=== PATIENT | male | born 1950 | race Caucasian/White ===

== ENCOUNTER 2020-10-14 21:00 | Inpatient (IN) | payer MEDICARE, OTHER, SELFPAY ==
--- NOTE | ~2020-10-14 | XR_ITS ---
EXAMINATION: XR chest 2V EXAM DATE: 10/14/2020 21:52 INDICATION: Left anterior chest pain. History of myocardial infarction and stent placements. TECHNIQUE: Frontal and lateral projections of the chest obtained and reviewed. Comparison is made to prior examination from 07/16/2013. FINDINGS: The lungs are clear. There are no pleural effusions. The cardiomediastinal silhouette is within normal limits. There is no pneumothorax suspected. The bones and soft tissues are unremarkab le. IMPRESSION: No acute cardiopulmonary findings. Reviewed, dictated and finalized at location A.
[2020-10-14 20:58] VITALS: BP 135/75; PULSE 80; RESP 17; TEMP 37.6; O2SAT 97
--- NOTE | 2020-10-14 21:02 | ECG_ITS ---
Measurements Intervals [place] Rate: 74 P: 12 MD: 175 QRS: 56 QRSD: 113 T: -1 QT: 391 QTc: 434 Interpretive Statements SINUS RHYTHM INCOMPLETE RIGHT BUNDLE BRANCH BLOCK INFERIOR INFARCT, AGE INDETERMINATE BASELINE ARTIFACT- I, AVL ABNORMAL ECG Electronically Signed On 10-15-2020 6:17:16 CDT by Kuldip Odom D.O.
--- NOTE | 2020-10-14 21:15 | PC.NURSE ---
pt was given 2 nitro,s sl and nitro paste with 324 mg aspirin. pt arrived pain free.
[2020-10-14 21:25] LABS: Basophils Percent Auto 0.7 % (0.2-1.2); Eosinophils Absolute Auto 0.3 K/mm3 (0-0.3); Eosinophils Percent Auto 5.5 % (0-4.4); Hematocrit 40.4 % (42.0-52.0); Hemoglobin 13.7 g/dL (14.0-18.0); Lymphocytes Absolute Auto 1.33 K/mm3 (0.9-3.2); Lymphocytes Percent Auto 29.4 % (18.3-44.2); Mean Corpuscular HGB Conc 33.9 g/dl (32-36); Mean Corpuscular Hemoglobin 29.1 pg (26-34); Mean Corpuscular Volume 85.8 fl (80-100); Mean Platelet Volume 8.7 fl (7.4-10.4); Monocytes Absolute Auto 0.4 K/mm3 (0.1-0.6); Monocytes Percent Auto 9.3 % (2.6-8.5); Neutrophils Absolute Auto 2.5 K/mm3 (1.3-6.7); Neutrophils Percent Auto 55.1 % (45.5-73.1); Platelet Count Result 235 k/mm3 (150-375); Red Blood Count 4.71 M/mm3 (4.6-6.20); Red Cell Distribution Width 12.5 % (11.5-14.5); White Blood Count 4.5 K/mm3 (4.5-10.0)
[2020-10-14 21:34] LABS: Prothrombin Time 13.3 Seconds (11.1-14.7)
[2020-10-14 21:35] LABS: Partial Thromboplastin Time 27.2 SECONDS (22.3-36.8)
[2020-10-14 21:41] LABS: Anion Gap 11 mmol/L (8-16); Blood Urea Nitrogen 20 mg/dL (9-20); Calcium 9.1 mg/dL (8.4-10.2); Carbon Dioxide 27 mmol/L (22-30); Chloride 101 mmol/L (98-107); Estimated CRCL calculation 76 ml/min; Estimated Glomerular Filt Rate > 60; Glucose 135 mg/dL (75-110); Potassium 2.8 mmol/L (3.4-5.0); Sodium 139 mmol/L (137-145)
[2020-10-14 21:48] LABS: Troponin I < 0.012 ng/mL (0.000-0.034)
[2020-10-14] MEDS: KCL 20 MEQ/SW 100 ML 100 ML 50 MEQ IVPB (22:40)
[2020-10-14] MEDS: SODIUM CHLORIDE 0.9% IV 500 ML 250 ML (22:40)
[2020-10-14 22:46] VITALS: BP 115/63; PULSE 79; RESP 22; O2SAT 95
[2020-10-14] MEDS: POTASSIUM CHLORIDE 20 MEQ PACKET (FOR LIQUID) 40 MEQ PO (22:46)
--- NOTE | 2020-10-14 23:02 | ED.GENADULT ---
HPI - General Adult General Chief complaint: Chest Pain Stated complaint: CP Time Seen by Provider: 10/14/20 21:08 History of Present Illness HPI narrative: Patient is a 70-year-old gentleman who presents the emergency department chief complaint of chest pain. Patient reports that he has history of cardiac disease had stents placed in 2004 at [place] and also had recent stents placed when he was in [place]. Patient states that he has had to use nitroglycerin sublingually several times recently and tonight started having discomfort in his mid chest radiating to his arm the patient took sublingual nitroglycerin x2 doses the patient had nitro paste placed by EMS prior to arrival and received aspirin prior to arrival. The patient reports he is also been having some episodes of palpitations Related Data Home Medications Medication Instructions Recorded Confirmed Aspir-Low 81 mg PO DAILY 09/19/20 09/19/20 atorvastatin 80 mg PO HS 09/19/20 09/19/20 clonazepam 0.5 mg PO HS 09/19/20 09/19/20 epinephrine [Epi E-Z Pen] 09/19/20 febuxostat 40 mg PO DAILY 09/19/20 09/19/20 hydrochlorothiazide 50 mg PO DAILY 09/19/20 09/19/20 losartan 100 mg PO DAILY 09/19/20 09/19/20 omeprazole 40 mg PO DAILY 09/19/20 09/19/20 trazodone 50 mg PO HS PRN 09/19/20 09/19/20 Allergies Allergy/AdvReac Type Severity Reaction Status Date / Time bee venom protein (honey bee) Allergy Swelling Verified 09/19/20 09:09 Review of Systems Review of Systems: Narrative: A 10 system review of systems was completed on the patient and is negative except for what is stated in the HPI. Nursing and ancillary documentation was reviewed. [facility] Family History Family History Father Cerebrovascular accident Sibling Hypertension Acute myocardial infarction Mother Aplastic anemia Exam Narrative: Exam Narrative: GENERAL: Well-appearing, well-nourished, and in no acute distress. HEAD: Normocephalic, atraumatic. EYES: PERRLA and EOMI. ENT: Nares clear, no rhinorrhea or epistaxis. Mucous membranes moist. NECK: Supple. CHEST: Clear to auscultation. No respiratory distress. HEART: Regular rate and rhythm. No murmur heard. Normal peripheral pulses. ABDOMEN: Soft, nontender, nondistended, normal active bowel sounds. EXTREMITIES: Normal range of motion. No edema. SKIN: Warm, dry, no rash. NEURO: No focal deficits. Alert and oriented x3. PSYCH: Normal mood and affect. Course Vital Signs Vital signs: Vital Signs Temperature 37.6 C H 10/14/20 20:58 Pulse Rate 80 10/14/20 20:58 Respiratory Rate 17 10/14/20 20:58 Blood Pressure 135/75 10/14/20 20:58 Pulse Oximetry 97 10/14/20 20:58 Temperature 37.6 C H 10/14/20 20:58 Pulse Rate 79 10/14/20 22:46 Respiratory Rate 22 H 10/14/20 22:46 Blood Pressure 115/63 10/14/20 22:46 Pulse Oximetry 95 10/14/20 22:46 Medical Decision Making Vital Signs Vital Signs: Vital Signs Temperature 37.6 C H 10/14/20 20:58 Pulse Rate 80 10/14/20 20:58 Respiratory Rate 17 10/14/20 20:58 Blood Pressure 135/75 10/14/20 20:58 Pulse Oximetry 97 10/14/20 20:58 Temperature 37.6 C H 10/14/20 20:58 Pulse Rate 79 10/14/20 22:46 Respiratory Rate 22 H 10/14/20 22:46 Blood Pressure 115/63 10/14/20 22:46 Pulse Oximetry 95 10/14/20 22:46 Lab Data Result diagrams: 10/14/20 21:18 10/14/20 21:18 Labs: Lab Results 10/14/20 10/14/20 10/14/20 Range/Units 21:18 21:18 21:18 WBC 4.5 (4.5-10.0) K/mm3 RBC 4.71 (4.6-6.20) M/mm3 Hgb 13.7 L (14.0-18.0) g/dL Hct 40.4 L (42.0-52.0) % MCV 85.8 (80-100) fl MCH 29.1 (26-34) pg MCHC 33.9 (32-36) g/dl RDW 12.5 (11.5-14.5) % Plt Count 235 (150-375) k/mm3 MPV 8.7 (7.4-10.4) fl Immature Gran % (Auto) 0.0 (0-0.5) % Neut % (Auto) 55.1 (45.5-73.1) % Lymph % (Auto) 29.4 (18.3-44.2)
[2020-10-15] VITALS (19 sets, daily range): BP systolic 105–153; BP diastolic 36–77; PULSE 61–98; RESP 12–26; TEMP 36.1–36.9; O2SAT 94–99
--- NOTE | 2020-10-15 01:14 | ADMGEN ---
This patient, Francisco Javier Burrows, was admitted to IMU Room 201-01. Patient/family oriented to hospital policies and general routines including ID bracelet, bed and alarms, visiting hours, pain management, procedures, bathroom and other care routines, personal items, smoking policy, room service/diet, and visiting hours. Information on how to activate the Rapid Response Team has been discussed. Patient/Family are encouraged to report perceived risks to care and to ask questions if they do not understand what they are told or what they should do.
[2020-10-15 01:32] LABS: Troponin I < 0.012 ng/mL (0.000-0.034)
[2020-10-15 03:16] LABS: Basophils Percent Auto 0.7 % (0.2-1.2); Eosinophils Absolute Auto 0.2 K/mm3 (0-0.3); Eosinophils Percent Auto 5.1 % (0-4.4); Hematocrit 37.4 % (42.0-52.0); Hemoglobin 12.6 g/dL (14.0-18.0); Immature Granulocyte Absolute 0.01 K/mm3 (0.00-0.031); Immature Granulocyte Percent A 0.2 % (0-0.5); Lymphocytes Absolute Auto 1.48 K/mm3 (0.9-3.2); Lymphocytes Percent Auto 32.7 % (18.3-44.2); Mean Corpuscular HGB Conc 33.7 g/dl (32-36); Mean Corpuscular Hemoglobin 29.2 pg (26-34); Mean Corpuscular Volume 86.8 fl (80-100); Mean Platelet Volume 8.9 fl (7.4-10.4); Monocytes Absolute Auto 0.5 K/mm3 (0.1-0.6); Monocytes Percent Auto 10.6 % (2.6-8.5); Neutrophils Absolute Auto 2.3 K/mm3 (1.3-6.7); Neutrophils Percent Auto 50.7 % (45.5-73.1); Platelet Count Result 235 k/mm3 (150-375); Red Blood Count 4.31 M/mm3 (4.6-6.20); Red Cell Distribution Width 12.6 % (11.5-14.5); White Blood Count 4.5 K/mm3 (4.5-10.0)
[2020-10-15 03:20] LABS: Anion Gap 6 mmol/L (8-16); Blood Urea Nitrogen 20 mg/dL (9-20); Calcium 8.8 mg/dL (8.4-10.2); Carbon Dioxide 32 mmol/L (22-30); Chloride 102 mmol/L (98-107); Estimated CRCL calculation 64 ml/min; Estimated Glomerular Filt Rate 60; Glucose 116 mg/dL (75-110); Potassium 3.3 mmol/L (3.4-5.0); Sodium 140 mmol/L (137-145)
[2020-10-15 03:37] LABS: Troponin I < 0.012 ng/mL (0.000-0.034)
--- NOTE | 2020-10-15 03:47 | PM.IMHP ---
H&P: HPI History of Present Illness Date/Time: 10/15/20 03:47 Chief Complaint: Chest pain Narrative: This is a 70-year-old male with past medical history significant for coronary artery disease status post stent placement roughly a month ago, hypertension, dyslipidemia, gout. Patient presented to the emergency room after he had precordial chest pain with known in sensation of his left arm known radiating to jaw or shoulder it was oppressive in quality patient took nitroglycerin but did not go away and took a 2nd nitroglycerin and decided to come to the emergency room. Upon arrival to the emergency room patient's pain was rated at 4/10. Preliminary workup was unremarkable ECG was without acute changes as well as initial troponin. Patient has been in his usual state of health he denies any syncope near syncope dizziness lightheadedness had had some palpitations, no PND no orthopnea no shortness of breath no cough no sputum production no fevers no rigors no chills. Chest x-ray was unremarkable. BMP was significant for potassium was 2.8. Review of Systems Review of Systems: Narrative: Chest pain Constitutional: Constitutional: Denies chills, Denies fatigue, Denies fever(s) and Denies weakness Eyes: Eyes: Denies change in vision ENT: Denies nasal congestion, Denies nasal discharge and Denies nasal obstruction Cardiovascular: Cardiovascular: Reports chest pain, Reports chest pain at rest, Denies radiating jaw, neck or arm pain, Reports palpitations, Denies dyspnea on exertion and Denies paroxysmal nocturnal dyspnea Respiratory: Respiratory: Denies cough Gastrointestinal: Gastrointestinal: Denies nausea and Denies vomiting Genitourinary: Genitourinary: Reports no additional male genitourinary complaints Musculoskeletal: Musculoskeletal: Denies arthralgias, Denies joint swelling, Denies muscle cramps and Denies muscle weakness Integumentary/Breasts: Skin/Breast: Reports system reviewed and no additional complaints, except as docu Neurologic: Reports system reviewed and no additional complaints, except as documented Psychiatric: Psychiatric: Reports no additional psychiatric complaints Endocrine: Endocrine: Reports no additional endocrine complaints Hematologic/Lymphatic: Hematologic/Lymphatic: Reports no additional hematologic/lymphatic complaints Allergic/Immunologic: Allergic/Immunologic: Reports no additional allergic/immunologic complaints [facility] Family History Family History (Updated 10/15/20 @ 00:55 by Dia Perez RN) Father Cerebrovascular accident Sibling Acute myocardial infarction Hypertension Prostate carcinoma Mother Aplastic anemia Social History Social History Smoking status: Never smoker Alcohol intake: current Drinks per week: 2 Substance use: never Spiritual care concerns: Yes (Samantha) Meds Home Medications and Allergies Home Medications Medication Instructions Recorded Confirmed Type Aspir-Low 81 mg PO DAILY 09/19/20 10/15/20 History atorvastatin 80 mg PO HS 09/19/20 10/15/20 History clonazepam 0.5 mg PO HS 09/19/20 10/15/20 History epinephrine [Epi E-Z Pen] 0.3 mg IM PRN PRN 09/19/20 10/15/20 History febuxostat 40 mg PO DAILY 09/19/20 10/15/20 History hydrochlorothiazide 50 mg PO DAILY 09/19/20 10/15/20 History losartan 100 mg PO DAILY 09/19/20 10/15/20 History omeprazole 40 mg PO DAILY PRN 09/19/20 10/15/20 History trazodone 50 mg PO HS PRN 09/19/20 10/15/20 History clopidogrel 75 mg PO DAILY 10/15/20 10/15/20 History Allergies Allergy/AdvReac Type Severity Reaction Status Date / Time bee venom protein (honey bee) Allergy Swelling Verified 09/19/20 09:09 Vital Signs Vital Signs - 24 hr 10/14/20 20:58 10/14/20 22:46 10/15/20 00:26 Temperature 99.7 F H Pulse Rate 80 79 75 Respiratory Rate 17 22 H 20 Blood Pressure 135/75 115/63 105/54 L Pulse Oximetry 97 95 99 10/15/20 01:03 10/15/20 0
[2020-10-15] MEDS: CLOPIDOGREL BISULFATE 75 MG TABLET PO (11:56)
[2020-10-15] MEDS: FEBUXOSTAT 40 MG TABLET PO (11:56)
[2020-10-15] MEDS: hydroCHLOROthiazide 25 MG TABLET 50 MG PO (11:56)
[2020-10-15] MEDS: LOSARTAN POTASSIUM 100 MG TABLET PO (11:56)
[2020-10-15] MEDS: POTASSIUM CHLORIDE 20 MEQ TABLET 40 MEQ PO ×2 (11:57→13:37)
[2020-10-15] MEDS: ENOXAPARIN 40 MG/0.4 ML SYRINGE SUB-Q (12:01)
--- NOTE | 2020-10-15 12:24 | PM.CNCAR ---
Assessment and Plan Assessment and plan (1) Hypertension: Code(s): I10 - Essential (primary) hypertension Status: Acute Assessment and Plan: At goal (2) Coronary artery disease: Code(s): I25.10 - Atherosclerotic heart disease of [place] coronary artery without angina pectoris Status: Acute Assessment and Plan: Multiple stents to the LAD. It sounds as if he has had 7 LAD stents. Check a 2D echocardiogram Doppler (3) Unstable angina: Code(s): I20.0 - Unstable angina Status: Acute Assessment and Plan: Patient states that this is very reminiscent of what he had at the time of his myocardial infarction in 2013. Will treat with Enoxaparin 1 milligram/kilogram subcu x1. Resume low-dose metoprolol 6.25 mg p.o. b.i.d.. Continue aspirin, statin, clopidogrel, p.r.n. nitroglycerin. Will keep NPO after midnight and proceed with coronary angiogram to define his coronary anatomy to ensure there is no issues with his multiple stents that were placed. He may need long-term antianginal medication or possibly a simple resumption of low-dose beta-gadiel that had been recently stopped. Will keep NPO after midnight. DC Lexiscan which is ordered (4) Chest pain: Qualifiers: Chest pain type: unspecified Qualified Code(s): R07.9 - Chest pain, unspecified Code(s): R07.9 - Chest pain, unspecified Status: Acute Assessment and Plan: Anginal (5) Hypokalemia: Code(s): E87.6 - Hypokalemia Status: Acute Assessment and Plan: Will provide an additional 40 mEq of potassium chloride x1 orally (6) Tachycardia: Code(s): R00.0 - Tachycardia, unspecified Status: Acute Assessment and Plan: His recent episodes of tachycardia likely related to beta-gadiel withdrawal. History of Present Illness History of Present Illness Consult date/time: 10/15/20 12:24 Requesting physician: Kinga Velazquez MD Consult reason: chest pain Reason For Visit: Chest Pain, Hypokalemia Narrative: 10/15/2020 date of service: History patient is a 70-year-old male has history of coronary disease. He has had multiple stents to the LAD. In 2013 he had a myocardial infarction and was transferred to [facility] where Dr. Zhu put in 4 stents in his LAD he states. I do not have the exact details of this catheterization at this time. He has been following with him for the past several years. While visiting his daughter back in August in [place] he had chest pain again. He went into hospital and 3 more stents were placed to his LAD. He then came back home and had been feeling relatively well. Because of some bradycardia with heart rate around 50, his metoprolol was stopped. He was on low-dose metoprolol 12.5 mg p.o. b.i.d.. Since then though he has noticed his heart rate has been a bit more elevated. He has had 3 episodes usually of an evening which shows heart rate will be in the 120s. He has split his 12.5 mg metoprolol tartrate dose in half and he took 6.25 mg on 3 separate occasions which did improve his heart rate significantly and back down to in the 70s. Two days ago he had an episode of what he considers to be angina. His anginal pain was located in his anterior chest and he took 1 nitroglycerin which did relieve his symptoms. He was not as concerned about that episode but yesterday while driving his car he had a much more severe chest pain which reminded him very much of his myocardial infarction pain. His arm started become heavy and numb. He described the pain is sharp and constant but would wax and wane. He took a nitroglycerin which did not help. The 2nd nitroglycerin though did help. EMS was called and they proceeded to put nitroglycerin paste on him and his residual chest pain went away. He has had not had any chest pain since. He denies any recent syncope, paroxysmal nocturnal dyspnea, orthopnea, edema, palpitations. He has ruled out for myocardia
[2020-10-15] MEDS: ASPIRIN 81 MG CHEWABLE TABLET PO (13:37)
[2020-10-15] MEDS: METOPROLOL TARTRATE 6.25 MG TABLET PO ×2 (13:37→20:39)
--- NOTE | 2020-10-15 14:10 | PM.IMPN ---
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 [facility] 10/15/20 14:10 Patient is 70-year-old male with significant history coronary artery disease he had initial IA in 2013 and had 4 stents in his LAD he was doing reasonably well this August 03, 2020 patient was in [place] visiting [facility] and developed chest was taken to the [facility] and had a catheterization and had four more stents placed, patient presented to emergency depart with chest pain radiating to left arm and his left side of the neck described similar to his initial IA in 2013, currently 3 sets of cardiac enzymes are negative and there is no significant changes on EKG, patient is seen by Cardiology because of patient significant coronary artery disease and recent IA in August of 2020 hadoop architect recommending cardiac catheterization further evaluation will follow-up and further recommendation to follow. (2) Hypokalemia: Code(s): E87.6 - Hypokalemia Status: Acute Assessment and Plan: Replace as needed Repeated within normal limits (3) Coronary artery disease: Code(s): I25.10 - Atherosclerotic heart disease of [place] coronary artery without angina pectoris Status: Acute Assessment and Plan: Restart home meds Supportive care (4) Hypertension: Code(s): I10 - Essential (primary) hypertension Status: Acute Assessment and Plan: Stable Restart home med Continue to monitor Subjective Date/time seen: 10/15/20 14:10 Patient is 70-year-old male with significant history coronary artery disease he had initial IA in 2013 and had 4 stents in his LAD he was doing reasonably well this August 03, 2020 patient was in [place] visiting grandchildren and developed chest was taken to the [facility] and had a catheterization and had four more stents placed, patient presented to emergency depart with chest pain radiating to left arm and his left side of the neck described similar to his initial IA in 2013, currently 3 sets of cardiac enzymes are negative and there is no significant changes on EKG, patient is seen by Cardiology because of patient significant coronary artery disease and recent IA in August of 2020 hadoop architect recommending cardiac catheterization further evaluation will follow-up and further recommendation to follow. Review of Systems Review of Systems: All systems reviewed & are unremarkable except as noted in HPI and below Exam Narrative: Exam Narrative: Patient is comfortable, NAD HEENT: eyes are clear and none icteric LUNGS:CTA HEART: RR S1S2 ABD: BS+, Soft and nontender Lower extremities: no edema SKIN: nonjaundiced Neuro: grossly intact. Objective Data Vital Signs Vital Signs: Vital Signs - 24 hr 10/14/20 20:58 10/14/20 22:46 10/15/20 00:26 Temperature 99.7 F H Pulse Rate 80 79 75 Respiratory Rate 17 22 H 20 Blood Pressure 135/75 115/63 105/54 L Pulse Oximetry 97 95 99 10/15/20 01:03 10/15/20 01:11 10/15/20 04:00 Temperature 96.9 F L 96.9 F L 97.4 F L Pulse Rate 77 77 61 Respiratory Rate 16 16 16 Blood Pressure 122/70 122/70 107/36 L Pulse Oximetry 97 97 99 10/15/20 06:00 10/15/20 08:00 10/15/20 12:00 Temperature 98.3 F 97.7 F Pulse Rate 70 74 76 Respiratory Rate 12 16 Blood Pressure 127/77 153/64 H Pulse Oximetry 96 97 10/15/20 13:37 Temperature Pulse Rate 70 Respiratory Rate Blood Pressure Pulse Oximetry Intake/Output Intake/Output: Intake & Output 10/12/20 10/13/20 10/14/20 10/15/20 23:59 23:59 23:59 23:59 Intake Total 1120 Output Total 900 Balance 220 Meds/Results Medicat
[2020-10-15] MEDS: ENOXAPARIN 120 MG/0.8 ML SYRINGE SUB-Q (18:06)
[2020-10-15] MEDS: ATORVASTATIN 40 MG TABLET 80 MG PO (20:36)
[2020-10-15] MEDS: clonazePAM (*CRX) 0.5 MG TABLET PO (20:36)
[2020-10-15] MEDS: traZODone HCL 50 MG TABLET PO (22:31)
[2020-10-16] VITALS (20 sets, daily range): BP systolic 120–145; BP diastolic 51–83; PULSE 56–91; RESP 15–23; TEMP 36.3–36.8; O2SAT 95–99
[2020-10-16 05:33] LABS: Hematocrit 37.1 % (42.0-52.0); Hemoglobin 12.3 g/dL (14.0-18.0); Mean Corpuscular HGB Conc 33.2 g/dl (32-36); Mean Corpuscular Hemoglobin 28.6 pg (26-34); Mean Corpuscular Volume 86.3 fl (80-100); Mean Platelet Volume 9.2 fl (7.4-10.4); Platelet Count Result 212 k/mm3 (150-375); Red Cell Distribution Width 12.5 % (11.5-14.5); White Blood Count 4.6 K/mm3 (4.5-10.0)
[2020-10-16 05:47] LABS: Anion Gap 8 mmol/L (8-16); Blood Urea Nitrogen 20 mg/dL (9-20); Calcium 9.2 mg/dL (8.4-10.2); Carbon Dioxide 31 mmol/L (22-30); Chloride 102 mmol/L (98-107); Estimated CRCL calculation 69 ml/min; Estimated Glomerular Filt Rate 60; Glucose 104 mg/dL (75-110); Magnesium 1.9 mg/dL (1.6-2.3); Potassium 3.5 mmol/L (3.4-5.0); Sodium 141 mmol/L (137-145)
[2020-10-16] MEDS: FEBUXOSTAT 40 MG TABLET PO (09:02)
[2020-10-16] MEDS: CLOPIDOGREL BISULFATE 75 MG TABLET PO (09:02)
[2020-10-16] MEDS: LOSARTAN POTASSIUM 100 MG TABLET PO (09:02)
[2020-10-16] MEDS: METOPROLOL TARTRATE 6.25 MG TABLET PO (09:02)
[2020-10-16] MEDS: ASPIRIN 81 MG CHEWABLE TABLET PO (09:02)
--- NOTE | 2020-10-16 10:21 | PM.IMPN ---
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 [facility] 10/16/20 10:10/15Patient is 70-year-old male with significant history coronary artery disease he had initial ND in 2013 and had 4 stents in his LAD he was doing reasonably well this August 03, 2020 patient was in [place] visiting grandchildren and developed chest was taken to the [facility] and had a catheterization and had four more stents placed, patient presented to emergency depart with chest pain radiating to left arm and his left side of the neck described similar to his initial ND in 2013, currently 3 sets of cardiac enzymes are negative and there is no significant changes on EKG, patient is seen by Cardiology because of patient significant coronary artery disease and recent ND in August of 2020 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 10/16 today patient sitting in the chair, denies any chest pain or shortness of breath palpitation, he is scheduled for cardiac catheterization later today will follow-up further recommendation to follow. (2) Hypokalemia: Code(s): E87.6 - Hypokalemia Status: Acute Assessment and Plan: Replace as needed Repeated within normal limits (3) Coronary artery disease: Code(s): I25.10 - Atherosclerotic heart disease of [place] coronary artery without angina pectoris Status: Acute Assessment and Plan: Restart home meds Supportive care (4) Hypertension: Code(s): I10 - Essential (primary) hypertension Status: Acute Assessment and Plan: Stable Restart home med Continue to monitor Subjective Date/time seen: 10/16/20 10:10/15Patient is 70-year-old male with significant history coronary artery disease he had initial ND in 2013 and had 4 stents in his LAD he was doing reasonably well this August 03, 2020 patient was in [place] visiting grandchildren and developed chest was taken to the [facility] and had a catheterization and had four more stents placed, patient presented to emergency depart with chest pain radiating to left arm and his left side of the neck described similar to his initial ND in 2013, currently 3 sets of cardiac enzymes are negative and there is no significant changes on EKG, patient is seen by Cardiology because of patient significant coronary artery disease and recent ND in August of 2020 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 10/16 today patient sitting in the chair, denies any chest pain or shortness of breath palpitation, he is scheduled for cardiac catheterization later today will follow-up further recommendation to follow. Review of Systems Review of Systems: All systems reviewed & are unremarkable except as noted in HPI and below Exam Narrative: Exam Narrative: Patient is comfortable, NAD HEENT: eyes are clear and none icteric LUNGS:CTA HEART: RR S1S2 ABD: BS+, Soft and nontender Lower extremities: no edema SKIN: nonjaundiced Neuro: grossly intact. Objective Data Vital Signs Vital Signs: Vital Signs - 24 hr 10/15/20 12:00 10/15/20 13:37 10/15/20 14:00 Temperature 97.7 F Pulse Rate 70 70 89 Respiratory Rate 16 Blood Pressure 153/64 H Pulse Oximetry 97 10/15/20 16:00 10/15/20 17:21 10/15/20 18:00 Temperature 97.9 F Pulse Rate 69 66 Respiratory Rate 16 Blood Pressure 145/77 H Pulse Oximetry 97 97 10/15/20 19:59 10/15/20 20:00 10/15/20 20:39 Temperature 98.2 F Pulse Rate 63 68 Respiratory Rate 20
--- NOTE | 2020-10-16 10:39 | WPDMODSED ---
Moderate Sedation Note-Pt Data Patient Data Diagnosis: Coronary artery disease with previous PCI to the LAD. Records of these procedures are not available to me, remote stenting of the LAD and recent stenting of the LAD elsewhere Present Complaint: Chest pain Procedure to be performed/Plan: Follow-up coronary angiogram Allergies Allergy/AdvReac Type Severity Reaction Status Date / Time bee venom protein (honey bee) Allergy Swelling Verified 09/19/20 09:09 Home Medications Medication Instructions Recorded Confirmed Type Aspir-Low 81 mg PO DAILY 09/19/20 10/15/20 History atorvastatin 80 mg PO HS 09/19/20 10/15/20 History clonazepam 0.5 mg PO HS 09/19/20 10/15/20 History epinephrine [Epi E-Z Pen] 0.3 mg IM PRN PRN 09/19/20 10/15/20 History febuxostat 40 mg PO DAILY 09/19/20 10/15/20 History hydrochlorothiazide 50 mg PO DAILY 09/19/20 10/15/20 History losartan 100 mg PO DAILY 09/19/20 10/15/20 History omeprazole 40 mg PO DAILY PRN 09/19/20 10/15/20 History trazodone 50 mg PO HS PRN 09/19/20 10/15/20 History clopidogrel 75 mg PO DAILY 10/15/20 10/15/20 History Current Medications: Active Medications Aspirin (Aspirin 81 Mg Chewable Tablet) 81 mg PO DAILY@0800 ON LICENSE OF [facility] Last Admin: 10/16/20 09:02 Dose: 81 mg Documented by: Atorvastatin Calcium (Atorvastatin 40 Mg Tablet) 80 mg PO [facility] Last Admin: 10/15/20 20:36 Dose: 80 mg Documented by: Clonazepam (Clonazepam (*Crx) 0.5 Mg Tablet) 0.5 mg PO [facility] Last Admin: 10/15/20 20:36 Dose: 0.5 mg Documented by: Clopidogrel Bisulfate (Clopidogrel Bisulfate 75 Mg Tablet) 75 mg PO DAILY ON LICENSE OF [facility] Last Admin: 10/16/20 09:02 Dose: 75 mg Documented by: Febuxostat (Febuxostat 40 Mg Tablet) 40 mg PO DAILY ON LICENSE OF [facility] Stop: 11/14/20 09:01 Last Admin: 10/16/20 09:02 Dose: 40 mg Documented by: Hydrochlorothiazide (Hydrochlorothiazide 25 Mg Tablet) 50 mg PO DAILY ON LICENSE OF [facility] Last Admin: 10/15/20 11:56 Dose: 50 mg Documented by: Losartan Potassium (Losartan Potassium 100 Mg Tablet) 100 mg PO DAILY ON LICENSE OF [facility] Last Admin: 10/16/20 09:02 Dose: 100 mg Documented by: Metoprolol Tartrate (Metoprolol Tartrate 6.25 Mg Tablet) 6.25 mg PO Q12HR TAY Last Admin: 10/16/20 09:02 Dose: 6.25 mg Documented by: Pantoprazole Sodium (Pantoprazole 40 Mg Tablet) 40 mg PO DAILY PRN PRN Reason: Heartburn Trazodone HCl (Trazodone Hcl 50 Mg Tablet) 50 mg PO HS PRN PRN Reason: Sleep Last Admin: 10/15/20 22:31 Dose: 50 mg Documented by: Sedation/Anesthesia: No previous sedation/anesthesia problems (including family history). [facility] Past Medical History Medical History (Updated 10/15/20 @ 12:31 by Luca Saldana MD) Coronary artery disease Family History Family History Father Cerebrovascular accident Sibling Acute myocardial infarction Hypertension Prostate carcinoma Mother Aplastic anemia Social History Social History Smoking status: Never smoker Alcohol intake: current Drinks per week: 2 Substance use: never Gender identity (if verbalized by the patient): Male Spiritual care concerns: Yes (Episcopal) Mod Sed Physical Exam Physical Exam Pre Procedural Exam: Normal: Throat, Airway, Lungs, Heart Size, Heart Rate, Heart Rhythm, Neuro Exam, Abdomen and Extremities and Variation: Appearance (Obese white male in no apparent distress) Hours since solid foods: 12 Hours since liquid intake: 12 Internal Medicine - PN: Obj Da Vital Signs Vital Signs: Vital Signs - 24 hr 10/15/20 12:00 10/15/20 13:37 10/15/20 14:00 Temperature 36.5 C Pulse Rate 70 70 89 Respiratory Rate 16 Blood Pressure 153/64 H Pulse Oximetry 97 10/15/20 16:00 10/15/20 17:21 10/15/20 18:00 Temperature 36.6 C Pulse Rate 69 66 Respiratory Rate 16 Blood Pressure 145/77 H Pulse Oximetry 97 97 10/15/20 19:59 10/15/20 20:00 10/15/20 20:39 Temperature 36.8 C Pulse R
--- NOTE | 2020-10-16 11:41 | WPDCARDPROC ---
Cardiac Cath Procedure Note Date of procedure:: 10/16/20 Performing physician:: Mike Peterson MD Indication:: Coronary artery disease with recent and remote history of PCI to the LAD chest pain Brief clinical history:: this is a 70-year-old man who reports a history of coronary disease with interventional revascularization in the remote past to the left anterior descending and then recently in [place] also to the LAD because of recurrent chest pain. None of this care was delivered at this hospital. He entered the hospital over the weekend with some chest pain raising concern and her prompting recommendation for a follow-up angiogram. Biomarkers are negative. Procedure Procedure performed:: Coronary angiography left ventriculography Angio-Seal to right femoral artery Sedation/Medication given:: fentanyl 50 mg Versed 2 mg case start time 11:13 a.m. case end time 11:39 a.m. sedation provided by Philly Cardenas RN, trained observer Access site:: right femoral artery Estimated blood loss:: 15-20 cc Procedure note:: patient was brought to the cardiac catheterization lab in postabsorptive state where the right femoral triangle was prepared and draped in the usual fashion. Anesthesia was provided with 1% lidocaine infiltrated locally. Using the modified Seldinger technique a 5 [place] was placed common femoral artery. After this I used a 5 [place] JR4 catheter to engage and inject the right coronary artery after this I used a 5 [place] FL4 catheter to engage and inject the left coronary artery. after this I used a 5 [place] angled pigtail catheter to document left-sided hemodynamics and to injected left ventriculogram in the are AO projection. Following this the case was terminated angiogram was done of the femoral artery through the sheath and then I deployed a 6 [place] Angio-Seal device at the femoral puncture site with a good hemostatic result. The patient tolerated the procedure well there were no apparent complications. 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 Findings:: Hemodynamics: Central aortic pressure is 142 68 left ventricle 142/5 end-diastolic 18 there is no systolic gradient on pullback across the aortic valve. Left ventricle: The LV is normal in size all segments contract appropriately the global ejection fraction is 60% without regional wall motion abnormality. The left main coronary artery is widely patent the left anterior descending is a large caliber vessel extending down to and around the apex providing a significant amount of flow to the inferior segment as well. The LAD has visible stent. In the proximal 1/3 of the artery and then another stent in the mid to distal segment of the artery. There are no significant stenoses in the LAD the vessel is widely patent with KASEY 3 flow down to and around the apex and to the apical inferior segment. There are minimal luminal irregularities in the LAD but no angiographically significant disease. Circumflex is a moderate caliber artery giving rise to a bifurcating OM branch and then a posterior branch. The inferior most portion of the bifurcating OM has visible stent material in it with no loss of lumen and good KASEY 3 flow in the vessel. There are minimal luminal irregularities in these but marginal branches but no functionally significant disease is seen the right coronary artery is large in caliber and dominant to the posterior circulation the proximal RCA has Prieb modest atherosclerosis with about 30% stenosis. Remainder of the RCA angiographically is normal. Conclusion:: 1. Coronary artery disease with previous PCI to the proximal and mid LAD as well as to the inferior more of the 2 portions of a bifurcating OM branch. All these previously deployed stents are patent as detailed above there are minimal luminal irregularities seen in all the vessels but no flow-limiting disease is identified. 2. Normal left ventricular systolic
[2020-10-16] MEDS: hydroCHLOROthiazide 25 MG TABLET 50 MG PO (13:50)
[2020-10-16] MEDS: POTASSIUM CHLORIDE 20 MEQ TABLET 40 MEQ PO (14:15)
--- NOTE | 2020-10-16 15:26 | PM.DS ---
DS: Admitting Diagnosis Admitting Diagnosis Admitting Diagnosis: chest pain DS: Discharge Diagnosis Discharge Diagnosis (1) Chest pain: Qualifiers: Chest pain type: unspecified Qualified Code(s): R07.9 - Chest pain, unspecified Code(s): R07.9 - Chest pain, unspecified Status: Acute Assessment and Plan: Patient has been placed on observation Nitroglycerin as needed Resume home meds Serial troponins Supportive care Patient's warranty coordinator is at [facility] 10/16/20 10:21 10/15Patient is 70-year-old male with significant history coronary artery disease he had initial [place] in 2013 and had 4 stents in his LAD he was doing reasonably well this August 03, 2020 patient was in [place] visiting grandchildren and developed chest was taken to the [facility] and had a catheterization and had four more stents placed, patient presented to emergency depart with chest pain radiating to left arm and his left side of the neck described similar to his initial [place] in 2013, currently 3 sets of cardiac enzymes are negative and there is no significant changes on EKG, patient is seen by Cardiology because of patient significant coronary artery disease and recent [place] in August of 2020 warranty coordinator recommending cardiac catheterization further evaluation will follow-up and further recommendation to follow. 10/16 today patient sitting in the chair, denies any chest pain or shortness of breath palpitation, he is scheduled for cardiac catheterization later today will follow-up further recommendation to follow. (2) Hypokalemia: Code(s): E87.6 - Hypokalemia Status: Acute Assessment and Plan: Replace as needed Repeated within normal limits (3) Coronary artery disease: Code(s): I25.10 - Atherosclerotic heart disease of [place] coronary artery without angina pectoris Status: Acute Assessment and Plan: Restart home meds Supportive care (4) Hypertension: Code(s): I10 - Essential (primary) hypertension Status: Acute Assessment and Plan: Stable Restart home med Continue to monitor DS: Summary Hospital Course Reason for hospitalization: Chief Complaint: Chest pain Narrative: This is a 70-year-old male with past medical history significant for coronary artery disease status post stent placement roughly a month ago, hypertension, dyslipidemia, gout. Patient presented to the emergency room after he had precordial chest pain with known in sensation of his left arm known radiating to jaw or shoulder it was oppressive in quality patient took nitroglycerin but did not go away and took a 2nd nitroglycerin and decided to come to the emergency room. Upon arrival to the emergency room patient's pain was rated at 4/10. Preliminary workup was unremarkable ECG was without acute changes as well as initial troponin. Patient has been in his usual state of health he denies any syncope near syncope dizziness lightheadedness had had some palpitations, no PND no orthopnea no shortness of breath no cough no sputum production no fevers no rigors no chills. Chest x-ray was unremarkable. BMP was significant for potassium was 2.8. Hospital Course: 10/15Patient is 70-year-old male with significant history coronary artery disease he had initial [place] in 2013 and had 4 stents in his LAD he was doing reasonably well this August 03, 2020 patient was in [place] visiting grandchildren and developed chest was taken to the [facility] and had a catheterization and had four more stents placed, patient presented to emergency depart with chest pain radiating to left arm and his left side of the neck described similar to his initial [place] in 2013, currently 3 sets of cardiac enzymes are negative and there is no significant changes on EKG, patient is seen by Cardiology because of patient significant coronary artery disease and recent [place] in August of 2020 warranty coordinator recommending cardiac catheterization further evaluation will follow-up
== END 2020-10-16 17:05 | disposition home or self-care (01) | DRG 287 ==
LOC: ANHED 23:12 → ANHIMU 23:48
PROVIDERS: Specialist; Admitting Provider Internal Medicine; Emergency Provider Emergency Medicine; Visit Provider Family Medicine
PROC: 4A023N7 Measurement of Cardiac Sampling and Pressure, Left Heart, Percutaneous Approach (ICD-10-PCS; CPT 93452; principal; 2020-10-16 11:00)
PROC: 4A023N7 Measurement of Cardiac Sampling and Pressure, Left Heart, Percutaneous Approach (ICD-10-PCS; 2020-10-16 11:00)
DX: I25.110 Atherosclerotic heart disease of native coronary artery with unstable angina pectoris (principal); E87.6 Hypokalemia; E78.5 Hyperlipidemia, unspecified; M10.9 Gout, unspecified; I10 Essential (primary) hypertension; I25.2 Old myocardial infarction
CPT/HCPCS: 36415; 71046; 80048; 83735; 84484; 85025; 85027; 85610; 85730; 93005; 93458; 93798; 94660; 96365; 96366; 96372; 99285; A9270; C1760; C1887; C1894; G0269; G0378; J1644; J1650; J2250; J3010; J3480; J7040; J7050

== ENCOUNTER 2020-12-04 11:00 | Outpatient (RCR) | payer MEDICARE, OTHER, SELFPAY ==
[2020-09-19 08:48] VITALS: BP 118/52; PULSE 55; RESP 16; TEMP 36.5; O2SAT 98
[2020-09-19 08:52] VITALS: PULSE 55
--- NOTE | 2020-10-16 08:19 | PCCPR ---
Addendum entered by Emi Mena RN 10/25/20 10:45: Davidson returns with a release to resume rehab without restriction. States no problems with his groin and is taking potassium supplement. He feels less fatigue and weak and less leg cramps. Original Note: [facility] called this morning and said that he was admitted to the hospital over the weekend with low potassium and chest pain. he is to have a cardiac cath this morning and was made aware that he will need a release before returning.
== END 2020-12-12 15:14 | disposition home or self-care (01) ==
LOC: ANHCPREHAB 11:00
DX: Z95.5 Presence of coronary angioplasty implant and graft (principal)
CPT/HCPCS: 93798

== ENCOUNTER 2021-12-01 13:15 | Emergency (ER) | payer MEDICARE, OTHER, SELFPAY ==
--- NOTE | ~2021-12-01 | XR_ITS ---
EXAMINATION: XR abdomen/kub 1V DATE: 12/01/2021 14:01 INDICATION: Painful bulge at the right side of the abdomen post fall 3 weeks prior. TECHNIQUE: A supine view of the abdomen on 2 radiographs was obtained. COMPARISON: None. FINDINGS: Moderate amount of stool scattered throughout the colon. No dilated gas-filled loops of bowel to sugg est obstruction. Several small calcified pulmonary nodules at the bilateral lower lung zones consiste nt with old granulomatous disease. Heart size is normal. Mild lumbar dextroscoliosis with severe spon dylosis. There are changes of prior L2-L4 laminectomies. IMPRESSION: 1. Normal bowel gas pattern. Reviewed, dictated and finalized at location A.
--- NOTE | ~2021-12-01 | XR_ITS ---
EXAMINATION: [id number] DATE: 12/01/2021 14:02 INDICATION: Anterior left upper rib pain post fall TECHNIQUE: A frontal inspiratory view of the chest and 3 views of the left ribs were obtained. COMPARISON: Chest radiograph dated 10/14/2020 and left rib radiographs dated FINDINGS: Old healed anterolateral left fifth rib fracture. No other rib fractures identified. No focal airspac e opacities, pulmonary edema, pleural effusion or pneumothorax. . Mediastinal silhouette is normal. M ild lumbar dextrocurvature with severe spondylosis and change of prior L2-L4 laminectomies. IMPRESSION: 1. No acute rib fracture or acute cardiopulmonary disease. Reviewed, dictated and finalized at location A.
--- NOTE | 2021-12-01 13:20 | ED.GENADULT ---
HPI - General Adult General Chief complaint: Back Pain/Injury Stated complaint: CHEST INJURY/BACK PAIN/BULGE IN ABDOMEN Time Seen by Provider: 12/01/21 13:33 Source: patient Mode of arrival: ambulatory Limitations: no limitations History of Present Illness HPI narrative: 71-year-old male presents with concern for pain after being injured while playing pickle ball approximately 2 weeks ago. Reports he was hit in the chest with a racquet and then fell backwards onto his back. Reports since then he has had left anterior chest tenderness, chest wall pain that worsens with deep breathing and coughing, right lateral mid back pain and he notices a nontender abdominal bulge. He reports he has been going to the chiropractor, his has been massaging him with Aspercreme. He reports while being adjusted at the chiropractor he felt worsening pain to his anterior chest and heard a crack. He denies nausea, vomiting, diarrhea, constipation MD complaint: Chest injury, back pain Related Data Home Medications Medication Instructions Recorded Confirmed Aspir-Low 81 mg PO DAILY 09/19/20 12/01/21 atorvastatin 80 mg tablet 80 mg PO HS 09/19/20 12/01/21 clonazepam 0.5 mg tablet 0.5 mg PO HS 09/19/20 12/01/21 epinephrine 0.3 mg/0.3 mL 0.3 mg IM PRN PRN Anaphylaxis 09/19/20 12/01/21 injection, auto-injector febuxostat 40 mg tablet 40 mg PO DAILY 09/19/20 12/01/21 hydrochlorothiazide 50 mg tablet 50 mg PO DAILY 09/19/20 12/01/21 losartan 100 mg tablet 100 mg PO DAILY 09/19/20 12/01/21 omeprazole 40 mg capsule,delayed 40 mg PO DAILY PRN Heartburn 09/19/20 12/01/21 release trazodone 50 mg tablet 50 mg PO HS PRN Sleep 09/19/20 12/01/21 clopidogrel 75 mg tablet 75 mg PO DAILY 10/15/20 12/01/21 Allergies Allergy/AdvReac Type Severity Reaction Status Date / Time bee venom protein (honey bee) Allergy Swelling Verified 09/19/20 09:09 sertraline Allergy Swelling Verified 12/01/21 13:24 Review of Systems Review of Systems: CONSTITUTIONAL: Denies malaise, chills, sweats, or fever. CARDIOVASCULAR: Denies chest pain, palpitations, or edema. Reports anterior left-sided chest wall tenderness RESPIRATORY: Denies cough or dyspnea. GASTROINTESTINAL: Denies abdominal pain, nausea, vomiting, diarrhea, constipation, bloody, or mucous stools, loss of bowel function. Reports right abdominal bulge GENITOURINARY: Denies dysuria or hematuria. Denies loss of bladder function, perianal anesthesia SKIN: Denies rash or itching, bruising, redness, warmth. MUSCULOSKELETAL: Reports right back pain NEUROLOGIC: Denies numbness, weakness, or headache. PSYCHIATRIC: Denies anxiety or depression. All systems reviewed & are unremarkable except as noted in HPI and below PMFSH Past Medical History Medical History (Updated 12/01/21 @ 14:20 by Lisa Perea NP) Coronary artery disease Family History Family History Father Cerebrovascular accident Sibling Acute myocardial infarction Hypertension Prostate carcinoma Mother Aplastic anemia Social History Social History Smoking status: Never smoker Alcohol intake: current Drinks per week: 2 Substance use: never Gender identity (if verbalized by the patient): Male Spiritual care concerns: Yes (Sabianism) Comments At time of signature, agree with nursing past medical, surgical, social and family history. There is no relevant family history pertinent to the presenting complaint Exam Narrative: GENERAL: Well-appearing, well-nourished, and in no acute distress. HEAD: Normocephalic, atraumatic. EYES: PERRLA and EOMI. NECK: Supple. No lymphadenopathy. CHEST: Clear to auscultation. No respiratory distress. HEART: Regular rate and rhythm. Distal pulses palpable and equal, cap refill <3 seconds ABDOMEN: Soft, nontender, normal active bowel sounds, no palpable or pulsatile masses. Abnormal right low
[2021-12-01 13:22] VITALS: BP 137/70; PULSE 64; RESP 24; TEMP 37.4; O2SAT 96
== END 2021-12-01 14:28 | disposition home or self-care (01) ==
PROVIDERS: Emergency Provider Nurse Practitioner
DX: R07.89 Other chest pain (principal); M54.9 Dorsalgia, unspecified; I25.10 Atherosclerotic heart disease of native coronary artery without angina pectoris
CPT/HCPCS: 71101; 74018; 99213; G0463

== ENCOUNTER 2022-01-13 09:24 | Outpatient (CLI) | payer MEDICARE, OTHER, SELFPAY ==
--- NOTE | ~2022-01-13 | XR_ITS ---
XR lumbar spine min 4V DATE: 01/13/2022 09:49 INDICATION: Back pain. Postlaminectomy syndrome. TECHNIQUE: Standing AP and lateral views. Standing flexion and extension lateral views. COMPARISON: None FINDINGS: There is mild dextroscoliosis of the lower thoracic and lumbar spine. Status post laminectomy at L2-L4. There is severe degenerative disc disease at L1-2, L2-3, L3-4 and L4-5. L5-S1 interspace appears well preserved. There is mild cupping of the superior vertebral endplate of L2 which may be due to mild compression f racture, likely chronic. No fracture or bone destruction is evident otherwise. The included lower thoracic and lumbar pedicles are intact. No instability is noted on flexion or extension. The sacroiliac joints appear normal. Abdominal aortic calcification. IMPRESSION: Mild thoracolumbar dextroscoliosis Severe degenerative disc disease at L1-2 through L4-5 Status post laminectomy at L2 -4 No instability on flexion or extension is evident Reviewed, dictated and finalized at location A.
--- NOTE | ~2022-01-13 | MR_ITS ---
EXAMINATION: MR lumbar spine wo/w con DATE: 01/13/2022 10:27 INDICATION: Postlaminectomy syndrome. Low back pain. TECHNIQUE: Magnetic resonance imaging (MRI) of the lumbar spine was performed without and with 19 mL MultiHance intravenous contrast. COMPARISON: Lumbar spine radiographs 01/13/2022 FINDINGS: There is 12 degrees dextroscoliosis of thoracolumbar spine. There is mild chronic anterior wedging of L1 and L2 vertebral bodies. There is 3 mm retrolisthesis of L2 on L3 and L3 on L4. There i s severely decreased disc height from L1-L2 through L4-L5 with endplate remodeling. The distal spinal cord signal intensity is normal. The conus medullaris is at T12-L1. There is a 3.8 cm cyst in left [place]. The following disc levels are specifically discussed: L1-L2: The disc is bulging and has an annular fissure. There is moderate bilateral facet joint osteoa rthritis. There is mild right and moderate left neural foraminal stenosis. There is mild central yluia l stenosis. L2-L3: The disc is bulging and has an annular fissure. There is mild bilateral facet joint osteoarthr itis. There is moderate bilateral neural foraminal stenosis. There is mild central canal stenosis wit h posterior decompression. L3-L4: The disc is bulging and has an annular fissure. There is severe bilateral facet joint osteoart hritis. There is moderate bilateral neural foraminal stenosis. There is mild central canal stenosis p osterior decompression. L4-L5: The disc is bulging and has an annular fissure. There is severe bilateral facet joint osteoart hritis. There is moderate bilateral neural foraminal stenosis. There is mild central canal stenosis w ith posterior decompression. L5-S1: The disc is bulging. There is severe right and moderate left facet joint osteoarthritis. There is mild bilateral neural foraminal stenosis. There is mild central canal stenosis. IMPRESSION: 1. Severe lumbar spondylosis. 2. Thoracolumbar dextroscoliosis. Reviewed, dictated and finalized at location A.
== END 2022-01-13 09:25 | disposition home or self-care (01) ==
DX: M96.1 Postlaminectomy syndrome, not elsewhere classified (principal); M47.896 Other spondylosis, lumbar region; M51.36 Other intervertebral disc degeneration, lumbar region; Z98.1 Arthrodesis status
CPT/HCPCS: 72110; 72158; A9577

== ENCOUNTER 2023-02-04 13:33 | Emergency (ER) | payer MEDICARE, OTHER, SELFPAY ==
[2023-02-04 13:41] VITALS: BP 151/85; PULSE 61; RESP 16; TEMP 36.8; O2SAT 98
--- NOTE | 2023-02-04 13:41 | ED.EXTPRO ---
HPI - Extremity Problem General Chief complaint: Extremity Injury, Lower Stated complaint: R KNEE PAIN Time Seen by Provider: 02/04/23 13:41 Source: patient, RN notes reviewed and old records reviewed Mode of arrival: ambulatory Limitations: no limitations History of Present Illness HPI Narrative: 72-year-old male presents to the [facility] with complaints of right knee pain, patient states the knee pain got worse yesterday after doing a whole lot a walking when he was in [place] up and down stairs as well as up and down hills. No ecchymosis, swelling noted. Patient states that he had arthritis cleaned out and a repair on his meniscus to the right knee 2 and half months ago Patient wrist requesting a cortisone shot in his knee. Discussed with patient that we do not do that and that he needs to follow up with primary care provider. Related Data Home Medications Medication Instructions Recorded Confirmed Aspir-Low 81 mg PO DAILY 09/19/20 12/01/21 atorvastatin 80 mg tablet 80 mg PO HS 09/19/20 12/01/21 clonazepam 0.5 mg tablet 0.5 mg PO HS 09/19/20 12/01/21 epinephrine 0.3 mg/0.3 mL 0.3 mg IM PRN PRN Anaphylaxis 09/19/20 12/01/21 injection, auto-injector febuxostat 40 mg tablet 40 mg PO DAILY 09/19/20 12/01/21 hydrochlorothiazide 50 mg tablet 50 mg PO DAILY 09/19/20 12/01/21 losartan 100 mg tablet 100 mg PO DAILY 09/19/20 12/01/21 omeprazole 40 mg capsule,delayed 40 mg PO DAILY PRN Heartburn 09/19/20 12/01/21 release trazodone 50 mg tablet 50 mg PO HS PRN Sleep 09/19/20 12/01/21 clopidogrel 75 mg tablet 75 mg PO DAILY 10/15/20 12/01/21 Allergies Allergy/AdvReac Type Severity Reaction Status Date / Time bee venom protein (honey bee) Allergy Swelling Verified 02/04/23 13:42 sertraline Allergy Swelling Verified 02/04/23 13:42 Review of Systems Review of Systems: All systems reviewed & are unremarkable except as noted in HPI and below Constitutional: Constitutional: Reports no additional constitutional complaints Eyes: Eyes: Reports no additional eye complaints ENT: Reports system reviewed and no additional complaints, except as documented Cardiovascular: Cardiovascular: Reports no additional cardiovascular complaints, Denies chest pain and Denies dyspnea Respiratory: Respiratory: Reports no additional respiratory complaints, Denies chest congestion, Denies cough and Denies dyspnea Gastrointestinal: Gastrointestinal: Reports no additional gastrointestinal complaints, Denies abdominal pain, Denies nausea and Denies vomiting Musculoskeletal: Musculoskeletal: Reports as per HPI and Reports arthralgias (Right knee) Integumentary/Breasts: Skin/Breast: Reports system reviewed and no additional complaints, except as docu Neurologic: Reports system reviewed and no additional complaints, except as documented Psychiatric: Psychiatric: Reports no additional psychiatric complaints Allergic/Immunologic: Allergic/Immunologic: Reports no additional allergic/immunologic complaints PMFSH Past Medical History Medical History Coronary artery disease Family History Family History Father Cerebrovascular accident Sibling Acute myocardial infarction Hypertension Prostate carcinoma Mother Aplastic anemia Social History Social History Smoking status: Never smoker Alcohol intake: current Drinks per week: 2 Substance use: never Gender identity (if verbalized by the patient): Male Spiritual care concerns: Yes (Worship) Comments At the time of my signature, I reviewed and agree with the nursing past medical, surgical, social, and family history. There is no relevant family history pertinent to the patient complaint. Exam Const: General: cooperative, healthy appearing, comfortable, no acute distress, well developed, alert and well nourished N
== END 2023-02-04 13:52 | disposition home or self-care (01) ==
PROVIDERS: Emergency Provider Nurse Practitioner
DX: M25.561 Pain in right knee (principal); I25.10 Atherosclerotic heart disease of native coronary artery without angina pectoris
CPT/HCPCS: 99213; G0463

== ENCOUNTER 2024-06-29 09:06 | Emergency (ER) | payer MEDICARE, OTHER, SELFPAY ==
[2024-06-29] VITALS (9 sets, daily range): BP systolic 146–158; BP diastolic 73–79; PULSE 55–64; RESP 13–21; TEMP 36.5; O2SAT 98–100
--- NOTE | ~2024-06-29 | XR_ITS ---
EXAMINATION: XR chest 2V DATE: 06/29/2024 11:01 INDICATION: Dizziness. Weakness. TECHNIQUE: Frontal and lateral views of the chest were obtained. COMPARISON: Chest 2 views 10/14/2020 FINDINGS: Calcified right lung nodules and calcified right hilar lymph nodes are consistent with old granulomatous disease. No pleural effusion or pneumothorax. The heart size is normal. IMPRESSION: 1. No acute cardiopulmonary disease. Reviewed, dictated and finalized at location A. SITTING
--- NOTE | 2024-06-29 09:19 | ECG_ITS ---
Test Date: 2024-06-29 09:14:06 Measurements Intervals [place] Rate: 53 P: 0 IL: 0 QRS: 36 QRSD: 174 T: 2 QT: 447 QTc: 423 Interpretive Statements SINUS BRADYCARDIA BORDERLINE AV CONDUCTION DELAY RIGHT BUNDLE BRANCH BLOCK CONSIDER INFERIOR INFARCT, AGE INDETERMINATE BASELINE ARTIFACT- I, II, III, AVR, V5 ABNORMAL ECG No previous ECG available for comparison Electronically Signed On 06-29-2024 12:18:34 [employer] by Kuldip Odom D.O.
[2024-06-29 09:29] LABS: Basophils Percent Auto 0.3 % (0.2-1.2); Eosinophils Absolute Auto 0.1 K/mm3 (0-0.3); Eosinophils Percent Auto 2.8 % (0-4.4); Hematocrit 42.9 % (42.0-52.0); Hemoglobin 14.2 g/dL (14.0-18.0); Immature Granulocyte Absolute 0.01 K/mm3 (0.00-0.031); Immature Granulocyte Percent A 0.3 % (0-0.5); Lymphocytes Absolute Auto 0.81 K/mm3 (0.9-3.2); Lymphocytes Percent Auto 22.8 % (18.3-44.2); Mean Corpuscular HGB Conc 33.1 g/dl (32-36); Mean Corpuscular Hemoglobin 29.4 pg (26-34); Mean Corpuscular Volume 88.8 fl (80-100); Monocytes Absolute Auto 0.3 K/mm3 (0.1-0.6); Monocytes Percent Auto 9.6 % (2.6-8.5); Neutrophils Absolute Auto 2.3 K/mm3 (1.3-6.7); Neutrophils Percent Auto 64.2 % (45.5-73.1); Platelet Count Result 179 k/mm3 (150-375); Red Blood Count 4.83 M/mm3 (4.6-6.20); Red Cell Distribution Width 12.3 % (11.5-14.5); White Blood Count 3.6 K/mm3 (4.5-10.0)
--- NOTE | 2024-06-29 09:37 | ED.WEAKNESS ---
HPI - Weakness General Chief complaint: Weakness Stated complaint: weak, dizzy, diarrhea Time Seen by Provider: 06/29/24 09:11 Source: patient Mode of arrival: EMS Limitations: no limitations History of Present Illness HPI Narrative: This is a 74-year-old male with PMH of CAD, HTN who presents to the ED via EMS for chief complaint of generalized weakness, fatigue and dizziness. Patient states this started around 7:30 a.m. shortly after waking up. States that whenever he sits up or stands up he starts to feel very dizzy and that he is going to have syncopal episode. Patient reports that he had an episode like this about a week ago when he was driving but symptoms had since resolved. States that he did have 1 episode of diarrhea but otherwise has not had any diarrhea or vomiting. His is bedside reports that she gave two nitro tabs this morning prior to arrival, due to his heart history, however patient states that he has not had any chest pain this week or today. Denies shortness of breath, cough, back pain, fevers, chills, focal weakness or numbness. Denies vision change, speech change or any falls. Related Data Home Medications ?Medication ?Instructions ?Recorded ?Confirmed ?Last Taken ?Type Aspir-Low 81 mg PO DAILY 09/19/20 12/01/21 10/14/20 History atorvastatin 80 mg tablet 80 mg PO HS 09/19/20 12/01/21 10/14/20 History clonazepam 0.5 mg tablet 0.5 mg PO HS 09/19/20 12/01/21 10/14/20 History epinephrine 0.3 mg/0.3 mL 0.3 mg IM PRN PRN Anaphylaxis 09/19/20 12/01/21 Unknown History injection, auto-injector febuxostat 40 mg tablet 40 mg PO DAILY 09/19/20 12/01/21 10/14/20 History hydrochlorothiazide 50 mg tablet 50 mg PO DAILY 09/19/20 12/01/21 10/14/20 History losartan 100 mg tablet 100 mg PO DAILY 09/19/20 12/01/21 10/14/20 History omeprazole 40 mg capsule,delayed 40 mg PO DAILY PRN Heartburn 09/19/20 12/01/21 Unknown History release trazodone 50 mg tablet 50 mg PO HS PRN Sleep 09/19/20 12/01/21 Unknown History clopidogrel 75 mg tablet 75 mg PO DAILY 10/15/20 12/01/21 10/14/20 History Allergies Allergy/AdvReac Type Severity Reaction Status Date / Time bee venom protein (honey bee) Allergy Swelling Verified 06/29/24 09:19 Review of Systems Review of Systems: All systems as dictated in [facility] Past Medical History Medical History Coronary artery disease Family History Family History Father Cerebrovascular accident Sibling Acute myocardial infarction Hypertension Prostate carcinoma Mother Aplastic anemia Social History Social History Smoking status: Never smoker Alcohol intake: current Drinks per week: 2 Substance use: never Gender identity (if verbalized by the patient): Male Spiritual care concerns: Yes (Catholic) Exam Narrative: GENERAL: Well-appearing, well-nourished, and in no acute distress. HEAD: Normocephalic, atraumatic. EYES: PERRLA and EOMI. ENT: Nares clear, no rhinorrhea or epistaxis. Mucous membranes moist. Oropharynx without tonsillar hypertrophy exudate or other lesions. NECK: Supple. No adenopathy or masses. CHEST: No respiratory distress. Clear to auscultation. No wheezes rales or rhonchi HEART: Regular rate and rhythm. No murmur heard. Normal peripheral pulses. ABDOMEN: Soft, nontender, nondistended, normal active bowel sounds. MSK: Normal range of motion. No edema. SKIN: Warm, dry, no rash. NEURO: Alert and oriented x4. No focal deficits. PSYCH: Normal mood and affect. Attempted orthostatic vital signs at bedside, however patient became immediately symptomatic with near-syncope when sitting up in the bed. Course Reevaluation(s) Reevaluation #1: Patient is doing much better compared to arrival. Patient states that the fluids seemed to have helped a lot. He states he is now able to set up and walk as normal. He did note a touch of dizziness here there while walking to the restroom, however he is feeling much better and would like to go home. Date: 06/29/24 Time: 12:12 Vital Signs Vital signs: Vital Signs Temperature 97.7 F 06/29/24 09:04 Pulse Rate 55 L 06/29/24 09:04 Respiratory Rate 16 06/29/24 09:04 Blood Pressure 148/77 H 06/29/24 09:04 Pulse Oximetry 100 06/29/24 09:04 Oxygen Delivery Room Air 06/29/24 09:04 Temperature 97.7 F 06/29/24 09:04 Pulse Rate 59 L 06/29/24 11:30 Respiratory Rate 18 06/29/24 11:30 Blood Pressure 152/79 H 06/29/24 11:30 Pulse Oximetry 99 06/29/24 11:30 Oxygen Delivery Room Air 06/29/24 09:04 MDM - Weakness MDM Narrative Medical decision making narrative: This is a 74-year-old male who presents to the ED for chief complaint of generalized weakness and dizziness. He is symptomatically orthostatic on exam. Vitals are normal. Does not appear toxic. No focal neural deficit. Lab work shows mild leukopenia but otherwise unremarkable CBC. CMP shows slightly elevated BUN but a normal creatinine. Urinalysis negative grossly. Viral swabs negative. Patient was given 2 L of fluids here and is feeling much better. He is now ambulatory without assistance. He is able sit up in bed without becoming symptomatically orthostatic. He feels ready to go home. Presentation consistent with orthostatic dizziness. Patient will be discharged in stable condition. Supportive measures discussed and return precautions given. Patient is understanding and agreeable with plan for discharge with PCP follow-up. Lab Data 06/29/24 09:23 06/29/24 09:23 Labs: Lab Results 06/29/24 06/29/24 06/29/24 Range/Units 09:23 09:57 11:13 WBC 3.6 L (4.5-10.0) K/mm3 RBC 4.83 (4.6-6.20) M/mm3 Hgb 14.2 (14.0-18.0) g/dL Hct 42.9 (42.0-52.0) % MCV 88.8 (80-100) fl MCH 29.4 (26-34) pg MCHC 33.1 (32-36) g/dl RDW 12.3 (11.5-14.5) % Plt Count 179 (150-375) k/mm3 MPV 9.0 (7.4-10.4) fl Immature Gran % (Auto) 0.3 (0-0.5) % Neut % (Auto) 64.2 (45.5-73.1) % Lymph % (Auto) 22.8 (18.3-44.2) % Walsh % (Auto) 9.6 H (2.6-8.5) % Eos % (Auto) 2.8 (0-4.4) % Baso % (Auto) 0.3 (0.2-1.2) % Lymph # (Auto) 0.81 L (0.9-3.2) K/mm3 Walsh # (Auto) 0.3 (0.1-0.6) K/mm3 Eos # (Auto) 0.1 (0-0.3) K/mm3 Baso # (Auto) 0.0 (0.0-0.1) K/mm3 Abs Immat Gran (auto) 0.01 (0.00-0.031) K/mm3 Absolute Neuts (auto) 2.3 (1.3-6.7) K/mm3 Absolute Nucleated RBC 0.000 (0.0-0.012) K/mm3 Nucleated RBC % 0.0 (0.0-0.2) % Sodium 138 (137-145) mmol/L Potassium 3.5 (3.4-5.0) mmol/L Chloride 99 (98-107) mmol/L Carbon Dioxide 30 (22-30) mmol/L Anion Gap 9 (4-12) mmol/L BUN 24 H (9-20) mg/dL Creatinine 0.86 (0.7-1.3) mg/dL Estim Creat Clear Calc 81 ml/min Estimated GFR > 60 (59 - ) Glucose 112 H (65-110) mg/dL Calcium 9.1 (8.4-10.2) mg/dL Total Bilirubin 0.7 (0.2-1.3) mg/dL AST 25 (17-59) U/L ALT 37 (6-50) U/L Alkaline Phosphatase 67 (38-126) U/L Total Protein 7.0 (6.3-8.2) g/dL Albumin 4.0 (3.5-5.1) g/dL Urine Color Yellow (Yellow) Urine Appearance Clear (Clear) Urine pH 7.0 (5.0-9.0) Ur Specific [place] 1.014 (1.001-1.035) Urine Protein Negative (Negative) mg/dL Urine Glucose (UA) Negative (Negative) mg/dL Urine Ketones Negative (Negative) mg/dL Ur Blood (Man) Negative (Negative) Urine Nitrate Negative (Negative) Urine Bilirubin Negative (Negative) Urine Urobilinogen 0.2 (<2.0) mg/dL Leukocyte Esterase Rfl Negative (Negative) OSWALD/UL Influenza A (RT-PCR) Negative (Negative) Influenza B (RT-PCR) Negative (Negative) RSV (RT-PCR) Negative (Negative) SARS-CoV-2 RNA (RT-PCR) Negative (Negative) Discharge Plan Discharge Clinical Impression: Orthostatic dizziness Patient Disposition: Home, Self-Care Condition: Stable Instructions: Antibiotic Form Patient Language: [place] Prescriptions: No Action cyclobenzaprine 10 mg tablet 10 mg PO TID PRN (Reason: muscle spasm) Qty: 20 0RF prednisone 20 mg tablet 40 mg PO DAILY 5 Days Qty: 10 0RF methylprednisolone [Medrol (Michael)] 4 mg tablets,dose pack See Rx Instructions PO .COMPLEX Qty: 21 0RF Rx Instructions: orally per package directions Aspir-Low 81 mg 81 mg PO DAILY atorvastatin 80 mg Tablet 80 mg PO HS trazodone 50 mg Tablet 50 mg PO HS PRN (Reason: Sleep) Rx Instructions: for sleep hydrochlorothiazide 50 mg Tablet 50 mg PO DAILY clonazepam 0.5 mg Tablet 0.5 mg PO HS omeprazole 40 mg Capsule,Delayed Release(Dr/Ec) 40 mg PO DAILY PRN (Reason: Heartburn) epinephrine 0.3 mg/0.3 mL Auto-Injector 0.3 mg IM PRN PRN (Reason: Anaphylaxis) Patient Comments: states he is allergic to bee,wasp and hornet stings losartan 100 mg Tablet 100 mg PO DAILY Patient Comments: states on before the [place] febuxostat 40 mg Tablet 40 mg PO DAILY Rx Instructions: he is also on omeprozole clopidogrel 75 mg tablet 75 mg PO DAILY metoprolol tartrate 25 mg tablet 12.5 mg PO BID Qty: 30 0RF potassium chloride 20 mEq tablet extended release 20 meq PO DAILY Qty: 30 0RF Follow-up/Referrals: UNKNOWN,DOCTOR [Primary Care Provider] -
[2024-06-29 09:46] LABS: Alanine Aminotransferase 37 U/L (6-50); Alkaline Phosphatase 67 U/L (38-126); Anion Gap 9 mmol/L (4-12); Aspartate Amino Transferase 25 U/L (17-59); Bilirubin,Total 0.7 mg/dL (0.2-1.3); Blood Urea Nitrogen 24 mg/dL (9-20); Calcium 9.1 mg/dL (8.4-10.2); Carbon Dioxide 30 mmol/L (22-30); Chloride 99 mmol/L (98-107); Estimated CRCL calculation 81 ml/min; Estimated Glomerular Filt Rate > 60; Glucose 112 mg/dL (65-110); Potassium 3.5 mmol/L (3.4-5.0); Sodium 138 mmol/L (137-145)
[2024-06-29] MEDS: SODIUM CHLORIDE 0.9% IV 1,000 ML 999 ML IV CONT ×2 (10:00)
--- OUTSIDE RECORDS SUMMARY | 2024-06-29 10:23 | XMS_ITS | Clinical Summary ---
Author Organization [facility] Address [address] [place] [id number] Care Team Providers Care Work Station Support Specialist Name Role Phone Brayan Rodolfo Vinay Primary Care Provider [phone] Allergies Active Allergy Reactions Criticality Noted Date Comments Venom-Honey Bee Swelling,Anaphylaxis High 06/05/2016 Medications omeprazole (PriLOSEC) 40 mg capsule TAKE 1 CAPSULE BY MOUTH DAILY BEFORE BREAKFAST 09/14/19 21 Active traZODone (DESYREL) 50 mg tablet TAKE 1 TABLET BY MOUTH NIGHTLY NEEDED FOR INSOMNIA 10/24/19 21 Active clonazePAM (KlonoPIN) 0.5 mg tablet clonazepam 0.5 mg tablet 08/16/19 21 Active aspirin 81 mg chewable tablet Take 1 tablet (81 mg total) by mouth 08/07/19 21 Active febuxostat (ULORIC) 40 mg tablet Take 1 tablet (40 mg total) by mouth daily 10/12/19 21 Active epinephrine (EPIPEN INJ) Inject as directed as needed Active nitroglycerin (NITROSTAT) 0.[address] 1 TABLET UNDER THE TONGUE EVERY 5 MINUTES NEEDED FOR CHEST PAIN 25 tablet 11 05/09/19 24 Active sertraline (ZOLOFT) 50 mg tablet Take 1 tablet (50 mg total) by mouth daily 09/24/19 24 Active metoprolol tartrate (LOPRESSOR) 25 mg immediate release tablet TAKE 1/2 TABLET(12.5 MG) BY MOUTH TWICE DAILY 90 tablet 3 01/12/20 24 Active hydroCHLOROthi azide (HYDRODIURIL) 50 mg tablet TAKE 1 TABLET(50 MG) BY MOUTH DAILY 90 tablet 3 02/02/20 24 Active rosuvastatin (CRESTOR) 40 mg tabletIndicati ons:Coronary artery disease of [place] artery of [place] heart with stable angina pectoris (HCC),Hyperlip idemia LDL goal <70 TAKE 1 TABLET(40 MG) BY MOUTH DAILY 90 tablet 2 03/15/20 24 Active potassium chloride ER 20 mEq CR tablet TAKE 1 TABLET BY MOUTH TWICE DAILY 180 tablet 3 04/19/20 24 Active clopidogreL (PLAVIX) 75 mg tablet TAKE 1 TABLET(75 MG) BY MOUTH DAILY 90 tablet 3 04/19/20 24 Active losartan (COZAAR) 100 mg tablet TAKE 1 TABLET(100 MG) BY MOUTH DAILY 90 tablet 1 06/21/19 25 Active losartan (COZAAR) 100 mg tablet TAKE 1 TABLET(100 MG) BY MOUTH DAILY 90 tablet 1 12/29/19 24 025 Discontinued Hospital, Clinic, or Other Facility Administered Medication Ordered Dose Route Frequency Start Date End Date Status BUPivacaine HCl (MARCAINE) 0.5 % (5 mg/mL) injection 6 mLIndications:Left knee pain, unspecified chronicity,Primary osteoarthritis of left knee 6 mL OTHER One-Time Injection 05/31/2024 5 Ended methylPREDNISolone acetate (DEPO-medrol) injection 80 mgIndications:Left knee pain, unspecified chronicity,Primary osteoarthritis of left knee 80 mg intra-artic One-Time Injection 05/31/2024 5 Ended Active Problems Problem Noted Date Diagnosed Date Right carotid bruit 06/04/2024 H/O total knee replacement, right 02/25/2023 Overview (05/31/2024): Meniscal repair Primary osteoarthritis of right knee 09/26/2022 Gout 01/30/2022 Hypokalemia 01/30/2022 Hyperlipidemia LDL goal <70 08/22/2021 Palpitations 08/22/2021 Essential hypertension 08/22/2021 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 3 new ERVIN [employer], 3 x16mm, 3.5 x 28 mm, 3.5 x 8 mm in LAD [facility] [place], [place] Dr Almanza 07/16/13 ERVIN in OM1 3 x 18 mm Xpedition, OM2 2.5 x 23 mm Xcience Postlaminectomy syndrome of lumbar region 2014 Overview (05/31/2024): 09/2018: Right L5 & S1 LESI 04/[address] Jordan rec LESI l4-5, stretch, consider stimulator L2-5 laminectomies and foraminotomies 12/2014 RFN L3, L4, L5 bilateral 09/2014 Allergic rhinitis 04/07/2014 Impotence 01/28/2014 Benign prostatic hyperplasia 07/08/2013 IBS (irritable bowel syndrome) 05/18/2013 Anxiety and depression 11/28/2008 Overview (05/31/2024): Sertraline self d/c 2012. Clonazepam since early 2013. Alprazolam since before [id number] Fluoxetine- c/o headache Encounters Date Type Department Care Team Description 06/08/2024 3:00 PM LIBRARIAN SPECIALIST Ancillary Procedure [facility] Vascular and Vein Surgery at [address] [place] [address] Right carotid bruit 06/04/2024 11:15 AM LIBRARIAN SPECIALIST Office Visit [facility] Cardiology [address] [facility] [address] [place] [address] Marek Bolden MD Coronary artery disease of [place] artery of [place] heart with stable angina pectoris (HCC) (Primary Dx); Essential hypertension; Hyperlipidemia LDL goal <70; Palpitations; STEPHANIE on CPAP; Right carotid bruit 05/31/2024 10:30 AM LIBRARIAN SPECIALIST Office Visit [facility] Orthopaedic Surgery [address] [facility] [address] [place] [address] Tonya Olivares NP Acute knee pain, unspecified laterality (Primary Dx); Left knee pain, unspecified chronicity; Primary osteoarthritis of left knee 05/31/2024 9:44 AM LIBRARIAN SPECIALIST - 05/31/2024 11:59 PM LIBRARIAN SPECIALIST Hospital Encounter [facility] [address] [facility] [address] [place] [phone] Left knee pain, unspecified chronicity; Acute knee pain, unspecified laterality Discharge Disposition: Discharge to home or self care from Last 3 Months Surgical History Surgery Date Site/Laterality Comments CORONARY ANGIOPLASTY CARDIAC CATHETERIZATION SHOULDER SURGERY Right PROSTATE SURGERY August Medical History Medical History Date Comments Hypertension Gout Chest pain Clotting disorder (CMS/HCC) (HCC) Black stools Sleep apnea Family History Medical History Relation Name Comments Hypertension Brother 3 ED MIGUEL Stroke Father Derik Anemia Mother Laxmi Hypertension Son ANABELL RIVERA Relation Name Status Comments Brother 1 Alive Brother 2 Alive Brother 3 ED MIGUEL Father Derik (Age 56) Mother Laxmi (Age 80) Son ANABELL TOMB Social History Tobacco Use Types Packs/Day Years Used Date Smoking Tobacco: Never Cigarettes Smokeless Tobacco: Never Tobacco Cessation:Counseling Given: Not Answered Sex and Gender Information Value Date Recorded Sex Assigned at Not on file Legal Sex Male 3:00 AM LIBRARIAN SPECIALIST Gender Identity Not on file Sexual Orientation Not on file Obstetrics History Last Filed Vital Signs Vital Sign Reading Time Taken Comments Blood Pressure 136/72 06/04/2024 11:21 AM LIBRARIAN SPECIALIST Pulse 60 06/04/2024 11:21 AM LIBRARIAN SPECIALIST Temperature - - Respiratory Rate 15 08/22/2021 1:23 PM CDT Oxygen Saturation 95% 06/04/2024 11:21 AM LIBRARIAN SPECIALIST Inhaled Oxygen Concentration - - Weight 100.2 kg (221 lb) 06/04/2024 11:21 AM LIBRARIAN SPECIALIST Height 182.9 cm (6') 06/04/2024 11:21 AM LIBRARIAN SPECIALIST Body Mass Index 29.97 06/04/2024 11:21 AM LIBRARIAN SPECIALIST Plan of Treatment Health Maintenance Due Date Last Done Comments Colon Cancer Screening-Colonoscopy 1950 Depression Screening 1950 Hepatitis C Screening 1950 Hepatitis B Screening 1969 Zoster Vaccine (2 of 3) 08/02/2015 06/07/2015 Well Visit 65+ 2016 Fall Risk Assessment 08/22/2022 08/22/2021 Covid-19 Vaccine (4 - 2023-2 5 season) 2024 02/27/2021, 07/14/2020, 06/16/2020 DTaP/Tdap/Td Vaccine (2 - Td or Tdap) 01/29/2024 01/28/2014 Pneumococcal vaccine 65+ Completed 07/28/2017, 05/06 Influenza Vaccine Completed 03/29/2024, , 02/18/2019, Additional history exists Procedures Procedure Name Priority Date/Time Associated Diagnosis Comments US CAROTIDS DUPLEX BILATERAL Schedule Routine, Read Routine (OP Routine) 06/08/2024 3:09 PM LIBRARIAN SPECIALIST Right carotid bruit [place] ARTHROCENTESIS ASPIR&/INJ MAJOR JT/BURSA W/O US Routine 05/31/2024 10:30 AM LIBRARIAN SPECIALIST Left knee pain, unspecified chronicity Primary osteoarthritis of left knee XR PELVIS 1 OR 2 VIEWS Schedule Routine, Read Routine (OP Routine) 05/31/2024 10:09 AM LIBRARIAN SPECIALIST Acute knee pain, unspecified laterality XR KNEE LEFT 4 OR MORE VIEWS Schedule Routine, Read Routine (OP Routine) 05/31/2024 10:09 AM LIBRARIAN SPECIALIST Left knee pain, unspecified chronicity from Last 3 Months Results * US Carotids Duplex Bilateral (06/08/2024 3:09 PM LIBRARIAN SPECIALIST) LV EF % CONS SCIMAGE Anatomical Region Laterality Modality Vascular Bilateral Ultrasound 06/08/2024 2:56 PM LIBRARIAN SPECIALIST Narrative 06/11/2024 9:23 AM LIBRARIAN SPECIALIST Vascular & Vein Surgery [address] [facility] [place] [address] Carotid Duplex Ultrasound Report Patient Name: ANABELL RIVERAOswald : 1950 (74y 2m) Study Date: 06/08/2024 2:56:20 PM Gender: M Hand Tool Lapper: DEE Location: [facility] Ref Provider: MAREK BOLDEN Quality: Adequate Order Provider: MAREK BOLDEN PROCEDURES: Carotid Report: Carotid duplex examination of the extracranial arteries was performed using 2D, color and spectral Doppler. INDICATIONS: Right sided bruit. HISTORY: Hypertension. Hyperlipidemia. Coronary artery disease- [place] S/P stents. COMPARISONS: No previous exams. MEASUREMENTS: Right Value Left Value RT Prox CCA PSV 205 cm/sec LT Prox CCA PSV 157 cm/sec RT Prox CCA EDV 11 cm/sec LT Prox CCA EDV 8 cm/sec RT Distal CCA PSV 98 cm/sec LT Distal CCA PSV 91 cm/sec RT Distal CCA EDV 10 cm/sec LT Distal CCA EDV 12 cm/sec RT Prox ICA PSV 63 cm/sec LT Prox ICA PSV 76 cm/sec RT Prox ICA EDV 8 cm/sec LT Prox ICA EDV 9 cm/sec RT Mid ICA PSV 87 cm/sec LT Mid ICA PSV 65 cm/sec RT Mid ICA EDV 21 cm/sec LT Mid ICA EDV 13 cm/sec RT Distal ICA PSV 101 cm/sec LT Distal ICA PSV 77 cm/sec RT Distal ICA EDV 19 cm/sec LT Distal ICA EDV 21 cm/sec RT ECA Prx PSV 87 cm/sec LT ECA Prx PSV 114 cm/sec RT ICA/CCA 0.65 ratio LT ICA/CCA 0.84 ratio Rt Vert Dst PSV 71 cm/sec Lt Vert Dst PSV 68 cm/sec - FINDINGS: Rt Common Carotid Artery: Duplex imaging of the right common carotid artery is within normal limits without evidence of atherosclerotic disease. Rt Internal Carotid Artery: The plaque in the right internal carotid artery appears to be heterogeneous and smooth. Atherosclerotic changes of the right internal carotid artery without hemodynamically significant Doppler findings. <50% stenosis. Rt External Carotid Artery: The right external carotid artery is patent without evidence of atherosclerotic plaque. Rt Vertebral Artery: The right vertebral artery is patent with antegrade flow. Lt Common Carotid Artery: Duplex imaging of the left common carotid artery is within normal limits without evidence of atherosclerotic disease. Lt Internal Carotid Artery: The plaque in the left internal carotid artery appears to be heterogeneous and smooth. Atherosclerotic changes of the left internal carotid artery without hemodynamically significant Doppler findings. <50% stenosis. Lt External Carotid Artery: The left external carotid artery is patent without evidence of atherosclerotic plaque. Lt Vertebral Artery: The left vertebral artery is patent with antegrade flow. Comments: Brachial artery systolic blood pressure is 158 on the right, 171 on the left. CONCLUSIONS: 1. The right internal carotid artery disease is consistent with a less than 50% stenosis. 2. The left internal carotid artery disease is consistent with a less than 50% stenosis. ATTESTATION: I have reviewed and interpreted the pertinent images and measurements of this study. I attest to the conclusions in the final report that is provided above. Electronically Signed By: Luis Fernando Thompson MD 06/11/2024 9:22:15 AM LIBRARIAN SPECIALIST Procedure Note Luis Fernando Thompson MD - 06/11/2024 Vascular & Vein Surgery [facility] [place] [address] Carotid Duplex Ultrasound Report Patient Name: ANABELL RIVERA R : 1950 (74y 2m) Study Date: 06/08/2024 2:56:20 PM Gender: M Hand Tool Lapper: Location: [facility] Provider: MAREK BOLDEN Quality: Adequate Order Provider: MAREK BOLDEN PROCEDURES: Carotid Report: Carotid duplex examination of the extracranial arterieswas performed using 2D, color and spectral Doppler. INDICATIONS: Right sided bruit. HISTORY: Hypertension. Hyperlipidemia. Coronary artery disease- [place] S/P stents. COMPARISONS: No previous exams. MEASUREMENTS: Right Value Left Value RT Prox CCA PSV 205 cm/sec LT Prox CCA PSV 157 cm/sec RT Prox CCA EDV 11 cm/sec LT Prox CCA EDV 8 cm/sec RT Distal CCA PSV 98 cm/sec LT Distal CCA PSV 91 cm/sec RT Distal CCA EDV 10 cm/sec LT Distal CCA EDV 12 cm/sec RT Prox ICA PSV 63 cm/sec LT Prox ICA PSV 76 cm/sec RT Prox ICA EDV 8 cm/sec LT Prox ICA EDV 9 cm/sec RT Mid ICA PSV 87 cm/sec LT Mid ICA PSV 65 cm/sec RT Mid ICA EDV 21 cm/sec LT Mid ICA EDV 13 cm/sec RT Distal ICA PSV 101 cm/sec LT Distal ICA PSV 77 cm/sec RT Distal ICA EDV 19 cm/sec LT Distal ICA EDV 21 cm/sec RT ECA Prx PSV 87 cm/sec LT ECA Prx PSV 114 cm/sec RT ICA/CCA 0.65 ratio LT ICA/CCA 0.84 ratio Rt Vert Dst PSV 71 cm/sec Lt Vert Dst PSV 68 cm/sec - FINDINGS: Rt Common Carotid Artery: Duplex imaging of the right common carotidartery is within normal limits without evidence of atherosclerotic disease. Rt Internal Carotid Artery: The plaque in the right internal carotidartery appears to be heterogeneous and smooth. Atherosclerotic changes of the right internalcarotid artery without hemodynamically significant Doppler findings. <50% stenosis. Rt External Carotid Artery: The right external carotid artery is patentwithout evidence of atherosclerotic plaque. Rt Vertebral Artery: The right vertebral artery is patent with antegradeflow. Lt Common Carotid Artery: Duplex imaging of the left common carotid arteryis within normal limits without evidence of atherosclerotic disease. Lt Internal Carotid Artery: The plaque in the left internal carotid arteryappears to be heterogeneous and smooth. Atherosclerotic changes of the left internalcarotid artery without hemodynamically significant Doppler findings. <50% stenosis. Lt External Carotid Artery: The left external carotid artery is patentwithout evidence of atherosclerotic plaque. Lt Vertebral Artery: The left vertebral artery is patent with antegradeflow. Comments: Brachial artery systolic blood pressure is 158 on the right, 171on the left. CONCLUSIONS: 1. The right internal carotid artery disease is consistent with a lessthan 50% stenosis. 2. The left internal carotid artery disease is consistent with a less than50% stenosis. ATTESTATION: I have reviewed and interpreted the pertinent images and measurements ofthis study. I attest to the conclusions in the final report that is provided above. Electronically Signed By: Luis Fernando Thompson MD 06/11/2024 9:22:15 AM LIBRARIAN SPECIALIST us Marek Bolden MD IMG US PROCEDURES Final R esult * [place] ARTHROCENTESIS ASPIR&/INJ MAJOR JT/BURSA W/O US (05/31/2024 10:30 AM LIBRARIAN SPECIALIST) Narrative Tonya Olivares NP - 05/31/2024 10:30 AM LIBRARIAN SPECIALIST Tonya Olivares NP 06/01/2024 8:30 AM Large Joint Injection: L knee Performed by: Tonya Olivares NP Authorized by: Tonya Olivares NP Large Joint Injection/Aspiration: Consent Given by: Patient Site marked: the procedure site was marked Timeout: prior to procedure the correct patient, procedure, and site was verified Verbal consent obtained: Yes Written consent obtained: Yes Supporting Documentation: Indications: Pain Procedure Details: Location: Knee Site: L knee Prep: patient was prepped using a clean technique Needle Size: 21 G Approach: Superior lateral Medications: 6 mL BUPivacaine HCl 0.5 % (5 mg/mL); 80 mg methylPREDNISolone acetate 40 mg/mL Patient tolerance: Patient tolerated the procedure well with no immediate complications us Tonya Olivares SALT PLANT OPERATOR IN CLINIC/BEDSIDE ORDERAB LES Final Result * XR Pelvis 1 or 2 Views (05/31/2024 10:09 AM LIBRARIAN SPECIALIST) Anatomical Region Laterality Modality Body, Pelvis N/A Computed Radiogr aphy 05/31/2024 12:0 8 PM LIBRARIAN SPECIALIST Impressions 05/31/2024 12:19 PM LIBRARIAN SPECIALIST 1.Mild to moderate left knee osteoarthritis. Dictated by: Denis Storm M.D. The radiology attending physician has personally reviewed this study, and had reviewed and/or edited this written report and agrees with it. Electronically signed by: Reza Salgado M.D. Narrative 05/31/2024 12:19 PM LIBRARIAN SPECIALIST EXAMINATION: XR KNEE LEFT 4 OR MORE VIEWS, XR PELVIS 1 OR 2 VIEWS HISTORY: Left knee and groin pain COMPARISON: No comparisons are available. FINDINGS: Left knee: 4 views of the left knee were submitted for interpretation. No acute fracture. No dislocation. There is mild to moderate medial and patellofemoral compartment left knee osteoarthritis. Partially evaluated 2 component right knee arthroplasty. There is a trace joint effusion. Pelvis: One view of the pelvis was administered for interpretation. Within the limitations of a one view examination there is no evidence of fracture or dislocation. Minimal bilateral hip osteoarthritis. Procedure Note Reza Salgado MD - 05/31/2024 EXAMINATION: XR KNEE LEFT 4 OR MORE VIEWS, XR PELVIS 1 OR 2 VIEWS HISTORY: Left knee and groin pain COMPARISON: No comparisons are available. FINDINGS: Left knee: 4 views of the left knee were submitted for interpretation. No acute fracture. No dislocation. There is mild to moderate medial and patellofemoral compartment left knee osteoarthritis. Partially evaluated 2 component right knee arthroplasty. There is a trace joint effusion. Pelvis: One view of the pelvis was administered for interpretation. Within the limitations of a one view examination there is no evidence of fracture or dislocation. Minimal bilateral hip osteoarthritis. IMPRESSION: 1.Mild to moderate left knee osteoarthritis. Dictated by: Denis Storm M.D. The radiology attending physician has personally reviewed this study, and had reviewed and/or edited this written report and agrees with it. Electronically signed by: Reza Salgado M.D. Tonya Olivares SALT PLANT OPERATOR IMG XR PROCEDURES Final R esult * XR Knee Left 4 or More Views (05/31/2024 10:09 AM LIBRARIAN SPECIALIST) Anatomical Region Laterality Modality Lower Extremities, Knee Left Computed Radiography 05/31/2024 12:0 8 PM LIBRARIAN SPECIALIST Impressions 05/31/2024 12:19 PM LIBRARIAN SPECIALIST 1.Mild to moderate left knee osteoarthritis. Dictated by: Denis Storm M.D. The radiology attending physician has personally reviewed this study, and had reviewed and/or edited this written report and agrees with it. Electronically signed by: Reza Salgado M.D. Narrative 05/31/2024 12:19 PM LIBRARIAN SPECIALIST EXAMINATION: XR KNEE LEFT 4 OR MORE VIEWS, XR PELVIS 1 OR 2 VIEWS HISTORY: Left knee and groin pain COMPARISON: No comparisons are available. FINDINGS: Left knee: 4 views of the left knee were submitted for interpretation. No acute fracture. No dislocation. There is mild to moderate medial and patellofemoral compartment left knee osteoarthritis. Partially evaluated 2 component right knee arthroplasty. There is a trace joint effusion. Pelvis: One view of the pelvis was administered for interpretation. Within the limitations of a one view examination there is no evidence of fracture or dislocation. Minimal bilateral hip osteoarthritis. Procedure Note Reza Salgado MD - 05/31/2024 EXAMINATION: XR KNEE LEFT 4 OR MORE VIEWS, XR PELVIS 1 OR 2 VIEWS HISTORY: Left knee and groin pain COMPARISON: No comparisons are available. FINDINGS: Left knee: 4 views of the left knee were submitted for interpretation. No acute fracture. No dislocation. There is mild to moderate medial and patellofemoral compartment left knee osteoarthritis. Partially evaluated 2 component right knee arthroplasty. There is a trace joint effusion. Pelvis: One view of the pelvis was administered for interpretation. Within the limitations of a one view examination there is no evidence of fracture or dislocation. Minimal bilateral hip osteoarthritis. IMPRESSION: 1.Mild to moderate left knee osteoarthritis. Dictated by: Denis Storm M.D. The radiology attending physician has personally reviewed this study, and had reviewed and/or edited this written report and agrees with it. Electronically signed by: Reza Salgado M.D. Tonya Olivares SALT PLANT OPERATOR IMG XR PROCEDURES Final R esult from Last 3 Months Insurance MEDICARE [facility] MEDICARE [employer]ICARE [employer] Care Teams Work Station Support Specialist Relationship Specialty Start Date End Date Rodolfo Schmidt DO [address] [place] [address] PCP - General Internal Medicine 03/04/22
--- OUTSIDE RECORDS SUMMARY | 2024-06-29 10:23 | XMS_ITS | Encounter Summary ---
Author Organization [facility] Address [facility] [facility] [place] [address] Care Team Providers Care Break Up Worker Name Role Phone Leila Coulter RN Unavailable [phone] Lesly Raymundo RN Unavailable [phone] Delores Vences MD Primary Care Provider Unavailabl e Celestino Mueller MD Unavailable Rolando Alcaraz MD Unavailable Unavailable Josef Gray MD Unavailable [phone] Kirk Jordan MD Unavailable [phone] Keila Borjas MD Unavailable [phone] Rosie Bejarano RN Unavailable [phone] Mikaela Adams RN Unavailable [phone] Linda Mike RN Unavailable [phone] Keila Borjas MD Unavailable Hari Jordan MD Unavailable Hernandez Irving MD Primary Care Provider [phone] Delores Vences MD Primary Care Provider Unavailabl e Hari Babb MD Unavailable Rich Adamson MD Unavailable Hernandez Irving MD Unavailable Delores Vences MD Unavailable Unavailable Celestino Mueller MD Unavailable [phone] Delores Vences MD Unavailable Unavailable Mike Peterson MD Unavailable Luca Saldana MD Unavailable Rodolfo Schmidt DO Primary Care Provider [phone] Jalil Villa MD Unavailable [phone] Linda Kennedy Unavailable [phone] Denis Mckee MD Unavailable [phone] Herbert Larson PATIENT SAFETY TECH-COUNSELOR/ART THERAPIST Unavailable [phone] Rodolfo Schmidt DO Unavailable Mica Daily Unavailable [phone] Celestino Mueller MD Unavailable [phone] Delores Vences MD Unavailable Unavailable Encounter Details Date Type Department Care Team (Late st Contact Info) Description 02/04/2014 [facility] Outpatient Visit [facility] [address] [place] [id number] Delores Vences MD Need updated address Social History Tobacco Use Types Packs/Day Years Used Date Smoking Tobacco: Never Smokeless Tobacco: Never Alcohol Use Standard Drinks/Week Comments Yes 1.7 (1 standard drink = 0.6 oz p ure alcohol) Socially Sex and Gender Information Value Date Recorded Sex Assigned at Male 12/04/2020 10:12 AM CDT Gender Identity Male 12/04/2020 10:12 AM CDT Sexual Orientation Straight 12/04/2020 10 :12 AM CDT documented as of this encounter Functional Status Functional Status Response Date of Assess ment Is person deaf or have serious hearing difficult y? No 07/23/2013 Is person blind or have serious difficulty seein g? No 07/23/2013 Does person have serious dif ficulty walking/climbing stairs? No 07/23/2013 Does person have difficulty dressing/bathing? No 07/23/2013 Does person have difficulty doing errands alone? No 07/23/2013 Cognitive Status Response Date of Assessm ent Does person have difficulty concentrating/remembering/making decisions? No 07/23/2013 documented as of this encounter Plan of Treatment Upcoming Encounters Date Type Department Care Team (Late st Contact Info) Description 09/29/2024 10:20 AM CDT Office Visit [facility] - Internal Medicine [address] [facility] [place] [address] Aury Gongora, SIMONE-COUNSELOR/ART THERAPIST [address] [facility] [place] [id number] documented as of this encounter Goals Goal Patient Goal Type Associated Problems Recent Progress Patient-Stated? Author Blood Pressure < 140/90 Blood Pressure 116/62(2023 11:28 AM PROTEOMICS SCIENTIST) No Shereen Lopez MA Note: Medications: Keep a written list of what medicines you are taking and when you take them. Bring the list of your medicines or the pill bottles when you see your provider. Learn why you take each medicine. Ask your provider or pharmacist for information about your medicines. Do not take ntpu-srm-ptfcacu medicine or herbal supplements without talking to your provider. Some of these medicines may raise your blood pressure. You may need to have your medicine or the dose changed many times before it is right for you. It may take weeks for your body to adjust to your blood pressure medicine. Be patient and do not stop taking your medicine, even if you have side effects or are feeling fine. Let your provider know about any side affects you have concerns about. Where can I go for more information? [place] Heart Association National Center: http://www.americanheart.org 1. In the top header click on conditions 2. In the top header click on high blood pressure [id number] ( ) National Heart, Lung and Blood [place]: http://www.nhlbi.nih.gov/health/infoctr/index.htm Exercise 3X per week (30 min per time) Exercise No Lesly Raymundo, TROY HMR DIET Lifestyle No Lesly Raymundo RN Weight < 86.183 kg (190 lb) Weight 97.3 kg (214 lb 6.4 oz)( 11:28 AM PROTEOMICS SCIENTIST) No Lesly Raymundo, TROY documented as of this encounter Visit Diagnoses Not on filedocumented in this encounter Care Teams Break Up Worker Relationship Specialty Start Date End Date Delores Vences MD [address] [place] [address] PCP - General Family Medicine 01/28/14 03/07/19 Hernandez Irving MD [address] [place] [address] PCP - General Internal Medicine 03/08/19 03/29/19 Delores Vences MD [address] [place] [address] PCP - General Family Medicine 03/30/19 01/29/22 Hernandez Irving MD [address] [place] [address] PCP - Attributed-MSSP 03/05/19 0 Delores Vences MD Need updated address PCP - Attributed-MSSP 03/05/20 Celestino Mueller MD [address] [facility] [address] [place] [address] PCP - Attributed-MSSP 07/03/20 08/02/20 Delores Vences MD Need updated address PCP - Attributed-MSSP 08/03/20 Rodlofo Schmidt DO [address] [facility] [place] [phone] PCP - General Internal Medicine 01/30/22 Herbert Larson APRN-COUNSELOR/ART THERAPIST [address] [facility] [place] [phone] PCP - Attributed-MSSP 08/04/23 11/02/23 Rodolfo Schmidt DO [address] [place] [address] PCP - Attributed-MSSP 11/03/23 Celestino Mueller MD [address] [facility] [address] [place] [address] PCP - Attributed-MSSP 02/02/19 Delores Vences MD Need updated address PCP - Attributed-MSSP 10/03/18 Leila Coulter RN Jewel Hole Finish Opener 07/18/13 06/02/23 Lesly Raymundo RN [address] [place] [address] Safety Admin AssistantIt Security Administrator 11/11/13 11/15/14 Celestino Mueller MD [address] [facility] [address] [place] [address] Supervisor [employer] Cardiovascular Disease 01/28/14 2 Rolando Alcaraz MD [address] [facility] [address] [place] [address] Orthopedic Surgery 01/28/14 08/22/14 Josef Gray MD [facility] [facility] [address] [place] [address] Urology 08/23/14 Kirk Jordan MD [address] [facility] Second [place] [address] Physical Medicine and Rehabilitation 08/23/14 03/29/19 [place] [address] [facility] [address] [place] [address] Orthopedic Surgery 11/14/14 Rosie Bejarano, RN [address] [facility] [address] [place] [address] Safety Admin AssistantIt Security Administrator 11/16/14 02/05/15 Mikaela Adams RN Jewel Hole Finish Opener 12/20/14 06/02/23 Linda Mike, TROY [address] [facility] [address] [place] [address] Safety Admin AssistantIt Security Administrator 02/06/15 06/05/15 [place] [address] [facility] [address] [place] [address] Orthopedic Surgery 03/20/15 03/29/19 Hari Jordan MD 101[address] [facility] [address] [place] [address] Pain Management Anesthesiology 05/07/15 03/29/19 Hari Babb MD [address] [place] [address] Anesthesiology 03/30/19 Rich Adamson MD [address] [place] [address] Orthopedic Surgery 03/30/19 07/29/21 Mike Peterson MD [address] [address] Cardiology 12/06/20 Luca Saldana MD [address] [facility] [address] [place] [address] Cardiovascular Disease 07/30/21 [place] [address] [facility] [address] [place] [address] Anesthesiology 01/30/22 [place] [address] [facility] [address] [place] [address] Physician Registrar Nurses' Registry Physician Registrar Nurses' Registry 09/24/23 [place] [address] [facility] [address] [place] [address] Orthopedic Surgery 09/24/23 Mica Daily Care Coordination Specialist Care Management 03/22/24 03/22/24 documented as of this encounter
--- OUTSIDE RECORDS SUMMARY | 2024-06-29 10:23 | XMS_ITS | Encounter Summary ---
Author Organization [facility] Address [address] [place] [address] Care Team Providers Care Surgeon Chief Name Role Phone Leila Coulter RN Unavailable Delores Vences MD Primary Care Provider Unavailabl e Celestino Mueller MD Unavailable Josef Gray MD Unavailable Kirk Jordan MD Unavailable Keila Borjas MD Unavailable [phone] Mikaela Adams RN Unavailable [phone] Keila Borjas MD Unavailable Hari Jordan MD Unavailable Hernandez Irving MD Primary Care Provider Delores Vences MD Primary Care Provider Unavailabl e Hari Babb MD Unavailable [phone] Rich Adamson MD Unavailable Hernandez greenfield MD Unavailable Delores Vences MD Unavailable Unavailable Celestino Mueller MD Unavailable Delores Vences MD Unavailable Unavailable Mike Peterson MD Unavailable Luca Saldana MD Unavailable Rodolfo Schmidt DO Primary Care Provider Jalil Villa MD Unavailable [phone] Linda Kennedy Unavailable [phone] Denis Mckee MD Unavailable [phone] Neo Timfélixjuliocesar Monson UTILITY WORKER FILM PROCESSING-COOK STARCH Unavailable [phone] Rodolfo Schmidt Unavailable Mica Daily Unavailable [phone] Celestino Mueller MD Unavailable [phone] Delores Vences MD Unavailable Unavailable Encounter Details Date Type Department Care Team (Late st Contact Info) Description 09/26/2015 Therapy Visit EXTERNAL NON-[facility] DEPT Unknown, Provider Social History Tobacco Use Types Packs/Day Years Used Date Smoking Tobacco: Never Smokeless Tobacco: Never Alcohol Use Standard Drinks/Week Comments Yes 2 (1 standard drink = 0.6 oz pur e alcohol) Socially Sex and Gender Information Value Date Recorded Sex Assigned at Male 12/04/2020 10:12 AM CDT Gender Identity Male 12/04/2020 10:12 AM CDT Sexual Orientation Straight 12/04/2020 10 :12 AM CDT documented as of this encounter Functional Status Functional Status Response Date of Assess ment Is person deaf or have serious hearing difficult y? No 08/11/2015 Is person blind or have serious difficulty seein g? No 08/11/2015 Does person have serious dif ficulty walking/climbing stairs? No 08/11/2015 Does person have difficulty dressing/bathing? No 08/11/2015 Does person have difficulty doing errands alone? No 08/11/2015 Cognitive Status Response Date of Assessm ent Does person have difficulty concentrating/remembering/making decisions? No 08/11/2015 documented as of this encounter Plan of Treatment Upcoming Encounters Date Type Department Care Team (Late st Contact Info) Description 09/29/2024 10:20 AM CDT Office Visit [facility] - Internal Medicine [address] [facility] [place] [address] Aury Gongora, UTILITY WORKER FILM PROCESSING-COOK STARCH [address] [facility] [place] [address] documented as of this encounter Goals Goal Patient Goal Type Associated Problems Recent Progress Patient-Stated? Author Blood Pressure < 140/90 Blood Pressure 116/62(2023 11:28 AM JEWEL INSERTER) No Shereen Lopez MA Note: Medications: Keep a written list of what medicines you are taking and when you take them. Bring the list of your medicines or the pill bottles when you see your provider. Learn why you take each medicine. Ask your provider or pharmacist for information about your medicines. Do not take iesw-bji-uoskasb medicine or herbal supplements without talking to [...] Where can I go for more information? [place] Heart Association National Center: http://www.americanheart.org 1. In the top header click on conditions 2. In the top header click on high blood pressure [id number] ( ) National Heart, Lung and Blood [place]: http://www.nhlbi.nih.gov/health/infoctr/index.htm Exercise 3X per week (30 min per time) Exercise No Lesly Raymundo, TROY HMR DIET Lifestyle No Lesly Raymundo RN Weight < 86.183 kg (190 lb) Weight 97.3 kg (214 lb 6.4 oz)( 11:28 AM JEWEL INSERTER) No Lesly Raymundo, TROY documented as of this encounter Visit Diagnoses Not on filedocumented in this encounter Care Teams Surgeon Chief Relationship Specialty Start Date End Date Delores Vences MD PCP - General Family Medicine 01/28/14 03/07/19 Hernandez Irving MD [address] [address] PCP - General Internal Medicine 03/08/19 03/29/19 Delores Vences MD PCP - General Family Medicine 03/30/19 01/29/22 Hernandez Irving MD [address]35 [facility] 400 [place] [address] PCP - Attributed-MSSP 03/05/19 0 Delores Vences MD Need updated address PCP - Attributed-MSSP 03/05/20 Celestino Mueller MD [address] [facility] [address] [place] [address] PCP - Attributed-MSSP 07/03/20 08/02/20 Delores Vences MD Need updated address PCP - Attributed-MSSP 08/03/20 Rodolfo Schmidt DO [address] [place] [address] PCP - General Internal Medicine 01/30/22 Herbert Larson, UTILITY WORKER FILM PROCESSING-COOK STARCH [address] [facility] [place] [address] PCP - Attributed-MSSP 08/04/23 11/02/23 Rodolfo Schmidt DO [address] [place] [address] PCP - Attributed-MSSP 11/03/23 Celestino Mueller MD [address]27 [facility] [address] [place] [address] PCP - Attributed-MSSP 02/02/19 9 Delores Vences MD Need updated address PCP - Attributed-MSSP 10/03/18 Leila Coulter RN Diamond Cutter 07/18/13 06/02/23 Celestino Mueller MD [address] [facility] [address] [place] [address] Jewel Bearing Broacher Cardiovascular Disease 01/28/14 2 Josef Gray MD [facility] [address] [place] [address] Urology 08/23/14 Kirk Jordan MD 5 [facility] [place] [address] Physical Medicine and Rehabilitation 08/23/14 03/29/19 [place] [address] [facility] [address] [place] [address] Orthopedic Surgery 11/14/14 Mikaela Adams RN Diamond Cutter 12/20/14 06/02/23 [place] [address] [facility] [address] [place] [address] Orthopedic Surgery 03/20/15 03/29/19 Hari Jordan MD Pain Management Anesthesiology 05/07/15 03/29/19 Hari Babb MD [address] [place] [address] Anesthesiology 03/30/19 Rich Adamson MD [address]70 [place] [address] Orthopedic Surgery 03/30/19 07/29/21 Mike Peterson MD [address] [facility] 102 [place] [address] Cardiology 12/06/20 Luca Saldana MD 1225 [facility] 2310 [place] [address] Cardiovascular Disease 07/30/21 [place] [address] [facility] [address] [address] Anesthesiology 01/30/22 [place] [address] [address] Physician Senior Net Architect Physician Senior Net Architect 09/24/23 [place] [address] [address] Orthopedic Surgery 09/24/23 Mica Daily Care Coordination Specialist Care Management 03/22/24 03/22/24 documented as of this encounter
--- OUTSIDE RECORDS SUMMARY | 2024-06-29 10:23 | XMS_ITS | Encounter Summary ---
Author Organization [facility] Address [address] [facility] [place] [address] Care Team Providers Care Landing Worker Name Role Phone Leila Coulter RN Unavailable Delores Vences MD Primary Care Provider Unavailabl e Celestino Mueller MD Unavailable Josef Gray MD Unavailable [phone] Kirk Jordan MD Unavailable [phone] Keila Borjas MD Unavailable Mikaela Adams RN Unavailable [phone] Linda Mike RN Unavailable [phone] Keila Borjas MD Unavailable Hari Jordan MD Unavailable [phone] Hernandez greenfield MD Primary Care Provider [phone] Delores Vences MD Primary Care Provider Unavailabl e Hari Babb MD Unavailable Rich Adamson MD Unavailable Hernandez Irving MD Unavailable Delores Vences MD Unavailable Unavailable Celestino Mueller MD Unavailable Delores Vences MD Unavailable Unavailable Mike Peterson MD Unavailable Luca Saldana MD Unavailable Rodolfo Schmidt DO Primary Care Provider [phone] Jalil Villa MD Unavailable Linda Kennedy Unavailable [phone] Denis Mckee MD Unavailable [phone] NeoHerbert Iona PROCUREMENT SERVICES MANAGER-CLINICAL PROJECT ASSISTANT Unavailable [phone] Rodolfo Schmidt DO Unavailable Mica Daily Unavailable [phone] Celestino Mueller MD Unavailable [phone] Delores Vences MD Unavailable Unavailable Encounter Details Date Type Department Care Team (Late st Contact Info) Description 03/13/2015 Therapy Visit EXTERNAL NON-[facility] DEPT Unknown, Provider [...] or have serious hearing difficult y? No 12/19/2014 Is person blind or have serious difficulty seein g? No 12/19/2014 Does person have serious dif ficulty walking/climbing stairs? No 12/19/2014 Does person have difficulty dressing/bathing? No 12/19/2014 Does person have difficulty doing errands alone? No 12/19/2014 Cognitive Status Response Date of Assessm ent Does person have difficulty concentrating/remembering/making decisions? No 12/19/2014 documented as of this encounter Plan of Treatment Upcoming Encounters Date Type Department Care Team (Late st Contact Info) Description 09/29/2024 10:20 AM CDT Office Visit [facility] - Internal Medicine [address] [facility] [place] [address] Aury Gongora, PROCUREMENT SERVICES MANAGER-CLINICAL PROJECT ASSISTANT [address] [facility] [place] [address] documented as of this encounter Goals Goal Patient Goal Type Associated Problems Recent Progress Patient-Stated? Author Blood Pressure < 140/90 Blood Pressure 116/62(2023 11:28 AM BUTTON SEWER HAND) Shereen Mcdonough MA Note: Medications: Keep a written list of what medicines you are taking and when you take them. Bring the list of your medicines or the pill bottles when you see your provider. Learn why you take each medicine. Ask your provider or pharmacist for information about your medicines. Do not take ejlo-ihc-nwwlcns medicine or herbal supplements without talking to [...] Where can I go for more information? [place] Heart Association National Center: http://www.americanheart.org 1. In the top header click on conditions 2. In the top header click on high blood pressure [id number] ( ) National Heart, Lung and Blood [place]: http://www.nhlbi.nih.gov/health/infoctr/index.htm Exercise 3X per week (30 min per time) Exercise No Lesly Raymundo, TROY R DIET Lifestyle No Lesly Raymundo RN Weight < 86.183 kg (190 lb) Weight 97.3 kg (214 lb 6.4 oz)( 11:28 AM BUTTON SEWER HAND) No Lesly Raymundo, TROY documented as of this encounter Visit Diagnoses Not on filedocumented in this encounter Care Teams Landing Worker Relationship Specialty Start Date End Date Delores Vences MD PCP - General Family Medicine 01/28/14 03/07/19 Hernandez Irving MD [address] [address] PCP - General Internal Medicine 03/08/19 03/29/19 Delores Vences MD PCP - General Family Medicine 03/30/19 01/29/22 Hernandez Irving MD [address] [facility] 400 [place] [address] PCP - Attributed-MSSP 03/05/19 0 Delores Vences MD Need updated address PCP - Attributed-MSSP 03/05/20 Celestino Mueller MD 1027 [facility] [address] [place] [address] PCP - Attributed-MSSP 07/03/20 08/02/20 Delores Vences MD Need updated address PCP - Attributed-MSSP 08/03/20 Rodolfo Schmidt DO [address]70 [place] [address] PCP - General Internal Medicine 01/30/22 Herbert Larson APRN-CLINICAL PROJECT ASSISTANT [address] [facility] [place] [address] PCP - Attributed-MSSP 08/04/23 11/02/23 Rodolfo Schmidt DO [address] [place] [address] PCP - Attributed-MSSP 11/03/23 Celestino Mueller MD 1027 [facility] [address] [place] [address] PCP - Attributed-MSSP 02/02/19 9 Delores Vences MD Need updated address PCP - Attributed-MSSP 10/03/18 Leila Coulter RN Senior Tax Accountant 07/18/13 06/02/23 Celestino Mueller MD 1027 [facility] [address] [place] [address] Electrical Tryout Person Cardiovascular Disease 01/28/14 2 Josef Gray MD [facility] [address] [place] [address] Urology 08/23/14 Kirk Jordan MD 845 [facility] [place] [address] Physical Medicine and Rehabilitation 08/23/14 03/29/19 [place] [address] [facility] [address] [place] [address] Orthopedic Surgery 11/14/14 Mikaela Adams RN Senior Tax Accountant 12/20/14 06/02/23 Linda Mike RN [address] [address] Seed TechnicianImprovement Specialist 02/06/15 06/05/15 [place] [address] [facility] [address] [place], [place] [address] Orthopedic Surgery 03/20/15 03/29/19 Hari Jordan MD 1011 [facility] [address] [place] [address] Pain Management Anesthesiology 05/07/15 03/29/19 Hari Babb MD [address] [place] [address] Anesthesiology 03/30/19 Rich Adamson MD [address] [place] [address] [id number] Orthopedic Surgery 03/30/19 07/29/21 Mike Peterson MD [address] [facility] [address] [place] [address] [address] [place], [place] [id number] Cardiology 12/06/20 Luca Saldana MD 1225 [facility] 2310 [place] [address] Cardiovascular Disease 07/30/21 [place] [address] [facility] [address] [place] [address] Anesthesiology 01/30/22 [place] [address] [facility] [address] [place] [address] Physician Infirmary Attendant Physician Infirmary Attendant 09/24/23 [place] [address] [facility] [address] [place] [address] Orthopedic Surgery 09/24/23 Mica Daily Care Coordination Specialist Care Management 03/22/24 03/22/24 documented as of this encounter
--- OUTSIDE RECORDS SUMMARY | 2024-06-29 10:23 | XMS_ITS | Continuity of Care Document ---
Author Organization [facility] Address [address] [place] [address] Phone Care Team Providers Care Workers Compensation Paralegal Name Role Phone Boby Cooley Unavailable Unavailable Allergies, Adverse Reactions, Alerts Substance Reaction Status Criticality BEE STING KIT Active No Information Medications Medication Instructions Dosage Effective Dates (start - stop) Status Comments CLONAZEPAM (unknown strength) Not Available - Active CLOPIDOGREL (unknown strength) Not Available - Active FEBUXOSTAT (unknown strength) Not Available - Active LOSARTAN-HYDROCHLOROTHI AZIDE (unknown strength) Not Available - Active METOPROLOL TARTRATE (unknown strength) Not Available - Active NITROGLYCERIN (unknown strength) Not Available - Active OMEPRAZOLE (unknown strength) Not Available - Active POTASSIUM CHLORIDE (unknown strength) Not Available - Active ROSUVASTATIN CALCIUM (unknown strength) Not Available - Active TRAZODONE HCL (unknown strength) Not Available - Active Procedures Procedure Date BMI Documented Above Normal Limit F/U Pl an Doc Office/outpatient visit,[facility] 2023 Advance Directives Directive Yes / No Effective Date File Name No Information Encounters Encounter Description Practice Location Reason(s) For Visit Diagnoses Date Provider Providers Copied on Encounter Office/outpat ient visit,[place], [facility], [address], [place], [place], [id number], [place] tel:[phone] [employer] [facility] bilat knees (chief complaint) Unilateral primary osteoarthri tis, left kneePain in right knee Yasir Maldonado er. [address] [facility] [address], [place], [place], [id number] , [place]. tel:[phone] Referring Provider: Boby Nielsen, [address], [place], [address]. tel:[phone] Family History Family Member Type Diagnosis Age At Onset Father Problem (finding) Stroke Immunizations Vaccine Date Status Comments influenza, injectable, quadrivalent, (3 years or older) administered Note: per patient ; Source: Source Unspecified Payers Payer name Insurance type Covered democrat ID Authoriza tion(s) [place] Part [place] MB [id number] [facility] [id number] Social History Type Description Quantity Date Captured Comments Alcohol Use Details Unknown Caffeine Use Details Unknown Tobacco Use Status No Information Smoking Status Never smoker Non-Smoking Tobacco Use Details : No Details Available : No Details Available Sex Male Vital Signs Date / Time: Height Weight BMI Pulse Rate Blood Pressure Temperature Respiratory Rate Body Surface Area Head Circumference Head Circ. Percentile Wt./Fish. Percentile BMI percentile Pulse Ox Inhaled Ox 10:52 AM 71.00 in 92.986 kg (205.00 lbs) 28.5 9 kg/m marianner (2) Chief Complaint And Reason For Visit From encounter dated '04/14/2024 10:00'. bilat knees (chief complaint). Description: Francisco Javier is a 74 year-old male who presents to the office for evaluation of bilateral knee pain.He is 5 foot 11, 208 pounds. Reports bilateral knee painRight knee: Total knee arthroplasty performed at the [facility] one year ago, after meniscectomy.States his knee is still painful. He is not satisfied with the result here. He has had it evaluatedby the surgeon Rafi, and Dr. multani. On no obvious need for revision was identified. He also has pain in his left knee. No surgery here. He has tried a cortisone shot about 1 month ago, with some relief. He has been using medications. Physical therapy and plain x-rays. .He rates pain is 8 out of 10 it is constant he is experiencing giving way, limping, locking and swelling. Pain is worse with climbing stairs, descending stairs and walkingPain is better with icing prescription medication and [id number] medicationRadiographs: I reviewed numerous radiographs from a discAP lateral and merchant view of the right knee show a 3 piece cemented Biomet prosthesis. No evidence of loosening migration or fracture. There is mild anterior femoral notching, there is mild lateral patellar tracking, patella has been resurfaced. Components project and expected stable positionAP lateral merchant and Decker views of the left knee show moderate arthritis of the medial compartment no evidence of fracture or other osseous abnormalities present. Reason For Referral Reason For Referral No Information Plan Of Treatment Date Type Action Status Appointment Francisco Javier Burrows BOOKED History Of Present Illness Encounter Date Complaint History Of Prese nt Illness bilat knees Francisco Javier is a 74 ye ar-old male who presents to the office for evaluation of bilateral knee pain.He is 5 foot 11, 208 pounds. Reports bilateral knee painRight knee: Total knee arthroplasty performed at the [facility] one year ago, after meniscectomy. States his knee is still painful. He is not satisfied with the result here. He has had it evaluated by the surgeon Rafi, and Dr. multani. On no obvious need for revision was identified. He also has pain in his left knee. No surgery here. He has tried a cortisone shot about 1 month ago, with some relief. He has been using medications. Physical therapy and plain x-rays. .He rates pain is 8 out of 10 it is constant he is experiencing giving way, limping, locking and swelling. Pain is worse with climbing stairs, descending stairs and walkingPain is better with icing prescription medication and dsbz-jhw-rwmjqgh medicationRadiographs: I reviewed numerous radiographs from a discAP lateral and merchant view of the right knee show a 3 piece cemented Biomet prosthesis. No evidence of loosening migration or fracture. There is mild anterior femoral notching, there is mild lateral patellar tracking, patella has been resurfaced. Components project and expected stable positionAP lateral merchant and Decker views of the left knee show moderate arthritis of the medial compartment no evidence of fracture or other osseous abnormalities present. Functional Status Date Functional Assessmen t No Information Instructions Date Instruction Additional Infor mation No Information Assessments Type Assessment Date assessment Unilateral primary osteoarthriti s, left knee impression Plain radiographs re viewed with the patient. Diagnosis of moderate arthritis was reviewed. I discussed treatment plans1 continue low inflammatory diet2. Activity program with low-impact exercise3. Oral anti-inflammatories4. Bracing, 5. Injections consisting of cortisone or Visco supplement. (Recent cortisone injection by outside physician 1 month ago)Patient understands arthritis is a progressive condition and may require surgical treatment in the future. Care plan was discussed and questions were answered.Discussed guided physical therapy program recommend follow-up as needed for future injections. Discussed maximizing conservative treatment prior to undergoing arthroplasty assessment Pain in right knee impression Patient asked me to evaluate his right knee. This was placed about a year ago by an outside surgeon. I reviewed the radiographs on the disc, there is mild lateral patellar tracking. Components appear to be appropriately sized and rotated. No evidence of loosening or fracture. Knee shows mild instability in flexion. I do not think this is enough to warrant a revision. He does have a little bit of a flexion contracture and some stiffness in terminal extension -- therefore a polyethylene upsizing would likely cause is flexion contracture to be worsened. I would recommend physical therapy and strengthening. I do not see any obvious reason for revision of the right knee nor do I think it would drastically benefit him. Patient Care Teams Name Effective Dates (start - stop) Status Members No Information
--- OUTSIDE RECORDS SUMMARY | 2024-06-29 10:23 | XMS_ITS | Data Portability ---
Author Organization [facility]O [facility] Address [address] [place] [address] Care Team Providers Care Web Production Assistant Name Role Phone PATTI KAYLIN Primary Care Provider TONIA SUTTON Language Therapist Assessment No assessment recorded. Plan of Treatment Reminders Order Date Submit Date Provider Last Modified By Organization Details Last Modified Time Details Appointments None record ed. Lab None record ed. Referral None record ed. Procedures None record ed. Surgeries None record ed. Imaging None record ed. Medication Orders None record ed. Patient TargetsNo targets recorded. Patient InstructionsNo instructions recorded. Reason for Referral None Reported. Results Created Date Observation Date Name Description Value Unit Range Abnormal Flag Note LastModifiedBy Organization Detail LastModifiedTime 08/18/19 21 08/05/2020 elect rocar diogr am No observ ation record ed. BARCODE Not Available 2020 11:46:09 08/18/19 21 08/04/2020 elect rocar diogr am No observ ation record ed. BARCODE Not Available 2020 11:46:09 08/18/19 21 08/04/2020 CT, angio gram, chest , w/wo contr ast No observ ation record ed. BARCODE Not Available 2020 11:46:09 08/18/19 21 08/04/2020 XR, chest , 1 view No observ ation record ed. BARCODE Not Available 2020 11:46:09 Result Notes None recorded. Procedures Surgical History None recorded. Imaging Results Imaging Date Name Status LastModified by Organization Details LastModified Time 08/05/2020 electrocardiogram completed BARCODE Informa tion not available 08/17/2020 11:46:09 08/04/2020 electrocardiogram completed BARCODE Informa tion not available 08/17/2020 11:46:09 08/04/2020 CT, angiogram, chest, w/wo contrast completed BARCODE Information not available 08/17/2020 11:46:09 08/04/2020 XR, chest, 1 view completed BARCODE Informa tion not available 08/17/2020 11:46:09 Procedure Notes None recorded. Medical Equipment None Reported. Medications Name Sig Start Date Stop Date Status Note LastModified by Organization Details LastModified Time atorvastati n 80 mg tablet Take 1 tablet every day by oral route for 90 days. active Not Available Not Available No t Available trazodone 50 mg tablet TAKE 1 TABLET BY MOUTH NIGHTLY NEEDED FOR INSOMNIA active Not Available Not Available No t Available sildenafil 50 mg tablet TAKE 1 TABLET BY MOUTH 1 TIME BEFORE SEXUAL ACTIVITY NEEDED active Not Available Not Available No t Available hydrochloro thiazide 50 mg tablet Take 1 tablet every day by oral route. active Not Available Not Available No t Available clonazepam 0.5 mg tablet TAKE 1/2 TO 1 TABLET BY MOUTH TWICE DAILY NEEDED FOR ANXIETY active Not Available Not Available No t Available amlodipine 2.5 mg tablet TK 1 T PO HS 08/16 completed Not Available Not Available Not Available omeprazole 40 mg capsule,del ayed release TAKE 1 CAPSULE BY MOUTH DAILY BEFORE BREAKFAST active Not Available Not Available No t Available pravastatin 80 mg tablet TAKE 1 TABLET BY MOUTH AT BEDTIME active Not Available Not Available No t Available nitroglycer in 0.4 mg sublingual tablet DISSOLVE 1 TABLET PO UNDER THE TONGUE Q 5 MINUTES PRN FOR ANGINA active Not Available Not Available No t Available hydrochloro thiazide 25 mg tablet TAKE 2 TABLETS BY MOUTH EVERY DAY 08/16 completed Not Available Not Available Not Available losartan 100 mg tablet GENERIC FOR COZAAR. TAKE 1 TABLET BY MOUTH EVERY DAY active Not Available Not Available No t Available metoprolol tartrate 25 mg tablet TAKE ONE-HALF TABLET BY MOUTH TWICE DAILY active Not Available Not Available No t Available olopatadine 0.2 % eye drops INT 1 GTT IN OU QD PRN FOR OCULAR ALLERGIES active Not Available Not Available No t Available febuxostat 80 mg tablet TAKE 1 T PO D FOR EXCESSIVE URIC ACID IN THE BLOOD 08/16 completed Not Available Not Available Not Available febuxostat 40 mg tablet TAKE 1 TABLET BY MOUTH EVERY DAY active Not Available Not Available No t Available prasugrel HCl 10 mg tablet Take 1 tablet every day by oral route for 30 days. 2020 active Not Available Not Available Not Avai lable Effient 5 mg tablet Take 1 tablet every day by oral route. 08/16 completed Not Available Not Available Not Available Vitals Date Recorded Body height Body mass index (BMI) Body weight Heart rate Oxygen saturation Oxygen saturation in Arterial blood by Pulse oximetry Systolic blood pressure Diastolic blood pressure Provider Name and Address Organization Details Last Updated DateTime 1 182.88 cm 31.2 kg/m2 779401. 25 g 69 /min 97 % 97 % 141 mm[Hg] 74 mm[Hg] Angela wright [facility] 12:39:33 Social History None recorded. Functional Status None recorded. Mental Status None recorded. Family History Nothing Reported. Medical History Condition Response Coronary Artery Disease N Thyroid Disease N Atrial Fibrillation N Mitral Regurgitation N Thrombophlebitis N Depression N COPD N Congenital Heart Disease N Pulmonary Hypertension N Pacemaker N Peripheral Arterial Disease N Aortic Stenosis N Anemia N TIA N Genitourinary Disease N Gastrointestinal Disease N Deep Vein Thrombosis N Diabetes N Cardiomyopathy N Myocardial Infarction N Mitral Stenosis N Congestive Heart Failure (CHF) N Hyperlipidemia N Cancer N Stroke N Asthma N Atrial Flutter N Carotid Disease N Sleep Apnea N Sleep Disorder N Aortic Aneurysm N GERD/Reflux N Neurologic Disorder N Mitral Valve Prolapse N Chronic Anticoagulation N Liver Disease N Arrhythmia N Hypertension Y Kidney Disease N Hematologic Disease N Past Encounters Encounter ID Performer Location Encounter Start Date Encounter Closed Date Diagnosis/Indication Diagnosis SNOMED-CT Code Diagnosis ICD10 Code Diagnosis Note [id number] Beverly Jordan NP [facility] [address] [place] [address] 08/16/2020 12:18:56 08/16/2020 13:37:35 Coronary arteriosclerosis 30238209 I25.10 Recent NSTEMI Cardiac cath and PCI Mid LAD 80-90% stenosis followed by tandem distal 80% lesion Prior proximal and distal LAD and lcx om stents are patent Successful PCI with stenting of mid lad with two Synergy drug eluting stents 3,5 mm x 28 and 3.5 x 8 mm Successful PCI with stenting of distal lad with Synergy drug eluting stent 3mm x 18. On good medical therapy DAPT for minimum of 1 full year. [place] and [place] be following up with his cardiologi st [place] Continue GDMT Essential hypertension 44904813 I10 Blood pressure is well controlled . Target < 130/80. Low salt diet. Will continue current medical treatment. Hyperlipidemia 11778625 E78.5 Chronic. Will attempt to keep the patient's LDL less than 70. I have made no changes to the present regimen. We will continue the current medical therapy. Health Concerns Section Related Observation LastModified by Organization Detai ls LastModified Time None Recorded Concern Status LastModified by Organization Details LastModified Time None Recorded Advance Directives Directive None Recorded Payers Encounter Date Sequence Insurance Name Policy Number Policy Nava Covered Member ID Nava Member ID Guarantor Name 08/16/2020 2 [employer] (MEDICARE SUPPLEMENT) Francisco Javier Burrows [id number] Francisco Javier Singh Markos 08/16/2020 1 [place]IC[place]: [employer] Francisco Javier Burrows [id number] Francisco Javier Burrows Notes Date Note Type Note Provider Name and Address Organization Details Recorded Time 08/16/2020 text/html JULY discharged 08/05/2020 Francisco Javier Burrows is a 70 y.o. with past medical history of CAD with PCI of OM & LAD in 2013,mild to moderate AR.mild MR, HTN, HLD, STEPHANIE, and BPH who was recently admitted with chest pain. About 130 am woke up with chest pain, described as pressure with bilateral arm numbness.Took nitro x 2 . About 3 he began having chest pain again when he was getting ready to seek medical attention. He states he had planned for stress test in a couple of weeks due to worsening symptoms. He does get SOB with stairs. EKG- SB no acte ST/T waves changes noted. D.Dimer < 0.27. Troponin 0.114. He underwent LHC, details below. Procedures: Cardiac cath and PCI Mid LAD 80-90% stenosis followed by tandem distal 80% lesion Prior proximal and distal LAD and lcx om stents are patent Successful PCI with stenting of mid lad with two Synergy drug eluting stents 3,5 mm x 28 and 3.5 x 8 mm Successful PCI with stenting of distal lad with Synergy drug eluting stent 3mm x 18. Since discharge no chest pain. Still SOB, but this has not worsened. 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 Beverly Jordan, JUAN A [address], [place], [address], [facility] 08/16/2020 18:49:53
--- OUTSIDE RECORDS SUMMARY | 2024-06-29 10:23 | XMS_ITS | Encounter Summary ---
Author Organization [facility] Address [facility] [place] [address] Care Team Providers Care Railroad Track Repair Supervisor Name Role Phone Leila Coulter RN Unavailable Lesly Raymundo RN Unavailable [phone] Delores Vences MD Primary Care Provider Unavailabl e Celestino Mueller MD Unavailable Rolando Alcaraz MD Unavailable Unavailable Josef Gray MD Unavailable [phone] Kirk Jordan MD Unavailable [phone] Keila Borjas MD Unavailable Rosie Bejarano RN Unavailable Mikaela Adams RN Unavailable [phone] Linda Mike RN Unavailable [phone] Keila Borjas MD Unavailable Hari Jordan MD Unavailable [phone] Hernandez Irving MD Primary Care Provider Delores Vences MD Primary Care Provider Unavailabl e Hari Babb MD Unavailable Rich Adamson MD Unavailable [phone] Hernandez Irving MD Unavailable Delores Vences MD Unavailable Unavailable Celestino Mueller MD Unavailable [phone] Delores Vences MD Unavailable Unavailable Mike Peterson MD Unavailable [phone] Luca Saldana MD Unavailable Rodolfo Schmidt DO Primary Care Provider [phone] Jalil Villa MD Unavailable Linda Kennedy Unavailable [phone] Denis Mckee MD Unavailable [phone] Herbert Larson [place] CORONER-COMPUTER AIDED DESIGN DRAFTER Unavailable [phone] Rodolfo Schmidt DO Unavailable Mica Daily Unavailable [phone] Celestino Mueller MD Unavailable [phone] Delores Vences MD Unavailable Unavailable Encounter Details Date Type Department Care Team (Late st Contact Info) Description 03/08/2014 SS Outpatient Visit [facility] [address] [place], [place] [id number] Unknown, Provider Social History Tobacco Use Types [...] Description 09/29/2024 10:20 AM CDT Office Visit [facility] - Internal Medicine [address] [facility] [place] [address] Aury Gongora APRN-YONATAN [address] [facility] [address] documented as of this encounter Goals Goal Patient Goal Type Associated Problems Recent Progress Patient-Stated? Author Blood Pressure < 140/90 Blood Pressure 116/62(2023 11:28 AM RACE RELATIONS PROFESSOR) No Shereen Lopez MA Note: Medications: Keep a written list of what medicines you are taking and when you take them. Bring the list of your medicines or the pill bottles when you see your provider. Learn why you take each medicine. Ask your provider or pharmacist for information about your medicines. Do not take nqlr-rmo-vdzrlrj medicine or herbal supplements without talking to [...] Where can I go for more information? [place] Heart Association National Center: http://www.americanheart.org 1. In the top header click on conditions 2. In the top header click on high blood pressure [id number] ( ) National Heart, Lung and Blood [place]: http://www.nhlbi.nih.gov/health/infoctr/index.htm Exercise 3X per week (30 min per time) Exercise No Lesly Raymundo, TROY HMR DIET Lifestyle No Lesly Raymundo RN Weight < 86.183 kg (190 lb) Weight 97.3 kg (214 lb 6.4 oz)( 11:28 AM RACE RELATIONS PROFESSOR) No Lesly Raymundo RN documented as of this encounter Visit Diagnoses Not on filedocumented in this encounter Care Teams Railroad Track Repair Supervisor Relationship Specialty Start Date End Date Hensley, Delores, MD [address] [place] [address] PCP - General Family Medicine 01/28/14 03/07/19 Hernandez Irving MD [address] [place] [address] PCP - General Internal Medicine 03/08/19 03/29/19 Delores Vences MD [address] [place] [address] PCP - General Family Medicine 03/30/19 01/29/22 Hernandez Irving MD [address] [place] [address] PCP - Attributed-MSSP 03/05/19 0 Delores Vences MD Need updated address PCP - Attributed-MSSP 03/05/20 Celestino Mueller MD [address] [facility] [address] [place] [address] PCP - Attributed-MSSP 07/03/20 08/02/20 Delores Vences MD Need updated address PCP - Attributed-MSSP 08/03/20 Rodolfo Schmidt DO [address] [place] [address] PCP - General Internal Medicine 01/30/22 Herbert Larson APRN-COMPUTER AIDED DESIGN DRAFTER [address] [facility] [place] [address] PCP - Attributed-MSSP 08/04/23 11/02/23 Rodolfo Schmidt DO [address] [place] [address] PCP - Attributed-MSSP 11/03/23 Celestino Mueller MD [address] [facility] [address] [place] [address] PCP - Attributed-MSSP 02/02/19 9 Delores Vences MD Need updated address PCP - Attributed-MSSP 10/03/18 Leila Coulter RN House Carpenter 07/18/13 06/02/23 Lesly Raymundo RN [address] [place] [address] Production Crew SupervisorIt Senior Analyst 11/11/13 11/15/14 Celestino Mueller MD [address] [facility] [address] [place] [address] Esthetician Cardiovascular Disease 01/28/14 2 Rolando Alcaraz MD [address] [facility] [address] [place] [address] Orthopedic Surgery 01/28/14 08/22/14 Josef Gray MD [address] [facility] [address] [place] [address] Urology 08/23/14 Kirk Jordan MD [address] [facility] [place] [address] Physical Medicine and Rehabilitation 08/23/14 03/29/19 [place] [address] [facility] [address] [place] [address] Orthopedic Surgery 11/14/14 Rosie Bejarano, RN [address] [facility] [address] [place] [address] Production Crew SupervisorIt Senior Analyst 11/16/14 02/05/15 Mikaela Adams RN House Carpenter 12/20/14 06/02/23 Linda Mike, TROY [address] [facility] [address] [place], [place] [id number] Production Crew SupervisorIt Senior Analyst 02/06/15 06/05/15 [place] [address] [facility] [address] [place] [address] Orthopedic Surgery 03/20/15 03/29/19 Hari Jordan MD [address] [facility] [address] [place] [address] Pain Management Anesthesiology 05/07/15 03/29/19 Hari Babb MD [facility] [place] [address] Anesthesiology 03/30/19 Rich Adamson MD [facility] [place] [address] Orthopedic Surgery 03/30/19 07/29/21 Mike Peterson MD [address] [facility] [address] [place] [address] Cardiology 12/06/20 Luca Saldana MD [facility] C [facility] [address] [place] [address] Cardiovascular Disease 07/30/21 [place] [address] [facility] [address] [place] [address] Anesthesiology 01/30/22 [place] [address] [facility] [address] [place] [address] Physician Window Shade Cutter Physician Window Shade Cutter 09/24/23 [place] [address] [facility] [address] [place] [id number] Orthopedic Surgery 09/24/23 Mica Daily Care Coordination Specialist Care Management 03/22/24 03/22/24 documented as of this encounter
--- OUTSIDE RECORDS SUMMARY | 2024-06-29 10:23 | XMS_ITS | Encounter Summary ---
Author Organization [facility] Address [address] [facility] [place] [address] Care Team Providers Care Sheetrock Applicator Name Role Phone Leila Coulter RN Unavailable [phone] Delores Vences MD Primary Care Provider Unavailabl e Celestino Mueller MD Unavailable Josef Gray MD Unavailable [phone] Kirk Jordan MD Unavailable [phone] Keila Borjas MD Unavailable Mikaela Adams RN Unavailable [phone] Linda Mike RN Unavailable [phone] Keila Borjas MD Unavailable Hari Jordan MD Unavailable Hernandez greenfield MD Primary Care Provider Delores Vences MD Primary Care Provider Unavailabl e Hari Babb MD Unavailable Rich Adamson MD Unavailable Hernandez Irving MD Unavailable Delores Vences MD Unavailable Unavailable Celestino Mueller MD Unavailable [phone] Delores Vences MD Unavailable Unavailable Mike Peterson MD Unavailable Luca Saldana MD Unavailable Rodolfo Schmidt DO Primary Care Provider [phone] Jalil Villa MD Unavailable Linda Kennedy Unavailable [phone] Denis Mckee MD Unavailable [phone] NeoHerbert Iona MEDICAL BILLING CODER-FISHING GAME WARDEN Unavailable Rodolfo Schmidt DO Unavailable Mica Daily Unavailable [phone] Celestino Mueller MD Unavailable [phone] Delores Vences MD Unavailable Unavailable Encounter Details Date Type Department Care Team (Late st Contact Info) Description 02/14/2015 Therapy Visit EXTERNAL NON-[facility] DEPT Unknown, Provider [...] Description 09/29/2024 10:20 AM CDT Office Visit [facility] - Internal Medicine [address] [facility] [place] [place] [address] Aury Gongora, MEDICAL BILLING CODER-FISHING GAME WARDEN [address] [facility] [place] [address] documented as of this encounter Goals Goal Patient Goal Type Associated Problems Recent Progress Patient-Stated? Author Blood Pressure < 140/90 Blood Pressure 116/62(2023 11:28 AM TELEVISION ENGINEERING TEACHER) Shereen Mcdonough MA Note: Medications: Keep a written list of what medicines you are taking and when you take them. Bring the list of your medicines or the pill bottles when you see your provider. Learn why you take each medicine. Ask your provider or pharmacist for information about your medicines. Do not take ponm-rif-ihwkjbn medicine or herbal supplements without talking to [...] Where can I go for more information? [place] Heart Association National Center: http://www.americanheart.org 1. In the top header click on conditions 2. In the top header click on high blood pressure [id number] ( ) National Heart, Lung and Blood [place]: http://www.nhlbi.nih.gov/health/infoctr/index.htm Exercise 3X per week (30 min per time) Exercise No Lesly Raymundo, TROY R DIET Lifestyle No Lesly Raymundo RN Weight < 86.183 kg (190 lb) Weight 97.3 kg (214 lb 6.4 oz)( 11:28 AM TELEVISION ENGINEERING TEACHER) No Lesly Raymundo, TROY documented as of this encounter Visit Diagnoses Not on filedocumented in this encounter Care Teams Sheetrock Applicator Relationship Specialty Start Date End Date Delores Vences MD PCP - General Family Medicine 01/28/14 03/07/19 Hernandez Irving MD [address] [address] PCP - General Internal Medicine 03/08/19 03/29/19 Delores Vences MD PCP - General Family Medicine 03/30/19 01/29/22 Hernandez Irving MD [address] [facility] 400 [place] [address] PCP - Attributed-MSSP 03/05/19 0 Delores Vences MD Need updated address PCP - Attributed-MSSP 03/05/20 Celestino Mueller MD [address] [facility] [address] [place] [address] PCP - Attributed-MSSP 07/03/20 08/02/20 Delores Vences MD Need updated address PCP - Attributed-MSSP 08/03/20 Rodolfo Schmidt DO [address] [place] [address] PCP - General Internal Medicine 01/30/22 Herbert Larson APRN-FISHING GAME WARDEN [address] [facility] [place] [address] PCP - Attributed-MSSP 08/04/23 11/02/23 Rodolfo Schmidt DO [address] [place] [address] PCP - Attributed-MSSP 11/03/23 Celestino Mueller MD [address] [facility] [address] [place] [address] PCP - Attributed-MSSP 02/02/19 9 Delores Vences MD Need updated address PCP - Attributed-MSSP 10/03/18 Leila Coulter RN Laborer Salvage 07/18/13 06/02/23 Celestino Mueller MD [address] [facility] [address] [place] [address] Fishing Tool Operator Cardiovascular Disease 01/28/14 2 Josef Gray MD [facility] [address] [place] [address] Urology 08/23/14 Kirk Jordan MD [address] [facility] [place] [address] Physical Medicine and Rehabilitation 08/23/14 03/29/19 [place] [address] [facility] [address] [place] [address] Orthopedic Surgery 11/14/14 Mikaela Adams RN Laborer Salvage 12/20/14 06/02/23 Linda Mike RN [address] [address] Manager WastewaterCube Cutter 02/06/15 06/05/15 [place] [address] [facility] [address] [place], [place] [address] Orthopedic Surgery 03/20/15 03/29/19 Hari Jordan MD [address] [facility] [address] [place] [address] Pain Management Anesthesiology 05/07/15 03/29/19 Hari Babb MD [address] [place] [address] Anesthesiology 03/30/19 Rich Adamson MD [address] [place] [id number] Orthopedic Surgery 03/30/19 07/29/21 Mike Peterson MD [address] [facility] [address] [place] [address] [address] [place], [place] [phone] Cardiology 12/06/20 Luca Saldana MD [address] [facility] [address] [place] [address] Cardiovascular Disease 07/30/21 [place] [address] [facility] 120 [place] [address] Anesthesiology 01/30/22 [place] [address] [facility] [address] [place] [address] Physician Body Masker Physician Body Masker 09/24/23 [place] [address] [facility] [address] [place] [address] Orthopedic Surgery 09/24/23 Mica Daily Care Coordination Specialist Care Management 03/22/24 03/22/24 documented as of this encounter
--- OUTSIDE RECORDS SUMMARY | 2024-06-29 10:23 | XMS_ITS | Referral Summary ---
Author Organization [facility] Address [address] [place] [address] Care Team Providers Care Trimmer Helper Name Role Phone Brayan Rodolfodanielle Mclean Primary Care Provider [phone] Encounters Date Type Department Care Team Description 06/08/2024 3:00 PM CABLE TOOL DRILLER Ancillary Procedure [facility] Vascular and Vein Surgery at [address] [place] [address] Right carotid bruit 06/04/2024 11:15 AM CABLE TOOL DRILLER Office Visit 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) (Primary Dx); Essential hypertension; Hyperlipidemia LDL goal <70; Palpitations; STEPHANIE on CPAP; Right carotid bruit 05/31/2024 9:44 AM CABLE TOOL DRILLER - 05/31/2024 11:59 PM CABLE TOOL DRILLER Hospital Encounter [facility] [address] [place] [address] [address] [place] [address] Left knee pain, unspecified chronicity; Acute knee pain, unspecified laterality Discharge Disposition: Discharge to home or self care 05/31/2024 10:30 AM CABLE TOOL DRILLER Office Visit [facility] Orthopaedic Surgery [address] [facility] Medical Office Building [address] [place] [address] Tonya Olivares NP Acute knee pain, unspecified laterality (Primary Dx); Left knee pain, unspecified chronicity; Primary osteoarthritis of left knee from Last 3 Months Allergies Active Allergy Reactions Criticality Noted Date [...] 40 mg tabletIndicati ons: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 (HCC),Hyperlip idemia [...] artery disease of n ative artery of three affiliated heart with stable angina pectoris 08/22/2021 Gastrointestinal hemorrhage with melena 08/07/19 22 History of non-ST elevation myocardial infarctio n (NSTEMI) 08/04/2020 NSTEMI (non-ST elevated myocardial infarction) ( [facility]/HCC) 08/04/2020 Popliteal cyst, right 07/22/2019 Peripheral edema 07/30/2018 STEPHANIE on CPAP 05/27/2016 PLMD (periodic limb movement disorder) 7 Psychophysiological insomnia 05/27/2016 History of coronary artery stent placement 11/10 Overview (05/31/2024): 08/04/2020 LAD stent in [place]. 3 new ERVIN [place] [employer], 3 x16mm, 3.5 x 28 mm, 3.5 x 8 mm in LAD [facility] in [facility], [place] Dr Almanza 07/16/13 ERVIN in OM1 3 [...] Clonazepam since early 2013. Alprazolam since before [id number] Fluoxetine- c/o headache Social History Tobacco Use Types Packs/Day Years Used Date Smoking Tobacco: Never Cigarettes Smokeless Tobacco: Never Tobacco Cessation:Counseling Given: Not Answered Sex and Gender Information Value Date Recorded Sex Assigned at Not on file Legal Sex Male 3:00 AM CABLE TOOL DRILLER Gender Identity Not on file Sexual Orientation Not on file Last Filed Vital Signs Vital Sign Reading Time Taken Comments Blood Pressure 136/72 06/04/2024 11:21 AM CABLE TOOL DRILLER Pulse 60 06/04/2024 11:21 AM CABLE TOOL DRILLER Temperature - - Respiratory Rate 15 08/22/2021 1:23 PM CDT Oxygen Saturation 95% 06/04/2024 11:21 AM CABLE TOOL DRILLER Inhaled Oxygen Concentration - - Weight 100.2 kg (221 lb) 06/04/2024 11:21 AM CABLE TOOL DRILLER Height 182.9 cm (6') 06/04/2024 11:21 AM CABLE TOOL DRILLER Body Mass Index 29.97 06/04/2024 11:21 AM CABLE TOOL DRILLER Plan of Treatment Not on file Procedures Procedure Name Priority Date/Time Associated Diagnosis Comments US CAROTIDS DUPLEX BILATERAL Schedule Routine, Read Routine (OP Routine) 06/08/2024 3:09 PM CABLE TOOL DRILLER Right carotid bruit RI ARTHROCENTESIS ASPIR&/INJ MAJOR JT/BURSA W/O US Routine 05/31/2024 10:30 AM CABLE TOOL DRILLER Left knee pain, unspecified chronicity Primary osteoarthritis of left knee XR PELVIS 1 OR 2 VIEWS Schedule Routine, Read Routine (OP Routine) 05/31/2024 10:09 AM CABLE TOOL DRILLER Acute knee pain, unspecified laterality XR KNEE LEFT 4 OR MORE VIEWS Schedule Routine, Read Routine (OP Routine) 05/31/2024 10:09 AM CABLE TOOL DRILLER Left knee pain, unspecified chronicity from Last 3 Months Results * US Carotids Duplex Bilateral (06/08/2024 3:09 PM CABLE TOOL DRILLER) LV EF % CONS SCIMAGE Anatomical Region Laterality Modality Vascular Bilateral Ultrasound 06/08/2024 2:56 PM CABLE TOOL DRILLER Narrative 06/11/2024 9:23 AM CABLE TOOL DRILLER Vascular & Vein Surgery [facility] [place] [address] Carotid Duplex Ultrasound Report Patient Name: ANABELL RIVERA R : 1950 (74y 2m) Study Date: 06/08/2024 2:56:20 PM Gender: M Architectural Project Captain: Location: [facility] Ref Provider: MAREK BOLDEN Quality: Adequate Order Provider: MAREK BOLDEN PROCEDURES: Carotid Report: Carotid duplex examination of the extracranial arteries was performed using 2D, color and spectral Doppler. INDICATIONS: Right sided bruit. HISTORY: Hypertension. Hyperlipidemia. Coronary artery disease- [place] S/P stents. COMPARISONS: No previous exams. MEASUREMENTS: [...] Luis Fernando Thompson MD 06/11/2024 9:22:15 AM CABLE TOOL DRILLER Procedure Note Luis Fernando Thompson MD - 06/11/2024 Vascular & Vein Surgery [address] [place] [address]. [place] [address] Carotid Duplex Ultrasound Report Patient Name: ANABELL RIVERA R : 1950 (74y 2m) Study Date: 06/08/2024 2:56:20 PM Gender: M Architectural Project Captain: DEE Location: [facility] Provider: MAREK BOLDEN Quality: Adequate Order Provider: MAREK BOLDEN PROCEDURES: Carotid Report: Carotid duplex examination of the extracranial arterieswas performed using 2D, color and spectral Doppler. INDICATIONS: Right sided bruit. HISTORY: Hypertension. Hyperlipidemia. Coronary artery disease- [place] S/P stents. COMPARISONS: No previous exams. MEASUREMENTS: [...] Luis Fernando Thompson MD 06/11/2024 9:22:15 AM CABLE TOOL DRILLER us Marek Bolden MD IMG US PROCEDURES Final R esult * RI ARTHROCENTESIS ASPIR&/INJ MAJOR JT/BURSA W/O US (05/31/2024 10:30 AM CABLE TOOL DRILLER) Tonya Arias NP - 05/31/2024 10:30 AM CABLE TOOL DRILLER Tonya Olivares NP 06/01/2024 8:30 AM Large [...] with no immediate complications us Tonya Olivares NP IN CLINIC/BEDSIDE ORDERAB LES Final Result * XR Pelvis 1 or 2 Views (05/31/2024 10:09 AM CABLE TOOL DRILLER) Anatomical Region Laterality Modality Body, Pelvis N/A Computed Radiogr aphy 05/31/2024 12:0 8 PM CABLE TOOL DRILLER Impressions 05/31/2024 12:19 PM CABLE TOOL DRILLER 1.Mild to moderate left knee osteoarthritis. Dictated by: Denis Storm M.D. The radiology attending physician has personally reviewed this study, and had reviewed and/or edited this written report and agrees with it. Electronically signed by: Reza Salgado M.D. Narrative 05/31/2024 12:19 PM CABLE TOOL DRILLER EXAMINATION: XR KNEE LEFT 4 OR MORE [...] signed by: Reza Salgado M.D. Tonya Olivares NP IMG XR PROCEDURES Final R esult * XR Knee Left 4 or More Views (05/31/2024 10:09 AM CABLE TOOL DRILLER) Anatomical Region Laterality Modality Lower Extremities, Knee Left Computed Radiography 05/31/2024 12:0 8 PM CABLE TOOL DRILLER Impressions 05/31/2024 12:19 PM CABLE TOOL DRILLER 1.Mild to moderate left knee osteoarthritis. Dictated by: Denis Storm M.D. The radiology attending physician has personally reviewed this study, and had reviewed and/or edited this written report and agrees with it. Electronically signed by: Reza Salgado M.D. Narrative 05/31/2024 12:19 PM CABLE TOOL DRILLER EXAMINATION: XR KNEE LEFT 4 OR MORE [...] signed by: Reza Salgado M.D. Tonya Olivares NP IMG XR PROCEDURES Final R esult from Last 3 Months Insurance MEDICARE [facility] MEDICARE [facility] Care Teams Trimmer Helper Relationship Specialty Start Date End Date Rodolfo Schmidt DO [address] [place] [address] PCP - General Internal Medicine 03/04/22
--- OUTSIDE RECORDS SUMMARY | 2024-06-29 10:23 | XMS_ITS | Encounter Summary ---
Author Organization [facility] Address [address] [place] [address] Care Team Providers Care Crew Mess Attendant Name Role Phone Leila Coulter RN Unavailable Delores Vences MD Primary Care Provider Unavailabl e Celestino Mueller MD Unavailable Josef Gray MD Unavailable Kirk Jordan MD Unavailable [phone] Keila Borjas MD Unavailable [phone] Mikaela Adams RN Unavailable [phone] Keila Borjas MD Unavailable Hari Jordan MD Unavailable Hernandez Irving MD Primary Care Provider Delores Vences MD Primary Care Provider Unavailabl e Hari Babb MD Unavailable [phone] Rich Adamson MD Unavailable Hernandez greenfield MD Unavailable Delores Vences MD Unavailable Unavailable Celestino Mueller MD Unavailable Delores Vences MD Unavailable Unavailable Mike Peterson MD Unavailable [phone] Luca Saldana MD Unavailable Rodolfo Schmidt DO Primary Care Provider Jalil Villa MD Unavailable [phone] Linda Kennedy Unavailable [phone] Denis Mckee MD Unavailable [phone] Neo Timfélixjuliocesar Monson CERTIFIED CAREGIVER-TIMBER MANAGEMENT TECHNICIAN Unavailable [phone] Rodolfo Schmidt Unavailable Mica Daily Unavailable [phone] Celestino Mueller MD Unavailable [phone] Delores Vences MD Unavailable Unavailable Encounter Details Date Type Department Care Team (Late st Contact Info) Description 09/11/2015 Therapy Visit EXTERNAL NON-[facility] DEPT Unknown, Provider [...] Description 09/29/2024 10:20 AM CDT Office Visit [facility] - Internal Medicine [address] [facility] [place] [address] Aury Gongora, CERTIFIED CAREGIVER-TIMBER MANAGEMENT TECHNICIAN [address] [facility] [place] [place] [id number] documented as of this encounter Goals Goal Patient Goal Type Associated Problems Recent Progress Patient-Stated? Author Blood Pressure < 140/90 Blood Pressure 116/62(2023 11:28 AM CLIENT SERVICES COORDINATOR) No Shereen Lopez MA Note: Medications: Keep a written list of what medicines you are taking and when you take them. Bring the list of your medicines or the pill bottles when you see your provider. Learn why you take each medicine. Ask your provider or pharmacist for information about your medicines. Do not take esvu-mva-dnnarkg medicine or herbal supplements without talking to [...] Where can I go for more information? [place] Heart Association National Center: http://www.americanheart.org 1. In the top header click on conditions 2. In the top header click on high blood pressure 8-167-ESH-USA-1 ( ) National Heart, Lung and Blood [place]: http://www.nhlbi.nih.gov/health/infoctr/index.htm Exercise 3X per week (30 min per time) Exercise No Lesly Raymundo, TROY HMR DIET Lifestyle No Lesly Raymundo RN Weight < 86.183 kg (190 lb) Weight 97.3 kg (214 lb 6.4 oz)( 11:28 AM CLIENT SERVICES COORDINATOR) No Lesly Raymundo, TROY documented as of this encounter Visit Diagnoses Not on filedocumented in this encounter Care Teams Crew Mess Attendant Relationship Specialty Start Date End Date Delores Vences MD PCP - General Family Medicine 01/28/14 03/07/19 Hernandez Irving MD [address] [address] PCP - General Internal Medicine 03/08/19 03/29/19 Delores Vences MD PCP - General Family Medicine 03/30/19 01/29/22 Hernandez Irving MD [address] [facility] [address] [place] [address] PCP - Attributed-MSSP 03/05/19 0 Delores Vences MD Need updated address PCP - Attributed-MSSP 03/05/20 Celestino Mueller MD [address] [facility] [address] [address] [place] [address] PCP - Attributed-MSSP 07/03/20 08/02/20 Delores Vences MD Need updated address PCP - Attributed-MSSP 08/03/20 Rodolfo Schmidt DO [address] [place] [address] PCP - General Internal Medicine 01/30/22 Herbert Larson, CERTIFIED CAREGIVER-TIMBER MANAGEMENT TECHNICIAN [address] [facility] [place] [address] PCP - Attributed-MSSP 08/04/23 11/02/23 Rodolfo Schmidt DO [address] [place] [address] PCP - Attributed-MSSP 11/03/23 Celestino Mueller MD [address] [facility] [address] [place] [address] PCP - Attributed-MSSP 02/02/19 9 Delores Vences MD Need updated address PCP - Attributed-MSSP 10/03/18 Leila Coulter RN Medical Record Coder 07/18/13 06/02/23 Celestino Mueller MD [address] [facility] [address] [place] [address] Board Catcher Cardiovascular Disease 01/28/14 2 Josef Gray MD [facility] [address] [place] [address] Urology 08/23/14 Kirk Jordan MD [address] [facility] [place] [address] Physical Medicine and Rehabilitation 08/23/14 03/29/19 [place] [address] [facility] [address] [place] [address] Orthopedic Surgery 11/14/14 Mikaela Adams RN Medical Record Coder 12/20/14 06/02/23 [place] [address] [facility] [address] [place] [address] Orthopedic Surgery 03/20/15 03/29/19 Hari Jordan MD Pain Management Anesthesiology 05/07/15 03/29/19 Hari Babb MD [address] [place] [address] Anesthesiology 03/30/19 Rich Adamson MD 1070 [place] [address] Orthopedic Surgery 03/30/19 07/29/21 Mike Peterson MD [address] [facility] [address] [place] [address] Cardiology 12/06/20 Luca Saldana MD 1225 [facility] [address]10 [place] [address] Cardiovascular Disease 07/30/21 [place] [address] [facility] [address] [address] Anesthesiology 01/30/22 [place] [address] [address] Physician Cook Supervisor Physician Cook Supervisor 09/24/23 [place] [address] [address] Orthopedic Surgery 09/24/23 Mica Daily Care Coordination Specialist Care Management 03/22/24 03/22/24 documented as of this encounter
--- OUTSIDE RECORDS SUMMARY | 2024-06-29 10:23 | XMS_ITS | Encounter Summary ---
Author Organization [facility] Address [facility] [place] [address] Care Team Providers Care Self Rising Flour Mixer Name Role Phone Kirk Olea MD Primary Care Provider Unavailab Leila Prasad RN Unavailable Lesly Raymundo RN Unavailable [phone] Delores Vences MD Primary Care Provider Unavailabl Celestino Medrano MD Unavailable [phone] Rolando Alcaraz MD Unavailable Unavailable Josef Gray MD Unavailable Kirk Jordan MD Unavailable [phone] Keila Borjas MD Unavailable Rosie Bejarano RN Unavailable [phone] Mikaela Adams RN Unavailable [phone] Linda Mike RN Unavailable [phone] Keila Borjas MD Unavailable Hari Jordan MD Unavailable Hernandez Irving MD Primary Care Provider Delores Vences MD Primary Care Provider Unavailabl Hari Cuenca MD Unavailable Rich Adamson MD Unavailable Hernandez Irving MD Unavailable Delores Vences MD Unavailable Unavailable Celestino Mueller MD Unavailable [phone] Delores Vences MD Unavailable Unavailable Mike Peterson MD Unavailable [phone] Luca Saldana MD Unavailable [phone] Rodolfo Schmidt DO Primary Care Provider [phone] Jalil Villa MD Unavailable [phone] Linda Kennedy Unavailable [phone] Denis Mckee MD Unavailable [phone] Herbert Larson BARREL WATERER-GLYCERIN OPERATOR Unavailable [phone] Rodolfo Schmidt DO Unavailable Mica Daily Unavailable [phone] Celestino Mueller MD Unavailable [phone] Delores Vences MD Unavailable Unavailable Encounter Details Date Type Department Care Team (Late st Contact Info) Description 12/15/2013 [facility] DEPT Celestino Mueller MD [address] [facility] [address] [place] [address] Social History Tobacco Use Types Packs/Day Years [...] Description 09/29/2024 10:20 AM CDT Office Visit [facility] - Internal Medicine [address] [facility] [place] [address] Aury Gongora, BARREL WATERER-GLYCERIN OPERATOR [address] [facility] [place] [address] documented as of this encounter Goals Goal Patient Goal Type Associated Problems Recent Progress Patient-Stated? Author Blood Pressure < 140/90 Blood Pressure 116/62(2023 11:28 AM COMPRESSOR STATION ENGINEER) No Royer christian, KATHRYN Regan Note: Medications: Keep a written list of what medicines you are taking and when you take them. Bring the list of your medicines or the pill bottles when you see your provider. Learn why you take each medicine. Ask your provider or pharmacist for information about your medicines. Do not take qubt-fkn-kbchhba medicine or herbal supplements without talking to [...] Where can I go for more information? [place] Heart Association National Center: http://www.americanheart.org 1. In the top header click on conditions 2. In the top header click on high blood pressure [id number]-USA-1 ( ) National Heart, Lung and Blood [place]: http://www.nhlbi.nih.gov/health/infoctr/index.htm documented as of this encounter Visit Diagnoses Not on filedocumented in this encounter Care Teams Self Rising Flour Mixer Relationship Specialty Start Date End Date Kirk Olea MD PCP - General Internal Medicine 05/15/12 01/27/14 Delores Vences MD [address] [place] [address] PCP - General Family Medicine 01/28/14 03/07/19 Hernandez Irving MD [address] [place] [address] PCP - General Internal Medicine 03/08/19 03/29/19 Delores Vences MD [address] [place] [address] PCP - General Family Medicine 03/30/19 01/29/22 Hernandez Irving MD [address] [place] [address] PCP - Attributed-MSSP 03/05/19 0 Delores Vences MD Need updated address PCP - Attributed-MSSP 03/05/20 Celestino Mueller MD [address] [facility] [address] [place] [address] PCP - Attributed-MSSP 07/03/20 08/02/20 Delores Vences MD Need updated address PCP - Attributed-MSSP 08/03/20 Rodolfo Schmidt DO [address] [place] [address] PCP - General Internal Medicine 01/30/22 Herbert Larson APRN-GLYCERIN OPERATOR [address] [facility] [place] [address] PCP - Attributed-MSSP 08/04/23 11/02/23 Rodolfo Schmidt DO [address] [place] [address] PCP - Attributed-MSSP 11/03/23 Celestino Mueller MD [address] [facility] [address] [place] [address] PCP - Attributed-MSSP 02/02/19 9 Delores Vences MD Need updated address PCP - Attributed-MSSP 10/03/18 Leila Coulter, RN Head Butler 07/18/13 06/02/23 Lesly Raymundo, TROY [address] [place] [address] Iron WorkerPatient Transport Orderly 11/11/13 11/15/14 Celestino Mueller MD [address] [facility] [address] [place] [address] Property Claims Manager Cardiovascular Disease 01/28/14 2 Rolando Alcaraz MD [address] [facility] [address] [place] [address] Orthopedic Surgery 01/28/14 08/22/14 Josef Gray MD [address] [facility] [address] [place] [address] Urology 08/23/14 Kirk Jordan MD [address] [facility] [place] [address] Physical Medicine and Rehabilitation 08/23/14 03/29/19 [place] [address] [facility] [address] [place] [address] Orthopedic Surgery 11/14/14 Rosie Bejarano, RN [address] [facility] [address] [place] [address] Iron WorkerPatient Transport Orderly 11/16/14 02/05/15 Mikaela Adams, RN Head Butler 12/20/14 06/02/23 Linda Mike, TROY [address] [facility] [address] [place] [address] Iron WorkerPatient Transport Orderly 02/06/15 06/05/15 [place] [address] [facility] [address] [place] [address] Orthopedic Surgery 03/20/15 03/29/19 Hari Jordan MD [address] [place] [address] Pain Management Anesthesiology 05/07/15 03/29/19 Hari Babb MD [facility] [place] [address] Anesthesiology 03/30/19 Rich Adamson MD [facility] [place] [address] Orthopedic Surgery 03/30/19 07/29/21 Mike Peterson MD [address] [facility] 102 [place] [address] Cardiology 12/06/20 Luca Saldana MD [address] [facility] 23[address] [place] [address] Cardiovascular Disease 07/30/21 [place] [address] [facility] [address] [place] [address] Anesthesiology 01/30/22 [place] [address] [facility] [address] [place] [address] Physician Director Of Vital Statistics Physician Director Of Vital Statistics 09/24/23 [place] [address] [facility] [address] [place] [address] Orthopedic Surgery 09/24/23 Mica Daily Care Coordination Specialist Care Management 03/22/24 03/22/24 documented as of this encounter
--- OUTSIDE RECORDS SUMMARY | 2024-06-29 10:23 | XMS_ITS | Encounter Summary ---
Author Organization [facility] Address [address] [facility] [place] [address] Care Team Providers Care See Wheeler Name Role Phone Leila Coulter RN Unavailable Delores Vences MD Primary Care Provider Unavailabl e Celestino Mueller MD Unavailable Josef Gray MD Unavailable Kirk Jordan MD Unavailable [phone] Keila Borjas MD Unavailable [phone] Mikaela Adams RN Unavailable [phone] Keila Borjas MD Unavailable Hari Jordan MD Unavailable Hernandez Irving MD Primary Care Provider Delores Vences MD Primary Care Provider Unavailabl e Hari Babb MD Unavailable [phone] Rich Adamson MD Unavailable Hernandez greenfield MD Unavailable Delores Vences MD Unavailable Unavailable Celestino Mueller MD Unavailable [phone] Delores Vences MD Unavailable Unavailable Mike Peterson MD Unavailable Luca Saldana MD Unavailable Rodolfo Schmidt DO Primary Care Provider Jalil Villa MD Unavailable [phone] Linda Kennedy Unavailable [phone] Denis Mckee MD Unavailable [phone] Neo Timfélixjuliocesar Monson CHIEF OF INTERNAL MEDICINE-TIMBER SIZER OPERATOR Unavailable [phone] Rodolfo Schmidt Unavailable Mica Daily Unavailable [phone] Celestino Mueller MD Unavailable [phone] Delores Vences MD Unavailable Unavailable Encounter Details Date Type Department Care Team (Late st Contact Info) Description 11/07/2015 Therapy Visit EXTERNAL NON-[facility] DEPT Unknown, Provider [...] 09/29/2024 10:20 AM CDT Office Visit [facility] - Internal Medicine [address] [facility] [address] Aury Gongora, CHIEF OF INTERNAL MEDICINE-TIMBER SIZER OPERATOR [address] [facility] [place] [address] documented as of this encounter Goals Goal Patient Goal Type Associated Problems Recent Progress Patient-Stated? Author Blood Pressure < 140/90 Blood Pressure 116/62(2023 11:28 AM WREATH AND GARLAND MAKER) No Shereen Lopez MA Note: Medications: Keep a written list of what medicines you are taking and when you take them. Bring the list of your medicines or the pill bottles when you see your provider. Learn why you take each medicine. Ask your provider or pharmacist for information about your medicines. Do not take hfyg-sob-vcduyrn medicine or herbal supplements without talking to [...] Where can I go for more information? [place] Heart Association National Center: http://www.americanheart.org 1. In the top header click on conditions 2. In the top header click on high blood pressure [id number]-USA-1 ( ) National Heart, Lung and Blood [place]: http://www.nhlbi.nih.gov/health/infoctr/index.htm Exercise 3X per week (30 min per time) Exercise No Lesly Raymundo, TROY HMR DIET Lifestyle No Lesly Raymundo RN Weight < 86.183 kg (190 lb) Weight 97.3 kg (214 lb 6.4 oz)( 11:28 AM WREATH AND GARLAND MAKER) No Lesly Raymundo, TROY documented as of this encounter Visit Diagnoses Not on filedocumented in this encounter Care Teams See Wheeler Relationship Specialty Start Date End Date Delores Vences MD PCP - General Family Medicine 01/28/14 03/07/19 Hernandez Irving MD [address] [address] PCP - General Internal Medicine 03/08/19 03/29/19 Delores Vences MD PCP - General Family Medicine 03/30/19 01/29/22 Hernandez Irving MD [address] [facility] 400 [place] [address] PCP - Attributed-MSSP 03/05/19 0 Delores Vences MD Need updated address PCP - Attributed-MSSP 03/05/20 Celestino Mueller MD [address] [facility] [place] [address] [place] [address] PCP - Attributed-MSSP 07/03/20 08/02/20 Delores Vences MD Need updated address PCP - Attributed-MSSP 08/03/20 Rodolfo Schmidt DO [address] [place] [address] PCP - General Internal Medicine 01/30/22 Herbert Larson, CHIEF OF INTERNAL MEDICINE-TIMBER SIZER OPERATOR [address] [facility] [place] [address] PCP - Attributed-MSSP 08/04/23 11/02/23 Rodolfo Schmidt DO [address] [place] [address] PCP - Attributed-MSSP 11/03/23 Celestino Mueller MD [address] [facility] [place] [address] [place] [address] PCP - Attributed-MSSP 02/02/19 9 Delores Vences MD Need updated address PCP - Attributed-MSSP 10/03/18 Leila Coulter RN Commercial Banker 07/18/13 06/02/23 Celestino Mueller MD [address] [facility] [address] [place] [address] Product Marketing Intern Cardiovascular Disease 01/28/14 2 Josef Gray MD [facility] [address] [place] [address] Urology 08/23/14 Kirk Jordan MD 5 [facility] [place] [address] Physical Medicine and Rehabilitation 08/23/14 03/29/19 [place] [address] [facility] [address] [place] [address] Orthopedic Surgery 11/14/14 Mikaela Adams RN Commercial Banker 12/20/14 06/02/23 [place] [address] [facility] [address] [place] [address] Orthopedic Surgery 03/20/15 03/29/19 Hari Jordan MD Pain Management Anesthesiology 05/07/15 03/29/19 Hari Babb MD [address] [place] [address] Anesthesiology 03/30/19 Rich Adamson MD 1070 [place] [address] Orthopedic Surgery 03/30/19 07/29/21 Mike Peterson MD [address] [facility] 102 [place] [address] Cardiology 12/06/20 Luca Saldana MD 1225 [facility] 2310 [place] [address] Cardiovascular Disease 07/30/21 [place] [address] [facility] [address] [address] Anesthesiology 01/30/22 [place] [address] [address] Physician Director Market Intelligence Physician Director Market Intelligence 09/24/23 [place] [address] [address] Orthopedic Surgery 09/24/23 Mica Daily Care Coordination Specialist Care Management 03/22/24 03/22/24 documented as of this encounter
--- OUTSIDE RECORDS SUMMARY | 2024-06-29 10:24 | XMS_ITS | Encounter Summary ---
Author Organization [facility] Address [employer] [place] [address] Care Team Providers Care Oncology Transplant Network Manager Name Role Phone Kirk Olea MD Primary Care Provider Unavailab Salima Holman RN Unavailable [phone] Leila Coulter RN Unavailable Lesly Raymundo RN Unavailable [phone] Delores Vences MD Primary Care Provider Unavailabl Celestino Medrano MD Unavailable [phone] Rolando Alcaraz MD Unavailable Unavailable Josef Gray MD Unavailable Kirk Jordan MD Unavailable [phone] Keila Borjas MD Unavailable Rosie Bejarano RN Unavailable Mikaela Adams RN Unavailable [phone] Linda Mike RN Unavailable [phone] Keila Borjas MD Unavailable Hari Jordan MD Unavailable [phone] Hernandez Irving MD Primary Care Provider Delores Vences MD Primary Care Provider Unavailabl e Hari Babb MD Unavailable Rich Adamson MD Unavailable [phone] Hernandez Irving MD Unavailable Delores Vences MD Unavailable Unavailable Celestino Mueller MD Unavailable Delores Vences MD Unavailable Unavailable Mike Peterson MD Unavailable [phone] Luca Saldana MD Unavailable Rodolfo Schmidt DO Primary Care Provider [phone] Jalil Villa MD Unavailable Linda Kennedy Unavailable [phone] Denis Mckee MD Unavailable [phone] Herbert Larson PARBOILER-FLUME WORKER Unavailable [phone] Rodolfo Schmidt DO Unavailable Mica Daily Unavailable [phone] Celestino Mueller MD Unavailable [phone] Delores Vences MD Unavailable Unavailable Encounter Details Date Type Department Care Team (Late st Contact Info) Description 04/22/2013 [facility] Outpatient Visit [facility] [address] [facility] [place] [address] Em Jordan MD [address] [place] [id number] Social History Tobacco Use Types Packs/Day Years Used Date Smoking Tobacco: Never Alcohol Use Standard Drinks/Week Comments Yes 1.7 (1 standard drink = 0.6 oz p ure alcohol) Socially Sex and Gender Information Value Date Recorded Sex Assigned at Male 12/04/2020 10:12 AM CDT Gender Identity Male 12/04/2020 10:12 AM CDT Sexual Orientation Straight 12/04/2020 10 :12 AM CDT documented as of this encounter Plan of Treatment Upcoming Encounters Date Type Department Care Team (Late Contact Info) Description 09/29/2024 10:20 AM CDT Office Visit [facility] - Internal Medicine [address] [facility] [place] [address] Aury Gongora, PARBOILER-FLUME WORKER [address] [facility] [place] [address] [place] [address] documented as of this encounter Visit Diagnoses Not on filedocumented in this encounter Care Teams Oncology Transplant Network Manager Relationship Specialty Start Date End Date Kirk Olea MD PCP - General Internal Medicine 05/15/12 01/27/14 Delores Vences MD [address] [place] [address] PCP - General Family Medicine 01/28/14 03/07/19 Hernandez Irving MD [address] [place] [address] PCP - General Internal Medicine 03/08/19 03/29/19 Delores Vences MD [address] [place] [address] PCP - General Family Medicine 03/30/19 01/29/22 Hernandez Irving MD [address] [place] [address] PCP - Attributed-MSSP 03/05/19 0 Delores Vences MD Need updated address PCP - Attributed-MSSP 03/05/20 Celestino Mueller MD [address] [facility] [address] [place] [address] PCP - Attributed-MSSP 07/03/20 08/02/20 Delores Vences MD Need updated address PCP - Attributed-MSSP 08/03/20 Rodolfo Schmidt DO [address] [facility] [place] [address] PCP - General Internal Medicine 01/30/22 Herbert Larson, PARBOILER-FLUME WORKER [address] [facility] [place] [id number] PCP - Attributed-MSSP 08/04/23 11/02/23 Rodolfo Schmidt DO [address] [place] [address] PCP - Attributed-MSSP 11/03/23 Celestino Mueller MD [address] [facility] [address] [place] [address] PCP - Attributed-MSSP 02/02/19 9 Delores Vences MD Need updated address PCP - Attributed-MSSP 10/03/18 Salima Cerda RN [address] [place] [id number] Middleware Developer 07/02/12 11/10/13 Leila Coulter RN Customer Service Technician 07/18/13 06/02/23 Lesly Raymundo, TROY [address] [place], [place] [id number] Middleware DeveloperWink Cutter Operator 11/11/13 11/15/14 Celestino Mueller MD [address] [facility] [address] [place] [address] Marble Installer Supervisor Cardiovascular Disease 01/28/14 2 Rolando Alcaraz MD [address] [facility] [address] [place] [address] Orthopedic Surgery 01/28/14 08/22/14 Josef Gray MD [address] [facility] [address] [place] [address] Urology 08/23/14 Kirk Jordan MD [address] [facility] [place] [address] Physical Medicine and Rehabilitation 08/23/14 03/29/19 [place] [address] [facility] [address] [place] [address] Orthopedic Surgery 11/14/14 Rosie Bejarano, RN [address] [facility] [address] [place] [address] Middleware DeveloperWink Cutter Operator 11/16/14 02/05/15 Mikaela Adams RN Customer Service Technician 12/20/14 06/02/23 Linda Mike, TROY [address] [facility] [address] [place], [place] [id number] Middleware DeveloperWink Cutter Operator 02/06/15 06/05/15 [place] [address] [facility] [address] [place] [address] Orthopedic Surgery 03/20/15 03/29/19 Hari Jordan MD [address] [facility] [address] [place] [address] Pain Management Anesthesiology 05/07/15 03/29/19 Hari Babb MD [address] [place] [address] Anesthesiology 03/30/19 Rich Adamson MD [address] [place] [address] Orthopedic Surgery 03/30/19 07/29/21 Mike Peterson MD [address] [facility] [address] [place] [address] Cardiology 12/06/20 Luca Saldana MD [address] [facility] [address] [place] [address] Cardiovascular Disease 07/30/21 [place] [address] [facility] [address] [facility] [address] [place] [address] Anesthesiology 01/30/22 [place] [address] [facility] [address] [place] [address] Physician Pharmacy Student Physician Pharmacy Student 09/24/23 [place] [address] [id number] Orthopedic Surgery 09/24/23 Mica Daily Care Coordination Specialist Care Management 03/22/24 03/22/24 documented as of this encounter
--- OUTSIDE RECORDS SUMMARY | 2024-06-29 10:24 | XMS_ITS | Patient Health Summary ---
Author Organization [facility] Address [address] [place] [address] Care Team Providers Care News Wire Photo Operator Name Role Phone Josef Gray MD Unavailable Keila Borjas MD Unavailable [phone] Hari Babb MD Unavailable [phone] Alexander Peterson MD Unavailable [phone] Luca Saldana MD Unavailable Rodolfo Schmidt DO Primary Care Provider [phone] Jonny Villa MD Unavailable Linda Kennedy Unavailable [phone] Denis Mckee MD Unavailable [phone] Rodolfo Schmidt DO Unavailable Note from [facility],non-owned Affiliates and Associated Physician Practices is amultiple site organization consisting of ambulatory clinics and hospital sitesin [place], [place], [place] and [place]. This disclosure is being madepursuant to the Care Everywhere program and may not contain all information available regarding this patient. Last updated 18.[facility] Allergies * Bee Venom(Anaphylaxis) -High Criticality * Tadalafil(Headache),Inactive * Beta-Galactosidase(GI Discomfort),Inactive * Sertraline(Headache) -Low Criticality,Inactive * Cetirizine-Pseudoephedrine(Urticaria),Inactive Medications * Be aware that medications may not be up to date on this document. Alwaysverify current medications with the patient. * losartan (COZAAR) 100 MG tablet(Started 01/11/2020) GENERIC FOR COZAAR. TAKE 1 TABLET BY MOUTH EVERY DAY 3 refills by 01/10/2021 * EPINEPHrine (Epipen) 0.3 MG/0.3ML auto-injector pen Inject 0.3 mL into muscle once Reasons: Life-Threatening Hypersensitivity Reaction, BEE VENOM AND SERTRALINE * metoprolol tartrate (LOPRESSOR) 25 MG tablet(Started 08/11/2020) Take 0.5 (one-half) tablet by mouth 2 times daily 3 refills by 08/11/2021 * nitroGLYCERIN (NITROSTAT) 0.4 MG tablet(Started 08/24/2020) Dissolve 1 (one) tablet under the tongue every 5 minutes as needed FOR ANGINA. * potassium chloride ER (KLOR-CON) 20 MEQ tablet(Started 11/21/2020) Take 2 (two) tablets by mouth once daily Reasons: Low Amount of Potassium in the Blood * clopidogrel (plaVIX) 75 MG tablet Take 1 (one) tablet by mouth once daily Reasons: Carotid Artery Stenting * rosuvastatin (Crestor) 40 MG tablet(Started 12/15/2022) Take 1 (one) tablet by mouth once daily Reasons: High Amount of Fats in the Blood * hydroCHLOROthiazide (Hydrodiuril) 50 MG tablet(Started 02/10/2023) Take 1 (one) tablet by mouth once daily Reasons: High Blood Pressure * febuxostat (Uloric) 40 MG tablet Take 1 (one) tablet by mouth once daily Reasons: GOUT * methylPREDNISolone (Medrol Dosepak) 4 MG tablet(Started 09/22/2023) Take 1 (one) tablet by mouth as directed * ciclopirox (Loprox) 1 % shampoo(Started 09/10/2023) Apply to affected area every 3 days To scalp * clobetasol (Temovate) 0.05 % solution(Started 09/10/2023) Apply to affected area 2 times daily as needed Every 3 days * sertraline (Zoloft) 50 MG tablet(Started 09/24/2023) Take 1 (one) tablet by mouth once daily 4 refills by 09/23/2024 * omeprazole (PriLOSEC) 40 MG capsule(Started 09/30/2023) TAKE 1 CAPSULE BY MOUTH DAILY BEFORE BREAKFAST 3 refills by 09/29/2024 * ketoconazole (Nizoral) 2 % cream(Started 03/18/2024) APPLY TOPICALLY TO THE AFFECTED AREA EVERY DAY * clonazePAM (KlonoPIN) 0.5 MG tablet(Started 04/09/2024) TAKE 1/2 TO 1 TABLET BY MOUTH TWICE DAILY NEEDED FOR ANXIETY * traZODone (Desyrel) 50 MG tablet(Started 05/18/2024) TAKE 1 TABLET BY MOUTH EVERY NIGHT NEEDED FOR INSOMNIA 3 refills by 05/18/2025 Active Problems Problem Noted Date Diagnosed Date H/O total knee replacement, right 02/25/2023 Primary osteoarthritis of right knee 09/26/2022 Gout 01/30/2022 Hypokalemia 01/30/2022 Gastrointestinal hemorrhage with melena 08/07/19 History of non-ST elevation myocardial infarctio n (NSTEMI) 08/04/2020 Mixed hyperlipidemia 08/04/2020 Popliteal cyst, right 07/22/2019 Peripheral edema 07/30/2018 STEPHANIE on CPAP 05/27/2016 Psychophysiological insomnia 05/27/2016 PLMD (periodic limb movement disorder) 7 CAD in [place] artery 05/12/2015 History of coronary artery stent placement 11/10 Postlaminectomy syndrome of lumbar region 2014 Allergic rhinitis 04/07/2014 Impotence 01/28/2014 Benign prostatic hyperplasia 07/08/2013 IBS (irritable bowel syndrome) 05/18/2013 Anxiety and depression 11/28/2008 Essential hypertension Resolved Problems Problem Noted Date Diagnosed Date Resolved Date Complex tear of medial menis cus of right knee as current injury 11/25/2022 02/25/2023 Acute pain of right knee 09/16/2022 Vibration sensory loss 06/06/202007/30 Acute idiopathic gout involv ing toe of right foot 07/22/2019 09/24/2023 Complex sleep apnea syndrome 02/21/2016 01/30/2022 Snoring 02/21/2016 05/27/2016 Obesity 02/21/2016 01/30/2022 Primary insomnia 01/28/2014 05/27/2016 CAD (coronary artery disease ); CABG x 4 07/201307/29/2013 02/21/2016 Pure hypercholesterolemia 05/18/2013 Heartburn 05/18/2013 08/21/2022 Hypertension 11/28/2008 05/12/2009 Headache 11/28/2008 12/12/2014 Chest pain 01/28/2014 Obesity (BMI 30.0-34.9) 1108/2018 Immunizations * COVID MODERNA BIVALENT 12Y+ 50MCG/0.5ML(Given 02/20/2022) * COVID PFIZER 12+YR 30MCG/0.3mL(Given 03/18/2023) * Covid Moderna primary monovalent 12+ yr 0.5mL(Given 02/27/2021, 07/14/2020, 07/14/2020, 06/16/2020, 06/16/2020) * HEP A VACCINE, ADULT(Given 06/07/2015, 08/23/2014) * INFLUENZA VACCINE(Given 01/16/2017) * INFLUENZA VACCINE, ADJUVANTED, QUADR. (FLUAD QUADRIVALENT; 65Y+) (AIIV4)(Given 02/25/2023, 02/15/2022, 02/22/2021) * INFLUENZA VACCINE, ADJUVANTED, TRIV. (FLUAD TRIVALENT; 65Y+) (AIIV3)(Given 03/29/2024) * INFLUENZA VACCINE, QUADR. (AFLURIA, FLUZONE QUADRIVALENT; 6MO+) (IIV4)(Given 03/03/2014) * INFLUENZA VACCINE, QUADR. (FLUZONE; FLULAVAL; FLUARIX; AFLURIA QUADRIVALENT; 6MO+), 0.5 ML (IIV4)(Given 01/16/2017, 04/03/2016, 01/13/2015) * PNEUMOCOCCAL PPSV23(Given 07/28/2017) * Pneumococcal Pcv13 Conj(Given 05/27/2016) * TDAP (7yrs+)(Given 01/28/2014) * TYPHOID IM(Given 08/28/2014, 08/27/2014) * ZOSTER VACCINE, LIVE(Given 06/07/2015) * iNFLUENZA VACCINE, RECOM-HAGEN, QUADR. (FLUBLOCK QUADRIVALENT; 18Y+) (RIV4)(Given 02/08/2020, 02/18/2019, 01/21/2018) Social History Tobacco Use Types Packs/Day Years Used Date Smoking Tobacco: Never Passive Smoke Exposure: Never Smokeless Tobacco: Never Tobacco Cessation:Counseling Given: Not Answered Alcohol Use Standard Drinks/Week Comments Yes 1 (1 standard drink = 0.6 oz pur e alcohol) Socially OASIS D0700: Social Isolation Answer Da te Recorded Frequency of experiencing loneliness or isolatio n Never 06/19/2023 OASIS A1250: Transportation Answer Date Recorded Lack of Transportation (Medical) No 06/19/2023 Lack of Transportation (Non-Medical) No 06/19/2023 Patient Unable or Declines to Respond No 06/19/2023 OASIS B1300: Health Literacy Answer Aron e Recorded Frequency of needing help to read materials from doctor or pharmacy Never 06/19/2023 AUDIT-C Answer Date Recorded Q1: How often do you have a drink containing alc ohol? 2-4 times a month 06/03/2023 Q2: How many drinks containi ng alcohol do you have on a typical day when you are drinking? 1 or 2 06/03/2023 Q3: How often do you have si x or more drinks on one occasion? Never 06/03/2023 Overall Financial Resource Strain (CARDIA) Answe r Date Recorded How hard is it for you to pa y for the very basics like food, housing, medical care, and heating? Not hard at all 06/03/2023 PHQ-2 Answer Date Recorded Patient Health Questionnaire-2 Score 1 09/24/2023 [facility] - Occupational Stress Questionnaire Answer Date Recorded Do you feel stress - tense, restless, nervous, or anxious, or unable to sleep at night because your mind is troubled all the time - these days? Not at all 06/03/2023 Hunger Vital Sign Answer Date Recorded Within the past 12 months, y ou worried that your food would run out before you got the money to buy more. Never true 06/03/19 24 Within the past 12 months, t he food you bought just didn't last and you didn't have money to get more. Never true 06/03/2023 PRAPARE - Transportation Answer Date Re corded In the past 12 months, has l ack of transportation kept you from medical appointments or from getting medications? No 05/07 In the past 12 months, has l ack of transportation kept you from meetings, work, or from getting things needed for daily living? No 06/03/2023 Housing Stability Vital Sign Answer Aron e Recorded In the last 12 months, was t here a time when you were not able to pay the mortgage or rent on time? No 06/03/2023 In the last 12 months, how many places have you lived? 1 06/03/2023 In the last 12 months, was t here a time when you did not have a steady place to sleep or slept in a halfway (including now)? No 06/03/2023 Sex and Gender Information Value Date Recorded Sex Assigned at Male 12/04/2020 10:12 AM CDT Gender Identity Male 12/04/2020 10:12 AM CDT Sexual Orientation Straight 12/04/2020 10 :12 AM CDT Last Filed Vital Signs Vital Sign Reading Time Taken Comments Blood Pressure 116/62 03/29/2024 11:28 AM ASSESSMENT MANAGER Pulse 63 03/29/2024 11:28 AM ASSESSMENT MANAGER Temperature 36.7 C (98 F) 03/29/2024 11:28 AM ASSESSMENT MANAGER Respiratory Rate 16 06/19/2023 11:51 AM ASSESSMENT MANAGER Oxygen Saturation 96% 03/29/2024 11:28 AM ASSESSMENT MANAGER Inhaled Oxygen Concentration 21% 07/17/2013 2 :00 PM CDT Weight 97.3 kg (214 lb 6.4 oz) 03/29/2024 11:28 AM ASSESSMENT MANAGER Height 180.3 cm (5' 11 ) 03/29/2024 11:28 AM ASSESSMENT MANAGER Body Mass Index 29.9 03/29/2024 11:28 AM ASSESSMENT MANAGER Medical Devices Implanted Type Area Business Systems Administrator Device Identifier Shelf Expiration Date Model / Serial / Lot Brdg Achilles Speed Implanted:Qty : 1 on 08/11/2015 by Keila Borjas MD at [facility] Right: Shoulder [employer] 06/04/2017 [id number] / / [id number] Swvllok Dbl Ld Biocomp 4.75mm Implanted:Qty : 1 on 08/11/2015 by Keila Borjas MD at [facility] Right: Shoulder [employer] 05/04/2017 [id number] / / [id number] Cmnt Bone Plc R 40gm Grn Implanted:Qty : 1 on 06/03/2023 by Denis Mckee MD at [facility] Right: Knee [employer] 10/02/2025 [id number] / / [id number] Cmnt Bone Plc R 40gm Grn Implanted:Qty : 1 on 06/03/2023 by Denis Mckee MD at [facility] Right: Knee [employer] 11/01/2025 [id number] / / [id number] Cmpnt Ptlr Std 34mm 3 Pg Kn Ser A Implanted:Qty : 1 on 06/03/2023 by Denis Mckee MD at [facility] Right: Knee [employer] 01/28/2028 [id number] / / [id number] Cmpnt Fem Kn Rt Cr Cmnt Prm Vngrd Intlk 675mm Implanted:Qty : 1 on 06/03/2023 by Denis Mckee MD at [facility] Right: Knee [employer] 03/06/2033 [id number] / / [id number] Tray Tib 83mm As Mx Kn Intlk Cocr 1 Pc Implanted:Qty : 1 on 06/03/2023 by Denis Mckee MD at [facility] Right: Knee [employer] 05/18/2032 [id number] / / [id number] Champ Brng [id number] Vivacit-E Kn Ant Stab Implanted:Qty : 1 on 06/03/2023 by Denis Mckee MD at [facility] Right: Knee [employer] 03/19/2028 [id number] B ILL ONLY / / [id number] Procedures * CBC W/O DIFFERENTIAL(Performed 05/18/2024) * PROSTATE SPECIFIC ANTIGEN SCREEN(Performed 05/18/2024) Performed for Prostate cancer screening * LIPID PROFILE REFLEX LDL DIRECT(Performed 05/18/2024) Performed for Mixed hyperlipidemia * COMPREHENSIVE METABOLIC PANEL(Performed 05/18/2024) Performed for Essential hypertension * XR KNEE BILAT 3VW(Performed 03/09/2024) Performed for Primary osteoarthritis of both knees * ERYTHROCYTE SEDIMENTATION RATE(Performed 02/03/2024) Performed for S/P total knee arthroplasty, right * C-REACTIVE PROTEIN(Performed 02/03/2024) Performed for S/P total knee arthroplasty, right * CBC W AUTO DIFFERENTIAL(Performed 02/03/2024) Performed for S/P total knee arthroplasty, right * XR KNEE RIGHT 3VW(Performed 10/24/2023) Performed for S/P total knee arthroplasty, right * C-REACTIVE PROTEIN(Performed 09/19/2023) Performed for S/P total knee arthroplasty, right * ERYTHROCYTE SEDIMENTATION RATE(Performed 09/19/2023) Performed for S/P total knee arthroplasty, right * CBC W AUTO DIFFERENTIAL(Performed 09/19/2023) Performed for S/P total knee arthroplasty, right * XR KNEE RIGHT 2VW OR LESS(Performed 07/14/2023) Performed for S/P total knee arthroplasty, right * XR KNEE RIGHT 3VW(Performed 06/23/2023) Performed for S/P total knee arthroplasty, right * IMAGING/RADIOLOGY/XRAY RESULTS ORDER(Performed 06/05/2023) * GLUCOSE - POINT OF CARE(Performed 06/03/2023) * NEURAXIAL BLOCK(Performed 06/03/2023) * PERIPHERAL BLOCK(Performed 06/03/2023) * MO TOTAL KNEE REPLACEMENT(Performed 06/03/2023) * COMPREHENSIVE METABOLIC PANEL(Performed 05/19/2023) Performed for Pre-op evaluation * EKG 12-LEAD(Performed 05/19/2023) Performed for Pre-op evaluation * XR KNEE RIGHT 4VW OR MORE(Performed 05/07/2023) Performed for Acute pain of right knee * LIPID PROFILE REFLEX LDL DIRECT(Performed 02/25/2023) Performed for Mixed hyperlipidemia * COMPREHENSIVE METABOLIC PANEL(Performed 02/25/2023) Performed for Essential hypertension * CBC W/O DIFFERENTIAL(Performed 02/25/2023) Performed for Essential hypertension * LARYNGEAL MASK AIRWAY(Performed 12/10/2022) * LARYNGEAL MASK AIRWAY(Performed 12/10/2022) * MO KNEE SCOPE,MEDIAL OR LATERAL MENISECTOMY(Performed 12/10/2022) Performed for Tear of meniscus of right knee, unspecified meniscus, unspecified tear type, unspecified whether old or current tear * BASIC METABOLIC PANEL (CALCIUM TOTAL)(Performed 12/10/2022) Performed for Pre-op testing * URINALYSIS MICROSCOPIC ONLY REFLEXED(Performed 10/04/2022) Performed for Frequency of urination * URINALYSIS W/MICROSCOPIC REFLEX TO CULTURE(Performed 10/04/2022) Performed for Frequency of urination * MRI KNEE RIGHT WO CONTRAST(Performed 09/25/2022) Performed for Acute pain of right knee * PAIN MANAGEMENT PROCEDURE TIME(Performed 09/11/2022) Performed for Lumbosacral spondylosis without myelopathy * CT ABDOMEN WO CONTRAST(Performed 09/04/2022) Performed for Right upper quadrant abdominal mass * URINALYSIS MICROSCOPIC ONLY REFLEXED(Performed 08/21/2022) Performed for Flank pain * URIC ACID BLOOD(Performed 08/21/2022) Performed for Gout, unspecified cause, unspecified chronicity, unspecified site * PROSTATE SPECIFIC ANTIGEN SCREEN(Performed 08/21/2022) Performed for Screening for prostate cancer * URINALYSIS REFLEX MICROSCOPIC REFLEX CULTURE(Performed 08/21/2022) Performed for Flank pain * LIPID PROFILE REFLEX LDL DIRECT(Performed 08/21/2022) Performed for Mixed hyperlipidemia * COMPREHENSIVE METABOLIC PANEL(Performed 08/21/2022) Performed for Essential hypertension * CBC W/O DIFFERENTIAL(Performed 08/21/2022) Performed for Essential hypertension * PAIN MANAGEMENT PROCEDURE TIME(Performed 07/22/2022) Performed for Right knee pain, unspecified chronicity * XR KNEE RIGHT 4VW OR MORE(Performed 07/10/2022) Performed for Right knee pain, unspecified chronicity * PAIN MANAGEMENT PROCEDURE TIME(Performed 07/10/2022) Performed for Neurogenic claudication due to lumbar spinal stenosis, Lumbar radiculopathy * PAIN MANAGEMENT PROCEDURE TIME(Performed 04/17/2022) Performed for Left lumbosacral radiculopathy * PAIN MANAGEMENT PROCEDURE TIME(Performed 02/20/2022) Performed for Lumbar radiculopathy * PAIN MANAGEMENT PROCEDURE TIME(Performed 02/04/2022) Performed for Lumbar stenosis with neurogenic claudication, Radiculopathy, lumbosacral region * URIC ACID BLOOD(Performed 01/30/2022) Performed for Gout, unspecified cause, unspecified chronicity, unspecified site * BASIC METABOLIC PANEL (CALCIUM TOTAL)(Performed 01/30/2022) Performed for Essential hypertension * IMAGING/RADIOLOGY/XRAY RESULTS ORDER(Performed 01/13/2022) * IMAGING/RADIOLOGY/XRAY RESULTS ORDER(Performed 01/13/2022) * US ABDOMEN LIMITED(Performed 12/26/2021) Performed for Right upper quadrant abdominal mass * URINALYSIS MICROSCOPIC ONLY REFLEXED(Performed 12/13/2021) Performed for Urinary frequency * URINALYSIS W/MICROSCOPIC REFLEX TO CULTURE(Performed 12/13/2021) Performed for Urinary frequency * IMAGING/RADIOLOGY/XRAY RESULTS ORDER(Performed 12/01/2021) * CBC W AUTO DIFFERENTIAL(Performed 08/16/2021) Performed for Melena * CARDIAC RHYTHM STRIP ORDER(Performed 08/13/2021) * PATHOLOGY TISSUE EXAM (STL)(Performed 08/10/2021) Performed for Melena * COLONOSCOPY REMOVAL OR ABLATION TUMOR/POLYP/LESION (ANY METHOD)(Performed 08/10/2021) Performed for Melena * MO EGD FLEX TRANSORAL W BX SNGL OR MULT(Performed 08/10/2021) Performed for Melena * MO COLONOSCOPY, DIAGNOSTIC(Performed 08/10/2021) Performed for Melena * MO ED EGD FLEX TRANSORAL DX(Performed 08/10/2021) Performed for Melena * EGD(Performed 08/10/2021) * ENDOSCOPY, COLON, DIAGNOSTIC(Performed 08/10/2021) * PROSTATE SPECIFIC ANTIGEN SCREEN(Performed 07/30/2021) Performed for Screening for prostate cancer * MAGNESIUM BLOOD(Performed 07/30/2021) Performed for CAD in [place] artery, Essential hypertension * CBC W AUTO DIFFERENTIAL(Performed 07/30/2021) Performed for CAD in [place] artery, Essential hypertension, Gastrointestinal hemorrhage with melena06/2021 * MICROALB/CREAT RATIO URINE RANDOM PANEL(Performed 07/30/2021) Performed for CAD in [place] artery, Essential hypertension * COMPREHENSIVE METABOLIC PANEL(Performed 07/30/2021) Performed for CAD in [place] artery, Essential hypertension * LIPID PROFILE REFLEX LDL DIRECT(Performed 07/30/2021) Performed for CAD in [place] artery, Essential hypertension * LIPID PROFILE REFLEX LDL DIRECT(Performed 12/06/2020) Performed for CAD in [place] artery, Essential hypertension, Pure hypercholesterolemia * COMPREHENSIVE METABOLIC PANEL(Performed 12/06/2020) Performed for CAD in [place] artery, Essential hypertension, Pure hypercholesterolemia * PROSTATE SPECIFIC ANTIGEN SCREEN(Performed 06/06/2020) Performed for Screening PSA (prostate specific antigen) * MAGNESIUM BLOOD(Performed 06/06/2020) Performed for Essential hypertension, Gastroesophageal reflux disease, unspecified whether esophagitis present * VITAMIN B12 FOLATE PANEL(Performed 06/06/2020) Performed for Vibration sensory loss, Gastroesophageal reflux disease, unspecified whether esophagitis present * URIC ACID BLOOD(Performed 06/06/2020) Performed for Gout, unspecified cause, unspecified chronicity, unspecified site * CBC W AUTO DIFFERENTIAL(Performed 06/06/2020) Performed for Essential hypertension * MICROALB/CREAT RATIO URINE RANDOM PANEL(Performed 06/06/2020) Performed for Essential hypertension * COMPREHENSIVE METABOLIC PANEL(Performed 06/06/2020) Performed for Essential hypertension * LIPID PROFILE REFLEX LDL DIRECT(Performed 06/06/2020) Performed for Essential hypertension * PT-INR(Performed 12/28/2019) Performed for CAD in [place] artery * CBC W AUTO DIFFERENTIAL(Performed 12/28/2019) Performed for CAD in [place] artery * COMPREHENSIVE METABOLIC PANEL(Performed 12/28/2019) Performed for CAD in [place] artery * SARS-COV-2 (COVID-19) ANTIBODY IGG [facility](Performed 10/19/2019) Performed for Flu-like symptoms * URIC ACID BLOOD(Performed 10/19/2019) Performed for Acute idiopathic gout involving toe of right foot * URIC ACID BLOOD(Performed 07/22/2019) Performed for Acute idiopathic gout involving toe of right foot * TSH REFLEX FREE T4(Performed 03/30/2019) Performed for Irritable bowel syndrome, unspecified type, Essential hypertension, Feeling jittery * MAGNESIUM BLOOD(Performed 03/30/2019) Performed for Irritable bowel syndrome, unspecified type, Essential hypertension, Feeling jittery * ALDOSTERONE/RENIN RATIO PANEL(Performed 03/20/2019) Performed for Pure hypercholesterolemia, Essential hypertension, CAD in [place] artery, Psychophysiological insomnia, Impotence, Screening for prostate cancer * PROSTATE SPECIFIC ANTIGEN SCREEN(Performed 03/20/2019) Performed for Pure hypercholesterolemia, Essential hypertension, CAD in [place] artery, Psychophysiological insomnia, Impotence, Screening for prostate cancer * HEMOGLOBIN A1C(Performed 03/20/2019) Performed for Pure hypercholesterolemia, Essential hypertension, CAD in [place] artery, Psychophysiological insomnia, Impotence, Screening for prostate cancer, Hyperglycemia * CBC W AUTO DIFFERENTIAL(Performed 03/20/2019) Performed for Pure hypercholesterolemia, Essential hypertension, CAD in [place] artery, Psychophysiological insomnia, Impotence, Screening for prostate cancer * COMPREHENSIVE METABOLIC PANEL(Performed 03/20/2019) Performed for Pure hypercholesterolemia, Essential hypertension, CAD in [place] artery, Psychophysiological insomnia, Impotence, Screening for prostate cancer * LIPID PROFILE(Performed 03/20/2019) Performed for Pure hypercholesterolemia, Essential hypertension, CAD in [place] artery, Psychophysiological insomnia, Impotence, Screening for prostate cancer * PAIN MANAGEMENT PROCEDURE TIME(Performed 10/12/2018) Performed for Lumbar post-laminectomy syndrome, Radiculopathy of lumbosacral region * MRI ANKLE LEFT WO CONTRAST(Performed 10/06/2018) Performed for Left foot pain, Injury of left heel, initial encounter, Stabbing pain, Swelling of ankle joint, left, History of open reduction and internal fixation (ORIF) procedure - left ankle, Achilles tendinitis of left lower extremity * PAIN MANAGEMENT PROCEDURE TIME(Performed 10/05/2018) Performed for Lumbar postlaminectomy syndrome, Radiculopathy of lumbosacral region * XR ANKLE LEFT 3VW OR MORE(Performed 09/23/2018) Performed for Left foot pain * XR FOOT LEFT 3VW OR MORE(Performed 09/23/2018) Performed for Left foot pain * PAIN MANAGEMENT PROCEDURE TIME(Performed 09/16/2018) Performed for Post laminectomy syndrome, Radiculopathy of lumbosacral region * MRI LUMBAR SPINE WO CONTRAST(Performed 08/14/2018) Performed for Right lumbar radiculopathy, Status post lumbar spine surgery for decompression 2014 * BASIC METABOLIC PANEL (CALCIUM TOTAL)(Performed 07/13/2018) Performed for Essential hypertension * ECHOCARDIOGRAM 2D WITH DOPPLER(Performed 03/24/2018) Performed for Essential hypertension * MAGNESIUM BLOOD(Performed 01/21/2018) Performed for Medicare annual wellness visit, initial, High risk medications (not anticoagulants) long-term use * PROSTATE SPECIFIC ANTIGEN SCREEN(Performed 01/21/2018) Performed for Medicare annual wellness visit, initial, Screening PSA (prostate specific antigen) * LIPID PROFILE REFLEX LDL DIRECT(Performed 01/21/2018) Performed for Medicare annual wellness visit, initial, Pure hypercholesterolemia * COMPREHENSIVE METABOLIC PANEL(Performed 01/21/2018) Performed for Medicare annual wellness visit, initial * XR CERVICAL SPINE 2 OR 3VW(Performed 10/14/2017) Performed for Neck pain * EKG 12-LEAD(Performed 07/24/2017) Performed for CAD in [place] artery, History of coronary artery stent placement * CARDIAC RHYTHM STRIP ORDER(Performed 01/22/2017) * ENDOSCOPY, COLON, SCREENING(Performed 01/21/2017) * COLONOSCOPY SCREEN(Performed 01/21/2017) Performed for Colon cancer screening * MAGNESIUM BLOOD(Performed 01/01/2017) Performed for High risk medications (not anticoagulants) long-term use * LIPID PROFILE REFLEX LDL DIRECT(Performed 01/01/2017) Performed for Essential hypertension, Pure hypercholesterolemia * COMPREHENSIVE METABOLIC PANEL(Performed 01/01/2017) Performed for Essential hypertension * MRI SHOULDER RIGHT WO CONTRAST(Performed 10/22/2016) Performed for Chronic right shoulder pain, Dysfunction of right rotator cuff * IMAGING/RADIOLOGY/XRAY RESULTS ORDER(Performed 08/16/2016) * NM MYOCARD PERF REST STRESS(Performed 06/17/2016) Performed for Precordial pain * FERRITIN(Performed 04/03/2016) Performed for PLMD (periodic limb movement disorder), Low ferritin level * XR SHOULDER RIGHT 2VW OR MORE(Performed 03/18/2016) Performed for Acute pain of right shoulder * XR KNEE LEFT 3VW(Performed 03/18/2016) Performed for Acute pain of right knee * POLYSOMNOGRAPHY 4 OR MORE PARAMETERS WITH CPAP(Performed 03/14/2016) Performed for Primary insomnia, Snoring, Suspected sleep apnea, Essential hypertension with goal blood pressure less than 130/85, CAD in [place] artery, Overweight * AMBULATORY REFERRAL TO SLEEP SPECIALIST(Performed 02/21/2016) Performed for Primary insomnia, Snoring * PROSTATE SPECIFIC ANTIGEN SCREEN(Performed 12/06/2015) Performed for Benign prostatic hyperplasia, presence of lower urinary tract symptoms unspecified, unspecified morphology * LIPID PROFILE REFLEX LDL DIRECT(Performed 12/06/2015) Performed for Essential hypertension with goal blood pressure less than 130/85 * HEMOGLOBIN A1C(Performed 12/06/2015) Performed for Essential hypertension with goal blood pressure less than 130/85, Blurred vision * IMAGING/RADIOLOGY/XRAY RESULTS ORDER(Performed 08/14/2015) * PERIPHERAL BLOCK(Performed 08/11/2015) * ARTHROSCOPY SHOULDER(Performed 08/11/2015) * COMPREHENSIVE METABOLIC PANEL(Performed 08/03/2015) Performed for Preop examination * CBC W AUTO DIFFERENTIAL(Performed 08/03/2015) Performed for Preop examination * PAIN MANAGEMENT PROCEDURE TIME(Performed 06/20/2015) Performed for Spinal stenosis of lumbar region, Spinal stenosis of lumbosacral region * PAIN MANAGEMENT PROCEDURE TIME(Performed 05/30/2015) Performed for Lumbar postlaminectomy syndrome * PAIN MANAGEMENT PROCEDURE TIME(Performed 05/01/2015) Performed for Post-laminectomy syndrome * CARDIAC RHYTHM STRIP ORDER(Performed 04/22/2015) * NM MYOCARD PERF REST STRESS(Performed 04/21/2015) Performed for Coronary artery disease involving [place] coronary artery of [place] heart with unstable angina pectoris (HCC) * STRESS TEST NUCLEAR(Performed 04/21/2015) Performed for Coronary artery disease involving [place] coronary artery of [place] heart with unstable angina pectoris (HCC), History of coronary artery stent placement * TROPONIN I(Performed 04/21/2015) * TROPONIN I(Performed 04/21/2015) * XR CHEST 2VW(Performed 04/20/2015) Performed for Other chest pain * COMPREHENSIVE METABOLIC PANEL(Performed 04/20/2015) * CBC W AUTO DIFFERENTIAL(Performed 04/20/2015) * TROPONIN I(Performed 04/20/2015) * EKG 12-LEAD(Performed 04/20/2015) Performed for Other chest pain * XR LUMBAR SPINE 2 OR 3VW(Performed 04/03/2015) Performed for Lumbar spinal stenosis, Midline low back pain with sciatica, sciatica laterality unspecified, Aftercare following surgery of the musculoskeletal system * MRI LUMBAR SPINE WWO CONTRAST(Performed 04/03/2015) Performed for Lumbar spinal stenosis, Midline low back pain with sciatica, sciatica laterality unspecified, Aftercare following surgery of the musculoskeletal system * CBC W AUTO DIFFERENTIAL(Performed 01/04/2015) Performed for Preoperative examination, unspecified * COMPREHENSIVE METABOLIC PANEL(Performed 01/04/2015) Performed for Preoperative examination, unspecified * APHERESIS/TRANSFUSION ORDER(Performed 12/21/2014) * HGB HCT PANEL(Performed 12/20/2014) Performed for S/P lumbar laminectomy * PT EVAL AND TREAT(Performed 12/19/2014) * XR LUMBAR SPINE IN OR 1VW(Performed 12/19/2014) Performed for Back pain, unspecified location * DECOMPRESSION LUMBAR 1-2 LEVELS(Performed 12/19/2014) Performed for Spinal stenosis, lumbar region, without neurogenic claudication, Sciatica * BLOOD TYPE VERIFICATION(Performed 12/19/2014) * TYPE + SCREEN PANEL(Performed 12/13/2014) Performed for Preop examination * URINALYSIS REFLEX MICROSCOPIC REFLEX CULTURE(Performed 12/13/2014) Performed for Preop examination * HGB HCT PANEL(Performed 12/13/2014) Performed for Preop examination * CULTURE MSSA/MRSA(Performed 12/13/2014) Performed for Preop examination * EKG 12-LEAD(Performed 12/13/2014) Performed for Preop examination * MRI SHOULDER RIGHT WO CONTRAST(Performed 11/24/2014) Performed for Pain in joint, shoulder region, right * XR SHOULDER RIGHT 2VW OR MORE(Performed 11/14/2014) Performed for Pain in joint, shoulder region, right * HEPATITIS C ANTIBODY(Performed 08/23/2014) Performed for Need for hepatitis C screening test * LIPID PROFILE REFLEX LDL DIRECT(Performed 08/23/2014) Performed for CAD (coronary artery disease); CABG x 4 07/2013 * COMPREHENSIVE METABOLIC PANEL(Performed 08/23/2014) Performed for CAD (coronary artery disease); CABG x 4 07/2013 * IMAGING/RADIOLOGY/XRAY RESULTS ORDER(Performed 07/27/2014) * CARDIAC RHYTHM STRIP ORDER(Performed 07/27/2014) * MRI LUMBAR SPINE WO CONTRAST(Performed 07/27/2014) Performed for Spinal stenosis, lumbar region, without neurogenic claudication * ENUCLEATION/VAPORIZATION/RESECTION PROSTATE WITH LASER (ANY TYPE)(Performed 07/26/2014) Performed for Retention of urine, unspecified * CULTURE URINE(Performed 07/14/2014) Performed for UTI (urinary tract infection) * URINALYSIS - POINT OF CARE(Performed 07/14/2014) Performed for Erectile dysfunction, Enlarged prostate with lower urinary tract symptoms (LUTS) * MRI ANGIO BRAIN ARTERIAL WO CONT(Performed 06/14/2014) Performed for Headache * ERYTHROCYTE SEDIMENTATION RATE(Performed 04/07/2014) Performed for Chronic daily headache: onset 03/08/14 * CBC W AUTO DIFFERENTIAL(Performed 03/29/2014) Performed for Headache * C-REACTIVE PROTEIN(Performed 03/29/2014) Performed for Headache * ERYTHROCYTE SEDIMENTATION RATE(Performed 03/29/2014) Performed for Headache * URINALYSIS - POINT OF CARE(Performed 02/14/2014) Performed for BPH (benign prostatic hypertrophy) with urinary obstruction * US URINARY BLADDER W POST VOID(Performed 02/14/2014) * PULMONARY/RESPIRATORY REPORT ORDER(Performed 01/06/2014) * PATHOLOGY TISSUE EXAM (STL)(Performed 10/18/2013) Performed for Anxiety, Headache, Obesity (BMI 30.0-34.9), Hypertension, Hyperlipidemia, Heartburn, IBS (irritable bowel syndrome), BPH (benign prostatic hypertrophy), Glucose intolerance (impaired glucose tolerance), CAD (coronary artery disease) * PATHOLOGY/GENETICS HISTORICAL-ONBASE(Performed 10/18/2013) * LIPID PROFILE(Performed 10/08/2013) Performed for Anxiety, Hypertension, Hyperlipidemia, BPH (benign prostatic hypertrophy), Glucose intolerance (impaired glucose tolerance), CAD (coronary artery disease) * CBC W AUTO DIFFERENTIAL(Performed 10/08/2013) Performed for Anxiety, Hypertension, Hyperlipidemia, BPH (benign prostatic hypertrophy), Glucose intolerance (impaired glucose tolerance), CAD (coronary artery disease) * COMPREHENSIVE METABOLIC PANEL(Performed 10/08/2013) Performed for Anxiety, Hypertension, Hyperlipidemia, BPH (benign prostatic hypertrophy), Glucose intolerance (impaired glucose tolerance), CAD (coronary artery disease) * HEMOGLOBIN A1C - POINT OF CARE (AMB)(Performed 07/29/2013) Performed for Glucose intolerance (impaired glucose tolerance) * CARDIAC PROCEDURE ORDER(Performed 07/25/2013) * CARDIAC RHYTHM STRIP ORDER(Performed 07/25/2013) * ACT - POINT OF CARE(Performed 07/22/2013) * CBC W AUTO DIFFERENTIAL(Performed 07/22/2013) * EKG 12-LEAD(Performed 07/22/2013) Performed for Chest pain * CARDIAC CATH CONSULT(Performed 07/22/2013) * PT PTT PANEL(Performed 07/22/2013) * CBC W AUTO DIFFERENTIAL(Performed 07/22/2013) * BASIC METABOLIC PANEL (CALCIUM TOTAL)(Performed 07/22/2013) * B-TYPE NATRIURETIC PEPTIDE(Performed 07/22/2013) * PTT(Performed 07/21/2013) * CBC W AUTO DIFFERENTIAL(Performed 07/21/2013) * PTT(Performed 07/21/2013) * TROPONIN I(Performed 07/21/2013) * EKG 12-LEAD(Performed 07/21/2013) Performed for Chest pain * TROPONIN I(Performed 07/21/2013) * XR CHEST 1VW PORTABLE(Performed 07/21/2013) Performed for ACS (acute coronary syndrome) (HCC) * PTT(Performed 07/21/2013) * PT-INR(Performed 07/21/2013) * COMPREHENSIVE METABOLIC PANEL(Performed 07/21/2013) * CBC W AUTO DIFFERENTIAL(Performed 07/21/2013) * TROPONIN I(Performed 07/21/2013) * EKG 12-LEAD(Performed 07/21/2013) Performed for ACS (acute coronary syndrome) ([facility]) * CARDIAC PROCEDURE ORDER(Performed 07/20/2013) * CARDIAC RHYTHM STRIP ORDER(Performed 07/20/2013) * RENAL FUNCTION PANEL(Performed 07/18/2013) * CBC W AUTO DIFFERENTIAL(Performed 07/18/2013) * CARDIAC EKG ORDER(Performed 07/17/2013) * LAB RESULTS ORDER(Performed 07/17/2013) * EKG 12-LEAD(Performed 07/17/2013) * TROPONIN I(Performed 07/17/2013) Performed for Chest pain, NSTEMI (non-ST elevated myocardial infarction) ([facility]), Anxiety, Headache, Obesity (BMI 30.0-34.9), Hypertension, Hyperlipidemia, Heartburn, IBS (irritable bowel syndrome), BPH (benign prostatic hypertrophy), Glucose intolerance (impaired glucose tolerance) * CK + CKMB PANEL(Performed 07/17/2013) Performed for Chest pain, NSTEMI (non-ST elevated myocardial infarction) ([facility]), Anxiety, Headache, Obesity (BMI 30.0-34.9), Hypertension, Hyperlipidemia, Heartburn, IBS (irritable bowel syndrome), BPH (benign prostatic hypertrophy), Glucose intolerance (impaired glucose tolerance) * CULTURE VRE(Performed 07/17/2013) * CULTURE MRSA(Performed 07/17/2013) * TROPONIN I(Performed 07/17/2013) * RENAL FUNCTION PANEL(Performed 07/17/2013) * MAGNESIUM BLOOD(Performed 07/17/2013) * CBC W AUTO DIFFERENTIAL(Performed 07/17/2013) Performed for Chest pain, NSTEMI (non-ST elevated myocardial infarction) ([facility]), Anxiety, Headache, Obesity (BMI 30.0-34.9), Hypertension, Hyperlipidemia, Heartburn, IBS (irritable bowel syndrome), BPH (benign prostatic hypertrophy), Glucose intolerance (impaired glucose tolerance) * CK + CKMB PANEL(Performed 07/17/2013) * TROPONIN I(Performed 07/17/2013) Performed for Chest pain, NSTEMI (non-ST elevated myocardial infarction) (HCC), Anxiety, Headache, Obesity (BMI 30.0-34.9), Hypertension, Hyperlipidemia, Heartburn, IBS (irritable bowel syndrome), BPH (benign prostatic hypertrophy), Glucose intolerance (impaired glucose tolerance) * CK + CKMB PANEL(Performed 07/17/2013) Performed for Chest pain, NSTEMI (non-ST elevated myocardial infarction) (HCC), Anxiety, Headache, Obesity (BMI 30.0-34.9), Hypertension, Hyperlipidemia, Heartburn, IBS (irritable bowel syndrome), BPH (benign prostatic hypertrophy), Glucose intolerance (impaired glucose tolerance) * EKG 12-LEAD(Performed 07/16/2013) * ACT - POINT OF CARE(Performed 07/16/2013) * TROPONIN I(Performed 07/16/2013) Performed for Chest pain, NSTEMI (non-ST elevated myocardial infarction) (HCC), Anxiety, Headache, Obesity (BMI 30.0-34.9), Hypertension, Hyperlipidemia, Heartburn, IBS (irritable bowel syndrome), BPH (benign prostatic hypertrophy), Glucose intolerance (impaired glucose tolerance) * CK + CKMB PANEL(Performed 07/16/2013) Performed for Chest pain, NSTEMI (non-ST elevated myocardial infarction) (HCC), Anxiety, Headache, Obesity (BMI 30.0-34.9), Hypertension, Hyperlipidemia, Heartburn, IBS (irritable bowel syndrome), BPH (benign prostatic hypertrophy), Glucose intolerance (impaired glucose tolerance) * CBC W AUTO DIFFERENTIAL(Performed 07/16/2013) Performed for Chest pain, NSTEMI (non-ST elevated myocardial infarction) (HCC), Anxiety, Headache, Obesity (BMI 30.0-34.9), Hypertension, Hyperlipidemia, Heartburn, IBS (irritable bowel syndrome), BPH (benign prostatic hypertrophy), Glucose intolerance (impaired glucose tolerance) * MAGNESIUM BLOOD(Performed 07/16/2013) * RENAL FUNCTION PANEL(Performed 07/16/2013) * CULTURE MRSA(Performed 07/16/2013) * ACT - POINT OF CARE(Performed 07/16/2013) * EKG 12-LEAD(Performed 07/16/2013) * EKG 12-LEAD(Performed 07/16/2013) * CARDIAC CATH CONSULT(Performed 07/16/2013) * TYPE + SCREEN PANEL(Performed 07/16/2013) * B-TYPE NATRIURETIC PEPTIDE(Performed 07/16/2013) * CBC W AUTO DIFFERENTIAL(Performed 07/16/2013) * COMPREHENSIVE METABOLIC PANEL(Performed 07/16/2013) * EKG 12-LEAD(Performed 07/16/2013) Performed for NSTEMI (non-ST elevated myocardial infarction) (HCC) * PT PTT PANEL(Performed 07/16/2013) * TROPONIN I(Performed 07/16/2013) * XR CHEST 2VW(Performed 07/16/2013) * COMPREHENSIVE METABOLIC PANEL(Performed 05/28/2013) Performed for Well adult exam * TESTOSTERONE TOTAL(Performed 05/28/2013) Performed for Well adult exam * LIPID PROFILE(Performed 05/28/2013) Performed for Well adult exam * PROSTATE SPECIFIC ANTIGEN SCREEN(Performed 05/28/2013) Performed for Well adult exam * TSH(Performed 05/28/2013) Performed for Well adult exam * CBC W AUTO DIFFERENTIAL(Performed 05/28/2013) Performed for Well adult exam * CARDIAC EKG ORDER(Performed 05/27/2013) * CBC W/O DIFFERENTIAL(Performed 04/22/2013) Performed for Obesity, unspecified [ICD-9-CM] * COMPREHENSIVE METABOLIC PANEL(Performed 04/22/2013) Performed for Obesity, unspecified [ICD-9-CM] * HEMOGLOBIN A1C(Performed 04/22/2013) Performed for Obesity, unspecified [ICD-9-CM] * LIPID PROFILE(Performed 04/22/2013) Performed for Obesity, unspecified [ICD-9-CM] * TSH(Performed 04/22/2013) Performed for Obesity, unspecified [ICD-9-CM] * URIC ACID BLOOD(Performed 04/22/2013) Performed for Obesity, unspecified [ICD-9-CM] * CARDIAC EKG ORDER(Performed 04/22/2013) * DERMATOPATHOLOGY(Performed 06/05/2012) * CARDIAC EKG ORDER(Performed 05/15/2012) * XR RIBS LEFT 2VW W PA CHEST(Performed 11/16/2011) * LIPID PROFILE W LDL/HDL RATIO(Performed 03/23/2010) Performed for Hypertension * PROSTATE SPECIFIC ANTIGEN SCREEN(Performed 03/23/2010) Performed for Hypertension * CBC W AUTO DIFFERENTIAL(Performed 03/23/2010) Performed for Hypertension * COMPREHENSIVE METABOLIC PANEL(Performed 03/23/2010) Performed for Hypertension * ECHOCARDIOGRAM STRESS(Performed 10/18/2009) Performed for Chest Pain * MYOGLOBIN BLOOD - POINT OF CARE(Performed 10/16/2009) Performed for Unspecified Chest Pain * B-TYPE NATRIURETIC PEPTIDE - POINT OF CARE(Performed 10/16/2009) Performed for Unspecified Chest Pain * TROPONIN - POINT OF CARE(Performed 10/16/2009) Performed for Unspecified Chest Pain * CKMB - POINT OF CARE(Performed 10/16/2009) Performed for Unspecified Chest Pain * B-TYPE NATRIURETIC PEPTIDE - POINT OF CARE(Performed 10/16/2009) Performed for Unspecified Chest Pain * MYOGLOBIN BLOOD - POINT OF CARE(Performed 10/16/2009) Performed for Unspecified Chest Pain * TROPONIN - POINT OF CARE(Performed 10/16/2009) Performed for Unspecified Chest Pain * CKMB - POINT OF CARE(Performed 10/16/2009) Performed for Unspecified Chest Pain * XR CHEST 1VW(Performed 10/16/2009) Performed for Chest Pain * XR CHEST 1VW PORTABLE(Performed 10/16/2009) Performed for Chest Pain * PTT(Performed 10/16/2009) Performed for Unspecified Chest Pain * PT-INR(Performed 10/16/2009) Performed for Unspecified Chest Pain * MAGNESIUM BLOOD(Performed 10/16/2009) Performed for Unspecified Chest Pain * COMPREHENSIVE METABOLIC PANEL(Performed 10/16/2009) Performed for Unspecified Chest Pain * CBC W AUTO DIFFERENTIAL(Performed 10/16/2009) Performed for Unspecified Chest Pain * TROPONIN - POINT OF CARE(Performed 10/16/2009) Performed for Unspecified Chest Pain * B-TYPE NATRIURETIC PEPTIDE - POINT OF CARE(Performed 10/16/2009) Performed for Unspecified Chest Pain * CKMB - POINT OF CARE(Performed 10/16/2009) Performed for Unspecified Chest Pain * MYOGLOBIN BLOOD - POINT OF CARE(Performed 10/16/2009) Performed for Unspecified Chest Pain * EKG 12-LEAD(Performed 10/16/2009) Performed for Chest Pain * EKG 12-LEAD(Performed 10/16/2009) Performed for Chest Pain * PROSTATE SPECIFIC ANTIGEN SCREEN(Performed 07/05/2009) Performed for Anxiety, Headache, Special Screening for Malignant Neoplasm of Prostate, Screening for Thyroid Disorder * TSH(Performed 07/05/2009) Performed for Anxiety, Headache, Special Screening for Malignant Neoplasm of Prostate, Screening for Thyroid Disorder * CBC W AUTO DIFFERENTIAL(Performed 07/05/2009) Performed for Anxiety, Headache, Special Screening for Malignant Neoplasm of Prostate, Screening for Thyroid Disorder * LIPID PROFILE W LDL/HDL RATIO(Performed 07/05/2009) Performed for Anxiety, Headache, Special Screening for Malignant Neoplasm of Prostate, Screening for Thyroid Disorder * COMPREHENSIVE METABOLIC PANEL(Performed 07/05/2009) Performed for Anxiety, Headache, Special Screening for Malignant Neoplasm of Prostate, Screening for Thyroid Disorder * URINALYSIS AUTO - POINT OF CARE(Performed 05/12/2009) Performed for Painful Urination * PROSTATE SPECIFIC ANTIGEN SCREEN(Performed 06/14/2008) * TSH(Performed 06/14/2008) * CBC W AUTO DIFFERENTIAL(Performed 06/14/2008) * COMPREHENSIVE METABOLIC PANEL(Performed 06/14/2008) * LIPID PROFILE W LDL/HDL RATIO(Performed 06/14/2008) * GROSS + MICRO EXAM(Performed 04/08/2005) Results * (ABNORMAL) LIPID PROFILE REFLEX LDL DIRECT (05/18/2024 8:50 AM ASSESSMENT MANAGER) Only the most recent of10 resultswithin the time period is included. Cholesterol 149 100 - 199 mg/dL [facility] INSURANCE BILL Triglycerides 158(H) 0 - 149 mg/dL [facility] INSURANCE BILL HDL Cholesterol 47 >39 mg/dL [facility] INSURANCE BILL VLDL Calculated 27 5 - 40 mg/dL [facility] INSURANCE BILL LDL Calculated 75 0 - 99 mg/dL [facility] INSURANCE BILL Cholesterol/HDL Ratio 3.2 0.0 - 5.0 ratio [facility] INSURANCE BILL Comment: T. Chol/HDL Ratio Men Women 1/2 Avg.Risk 3.4 3.3 Avg.Risk 5.0 4.4 2X Avg.Risk 9.6 7.1 3X Avg.Risk 23.4 11.0 LDL/HDL Ratio 1.6 0.0 - 3.6 ratio [facility] INSURANCE BILL Comment: LDL/HDL Ratio Men Women 1/2 Avg.Risk 1.0 1.5 Avg.Risk 3.6 3.2 2X Avg.Risk 6.2 5.0 3X Avg.Risk 8.0 6.1 Blood BLOOD SPECIMEN / Unknown 05/18/2024 8:50 AM ASSESSMENT MANAGER 05/18/2024 Narrative [facility] INSURANCE BILL - 05/19/2024 6:10 AM ASSESSMENT MANAGER Performed at: - [facility] [address] [id number] Flame Gouger: Dexter Gutierrez PhD, Phone: [phone] Rodolfo Schmidt DO LAB - CHEMISTRY [place] Performing Organization Address [facility]/ZIP Co de Phone Number [facility] INSURANCE BILL [address] [place] [address] * CBC W/O DIFFERENTIAL (05/18/2024 8:50 AM ASSESSMENT MANAGER) Only the most recent of4 resultswithin the time period is included. WBC 3.9 3.4 - 10.8 x10E3/uL [facility] INSURANCE BILL RBC 4.80 4.14 - 5.80 x10E6/uL [facility] INSURANCE BILL Hemoglobin 14.1 13.0 - 17.7 g/dL [facility] INSURANCE BILL Hematocrit 43.3 37.5 - 51.0 % [facility] INSURANCE BILL MCV 90 79 - 97 fL [facility] INSURANCE BILL MCH 29.4 26.6 - 33.0 pg [facility] INSURANCE BILL MCHC 32.6 31.5 - 35.7 g/dL [facility] INSURANCE BILL RDW 12.6 11.6 - 15.4 % [facility] INSURANCE BILL Platelet Count 226 150 - 450 x10E3/uL [facility] INSURANCE BILL 05/18/2024 8:50 AM ASSESSMENT MANAGER 05/18/2024 Narrative [facility] INSURANCE BILL - 05/19/2024 12:06 AM ASSESSMENT MANAGER Performed at: - [facility] [address] [id number] Flame Gouger: Dexter Gutierrez PhD, Phone: [phone] Rodolfo Schmidt DO LAB - HEMATOLOGY ORD ERABLES Performing Organization Address [facility]/ZIP Co de Phone Number [facility] INSURANCE BILL [address] [place] [address] * COMPREHENSIVE METABOLIC PANEL (05/18/2024 8:50 AM ASSESSMENT MANAGER) Only the most recent of24 resultswithin the time period is included. Glucose 91 70 - 99 mg/dL [facility] INSURANCE BILL BUN 18 8 - 27 mg/dL [facility] INSURANCE BILL Creatinine 1.00 0.76 - 1.27 mg/dL [facility] INSURANCE BILL eGFR by CKD-EPI 79 >59 mL/min/1.7 3 [facility] INSURANCE BILL BUN/Creatinine Ratio 18 10 - 24 [facility] INSURANCE BILL Sodium 142 134 - 144 mmol/L [facility] INSURANCE BILL Potassium 4.1 3.5 - 5.2 mmol/L [facility] INSURANCE BILL Chloride 101 96 - 106 mmol/L [facility] INSURANCE BILL CO2 28 20 - 29 mmol/L [facility] INSURANCE BILL Calcium 9.4 8.6 - 10.2 mg/dL [facility] INSURANCE BILL Protein Total 7.1 6.0 - 8.5 g/dL [facility] INSURANCE BILL Albumin 4.4 3.8 - 4.8 g/dL [facility] INSURANCE BILL Globulin Total 2.7 1.5 - 4.5 g/dL [facility] INSURANCE BILL Bilirubin Total 0.4 0.0 - 1.2 mg/dL [facility] INSURANCE BILL Alkaline Phosphatase 77 44 - 121 IU/L [facility] INSURANCE BILL AST 16 0 - 40 IU/L [facility] INSURANCE BILL ALT 21 0 - 44 IU/L [facility] INSURANCE BILL Blood BLOOD SPECIMEN / Unknown 05/18/2024 8:50 AM ASSESSMENT MANAGER 05/18/2024 Narrative [facility] INSURANCE BILL - 05/19/2024 6:10 AM ASSESSMENT MANAGER Performed at: 01 - [address] [id number] Flame Gouger: Dexter Gutierrez PhD, Phone: [phone] Rodolfo Schmidt DO LAB - CHEMISTRY HARJEET MACKEY [facility] INSURANCE BILL [address] [place] [address] * PROSTATE SPECIFIC ANTIGEN SCREEN (05/18/2024 8:50 AM ASSESSMENT MANAGER) Only the most recent of11 resultswithin the time period is included. Pathologist [facility] PSA 1.2 0.0 - 4.0 ng/mL [facility] INSURANCE BILL Comment: Olga Lidia ECLIA methodology. According to the [employer], Serum PSA should decrease and remain at undetectable levels after radical prostatectomy. The AUA defines biochemical recurrence as an initial PSA value 0.2 ng/mL or greater followed by a subsequent confirmatory PSA value 0.2 ng/mL or greater. Values obtained with different assay methods or kits cannot be used interchangeably. Results cannot be interpreted as absolute evidence of the presence or absence of malignant disease. Blood BLOOD SPECIMEN / Unknown 05/18/2024 8:50 AM ASSESSMENT MANAGER 05/18/2024 Narrative [facility] INSURANCE BILL - 05/19/2024 6:10 AM ASSESSMENT MANAGER Performed at: [address] [place] [id number] Flame Gouger: Dexter Gutierrez PhD, Phone: [phone] Rodolfo Schmidt DO LAB - CHEMISTRY HARJEET MACKEY Performing Organization Address [facility] Co de Phone Number [id number] INSURANCE BILL [address] [place] [address] * XR Knee Bilat 3Vw (03/09/2024 1:02 PM ASSESSMENT MANAGER) Narrative [facility] [address] - 03/09/2024 1:02 PM ASSESSMENT MANAGER Please see progress note in Epic for results. Noe Herrera MD DIAGNOSTIC IMAGING O RDERABLES Performing Organization Address [facility] Co de Phone Number [facility] [address] * C-REACTIVE PROTEIN (02/03/2024 1:23 PM CDT) Only the most recent of3 resultswithin the time period is included. C-Reactive Protein 1 0 - 10 mg/L [facility] INSURANCE BILL Blood BLOOD SPECIMEN / Unknown 02/03/2024 1:23 PM CDT 02/03/2024 Narrative [facility] INSURANCE BILL - 02/04/2024 8:10 AM CDT Performed at: [address] [place], [place] [address] [id number] Flame Gouger: Dexter Gutierrez PhD, Phone: [phone] Linda SANTOS LAB - CHEMISTRY HARJEET MACKEY Performing Organization Address City/[facility]/ZIP Co de Phone Number [facility] INSURANCE BILL [address] [place] [address] * ERYTHROCYTE SEDIMENTATION RATE (02/03/2024 1:23 PM CDT) Only the most recent of4 resultswithin the time period is included. Erythrocyte Sedimentation Rate Westergren 13 0 - 30 mm/hr [facility] INSURANCE BILL Blood BLOOD SPECIMEN / Unknown 02/03/2024 1:23 PM CDT 02/03/2024 Narrative [facility] INSURANCE BILL - 02/04/2024 6:08 AM CDT Performed at: - [facility] [address] [place], [place] [id number] Flame Gouger: Dexter Gutierrez PhD, Phone: [phone] Linda SANTOS LAB - HEMATOLOGY ORD ERABLES [facility] INSURANCE BILL [address] [place] [address] * CBC WITH DIFFERENTIAL (02/03/2024 1:23 PM CDT) Only the most recent of25 resultswithin the time period is included. WBC 4.2 3.4 - 10.8 x10E3/uL [facility] INSURANCE BILL RBC 4.78 4.14 - 5.80 x10E6/uL [facility] INSURANCE BILL Hemoglobin 14.4 13.0 - 17.7 g/dL [facility] INSURANCE BILL Hematocrit 42.9 37.5 - 51.0 % [facility] INSURANCE BILL MCV 90 79 - 97 fL [facility] INSURANCE BILL MCH 30.1 26.6 - 33.0 pg [facility] INSURANCE BILL MCHC 33.6 31.5 - 35.7 g/dL [facility] INSURANCE BILL RDW 11.8 11.6 - 15.4 % [facility] INSURANCE BILL Platelet Count 236 150 - 450 x10E3/uL [facility] INSURANCE BILL Granulocytes % 70 Not Estab. % [facility] INSURANCE BILL Lymphocytes % 19 Not Estab. % [facility] INSURANCE BILL Monocytes % 8 Not Estab. % [facility] INSURANCE BILL Eosinophils % 2 Not Estab. % [facility] INSURANCE BILL Basophils % 1 Not Estab. % [facility] INSURANCE BILL Granulocytes Absolute 2.9 1.4 - 7.0 x10E3/uL [facility] INSURANCE BILL Lymphocytes Absolute 0.8 0.7 - 3.1 x10E3/uL [facility] INSURANCE BILL Monocytes Absolute 0.3 0.1 - 0.9 x10E3/uL [facility] INSURANCE BILL Eosinophils Absolute 0.1 0.0 - 0.4 x10E3/uL [facility] INSURANCE BILL Basophils Absolute 0.0 0.0 - 0.2 x10E3/uL [facility] INSURANCE BILL Immature Granulocytes 0 Not Estab. % [facility] INSURANCE BILL Immature Granulocytes Absolute 0.0 0.0 - 0.1 x10E3/uL [facility] INSURANCE BILL Blood BLOOD SPECIMEN / Unknown 02/03/2024 1:23 PM CDT 02/03/2024 Narrative [facility] INSURANCE BILL - 02/04/2024 6:08 AM CDT Performed at: - [address] [id number] Flame Gouger: Dexter Gutierrez PhD, Phone: [phone] Linda SANTOS LAB - HEMATOLOGY ORD ERABLES Performing Organization Address City/[facility] Co de Phone Number [facility] INSURANCE BILL [address] [place] [address] * XR KNEE RIGHT 3VW (10/24/2023 11:53 AM CDT) Only the most recent of2 resultswithin the time period is included. Narrative [facility] [address] - 10/24/2023 11:53 AM CDT Please see progress note in Epic for results. Denis Mckee MD DIAGNOSTIC IMAGING O RDCHIARA [facility] [address] * XR KNEE RIGHT 2VW OR LESS (07/14/2023 10:53 AM CDT) Narrative [facility] [address] - 07/14/2023 10:53 AM CDT Please see progress note in Epic for results. Linda SANTOS DIAGNOSTIC IMAGING O RDERADAVID [facility] [address] * IMAGING RADIOLOGY XRAY RESULTS ORDER (06/05/2023 5:16 PM ASSESSMENT MANAGER) Only the most recent of7 resultswithin the time period is included. Anatomical Region Laterality Modality Other Narrative 06/05/2023 5:16 PM ASSESSMENT MANAGER Ordered by an unspecified provider. Scanned Document IMAGING * (ABNORMAL) GLUCOSE - POINT OF CARE (06/03/2023 9:12 AM ASSESSMENT MANAGER) Glucose WB/POC 129(H) 70 - 106 mg/dL 06/03/2023 9:13 AM ASSESSMENT MANAGER [facility] Specimen Type Cap Fingerstick 2023 9:13 AM ASSESSMENT MANAGER [facility] Blood BLOOD SPECIMEN / Unknown 06/03/2023 9:12 AM ASSESSMENT MANAGER 06/03/2023 9:13 AM ASSESSMENT MANAGER Denis Mckee MD LAB - POINT OF CARE ORDERABLES Performing Organization Address [facility] de Phone Number [facility] [address] [phone] * Neuraxial Block (06/03/2023 7:57 AM ASSESSMENT MANAGER) Narrative Hallie Willingham APRN-CRNA - 06/03/2023 7:57 AM ASSESSMENT MANAGER Hallie Willingham APRN-CRNA 06/03/2023 8:58 AM Neuraxial Block Note Pre-Procedure: Procedure Name: Neuraxial Block Patient Location: OR Indications: surgical anesthesia Pre-Anesthetic Checklist: Patient identified, IV Checked, Risks and benefits discussed, Surgical consent verified, Monitors and equipment, Site examined, Pre-op evaluation done, Time-out performed, Informed consent obtained, Questions answered/anesthesia questions answered and Allergies reviewed Anticoagulation/ Anti-thrombosis status confirmed? Yes Supplemental O2: nasal cannula Monitors: BP and continuous pluse ox Patient Condition: sedated, meaningful contact maintained throughout procedure Procedure: Block Type: Spinal Prep: Betadine Sterile Field: mask, cap/hat, sterile established and sterile gloves Approach: midline Spinal Block: Needle Type: spinal needle Needle Gauge: 22 Needle Length: 90 mm Placement Site: L3-4 Number of Attempts: 1 CSF: free flow Local anesthetics used? No Degree of difficulty: none Procedure Tolerance: tolerated well Motor Blockade: Yes Position post procedure: supine Vital Signs: Vital signs monitored and stable throughout. See anesthesia record for details. Start Time: 06/03/2023 7:09 AM End Time: 06/03/2023 7:13 AM Total Time: 4 Staff: Anesthesia Provider: Hallie Willingham APRN-NASIR - performed the procedure Drake Montana MD GENERAL ANESTHESIA O RDERABLES * Peripheral Nerve Block (06/03/2023 7:02 AM ASSESSMENT MANAGER) Narrative Drake Montana MD - 06/03/2023 7:02 AM ASSESSMENT MANAGER Drake Montana MD 06/03/2023 7:05 AM Peripheral Nerve Block Procedure: Peripheral Nerve Block Patient Location: Pre-op Preprocedure Section: Indications: at surgeon's request and postop pain management. Pre-anesthetic Checklist: Patient identified, IV Checked, Site examined and clear, Risks and benefits discussed, Surgical consent verified, Monitors and equipment, Time-out performed, Informed consent obtained, Pre-op evaluation done, Questions answered/anesthesia questions answered, Allergies reviewed and Removal hand/wrist jewelry Monitors: BP, Pulse Ox, EKG and ETCO2. Patient Condition: sedated, meaningful contact maintained throughout procedure Patient Position: supine Patient Sedated? Yes Sedation Type: moderate Sedation Agents: fentaNYL (PF) (SUBLIMAZE) injection - Intravenous 100 mcg - 06/03/2023 6:40:00 AM midazolam (VERSED) injection - Intravenous 2 mg - 06/03/2023 6:40:00 AM Procedure Section Laterality: right Block Performed: Adductor Canal Prep: Chloraprep Strerile Field: gloves, mask and hat/cap Skin localized with: lidocaine (XYLOCAINE) 1 % injection - Infiltration 3 mL - 06/03/2023 6:43:00 AM Needle Type: Echogenic insulated Needle Gauge: 21 Needle Length: 80 mm Catheter? No Injection Assessment: Slow fractionated injection Block Agents or Additives used? Yes Block agents used: bupivacaine 0.5% - EPINEPHrine 1:200,000 (PF) injection - Infiltration 30 mL - 06/03/2023 6:47:00 AM Procedure Tolerance: tolerated well Assessment: completed Staff Section Anesthesia Provider: Drake Montana MD, Performed the procedure Drake Montana MD GENERAL ANESTHESIA O RDERABLES * EKG 12-LEAD (05/19/2023 10:25 AM ASSESSMENT MANAGER) Only the most recent of14 resultswithin the time period is included. Ventricular Rate 61 BPM [facility] Atrial Rate 61 BPM [facility] P-R Interval 192 ms [facility] QRS Duration ms 150 ms [facility] Q-T Interval ms 436 ms [facility] QTC Calculation (Bezet) 438 ms [facility] Calculated P [place] 36 degrees [facility] Calculated R [place] 34 degrees [facility] Calculated T [place] -7 degrees [facility] Interpretation EKG Normal sinus rhythm Right bundle branch block Abnormal ECG Confirmed by MEIR GAO MD ([id number]) on 05/19/2023 7:43:20 PM [facility] 05/19/2023 10:2 5 AM ASSESSMENT MANAGER 05/19/2023 7:43 PM ASSESSMENT MANAGER Pat Moyer DO ECG ORDERABLES Performing Organization Address [facility] de Phone Number [facility] * XR KNEE RIGHT 4VW OR MORE (05/07/2023 11:19 AM ASSESSMENT MANAGER) Only the most recent of2 resultswithin the time period is included. Narrative [facility] [address] - 05/07/2023 11:19 AM ASSESSMENT MANAGER Please see progress note in Epic for results. Linda SANTOS DIAGNOSTIC IMAGING O RDERABLES Performing Organization Address [facility] Co de Phone Number [facility] [address] * LARYNGEAL MASK AIRWAY (12/10/2022 9:05 AM CDT) Narrative Sarah Alberto DO - 12/10/2022 9:05 AM CDT Sarah Alberto DO 12/10/2022 9:06 AM LMA Placement Procedure/LDA Note: Patient Location: OR. Procedure: LMA. Pretreatment: 100% O2 Induction: standard IV Patient position: supine. Mask Ventilation: not attempted Type: gel LMA Size: 4 Number of Attempts: 1. Dentition unchanged? Yes Staff Section Anesthesia Provider: StanwoodMedhat APRN-CRNA, Performed the procedure Sarah Alberto GENERAL ANESTHESIA O RDERABLES * LARYNGEAL MASK AIRWAY (12/10/2022 8:23 AM CDT) Narrative Sarah AlbertoDO - 12/10/2022 8:23 AM CDT Sarah AlbertoDO 12/10/2022 9:06 AM LMA Placement Procedure/LDA Note: Patient Location: OR. Procedure: LMA. Pretreatment: 100% O2 Induction: standard IV Patient position: supine. Mask Ventilation: not attempted Type: gel LMA Size: 4 Number of Attempts: 1. Staff Section Anesthesia Provider: Medhat Barnes APRN-CRNA, Performed the procedure Sarah Alberto GENERAL ANESTHESIA O RDERABLES * (ABNORMAL) BASIC METABOLIC PANEL (CALCIUM TOTAL) (12/10/2022 6:58 AM CDT) Only the most recent of4 resultswithin the time period is included. Glucose 94 70 - 105 mg/dL 12/10/2022 7:57 AM CDT [facility] Sodium 143 136 - 145 mmol/L 12/10/2022 7:57 AM CDT [facility] Potassium 3.4(L) 3.5 - 5.1 mmol/L 12/10/2022 7:57 AM CDT [facility] Chloride 104 98 - 107 mmol/L 12/10/2022 7:57 AM CDT [facility] CO2 29 23 - 31 mmol/L 12/10/2022 7:57 AM CDT [facility] Calcium 9.6 8.4 - 10.4 mg/dL 12/10/2022 7:57 AM CDT [facility] Anion Gap 10 8 - 18 mmol/L 12/10/2022 7:57 AM CDT [facility] BUN 29(H) 8.4 - 25.7 mg/dL 12/10/2022 7:57 AM CDT [facility] Creatinine 1.01 0.72 - 1.25 mg/dL 12/10/2022 7:57 AM CDT [facility] eGFR by CKD-EPI 80(L) >=90 mL/min/1.7 3 m2 12/10/2022 7:57 AM CDT [facility] Blood BLOOD SPECIMEN / Unknown Venipuncture / Unknown 12/10/2022 6:58 AM CDT 12/10/2022 7:39 AM CDT Denis Mckee MD LAB - CHEMISTRY HARJEET MACKEY [facility] [address] [phone] * URINALYSIS MICROSCOPIC ONLY REFLEXED (10/04/2022 10:42 AM CDT) Only the most recent of3 resultswithin the time period is included. WBC UA None seen 0 - 5 /hpf [facility] INSURANCE BILL RBC UA 0-2 0 - 2 /hpf [facility] INSURANCE BILL Epithelial Cells (non renal) None seen 0 - 10 /hpf [facility] INSURANCE BILL Epithelial Cells (renal) NOT AVAILABLE [facility] INSURANCE BILL Comment:Result cannot be obt ained for this observation. Casts ua None seen None seen /lpf [facility] INSURANCE BILL Casts UA NOT AVAILABLE [facility] INSURANCE BILL Comment:Result cannot be obt ained for this observation. Crystals UA NOT AVAILABLE [facility] INSURANCE BILL Comment:Result cannot be obt ained for this observation. Crystals UA NOT AVAILABLE [facility] INSURANCE BILL Comment:Result cannot be obt ained for this observation. Mucus UA NOT AVAILABLE [facility] INSURANCE BILL Comment:Result cannot be obt ained for this observation. Bacteria UA None seen None seen/Few [facility] INSURANCE BILL Yeast UA NOT AVAILABLE [facility] INSURANCE BILL Comment:Result cannot be obt ained for this observation. Trichomonas UA NOT AVAILABLE [facility] INSURANCE BILL Comment:Result cannot be obt ained for this observation. Comment Urine NOT AVAILABLE [facility] INSURANCE BILL Comment:Result cannot be obt ained for this observation. 10/04/2022 10:4 2 AM CDT 10/04/2022 Narrative Resulting Agency Comment Lab Testing performed at: [facility] [id number] Rodolfo Schmidt DO LAB - URINALYSIS ORD CHIARA [facility] INSURANCE BILL [address] [place] [address] * URINALYSIS W/MICROSCOPIC REFLEX TO CULTURE (10/04/2022 10:42 AM CDT) Only the most recent of2 resultswithin the time period is included. Specific Dorena UA 1.015 1.005 - 1.030 [facility] INSURANCE BILL pH UA 6.0 5.0 - 7.5 [facility] INSURANCE BILL Color UA Yellow Yellow [facility] INSURANCE BILL Appearance Clear Clear [facility] INSURANCE BILL Leukocyte UA Negative Negative [facility] INSURANCE BILL Protein UA Negative Negative/Tra ce [facility] INSURANCE BILL Glucose UA Negative Negative [facility] INSURANCE BILL Ketone UA Negative Negative [facility] INSURANCE BILL Occult Blood Urine Negative Negative [facility] INSURANCE BILL Bilirubin UA Negative Negative [facility] INSURANCE BILL Urobilinogen 0.2 0.2 - 1.0 mg/dL [facility] INSURANCE BILL Nitrite UA Negative Negative [facility] INSURANCE BILL Microscopic Examination Urine [facility] INSURANCE BILL Comment:Microscopic follows if indicated. Microscopic Examination Urine See below: [facility] INSURANCE BILL Comment:Microscopic was josefa cated and was performed. Urinalysis Reflex [facility] INSURANCE BILL Comment:This specimen will n ot reflex to a Urine Culture. Urine URINE SPECIMEN OBTAINED BY CLEAN CATCH PROCEDURE / Unknown 10/04/2022 10:42 AM CDT 10/04/2022 Narrative Resulting Agency Comment Lab Testing performed at: [facility] [address] [facility] [phone] Rodolfo Schmidt DO LAB - URINALYSIS ORD ERABLES [facility] INSURANCE BILL [address] [place] [address] * MRI KNEE RIGHT WO CONTRAST (09/25/2022 11:26 AM CDT) Anatomical Region Laterality Modality Lower Extremity Magnetic Resonan ce 09/25/2022 11:3 4 AM CDT Impressions 09/25/2022 11:38 AM CDT IMPRESSION: Tear of the posterior horn of the medial meniscus extending to the inferior articular surface as well as the periphery. There may be some extension into the body of the meniscus which is partially extruded from the joint space. Significant hyaline cartilage loss involving the medial femoral condyle. Mild cartilage loss of the lateral femoral condyle and likely along the patellofemoral joint. Joint effusion. > Interpreting Provider: Willis Diaz MD on 09/25/2022 11:38 AM Narrative 09/25/2022 11:38 AM CDT Procedure: MRI KNEE RIGHT WO CONTRAST Exam Date: 09/25/2022 11:26 AM Location: [facility] right knee INDICATION: M25.561: Pain in right knee TECHNIQUE: MRI examination of the knee was performed utilizing multiple pulse sequences in multiple planes without contrast. FINDINGS: The study is compared to radiographs from [facility] from July 2022. Menisci: There is a complex tear of the posterior horn of the medial meniscus extending to inferior articular surface as well as the periphery. There may be some extension into the body of the meniscus which is partially extruded from the joint space. The anterior horn appears intact. The lateral meniscus is unremarkable. Ligaments: The cruciate ligaments are intact. There is some increased signal involving the medial collateral ligament consistent with a grade 1 sprain. The lateral collateral ligamentous complex is intact. Bones and joint space: There is mild narrowing of the medial compartment. There does appear to be significant thinning of the hyaline cartilage of the medial femoral condyle. There is some mild thinning of the hyaline cartilage along the lateral femoral condyle. The hyaline cartilage of the tibial plateau is intact. There is thinning of the hyaline cartilage of the patella and trochlear groove. There is a small joint effusion. No intra-articular bodies are identified. There is no evidence of fracture. There is a cyst within the posterior aspect of the lateral tibial plateau. Soft tissues, muscles and vasculature: The quadriceps and patellar tendons are intact. The popliteal artery and vein appear normal. There is no Salgado's cyst. The surrounding musculature appears normal. Procedure Note Willis Diaz MD - 09/25/2022 Procedure: MRI KNEE RIGHT WO CONTRAST Exam Date: 09/25/2022 11:26 AM Location: [facility] right knee INDICATION: M25.561: Pain in right knee TECHNIQUE: MRI examination of the knee was performed utilizing multiple pulse sequences in multiple planes without contrast. FINDINGS: The study is compared to radiographs from [facility] from July 2022. Menisci: There is a complex tear of the posterior horn of the medial meniscus extending to inferior articular surface as well as theperiphery. There may be some extension into the body of the meniscus which is partially extruded from the joint space. The anterior horn appearsintact. The lateral meniscus is unremarkable. Ligaments: The cruciate ligaments are intact. There is some increased signal involving the medial collateral ligament consistent with a grade1 sprain. The lateral collateral ligamentous complex is intact. Bones and joint space: There is mild narrowing of the medialcompartment. There does appear to be significant thinning of the hyaline cartilage of the medial femoral condyle. There is some mild thinning of the hyaline cartilage along the lateral femoral condyle. The hyaline cartilage ofthe tibial plateau is intact. There is thinning of the hyaline cartilage ofthe patella and trochlear groove. There is a small joint effusion. No intra-articular bodies are identified. There is no evidence of fracture. There is a cyst within the posterior aspect of the lateral tibialplateau. Soft tissues, muscles and vasculature: The quadriceps and patellartendons are intact. The popliteal artery and vein appear normal. There is no Salgado's cyst. The surrounding musculature appears normal. IMPRESSION: Tear of the posterior horn of the medial meniscus extending to theinferior articular surface as well as the periphery. There may be some extension into the body of the meniscus which is partially extruded from the joint space. Significant hyaline cartilage loss involving the medial femoral condyle. Mild cartilage loss of the lateral femoral condyle and likely along the patellofemoral joint. Joint effusion. > Interpreting Provider: Willis Diaz MD on 09/25/2022 11:38 AM Luca Simons RAC SPECIALIST-DRAINAGE ENGINEER MR ORDERABLES * PAIN MANAGEMENT PROCEDURE TIME (09/11/2022 9:55 AM CDT) Only the most recent of12 resultswithin the time period is included. Anatomical Region Laterality Modality X-Ray Angiograph y Narrative 09/11/2022 9:47 AM CDT Jonny Villa MD 09/11/2022 9:47 AM Procedures Lumbar Facet Medial Branch: Procedure Performed BILATERAL Lumbar facet medial branch nerve diagnostic local anesthetic injections at L3, L4 medial branch nerves and L5 dorsal ramus with fluoroscopic guidance, #2 . 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 ANESTHESIA: Local anesthetic at the site(s). Total Face to Face Time: 16 minutes FLUIDS: None BLOOD LOSS: None DRAINS: None. COMPLICATIONS: None. CONDITION POSTPROCEDURE: Stable. PROJECT CONTROLS SCHEDULER: None. INDICATIONS: Please refer to H/P for noted indications, failed prior treatments and r/b/a discussed with patient prior to procedure. Risks, benefits, and alternatives were discussed including the risk of infection, bleeding, nerve damage, worsening pain, no pain relief whatsoever, transient increase in blood pressure, blood sugar, fluid retention, possibility of headaches, and possibility of shingles, meningitis, discitis, paralysis, permanent neurological injury, spinal cord trauma, loss of bowel and bladder function, epidural hematoma, epidural abscess, need for surgical intervention of the spine, . PROCEDURE COURSE: Lumbar Facet Medial Branch Nerve Diagnostic Blocks The patient was identified in the holding area and the operative permit was explained and signed. I have discussed with the patient the risks, benefits, side effect and complications of fluoroscopically guided Diagnostic Lumbar Facet Medial Branch Nerves Blocks. I explained to patient that some or all of the medication used in the injection including but not limited to steroids are commonly used as off label medications. I have answered the patient's questions regarding the procedure and have given the patient the opportunity to refuse the procedure. I also have discussed alternative methods of treatment. The patient stated understanding of the procedure and wished to proceed with fluoroscopically guided Diagnostic Lumbar Facet Medial Branch Nerves Blocks The patient was taken to the fluoroscopic suite and placed on a C-arm table in the prone position. Noninvasive blood pressure and pulse oximetry were used to monitor the patient continuously throughout the procedure. A nurse was in attendance for the duration of the procedure to carefully monitor the patient. Please refer to the nursing record for vital sign documentation and for any doses of sedatives and medications. I was present and gave the order for any medications given to the patient. The patients lumbar area was then prepped and draped in the usual sterile fashion. The following procedure was performed at the BILATERAL L3, L4 medial branch nerves and L5 dorsal ramus levels. Oblique fluoroscopy was used to identify the target at the base of the superior articular process where it joins the transverse process or sacral ala when applicable. A 22 gauge 3.5 inch spinal needle was seated at the bony margin of the target area. This procedure was then repeated in an identical fashion at each level blocked. AP fluoroscopy was used to confirm final lateral placement and lateral fluoroscopy was conducted to determine posterior placement away from the nerve roots at all levels before injection. IV Contrast Dye Injected into the region at each level noted above with noted proper distribution - total 1.5 ml. There was no intrathecal, intraepidural or intravascular spread noted. After negative aspiration of blood or CSF, 0.5ml of 0.25% PF MARCAINE was administered at each level. All needles were removed intact and homeostasis was appreciated. Meaningful verbal contact was maintained with the patient throughout the procedure. The patient tolerated the procedure well and there were no complications. The patient was taken to the recovery area. The patient remained in stable condition with no apparent complications. Post procedure instructions were given to the patient and a follow up appointment was confirmed. The patient was also discharged with information on how to reach the clinic or deposition reporter physician at anytime for questions or complaints. PREPROCEDURE PAIN SCORE: 9/10 POST PROCEDURE PAIN SCORE: 1/10 >80% RELIEF AND IMPROVEMENT IN EXTENSION, LATERAL ROTATION Jonny Villa MD DIAGNOSTIC IMAGING ORDERABLES * CT ABDOMEN WO CONTRAST (09/04/2022 11:39 AM CDT) Anatomical Region Laterality Modality Abdomen Computed Tomogra phy 09/04/2022 12:0 8 PM CDT Narrative 09/04/2022 12:42 PM CDT PROCEDURE: CT ABDOMEN WO CONTRAST, DATE/TIME OF EXAM: 09/04/2022 11:39 AM, LOCATION [facility] INDICATION: R19.01: Right upper quadrant abdominal swelling, mass and lump HISTORY: Fullness/mass on the right side of the abdomen and weight loss. TECHNIQUE: Noncontrast CT abdomen is obtained and compared to ultrasound 12/26/2021. FINDINGS: The liver, gallbladder, and spleen are normal. There is a calcification in the head of the pancreas suggesting chronic calcific pancreatitis. No pancreatic duct dilatation is seen. The adrenal glands are normal. A left renal cyst is present. The kidneys and visualized ureters are otherwise grossly normal. The visualized stomach and large and small bowel appear grossly normal. There is no free air or free fluid. No hernia is identified. No retroperitoneal mass or adenopathy is seen. The heart size is normal. There is dense coronary artery calcification. No pericardial effusion is seen. The lung bases are clear. Degenerative change of the visualized thoracolumbar spine is present. DIAGNOSIS: Coronary artery disease. Left renal cyst. Pancreatic calcification. Edited by Sherry Joshi on 09/04/2022 12:18 PM > Interpreting Provider: Dutch Bailon MD on 09/04/2022 12:42 PM Procedure Note Dutch Bailon MD - 09/04/2022 PROCEDURE: CT ABDOMEN WO CONTRAST, DATE/TIME OF EXAM: 09/04/2022 11:39AM, LOCATION [facility] INDICATION: R19.01: Right upper quadrant abdominal swelling, mass and lump HISTORY: Fullness/mass on the right side of the abdomen and weight loss. TECHNIQUE: Noncontrast CT abdomen is obtained and compared to ultrasound 12/26/2021. FINDINGS: The liver, gallbladder, and spleen are normal. There is a calcificationin the head of the pancreas suggesting chronic calcific pancreatitis. No pancreatic duct dilatation is seen. The adrenal glands are normal. A left renal cyst is present. The kidneys and visualized ureters are otherwise grossly normal. The visualized stomach and large and small bowel appear grossly normal. There is no free air or free fluid. No hernia is identified. No retroperitoneal mass or adenopathy is seen. The heart size is normal. There is dense coronary artery calcification.No pericardial effusion is seen. The lung bases are clear. Degenerative change of the visualized thoracolumbar spine is present. DIAGNOSIS: Coronary artery disease. Left renal cyst. Pancreatic calcification. Edited by Sherry Joshi on 09/04/2022 12:18 PM > Interpreting Provider: Dutch Bailon MD on 09/04/2022 12:42 PM Rodolfo Schmidt DO CT ORDERABLES * URINALYSIS REFLEX MICROSCOPIC REFLEX CULTURE (08/21/2022 11:36 AM CDT) Only the most recent of2 resultswithin the time period is included. Specific Dorena UA 1.013 1.005 - 1.030 [facility] INSURANCE BILL pH UA 7.5 5.0 - 7.5 [facility] INSURANCE BILL Color UA Yellow Yellow [facility] INSURANCE BILL Appearance Clear Clear [facility] INSURANCE BILL Leukocyte UA Negative Negative [facility] INSURANCE BILL Protein UA Negative Negative/Tra ce [facility] INSURANCE BILL Glucose UA Negative Negative [facility] INSURANCE BILL Ketone UA Negative Negative [facility] INSURANCE BILL Occult Blood Urine Negative Negative [facility] INSURANCE BILL Bilirubin UA Negative Negative [facility] INSURANCE BILL Urobilinogen 0.2 0.2 - 1.0 mg/dL [facility] INSURANCE BILL Nitrite UA Negative Negative [facility] INSURANCE BILL Microscopic Examination Urine [facility] INSURANCE BILL Comment:Microscopic follows if indicated. Microscopic Examination Urine See below: [facility] INSURANCE BILL Comment:Microscopic was josefa cated and was performed. Urinalysis Reflex [facility] INSURANCE BILL Comment:This specimen will n ot reflex to a Urine Culture. Urine MID-STREAM URINE SPECIMEN / Unknown 08/21/2022 11:36 AM CDT 08/21/2022 Narrative Resulting Agency Comment Lab Testing performed at: [facility] [address] [phone] Rodolfo Schmidt DO LAB - URINALYSIS ORD ERABLES [facility] INSURANCE BILL [address] [place] [address] * URIC ACID BLOOD (08/21/2022 11:36 AM CDT) Only the most recent of6 resultswithin the time period is included. Uric Acid 4.3 3.5 - 7.2 mg/dL [facility] INSURANCE BILL Blood BLOOD SPECIMEN / Unknown 08/21/2022 11:36 AM CDT 08/21/2022 Narrative Resulting Agency Comment Lab Testing performed at: [facility] [address] [phone] Rodolfo Schmidt DO LAB - CHEMISTRY HARJEET MACKEY [facility] INSURANCE BILL [address] [place] [address] * US ABDOMEN LIMITED (12/26/2021 9:02 AM CDT) Anatomical Region Laterality Modality Abdomen Ultrasound 12/26/2021 9:17 AM CDT Impressions 12/26/2021 9:20 AM CDT IMPRESSION: Unremarkable right upper quadrant ultrasound. If there is still concern for mass, CT without contrast could be performed. > Interpreting Provider: Willis Diaz MD on 12/26/2021 9:20 AM Narrative 12/26/2021 9:20 AM CDT PROCEDURE: US ABDOMEN LIMITED, DATE/TIME OF EXAM: 12/26/2021 9:04 AM, LOCATION [facility] INDICATION: R19.01: Right upper quadrant abdominal swelling, mass and lump FINDINGS: No old studies are available for comparison purposes. Real-time sonography of the right upper quadrant was performed. The pancreas is unremarkable. The liver is homogeneous in echotexture. There is no liver mass. There is no intrahepatic biliary dilatation. There is hepatopedal flow within the portal vein. The hepatic veins are patent. Common bile that measures 3.5 mm. No gallstones are seen within the gallbladder. There is no thickening of the gallbladder wall. There is no pericholecystic fluid. The patient was not tender over the gallbladder. The right kidney is unremarkable. In the right flank region, no cystic or solid mass is identified. No definite hernia is seen. Procedure Note Willis Diaz MD - 12/26/2021 PROCEDURE: US ABDOMEN LIMITED, DATE/TIME OF EXAM: 12/26/2021 9:04 AM, LOCATION [facility] INDICATION: R19.01: Right upper quadrant abdominal swelling, mass and lump FINDINGS: No old studies are available for comparison purposes. Real-time sonography of the right upper quadrant was performed. The pancreas is unremarkable. The liver is homogeneous in echotexture. There is no liver mass.There is no intrahepatic biliary dilatation. There is hepatopedal flowwithin the portal vein. The hepatic veins are patent. Common bile thatmeasures 3.5 mm. No gallstones are seen within the gallbladder. There is no thickeningof the gallbladder wall. There is no pericholecystic fluid. The patient was not tender over the gallbladder. The right kidney is unremarkable. In the right flank region, no cystic or solid mass is identified. No definite hernia is seen. IMPRESSION: Unremarkable right upper quadrant ultrasound. If there is still concern for mass, CT without contrast could beperformed. > Interpreting Provider: Willis Diaz MD on 12/26/2021 9:20 AM Lidia Molina RAC SPECIALIST-DRAINAGE ENGINEER US ORDERABLES * CARDIAC RHYTHM STRIP ORDER (08/13/2021 6:54 PM CDT) Only the most recent of6 resultswithin the time period is included. Narrative 08/13/2021 6:54 PM CDT Ordered by an unspecified provider. Scanned Document CARDIAC SERVICES ORD ERABLES * PATHOLOGY TISSUE EXAM (STL) (08/10/2021 10:59 AM CDT) Only the most recent of2 resultswithin the time period is included. Case Report Surgical Pathology Report Case: [id number] Authorizing Provider: Alexander Marin MD Collected: 08/10/2021 10:59 AM Ordering Location: [facility] Received: 08/10/2021 12:21 PM Pathologist: Emi Mesa MD Specimens: A) - Antrum Biopsy B) - Polyp Descending 08/14/2021 12:10 PM CDT [facility] Final Diagnosis A. Gastric antrum, biopsy: - Gastric antral-type and oxyntic-type mucosa with chronic and focal active inflammation, and focally increased eosinophils - No Helicobacter pylori identified B. Polyp, descending colon, polypectomy: - Hyperplastic polyp - No evidence of dysplasia or malignancy SD/ns 08/14/2021 12:10 PM CDT [facility] Clinical History Melena. 08/14/2021 12:10 PM CDT [facility] Gross Description Specimen received in two formalin-filled containers each labeled with the patient's name Anabell Rivera. The first container is additionally labeled antrum biopsy and consists of four fragments of sepulveda-white tissue ranging from 0.1 to 0.3 cm in greatest dimension. The tissues are marked with hematoxylin and entirely submitted in A1. The second container is additionally labeled polyp descending and consists of a fragment of sepulveda-pink tissue measuring 0.3 cm in greatest dimension. The tissue is marked with hematoxylin and entirely submitted in B1. TIP/bubba 08/14/2021 12:10 PM [facility] Microscopic Description A. There are scattered neutrophils seen. Additionally, focally in the lamina propria on one fragment, there are increased numbers of eosinophils in small aggregates focally. Rare june-shaped structures are seen near the surface mucosa and in the crypts. Immunostain for Helicobacter pylori is performed and is negative, revealing no evidence of Helicobacter pylori. Positive control for Helicobacter pylori immunostain works appropriately. SD/ns 08/14/2021 12:10 PM [facility] Disclaimer All histochemical and/or immunohistochemical results are interpreted with controls that demonstrate appropriate staining reactions before reporting results. Note on use of immunocytochemistry reagents: This test was developed and its performance characteristic determined by [facility], Department of Laboratory Medicine. It has not been cleared or approved by the U.S. Food and Drug Administration (FDA). The FDA has determined that such clearance or approval is not necessary. The test is used for clinical purpose. It should not be regarded as investigational or for research. This laboratory is certified to perform high complexity testing. The performance characteristics of the IHC/SANTOSH assays have been validated on formalin-fixed paraffin embedded tissues only. The assays have not been validated on decalcified tissues. Results should be interpreted with caution. 08/14/2021 12:10 PM [facility] Embedded Images 08/14/2021 12:10 PM [facility] Pathology/Cytology GASTRIC ANTRAL BIOPSY SPECIMEN / Unknown 08/10/2021 10:59 AM CDT 08/10/2021 12:21 PM CDT Comment:Pre-op diagnosis: Melena [K92.1] Miscellaneous samples (specimen) POLYP / Unknown 08/10/2021 11:10 AM CDT 08/10/2021 12:21 PM CDT Comment:Pre-op diagnosis: Melena [K92.1] Alexander Marin MD LAB - PATHOLOGY/CYTO LOGY ORDERABLES [facility] [address] [address] * EGD (08/10/2021 10:47 AM CDT) Report Endoscopy POC _ Patient Name: Anabell Rivera Procedure Date: 08/10/2021 10:47 AM Date of : 1950 Admit Type: Outpatient Age: 71 Room: ROOM 3 Gender: Male Attending MD: Alexander Marin MD _ Procedure: Upper GI endoscopy Indications: Melena Providers: Alexander Marin MD, Dianne Godinez, TROY, Mary Johansen RN, ALEXANDER PEDRO CRNA (Anesthesia Staff) Referring MD: Kaylin Armstrong MD (Referring MD) Medicines: Monitored Anesthesia Care Complications: No immediate complications. _ Estimated Blood Loss: Estimated blood loss: none. Procedure: Pre-Anesthesia Assessment: - Prior to the procedure, a History and Physical was performed, and patient medications and allergies were reviewed. The patient's tolerance of previous anesthesia was also reviewed. The risks and benefits of the procedure and the sedation options and risks were discussed with the patient. All questions were answered, and informed consent was obtained. Prior Anticoagulants: The patient has taken Plavix (clopidogrel), last dose was 5 days prior to procedure. ASA Grade Assessment: III - A patient with severe systemic disease. After reviewing the risks and benefits, the patient was deemed in satisfactory condition to undergo the procedure. After obtaining informed consent, the endoscope was passed under direct vision. Throughout the procedure, the patient's blood pressure, pulse, and oxygen saturations were monitored continuously. The Endoscope was introduced through the mouth, and advanced to the third part of duodenum. The upper GI endoscopy was accomplished without difficulty. The patient tolerated the procedure well. Findings: The examined duodenum was normal. The entire examined stomach was normal. Biopsies were taken with a cold forceps for histology. The examined esophagus was normal. _ Impression: - Normal examined duodenum. - Normal stomach. Biopsied. - Normal esophagus. Recommendation: - Resume previous diet. - Continue present medications. - Await pathology results. - Resume Plavix (clopidogrel) at prior dose in 2 days. Procedure Code(s): --- Professional --- 13662 --- Technical --- 53316 Diagnosis Code(s): --- Professional --- K92.1 --- Technical --- K92.1 CPT copyright 2019 [employer]. All rights reserved. The codes documented in this report are preliminary and upon television specialist review may be revised to meet current compliance requirements. ____ Alexander Marin MD 08/10/2021 11:16:53 AM This report has been signed electronically. Number of Addenda: 0 Note Initiated On: 08/10/2021 10:47 AM [facility] 08/10/2021 10:4 7 AM CDT Alexander Marin MD GI PROCEDURE ORDERAB LES [facility] * ENDOSCOPY, COLON, DIAGNOSTIC (08/10/2021 10:46 AM CDT) Report Endoscopy POC _ Patient Name: Anabell Rivera Procedure Date: 08/10/2021 10:46 AM Date of : 1950 Admit Type: Outpatient Age: 71 Room: ROOM 3 Gender: Male Attending MD: Alexander Marin MD _ Procedure: Colonoscopy Indications: Melena Providers: Alexander Marin MD, Dianne Godinez, RN, Mary Johansen RN, ALEXANDER PEDRO CRNA (Anesthesia Staff) Referring MD: Kaylin Armstrong MD (Referring MD) Medicines: Monitored Anesthesia Care Complications: No immediate complications. _ Estimated Blood Loss: Estimated blood loss: none. Procedure: Pre-Anesthesia Assessment: - Prior to the procedure, a History and Physical was performed, and patient medications and allergies were reviewed. The patient's tolerance of previous anesthesia was also reviewed. The risks and benefits of the procedure and the sedation options and risks were discussed with the patient. All questions were answered, and informed consent was obtained. Prior Anticoagulants: The patient has taken Plavix (clopidogrel), last dose was 5 days prior to procedure. ASA Grade Assessment: III - A patient with severe systemic disease. After reviewing the risks and benefits, the patient was deemed in satisfactory condition to undergo the procedure. After I obtained informed consent, the scope was passed under direct vision. Throughout the procedure, the patient's blood pressure, pulse, and oxygen saturations were monitored continuously. The Colonoscope was introduced through the anus and advanced to the cecum, identified by appendiceal orifice and ileocecal valve. The colonoscopy was performed without difficulty. The patient tolerated the procedure well. The quality of the bowel preparation was good. The ileocecal valve, appendiceal orifice, and rectum were photographed. Findings: The perianal and digital rectal examinations were normal. A 3 mm polyp was found in the descending colon. The polyp was sessile. The polyp was removed with a cold biopsy forceps. Resection and retrieval were complete. Internal hemorrhoids were found during retroflexion. The hemorrhoids were small. The exam was otherwise without abnormality. _ Impression: - One 3 mm polyp in the descending colon, removed with a cold biopsy forceps. Resected and retrieved. - Internal hemorrhoids. - The examination was otherwise normal. Recommendation: - Resume previous diet. - Continue present medications. - Await pathology results. - Repeat colonoscopy in 5 years for surveillance. - Resume Plavix (clopidogrel) at prior dose in 2 days. Procedure Code(s): --- Professional --- 37143 --- Technical --- 66699 Diagnosis Code(s): --- Professional --- K63.5 K64.8 K92.1 --- Technical --- K63.5 K64.8 K92.1 CPT copyright 2019 [employer]. All rights reserved. The codes documented in this report are preliminary and upon television specialist review may be revised to meet current compliance requirements. ____ Alexander Marin MD 08/10/2021 11:18:30 AM This report has been signed electronically. Number of Addenda: 0 Note Initiated On: 08/10/2021 10:46 AM [facility] 08/10/2021 10:4 6 AM CDT Alexander Marin MD GI PROCEDURE ORDERAB LES [facility] * MICROALB/CREAT RATIO URINE RANDOM PANEL (07/30/2021 11:31 AM CDT) Only the most recent of2 resultswithin the time period is included. Creatinine Urine 50.95 mg/dL [facility] INSURANCE BILL Microalbumin Urine 0.6 mg/dL [facility] INSURANCE BILL Microalbumin/Crea tinine Ratio 11 <30 mg/g [facility] INSURANCE BILL Comment:FASTING Urine URINE SPECIMEN OBTAINED BY CLEAN CATCH PROCEDURE / Unknown 07/30/2021 11:31 AM CDT 07/30/2021 Narrative Resulting Agency Comment Lab Testing performed at: [facility] [address] [id number] Kaylin Armstrong MD LAB - URINE CHEMISTR Y ORDERABLES [facility] INSURANCE BILL [address] [place] [address] * MAGNESIUM BLOOD (07/30/2021 11:31 AM CDT) Only the most recent of8 resultswithin the time period is included. Magnesium 1.8 1.6 - 2.6 mg/dL [facility] INSURANCE BILL Comment: FASTING Blood BLOOD SPECIMEN / Unknown 07/30/2021 11:31 AM CDT 07/30/2021 Narrative Resulting Agency Comment Lab Testing performed at: [facility] [address] [place] [id number] Kaylin Armstrong MD LAB - CHEMISTRY HARJEET MACKEY [facility] INSURANCE BILL [address] [place] [address] * VITAMIN B12 FOLATE PANEL (06/06/2020 12:27 PM ASSESSMENT MANAGER) Vitamin B12 452 213 - 816 pg/mL [facility] INSURANCE BILL Folate 10.6 7.0 - 31.4 ng/mL [facility] INSURANCE BILL Blood BLOOD SPECIMEN / Unknown 06/06/2020 12:27 PM ASSESSMENT MANAGER 06/06/2020 Narrative Resulting Agency Comment Lab Testing performed at: [address] [id number] Kaylin Armstrong MD LAB - CHEMISTRY HARJEET MACKEY Performing Organization Address [facility] Co de Phone Number [facility] INSURANCE BILL [address] [place] [address] * PT-INR (12/28/2019 11:20 AM CDT) Only the most recent of3 resultswithin the time period is included. Pathologist [facility] INR 1.0 0.8 - 1.2 [facility] INSURANCE BILL Comment: Reference interval is for non-anticoagulated patients. . Suggested INR therapeutic range for Vitamin K antagonist therapy: Standard Dose (moderate intensity therapeutic range): 2.0 - 3.0 Higher intensity therapeutic range 2.5 - 3.5 PT 10.5 9.1 - 12.0 sec [facility] INSURANCE BILL Blood BLOOD SPECIMEN / Unknown 12/28/2019 11:20 AM CDT 12/28/2019 Narrative Resulting Agency Comment Lab Testing performed at: [facility] [address] [facility] [phone] Steven De La Torre MD LAB - COAGULATION OR DERABLES Performing Organization Address City/[facility]/ZIP Co de Phone Number [facility] INSURANCE BILL [address] [place] [address] * SARS-COV-2 (COVID-19) ANTIBODY IGG [facility] (10/19/2019 12:25 PM CDT) SARS COV 2 AB (IGG) Negative Negative [facility] Comment: This sample does not contain detectable SARS-CoV-2 IgG antibodies. This negative result does not rule out SARS-CoV-2 infection. Correlation with epidemiologic risk factors and other clinical and laboratory findings is recommended. Serologic results should not be used as the sole basis to diagnose or exclude recent SARS-CoV-2 infection. This assay was performed using the [employer] SARS-CoV-2 IgG assay. Blood BLOOD SPECIMEN / Unknown 10/19/2019 12:25 PM CDT 10/19/2019 Narrative [facility] INSURANCE BILL - 10/20/2019 8:07 AM CDT Test(s) [id number] Antibody, IgG has not been FDA cleared or approved. This test has been authorized by FDA under an Emergency Use Authorization (EUA). This test is only authorized for the duration of the declaration that circumstances exist justifying the authorization of emergency use of in vitro diagnostics for detection and/or U.S.C. 360bbb-3(b)(1), unless the authorization is terminated or revoked sooner. This test has been authorized only for detecting the presence of antibodies against SARS-CoV-2, not for any other viruses or pathogens. Resulting Agency Comment Lab Testing performed at: [facility] [address] [address] [id number] Kaylin Armstrong MD LAB - CHEMISTRY HARJEET MACKEY [facility] INSURANCE BILL [address] [place] [address] * TSH REFLEX FREE T4 (03/30/2019 3:27 PM ASSESSMENT MANAGER) TSH 0.754 0.350 - 4.940 ulU/mL [facility] INSURANCE BILL Blood BLOOD SPECIMEN / Unknown 03/30/2019 3:27 PM ASSESSMENT MANAGER 03/30/2019 Narrative Resulting Agency Comment Lab Testing performed at: [facility] [address] [phone] Kaylin Armstrong MD LAB - CHEMISTRY HARJEET MACKEY [facility] INSURANCE BILL [address] [place] [address] * ALDOSTERONE/RENIN RATIO PANEL (03/20/2019 8:07 AM ASSESSMENT MANAGER) Aldosterone 5.9 0.0 - 30.0 ng/dL [facility] INSURANCE BILL Comment: This test was developed and its performance characteristics determined by [employer]. It has not been cleared or approved by the Food and Drug Administration. Renin 1.566 0.167 - 5.380 ng/mL/hr [facility] INSURANCE BILL Comment: This test was developed and its performance characteristics determined by [facility] [employer]. It has not been cleared or approved by the Food and Drug Administration. Aldosterone/Renin Ratio 3.8 0.0 - 30.0 [facility] INSURANCE BILL Comment: Units: ng/dL per ng/mL/hr FASTING Blood BLOOD SPECIMEN / Unknown 03/20/2019 8:07 AM ASSESSMENT MANAGER 03/20/2019 Narrative Resulting Agency Comment Lab Testing performed at: [address] [phone] Hernandez Irving MD LAB - CHEMISTRY HARJEET MACKEY Performing Organization Address City/[facility] Co de Phone Number [facility] INSURANCE BILL [address] [place] [address] * HEMOGLOBIN A1C (03/20/2019 8:05 AM ASSESSMENT MANAGER) Only the most recent of3 resultswithin the time period is included. Hemoglobin A1c 5.5 4.8 - 5.6 % [facility] INSURANCE BILL Comment: . Prediabetes: 5.7 - 6.4 Diabetes: >6.4 Glycemic control for adults with diabetes: <7.0 FASTING Blood BLOOD SPECIMEN / Unknown 03/20/2019 8:05 AM ASSESSMENT MANAGER 03/20/2019 Narrative Resulting Agency Comment Lab Testing performed at: [facility] [address] [facility] [phone] Hernandez Irving MD LAB - CHEMISTRY HARJEET MACKEY Performing Organization Address City/[facility] Co de Phone Number [facility] INSURANCE BILL [address] [place] [address] * LIPID PROFILE (03/20/2019 8:05 AM ASSESSMENT MANAGER) Only the most recent of4 resultswithin the time period is included. Cholesterol 147 100 - 199 mg/dL [facility] INSURANCE BILL Triglycerides 106 0 - 149 mg/dL [facility] INSURANCE BILL HDL Cholesterol 46 >39 mg/dL [facility] INSURANCE B[facility] VLDL Calculated 21 5 - 40 mg/dL [facility] INSURANCE BILL LDL Calculated 80 0 - 99 mg/dL [facility] INSURANCE BILL Comment NOT NEEDED [facility] INSURANCE BILL Comment: FASTING Ancillary determined the test is not needed. Blood BLOOD SPECIMEN / Unknown 03/20/2019 8:05 AM ASSESSMENT MANAGER 03/20/2019 Narrative Resulting Agency Comment Lab Testing performed at: [facility] [place] [id number] [facility] [id number] Hernandez Irving MD LAB - CHEMISTRY HARJEET MACKEY Performing Organization Address [facility] Co de Phone Number [facility] INSURANCE BILL [address] [place] [address] * MRI ANKLE LEFT WO CONTRAST (10/06/2018 9:44 AM CDT) Anatomical Region Laterality Modality Ankle / Foot, Lower Extremity Ma gnetic Resonance 10/06/2018 10:4 9 AM CDT Narrative 10/06/2018 11:10 AM CDT MRI LEFT ANKLE HISTORY: Pain. TECHNIQUE: Routine MR ankle was obtained on a high-field strength magnet. Comparison is made to radiographs of the ankle dated 09/23/2018. A marker is placed over the Achilles tendon. There is a screw within the medial malleolus with associated significant micrometallic artifact. The visualized marrow signal intensity is normal. There is mild degenerative change of the mid foot. Subtalar joints are grossly normal. The visualized tibiotalar articulation and talar dome is normal. There is no ankle joint effusion. The medial collateral ligament structures are obscured. The lateral collateral ligaments appear grossly intact. The medial and lateral flexor and anterior extensor tendons are normal. The visualized Achilles tendon is normal in size and configuration. There is minimal intrasubstance signal seen within the mid body of the Achilles tendon as well as T1 and T2 signal within the distal Achilles tendon at its insertion the posterior calcaneus. No full-thickness tear is seen and the visualized musculotendinous junction is normal minimal fluid is present within the retrocalcaneal bursa. A small enthesophyte at the insertion of the Achilles tendon is present. DIAGNOSIS: Findings suggestive of intrasubstance tearing or tendinosis within the mid body of the Achilles tendon as well as abnormal increased signal at the insertion the Achilles tendon at the posterior calcaneus suggesting partial tear. No full-thickness tear is seen. There is a small amount of fluid in the retrocalcaneal bursa. There is an associated enthesophyte present at the insertion of the Achilles tendon. There is a screw within the medial malleolus with associated micrometallic artifact. The visualized collateral ligaments and flexor and extensor tendons are normal. Edited by Sherry Joshi on 10/06/2018 11:05 AM Reading Radiologist: Dutch Bailon MD on 10/06/2018 at 11:10 AM Procedure Note Dutch Bailon MD - 10/06/2018 MRI LEFT ANKLE HISTORY: Pain. TECHNIQUE: Routine MR ankle was obtained on a high-field strength magnet. Comparison is made to radiographs of the ankle dated 09/23/2018. A marker is placed over the Achilles tendon. There is a screw within the medial malleolus with associated significant micrometallic artifact. The visualized marrow signal intensity is normal. There is mild degenerative change of the mid foot. Subtalar joints are grossly normal. The visualized tibiotalar articulation and talar dome is normal. There is no ankle joint effusion. The medial collateral ligament structures are obscured. The lateral collateral ligaments appear grossly intact. The medial and lateral flexor and anterior extensor tendons are normal. The visualized Achilles tendon is normal in size and configuration. There is minimal intrasubstance signal seen within the mid body of the Achilles tendon as well as T1 and T2 signal within the distal Achilles tendon at its insertion the posterior calcaneus. No full-thickness tear is seen and the visualized musculotendinous junction is normal minimal fluid is present within the retrocalcaneal bursa. A small enthesophyte at the insertion of the Achilles tendon is present. DIAGNOSIS: Findings suggestive of intrasubstance tearing or tendinosis within the mid body of the Achilles tendon as well as abnormal increased signal at the insertion the Achilles tendon at the posterior calcaneus suggesting partial tear. No full-thickness tear is seen. There is a small amount of fluid in the retrocalcaneal bursa. There is an associated enthesophyte present at the insertion of the Achilles tendon. There is a screw within the medial malleolus with associated micrometallic artifact. The visualized collateral ligaments and flexor and extensor tendons are normal. Edited by Sherry Joshi on 10/06/2018 11:05 AM Reading Radiologist: Dutch Bailon MD on 10/06/2018 at 11:10 AM Rich Adamson MD MR ORDERABLES * XR ANKLE LEFT 3VW OR MORE (09/23/2018 10:15 AM CDT) Anatomical Region Laterality Modality Lower Extremity Computed Radiogr aphy Narrative 09/23/2018 10:54 AM CDT Stephanie Rojas RT(R) 09/23/2018 10:54 AM See progress notes for results Rich Adamson MD DIAGNOSTIC IMAGING O RDERABLES * XR FOOT LEFT 3VW OR MORE (09/23/2018 10:15 AM CDT) Anatomical Region Laterality Modality Ankle / Foot Computed Radiogr aphy Narrative 09/23/2018 10:54 AM CDT Stephanie Rojas RT(R) 09/23/2018 10:54 AM See progress notes for results Rich Adamson MD DIAGNOSTIC IMAGING O RDERABLES * MRI LUMBAR SPINE WO CONTRAST (08/14/2018 3:05 PM CDT) Only the most recent of2 resultswithin the time period is included. Anatomical Region Laterality Modality Spine Magnetic Resonan ce 08/14/2018 3:16 PM CDT Impressions 08/14/2018 3:40 PM CDT Postop changes, multilevel spondylosis. Edited by Terese Georges on 08/14/2018 3:25 PM Reading Radiologist: Maxim Louis MD on 08/14/2018 at 3:40 PM Narrative 08/14/2018 3:40 PM CDT MRI LUMBAR SPINE WITHOUT CONTRAST. HISTORY: Back pain, right leg pain. Images are reviewed in sagittal and axial planes using T1 and T2-weighted sequences. Vertebral heights are normal. There is interspace height loss and dehydration at multiple levels. No pathologic marrow replacement is seen. Degenerative changes are seen in vertebral endplates. Postop changes are noted in the lumbar region from about L2 through L5. At L1-L2, spinal canal has an AP diameter of 9.5 mm. There is lateral recess and neural foraminal narrowing present secondary to broad-based disc bulge. At L2-L3, there is a broad-based disc bulge. AP diameter of the dural sac is 12 mm. There is mild lateral recess and neural foraminal narrowing seen. A laminectomy defect is present. At L3-L4, there is a broad-based disc bulge. AP diameter of the dural sac is 15 mm. There is lateral recess and neural foraminal narrowing seen bilaterally. Laminectomy defect is present At L4-L5, there is a broad-based disc bulge with accentuation to the right of midline. AP diameter of the dural sac is 14 mm. There is lateral recess and neural foraminal narrowing seen bilaterally. At L5-S1, spinal canal is patent with an AP diameter of about 11 mm. There is mild lateral recess narrowing present. The visible lower thoracic spinal cord is unremarkable. Procedure Note Maxim Louis MD - 08/14/2018 MRI LUMBAR SPINE WITHOUT CONTRAST. HISTORY: Back pain, right leg pain. Images are reviewed in sagittal and axial planes using T1 and T2-weighted sequences. Vertebral heights are normal. There is interspace height loss and dehydration at multiple levels. No pathologic marrow replacement is seen. Degenerative changes are seen in vertebral endplates. Postop changes are noted in the lumbar region from about L2 through L5. At L1-L2, spinal canal has an AP diameter of 9.5 mm. There is lateral recess and neural foraminal narrowing present secondary to broad-based disc bulge. At L2-L3, there is a broad-based disc bulge. AP diameter of the dural sac is 12 mm. There is mild lateral recess and neural foraminal narrowing seen. A laminectomy defect is present. At L3-L4, there is a broad-based disc bulge. AP diameter of the dural sac is 15 mm. There is lateral recess and neural foraminal narrowing seen bilaterally. Laminectomy defect is present At L4-L5, there is a broad-based disc bulge with accentuation to the right of midline. AP diameter of the dural sac is 14 mm. There is lateral recess and neural foraminal narrowing seen bilaterally. At L5-S1, spinal canal is patent with an AP diameter of about 11 mm. There is mild lateral recess narrowing present. The visible lower thoracic spinal cord is unremarkable. IMPRESSION Postop changes, multilevel spondylosis. Edited by Terese Georges on 08/14/2018 3:25 PM Reading Radiologist: Maxim Louis MD on 08/14/2018 at 3:40 PM Aury WALLS MR ORDERABLES * ECHOCARDIOGRAM 2D WITH DOPPLER (03/24/2018 9:00 AM ASSESSMENT MANAGER) 03/24/2018 9:00 AM ASSESSMENT MANAGER Narrative [facility] - 03/24/2018 2:35 PM ASSESSMENT MANAGER [facility] Heart Conger at [address] [place] [address] Transthoracic Echocardiogram 2D, M-mode, Doppler, and Color Doppler Patient: ANABELL RIVERA MR number: [id number] Height: 72 in Weight: 233.4 lb BSA: 2.28 m Study date: 24-Mar-2018 : 1950 Age: 67 years Gender: Male Race: Allergies: SERTRALINE, BEE VENOM, BETA-GALACTOSIDASE Consolidation Accountant: Joan Argueta RDCS, RVT Referring Nurse Practitioner: KAVITA Middleton Referring Physician: Celestino Mueller MD Referring Physician: Kaylin Armstrong MD Reading Physician: Padilla Patel MD Summary: - Left ventricle: - Systolic function was normal by EF (biplane method of disks). Ejection fraction was estimated to be 70 %. - There were no regional wall motion abnormalities. - Wall thickness was normal. - Aortic valve: - There was mild to moderate regurgitation. - Mitral valve: - There was mild regurgitation. - Left atrium: - Size was normal. Indications: Assess hypertension and coronary artery disease. History: Prior history: Previous (remote) myocardial infarction in 2014. Risk factors: hypertension, medication-treated hypercholesterolemia, obstructive sleep apnea, and a family history of coronary artery disease. Prior procedures: PCI x4 in 2014. Procedure: The study was performed in the [facility]. The transthoracic approach was used. The study included complete 2D imaging, M-mode, complete spectral Doppler, and color Doppler. Systolic blood pressure was 152 mmHg. Diastolic blood pressure was 90 mmHg. Intravenous contrast (Definity) was administered. This was a technically difficult study. Left ventricle: Size was normal. Systolic function was normal by EF (biplane method of disks). Ejection fraction was estimated to be 70 %. There were no regional wall motion abnormalities. Wall thickness was normal. Doppler: Left ventricular diastolic function parameters were normal. Aortic valve: The valve was trileaflet. Leaflets exhibited normal thickness and normal cuspal separation. Doppler: Transaortic velocity was within the normal range. There was no stenosis. There was mild to moderate regurgitation. Aorta: The root exhibited normal size. Mitral valve: Valve structure was normal. There was normal leaflet separation. No echocardiographic evidence for prolapse. Doppler: The transmitral velocity was within the normal range. There was no evidence for stenosis. There was mild regurgitation. Left atrium: Size was normal. Right ventricle: The size was normal. Systolic function was normal. Pulmonic valve: Doppler: The transpulmonic velocity was within the normal range. There was no regurgitation. Pulmonary artery: The size was normal. The morphology appeared normal. Doppler: The tricuspid jet envelope definition was inadequate for estimation of RV systolic pressure. There are no indirect findings (abnormal RV volume or geometry, altered pulmonary flow velocity profile, or leftward septal displacement) which would suggest moderate or severe pulmonary hypertension. Tricuspid valve: The valve structure was normal. There was normal leaflet separation. Doppler: The transtricuspid velocity was within the normal range. There was no evidence for tricuspid stenosis. There was trivial regurgitation. Right atrium: Size was normal. Pericardium: There was no thickening. There was no pericardial effusion. System measurement tables 2D Ao Diam: 2.9 cm LVOT Diam: 2 cm LA Diam: 4.1 cm LAEDV Index (A-L): 28 ml/m2 LAEDV(A-L): 63.9 ml IVSd: 1.1 cm LVIDd: 4.6 cm LVIDs: 2.1 cm LVPWd: 0.8 cm CW AR PHT: 494.9 ms AR Vmax: 3.9 m/s AV VTI: 28.6 cm AV Vmax: 1.4 m/s AV Vmean: 1 m/s AV maxP.3 mmHg AV meanP.3 mmHg PV Vmax: 1.1 m/s PV maxP.7 mmHg MM TAPSE: 2.3 cm PW RADHAMES (VTI): 2.5 cm2 RADHAMES Vmax: 2.8 cm2 LVOT VTI: 22.7 cm LVOT Vmax: 1.2 m/s LVOT Vmean: 0.8 m/s LVOT maxP.2 mmHg LVOT meanP.9 mmHg MV E/A Ratio: 0.9 LATERAL E': 0.1 m/s LATERAL E/E': 5.3 SEPTAL E': 0.1 m/s SEPTAL E/E': 6.9 Prepared and signed by Padilla Patel MD Signed 24-Mar-2018 14:35:04 Procedure Note Padilla Patel MD - 03/25/2018 [facility] Heart Conger at [place] [id number] [facility] [address] [place] [address] Transthoracic Echocardiogram 2D, M-mode, Doppler, and Color Doppler Patient: ANABELL RIVERA MR number: [id number] Height: 72 in Weight: 233.4 lb BSA: 2.28 m Study date: 24-Mar-2018 : 1950 Age: 67 years Gender: Male Race: Allergies: SERTRALINE, BEE VENOM, BETA-GALACTOSIDASE Consolidation Accountant: Joan Argueta RDCS, RVT Referring Nurse Practitioner: Eunice Bone APRN-DRAINAGE ENGINEER Referring Physician: Celestino Mueller MD Referring Physician: Kaylin Armstrong MD Reading Physician: Padilla Patel MD Summary: - Left ventricle: - Systolic function was normal by EF (biplane method of disks). Ejection fraction was estimated to be 70 %. - There were no regional wall motion abnormalities. - Wall thickness was normal. - Aortic valve: - There was mild to moderate regurgitation. - Mitral valve: - There was mild regurgitation. - Left atrium: - Size was normal. Indications: Assess hypertension and coronary artery disease. History: Prior history: Previous (remote) myocardial infarction in 2014. Risk factors: hypertension, medication-treated hypercholesterolemia, obstructive sleep apnea, and a family history of coronary artery disease. Prior procedures: PCI x4 in 2014. Procedure: The study was performed in the [facility]. The transthoracic approach was used. The study included complete 2D imaging, M-mode, complete spectral Doppler, and color Doppler. Systolic blood pressure was 152 mmHg. Diastolic blood pressure was 90 mmHg. Intravenous contrast (Definity) was administered. This was a technically difficult study. Left ventricle: Size was normal. Systolic function was normal by EF (biplane method of disks). Ejection fraction was estimated to be 70 %. There were no regional wall motion abnormalities. Wall thickness was normal. Doppler: Left ventricular diastolic function parameters were normal. Aortic valve: The valve was trileaflet. Leaflets exhibited normal thickness and normal cuspal separation. Doppler: Transaortic velocity was within the normal range. There was no stenosis. There was mild to moderate regurgitation. Aorta: The root exhibited normal size. Mitral valve: Valve structure was normal. There was normal leaflet separation. No echocardiographic evidence for prolapse. Doppler: The transmitral velocity was within the normal range. There was no evidence for stenosis. There was mild regurgitation. Left atrium: Size was normal. Right ventricle: The size was normal. Systolic function was normal. Pulmonic valve: Doppler: The transpulmonic velocity was within the normal range. There was no regurgitation. Pulmonary artery: The size was normal. The morphology appeared normal. Doppler: The tricuspid jet envelope definition was inadequate for estimation of RV systolic pressure. There are no indirect findings (abnormal RV volume or geometry, altered pulmonary flow velocity profile, or leftward septal displacement) which would suggest moderate or severe pulmonary hypertension. Tricuspid valve: The valve structure was normal. There was normal leaflet separation. Doppler: The transtricuspid velocity was within the normal range. There was no evidence for tricuspid stenosis. There was trivial regurgitation. Right atrium: Size was normal. Pericardium: There was no thickening. There was no pericardial effusion. System measurement tables 2D Ao Diam: 2.9 cm LVOT Diam: 2 cm LA Diam: 4.1 cm LAEDV Index (A-L): 28 ml/m2 LAEDV(A-L): 63.9 ml IVSd: 1.1 cm LVIDd: 4.6 cm LVIDs: 2.1 cm LVPWd: 0.8 cm CW AR PHT: 494.9 ms AR Vmax: 3.9 m/s AV VTI: 28.6 cm AV Vmax: 1.4 m/s AV Vmean: 1 m/s AV maxP.3 mmHg AV meanP.3 mmHg PV Vmax: 1.1 m/s PV maxP.7 mmHg MM TAPSE: 2.3 cm PW RADHAMES (VTI): 2.5 cm2 RADHAMES Vmax: 2.8 cm2 LVOT VTI: 22.7 cm LVOT Vmax: 1.2 m/s LVOT Vmean: 0.8 m/s LVOT maxP.2 mmHg LVOT meanP.9 mmHg MV E/A Ratio: 0.9 LATERAL E': 0.1 m/s LATERAL E/E': 5.3 SEPTAL E': 0.1 m/s SEPTAL E/E': 6.9 Prepared and signed by Padilla Patel MD Signed 24-Mar-2018 14:35:04 Eunice Bone RAC SPECIALIST-DRAINAGE ENGINEER ECHO ORDERABLE S Performing Organization Address City/State/[facility] Co de Phone Number [place] [phone] [place] [phone] * XR CERVICAL SPINE 2 OR 3VW (10/14/2017 8:56 AM CDT) Anatomical Region Laterality Modality Spine Computed Radiogr aphy Narrative 10/14/2017 9:02 AM CDT Stephanie Roajs RT(R) 10/14/2017 9:02 AM See progress notes for results Carla Cerda PA-C DIAGNOSTIC IMAGING O RDERABLES * ENDOSCOPY, COLON, SCREENING (01/21/2017 9:00 AM CDT) Report Endoscopy POC _ Patient Name: Anabell Rivera Procedure Date: 01/21/2017 9:00 AM Date of : 1950 Admit Type: Outpatient Age: 66 Room: ROOM 1 Gender: Male Note Status: Finalized Attending MD: Alexander Marin MD _ Procedure: Colonoscopy Indications: Screening for colorectal malignant neoplasm Providers: Alexander Marin MD, Joan Hernandez, TROY, Abbey Lee, TROY, Lizette Boothe CRNA (Anesthesia Staff) Referring MD: Kaylin Armstrong MD (Referring MD) Medicines: Monitored Anesthesia Care Complications: No immediate complications. _ Procedure: Pre-Anesthesia Assessment: - Prior to the procedure, a History and Physical was performed, and patient medications, allergies and sensitivities were reviewed. The patient's tolerance of previous anesthesia was reviewed. - The risks and benefits of the procedure and the sedation options and risks were discussed with the patient. All questions were answered and informed consent was obtained. - Patient identification and proposed procedure were verified prior to the procedure by the physician, the nurse and the service counselor. The procedure was verified in the endoscopy suite. - Pre-procedure physical examination revealed no contraindications to sedation. - ASA Grade Assessment: II - A patient with mild systemic disease. - After reviewing the risks and benefits, the patient was deemed in satisfactory condition to undergo the procedure. - The anesthesia plan was to use monitored anesthesia care (MAC). After I obtained informed consent, the scope was passed under direct vision. Throughout the procedure, the patient's blood pressure, pulse, and oxygen saturations were monitored continuously. The [id number] SN [id number] was introduced through the anus and advanced to the cecum, identified by appendiceal orifice and ileocecal valve. The colonoscopy was performed without difficulty. The patient tolerated the procedure well. The quality of the bowel preparation was good. Findings: The perianal and digital rectal examinations were normal. Internal hemorrhoids were found during retroflexion. The hemorrhoids were small. The exam was otherwise without abnormality. _ Impression: - Internal hemorrhoids. - The examination was otherwise normal. - No specimens collected. Recommendation: - Repeat colonoscopy in 10 years for surveillance. Procedure Code(s): --- Professional --- G0121, Colorectal cancer screening; colonoscopy on individual not meeting criteria for high risk --- Technical --- G0121, Colorectal cancer screening; colonoscopy on individual not meeting criteria for high risk Diagnosis Code(s): --- Professional --- Z12.11, Encounter for screening for malignant neoplasm of colon K64.8, Other hemorrhoids --- Technical --- Z12.11, Encounter for screening for malignant neoplasm of colon K64.8, Other hemorrhoids CPT copyright 2015 [employer]. All rights reserved. The codes documented in this report are preliminary and upon television specialist review may be revised to meet current compliance requirements. Alexander Marin MD 01/21/2017 9:17:50 AM This report has been signed electronically. Number of Addenda: 0 Note Initiated On: 01/21/2017 9:00 AM Estimated Blood Loss: Estimated blood loss: none. [facility] ENDOSCOPY 01/21/2017 9:00 AM CDT Alexander Marin MD GI PROCEDURE ORDERAB [facility] ENDOSCOPY * MRI SHOULDER WO CONT RIGHT (10/22/2016 10:51 AM CDT) Only the most recent of2 resultswithin the time period is included. Anatomical Region Laterality Modality Magnetic Resonan ce 10/22/2016 11:0 4 AM CDT Impressions 10/22/2016 11:16 AM CDT 1. Interval rotator cuff repair which appears intact. Rotator cuff tendinopathy and postsurgical changes are noted. 2. The biceps tendon is intact within the bicipital groove but the intra-articular portion is less well visualized. Please correlate for history of tenotomy or tenodesis. 3. Mild acromioclavicular osteoarthritis and subacromial subdeltoid bursitis. Narrative 10/22/2016 11:16 AM CDT Examination: MRI of the right shoulder without contrast History: Right shoulder rotator cuff tear post repair with right shoulder pain Findings: MRI of the right shoulder was performed without intravenous contrast. Comparison is made to 11/24/2014. There is a type II acromion with small subacromial spur. The coracoacromial ligament appears intact. There is mild acromioclavicular osteoarthritis. There is mild subacromial subdeltoid bursitis. Rotator cuff muscular bulk is normal. There has been interval rotator cuff repair with suture anchors involving the anterior supraspinatus as well as the subscapularis. Rotator cuff tendinopathy and postsurgical change are noted. Cuff tissue can be followed to the suture anchors. No evidence of recurrent full-thickness rotator cuff tear is noted. There may be a small articular sided tear of the infraspinatus, see series 5 image 8 and series 7 image 19. Subscapularis appears intact. No focal chondrosis is noted. There is no subchondral edema. Small T2 hyperintense lobular lesion is noted in the proximal humerus likely representing a low-grade chondral lesion. The long head biceps tendon is well visualized within the bicipital groove but the intra-articular portion is less well seen. Please correlate for possible tenotomy or tenodesis. No evidence of acute fracture is seen. Procedure Note Ajay Hanna MD - 10/22/2016 Examination: MRI of the right shoulder without contrast History: Right shoulder rotator cuff tear post repair with right shoulder pain Findings: MRI of the right shoulder was performed without intravenous contrast. Comparison is made to 11/24/2014. There is a type II acromion with small subacromial spur. The coracoacromial ligament appears intact. There is mild acromioclavicular osteoarthritis. There is mild subacromial subdeltoid bursitis. Rotator cuff muscular bulk is normal. There has been interval rotator cuff repair with suture anchors involving the anterior supraspinatus as well as the subscapularis. Rotator cuff tendinopathy and postsurgical change are noted. Cuff tissue can be followed to the suture anchors. No evidence of recurrent full-thickness rotator cuff tear is noted. There may be a small articular sided tear of the infraspinatus, see series 5 image 8 and series 7 image 19. Subscapularis appears intact. No focal chondrosis is noted. There is no subchondral edema. Small T2 hyperintense lobular lesion is noted in the proximal humerus likely representing a low-grade chondral lesion. The long head biceps tendon is well visualized within the bicipital groove but the intra-articular portion is less well seen. Please correlate for possible tenotomy or tenodesis. No evidence of acute fracture is seen. IMPRESSION 1. Interval rotator cuff repair which appears intact. Rotator cuff tendinopathy and postsurgical changes are noted. 2. The biceps tendon is intact within the bicipital groove but the intra-articular portion is less well visualized. Please correlate for history of tenotomy or tenodesis. 3. Mild acromioclavicular osteoarthritis and subacromial subdeltoid bursitis. Keila Borjas MD MR ORDERABLES * NM MYOCARD PERFUSION SPECT STRESS AND REST (06/17/2016 2:00 PM ASSESSMENT MANAGER) Only the most recent of2 resultswithin the time period is included. Anatomical Region Laterality Modality Chest Nuclear Digisoni cs 06/17/2016 12:3 9 PM ASSESSMENT MANAGER Narrative Procedure Note Tulio Bradley MD - 06/17/2016 [address] [facility] [place] [address] [facility]/heart Nuclear Myocardial Perfusion Scan Report Pat.Name: ANABELL RIVERA Pat.ID: [id number] St.Date: 06/17/2016 Refer.MD: Kaylin Armstrong MD Exam Time: 12:39:00 PM Study Type:Nuclear Myocardial Perfusion Scan Height: 70in Weight: 227lb BSA: 2.2 m2 Age: 12 1950,66Y Sex: MALE Sonogrphr: WALDEMAR Lundberg Reason for Study:CAD, Chest pain History / Clinical:Chest pain, Hyperlipidemia, Hypertension, Obesity, heart attack 2013 CAD, CORONARY STENT REPLACEMENT 2013 Procedures:Exercise Perfusion Scan, Gated Stress Race: Visit ID: [id number] Nurse: HEATHER Castro Risk Factors:Hypertension, Hypercholesterolemia Clinical Symptoms:Precordial pain Surgery: Cardiac Stent Placement Medications:Aspirin, Cozaar, Lipitor, Lopressor, Nitrates, Klonopin, Melatonin, HCTZ, Prilosec Supervised by:HEATHER Castro SUMMARY: FINDINGS: Myocardial perfusion imaging reveals uniform distribution of the radiopharmaceutical isotope during the stress and rest imaging sets. Left ventricular cavity size appears normal in both imaging sets. Gated images reveal normal LV systolic function with a calculated ejection fraction of >70%. SUMMARY: 1. Normal myocardial perfusion study without evidence of ischemia. 2. Gated images demonstrate normal LV systolic function. STRESS: Baseline Vital Signs: Intervention: Marlon Protocol Protocol: Marlon HR: 51 Duration: 09:45 BP: 140/85 METS: 12.5 MO Int: 176 ms QRS Int: 96 ms QRS [place]: 387 deg Rhythm: Sinus bradycardia Stress Test Results: Max HR: 146 Target HR: 132 % Target: 94 % Symptoms and Complications: Arrhythmias: PACs Terminated: Target reached, Shortness of breath Symptoms: Fatigue Conclusions: Normal heart rate response to exercise., Blood pressure response during exercise is suggestive of hypertensive response (Max BP, 220/85 mmHg). Stress ECG Interp: Minimal S-T change is not diagnostic of ischemia., Excellent exercise ability. Signed 06/17/2016 02:46 PM Tulio Bradley MD Tulio Bradley MD NM ORDERABLES * FERRITIN (04/03/2016 11:56 AM ASSESSMENT MANAGER) Ferritin 74 30 - 400 ng/mL [facility] ACCOUNT BILL Blood BLOOD SPECIMEN / Unknown 04/03/2016 11:56 AM ASSESSMENT MANAGER 04/03/2016 Narrative Resulting Agency Comment [facility] [place] [address] [facility] [id number] Silas Huynh MD LAB - CHEMISTRY HARJEET MACKEY [facility] ACCOUNT BILL [address] [place] [address] * XR SHOULDER 2+ VW RIGHT (03/18/2016 4:12 PM ASSESSMENT MANAGER) Only the most recent of2 resultswithin the time period is included. Anatomical Region Laterality Modality Upper Extremity Computed Radiogr aphy Narrative 03/18/2016 5:19 PM ASSESSMENT MANAGER Stephanie Rojas RT(R) 03/18/2016 5:19 PM See progress notes for results Keila Borjas MD DIAGNOSTIC IMAGING ORDERABLES * XR KNEE 3 VW LEFT (03/18/2016 4:12 PM ASSESSMENT MANAGER) Anatomical Region Laterality Modality Lower Extremity Computed Radiogr aphy Narrative 03/18/2016 5:19 PM ASSESSMENT MANAGER Stephanie Rojas RT(R) 03/18/2016 5:19 PM See progress notes for results Keila Borjas MD DIAGNOSTIC IMAGING ORDERABLES * POLYSOMNOGRAM WITH CPAP IF INDICATED (03/14/2016 9:02 AM ASSESSMENT MANAGER) Narrative Silas Huynh MD - 03/14/2016 9:02 AM ASSESSMENT MANAGER Silas Huynh MD 03/14/2016 9:02 AM Split Night Polysomnogram Report Patient Name: Anabell Rivera Date of : 1950 Study Date: 03/11/2016 Referring: Silas Huynh MD Interpreting: Silas Huynh MD Clinical History: Anabell Rivera is a 65 y.o. male with a past medical history of CAD s/p stent, HTN, BPH, anxiety, insomnia and overweight who complains of snoring, witnessed apneas, excessive daytime sleepiness and restless sleep. Patient's recent weight is 204 lbs. Technical Summary: At least 6 channels were used for EEG and 2 were used for electro-oculograms. Respiratory monitoring was done using pressure transducer, oral thermistor, and thoracic and abdominal respiratory effort belts. Limb movement was monitored by 2 channels over the anterior tibialis muscles. There was a snoring sensor and an oxygen probe was used. ECG was monitored with 1-2 leads. Sleep Architecture - Diagnostic Portion: Recording time for the diagnostic portion of the study was 172 minutes. Sleep time during the diagnostic portion was 138.5 minutes for a sleep efficiency of 80.5%. Sleep latency was 9 minutes. REM sleep was present with a latency of 125.5 minutes. The patient had 18.1% stage N1 sleep, 79.8% stage N2 sleep, 0.0% stage N3 sleep, and 2.2% stage REM sleep. No EEG abnormalities were noted on limited montage EEG. There were 24.8 periodic limb movements per hour of sleep and these resulted in 1.6 arousals per hour. There were 14.7 spontaneous arousals per hour of sleep. There was moderate snoring noted. EKG monitoring revealed baseline sinus rhythm with occasional PVC's. Respiratory Analysis: There were 0 obstructive apneas, 12 central apneas, 1 mixed apneas, 17 hypopneas (using 4% oxygen desaturation rule), and 15 respiratory effort related arousals (RERAs) with an apnea-hypopnea index (AHI) of 13 events per hour and a respiratory disturbance index, which includes apneas, hypopneas, and RERAs (RDI) of 19.5 events per hour. The patient slept for 8.5 minutes in the supine position with an AHI of 77.7 events per hour and an RDI of 77.7 events per hour. The patient slept for 130 minutes in the lateral position with an AHI of 8.8 events per hour and an RDI of 15.7 events per hour. There were frequent central apnea;s with pastora-jalloh breathing pattern more while sleeping on supine sleep position with central apnea index (DODIE) of 5.2 events per hour. REM AHI was 40 events per hour. The mean oxygen saturation while awake was 96%, while asleep 93%. The lowest oxygen saturation during sleep was 86%. Patient spent 4.3% of diagnostic sleep with oxygen saturation below 89%. Positive Airway Pressure Titration: Recording time during the titration portion of the study was 298 minutes. Sleep time during the titration portion was 196 minutes for a sleep efficiency of 65.8%. The patient had 15.6% stage N1 sleep, 60.7% stage N2 sleep, 0.0% stage N3 sleep, and 23.7% stage REM sleep. Continuous Positive Airway Pressure (CPAP) settings from 4 cm H20 to 8 cm H20 were tested. Supine position PAP treatment induced central apnea at higher PAP setting forced use of BiPAP mode of therapy and at the end added back up rate. Bilevel Positive Airway Pressure (BiPAP) settings from 10/4 cm H20 to 12/4 cm H20 and at highest BiPAP back up rate of 12 bpm were tested. There was no best or optimal setting at any of tested setting on supine position sleep. Patient did well on lateral position using lower CPAP settings. A pressure of 6 cm H20 was found to be best tested in lateral sleep position. Recording at this pressure continued for 88.5 minutes of sleep. The patient slept in the lateral positions. At this pressure, there was 23.5 minutes of REM sleep with 0.0 minutes in the supine position. At the best tested pressure, the AHI was 2.7 and the RDI was 5.4 and oxygen saturation remained ? 92%. During titration Resmed AirFit P10 mask and heated humidifier used. A pressure of 12/4 cm H20 with 12 bpm added back up rate was found to be highest tested in supine sleep position. Recording at this pressure continued for 15 minutes of sleep. The patient slept in the supine positions. At this pressure, there was no REM sleep. At the highest tested pressure, the AHI was 76 and the RDI was 76 and oxygen saturation remained ? 90%. Interpretation: This is an abnormal split night polysomnogram because it provides evidence of nocturnal hypoxemia, moderate obstructive and mild central sleep apnea based on overall AHI of 13 and RDI of 19.5 events per hour of sleep. Mild central apnea in a form of vitor-jalloh breathing recorded with DODIE of 5.2 events per hour which were mainly on supine sleep position sleep. Study showed an elevated frequency of periodic limb movements with rare sleep arousal related to leg movement and reduced sleep efficiency. Titration of CPAP documented that this is an effective treatment for the patient s nocturnal hypoxemia and obstructive sleep apnea, with the best tested pressure being 6 cm H20. At best setting while sleeping only in lateral position, REM and NREM lateral position data recorded with control of respiratory events. Development of frequent PAP treatment induced central apnea on supine sleep failed to find best or optimal setting. Patient will benefit from lower APAP setting and restricted lateral position sleep. If patient fail LPT or continue with respiratory events, re titration on BIPAP with added back up rate and/or ASV mode of titration will be recommended. I have personally reviewed the raw data in its entirety Recommendations: I recommend that patient be set up on APAP 6-10 cm H20 in strict lateral position sleep. If clinically relevant workup and treatment of PLMD recommended. Diagnosis: G47.31; G47.33; G47.34; G47.61 Amina Rosen MD [facility] Diplomate of the [place] [employer] and Neurology Board certified in Sleep Medicine Silas Huynh MD SLEEP CENTER ORDERAB LES * AMBULATORY REFERRAL TO SLEEP SPECIALIST (02/21/2016 10:38 AM CDT) Kaylin Armstrong MD OUTPATIENT REFERRALS * PERIPHERAL BLOCK (08/11/2015 9:07 AM CDT) Narrative Kirk Viera DO - 08/11/2015 9:07 AM CDT Kirk Viera DO 08/11/2015 9:07 AM Peripheral Block Patient Location: pre-op Pre Procedure Indication: at surgeon's request and post-operative analgesia Preanesthetic Checklist: patient identified, IV checked, site marked, risks and benefits discussed, surgical consent verified, monitors and equipment checked, pre-op evaluation done, timeout performed, informed consent obtained and questions answered / anesthesia plan accepted Monitors: Pulse Ox Patient Condition: sedated, meaningful contact maintained throughout procedure Patient Position: sitting Procedure Laterality: right Block Performed: interscalene Prep: Chloraprep Sterile Field: sterile gloves Needle Type: nerve stimulator and echogenic Needle Gauge: 22 Needle Length: 50 mm Nerve Stimulator Twitch Loss of Stimulation at 0.44 mA Ultrasound guided Technique: in plane Visualization: target ID'd, good spread of local around target and Ultrasound image in chart Block Agent: bupivicaine 0.5% 30 mL Epinephrine in Block Agent: 5 mcg/ml (1/200,000) Injection was made incrementally with constant monitoring and aspirations every 5 mL's. Events blood not aspirated injection not painful no injection resistance no paresthesia Block End Time: 08/11/2015 9:07 AM Block Performed by: Kirk Viera DO This block was performed for post operative analgesia at surgeon's request. Please see intraop navigator for medications administered. Sterile technique followed. Kirk Viera DO Kirk Viera DO GENERAL ANESTHESIA O RDERABLES * STRESS TEST NUCLEAR (04/21/2015 12:21 PM ASSESSMENT MANAGER) Pathologist [facility] Stress Test Summary For full formatted report, please see the report link in the order. Acquisition Time: 2015-04-21 12:21:50 Total Exercise Time: 00:09:46 Test Indications: CP Medications: NITRO ASA Zofran Protocol: MARLON Max HR: 148 BPM 94% of Pred: 156 BPM Max BP: 168/090 mmHG Max Work Load: 19.5 METS Reason for Termination: Fatigue Resting ECG: Normal Functional Capacity: Normal HR Response to Exercise: appropriate BP Resoonse to Exercise: normal resting BP - appropriate response Chest Pain: none Arrhythmias: none ST Changes: Depression upsloping Overall Impression: see below Diagnosis: Treadmill nuclear stress test was performed. No exercise-induce d chest pain. Good functional exercise capacity. No arrhythmias. St depression upsloping in the leateral leads which does not meet criteria for ischemia. see pending nuclear test result. Confirmed by Alicia Nolasco ([id number]) on 04/22/2015 8:42:46 AM Attending Physician: Mary Daugherty Referred By: KAYLIN ARMSTRONG Overread By: Alicia Nolasco [facility] 04/21/2015 12:2 1 PM ASSESSMENT MANAGER 04/22/2015 8:42 AM ASSESSMENT MANAGER Celestino Mueller MD CARDIAC SERVICES OR DERABLES [facility] * TROPONIN I (04/21/2015 5:09 AM ASSESSMENT MANAGER) Only the most recent of11 resultswithin the time period is included. Troponin I <0.015 0.000 - 0.049 ng/mL 04/21/2015 6:04 AM ASSESSMENT MANAGER [facility] Blood BLOOD SPECIMEN / Unknown Lab Venipuncture / Unknown 04/21/2015 5:09 AM ASSESSMENT MANAGER 04/21/2015 5:36 AM ASSESSMENT MANAGER Narrative [facility] - 04/21/2015 6:04 AM ASSESSMENT MANAGER Note: Diagnosis of myocardial infarction requires symptoms of ischemia or EKG changes of ischemia and Troponin I >99th of normal (0.05 ng/mL). Troponin should be drawn on initial assessment and 3-6 hours later as clinically indicated. Any condition resulting in myocardial cell damage can increase cardiac troponin levels. In addition to myocardial infarction, these include but are not limited to congestive heart failure (CHF), arrhythmia, myocarditis, and non-cardiac related causes such as pulmonary embolism, renal failure and sepsis. Saji Ramos MD LAB - CHEMISTRY HARJEET MACKEY Performing Organization Address [facility] Co de Phone Number [facility] [address] [place] [address] * XR CHEST PA AND LATERAL (04/20/2015 7:52 PM ASSESSMENT MANAGER) Only the most recent of2 resultswithin the time period is included. Anatomical Region Laterality Modality Chest Radiographic Ernestine ging 04/20/2015 7:57 PM ASSESSMENT MANAGER Narrative 04/20/2015 8:02 PM ASSESSMENT MANAGER 2 view chest History: Chest pain Since 07/21/2013 there's been no change the heart size which is normal. There is no lung consolidation or pleural effusion. Soft tissues and bony thorax are stable. Procedure Note Dutch Bailon MD - 04/20/2015 2 view chest History: Chest pain Since 07/21/2013 there's been no change the heart size which is normal. There is no lung consolidation or pleural effusion. Soft tissues and bony thorax are stable. Saji Ramos MD DIAGNOSTIC IMAGING O RDERABLES * XR LUMBAR SPINE 2 OR 3 VW (04/03/2015 9:35 AM ASSESSMENT MANAGER) Anatomical Region Laterality Modality Spine Radiographic Ernestine ging 04/03/2015 9:42 AM ASSESSMENT MANAGER Impressions 04/03/2015 10:08 AM ASSESSMENT MANAGER Laminectomy has been performed from L2 through L4-5. A dextroscoliosis of the lumbar spine is present. Edited by Itzel Bradshaw on 04/03/2015 9:57 AM Narrative 04/03/2015 10:08 AM ASSESSMENT MANAGER LUMBAR SPINE INDICATION: Low back pain with sciatica. FINDINGS: AP, lateral view, and spot lateral view of the lumbosacral junction were obtained. There is a dextroscoliosis of the lumbar spine with apex at L2. Laminectomy has been performed from L2 through L4-5. There is moderate disc space narrowing from the visualized lower thoracic spine through L4-5 with only mild disc space narrowing at L5-S1. 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 Procedure Note Shannon Nance MD - 04/03/2015 LUMBAR SPINE INDICATION: Low back pain with sciatica. FINDINGS: AP, lateral view, and spot lateral view of the lumbosacral junction were obtained. There is a dextroscoliosis of the lumbar spine with apex at L2. Laminectomy has been performed from L2 through L4-5. There is moderate disc space narrowing from the visualized lower thoracic spine through L4-5 with only mild disc space narrowing at L5-S1. 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 IMPRESSION Laminectomy has been performed from L2 through L4-5. A dextroscoliosis of the lumbar spine is present. Edited by Itzel Bradshaw on 04/03/2015 9:57 AM Anabell Weller MD DIAGNOSTIC IMAGING O RDERABLES * MRI LUMBAR SPINE W WO CONTRAST (04/03/2015 8:58 AM ASSESSMENT MANAGER) Anatomical Region Laterality Modality Spine Magnetic Resonan ce 04/03/2015 9:27 AM ASSESSMENT MANAGER Impressions 04/03/2015 10:09 AM ASSESSMENT MANAGER Posterior surgical decompression has been performed from L2-3 through L4-5. Central canal stenoses seen at these levels on previous examination appear significantly improved. There are persistent lateral recess and neural foraminal stenoses due to disc bulge and facet arthropathy. A synovial cyst on the left at L3-4 has increased in size when compared to previous examination. This contributes to left lateral recess stenosis at this level. Edited by Sherry Joshi on 04/03/2015 9:52 AM Narrative 04/03/2015 10:09 AM ASSESSMENT MANAGER MRI LUMBAR SPINE Indication: Prior back surgery 01/09/2015 with persistent pain across lower back radiating into bilateral buttocks. Comparison: July 27, 2014 MRI lumbar spine. Technique: Sagittal and axial T1 and T2. Sagittal and axial T1 following intravenous administration of 20 cc Dotarem. Findings: There are no comparison radiographs of the lumbar spine available at this time. For the purposes of this examination, it should be assumed that this patient has five lumbar vertebral bodies. Careful correlation between this and the subsequent radiographic examinations of the lumbar spine is recommended to ensure consistent numbering of disc spaces. This is particularly important if surgery is considered. Alignment: There is straightening of the normal lumbar lordosis. No focal malalignment is seen at any level. Marrow: No compression or other vertebral fracture is seen. Degenerative marrow changes are present adjacent to the L2-3 and L4-5 discs. Multiple Schmorl's nodes are present. Spinal cord: Appears normal in morphology and in signal intensity. Terminates at approximately T12-L1. Disc spaces: There is loss of disc height and hydration throughout the lumbar spine with posterior disc bulges from L1-2 through L4-5. Posterior surgical decompression has been performed. The following levels were directly imaged in the axial plane: L1-L2: A disc bulge eccentric to the left and extending into the left neural foramen results in a mild central canal stenosis and mild left lateral recess stenosis. L2-L3: Posterior decompression has been performed. Facet arthropathy is present, left greater than right. A mild left lateral recess stenosis and mild to moderate left neural foraminal stenosis results. Central canal stenosis appears improved when compared to previous examination. L3-L4: Posterior decompression has been performed. There is a disc herniation with a more focal protrusion eccentric to the right. Central canal stenosis is significantly improved by posterior decompression. Disc bulge and facet arthropathy result in a moderate bilateral lateral recess stenosis. Neural foramina are mild to moderately narrowed bilaterally. There is a small synovial cyst on the left contributing to a left lateral recess stenosis. This has increased in size when compared to previous examination and now measures approximately 2.5 mm AP x 2.1 mm transverse x 10.6 mm superior to inferior. L4-L5: Posterior surgical decompression has been performed. Central canal stenosis has improved significantly at this level. Disc bulge and facet arthropathy result in a mild to moderate left and moderate right lateral recess stenosis. Neural foramina are mild to moderately narrowed on the left and mildly narrowed on the right. L5-S1: Facet arthropathy results in a mild right and mild to moderate left lateral recess stenosis. Procedure Note Shannon Nance MD - 04/03/2015 MRI LUMBAR SPINE Indication: Prior back surgery 01/09/2015 with persistent pain across lower back radiating into bilateral buttocks. Comparison: July 27, 2014 MRI lumbar spine. Technique: Sagittal and axial T1 and T2. Sagittal and axial T1 following intravenous administration of 20 cc Dotarem. Findings: There are no comparison radiographs of the lumbar spine available at this time. For the purposes of this examination, it should be assumed that this patient has five lumbar vertebral bodies. Careful correlation between this and the subsequent radiographic examinations of the lumbar spine is recommended to ensure consistent numbering of disc spaces. This is particularly important if surgery is considered. Alignment: There is straightening of the normal lumbar lordosis. No focal malalignment is seen at any level. Marrow: No compression or other vertebral fracture is seen. Degenerative marrow changes are present adjacent to the L2-3 and L4-5 discs. Multiple Schmorl's nodes are present. Spinal cord: Appears normal in morphology and in signal intensity. Terminates at approximately T12-L1. Disc spaces: There is loss of disc height and hydration throughout the lumbar spine with posterior disc bulges from L1-2 through L4-5. Posterior surgical decompression has been performed. The following levels were directly imaged in the axial plane: L1-L2: A disc bulge eccentric to the left and extending into the left neural foramen results in a mild central canal stenosis and mild left lateral recess stenosis. L2-L3: Posterior decompression has been performed. Facet arthropathy is present, left greater than right. A mild left lateral recess stenosis and mild to moderate left neural foraminal stenosis results. Central canal stenosis appears improved when compared to previous examination. L3-L4: Posterior decompression has been performed. There is a disc herniation with a more focal protrusion eccentric to the right. Central canal stenosis is significantly improved by posterior decompression. Disc bulge and facet arthropathy result in a moderate bilateral lateral recess stenosis. Neural foramina are mild to moderately narrowed bilaterally. There is a small synovial cyst on the left contributing to a left lateral recess stenosis. This has increased in size when compared to previous examination and now measures approximately 2.5 mm AP x 2.1 mm transverse x 10.6 mm superior to inferior. L4-L5: Posterior surgical decompression has been performed. Central canal stenosis has improved significantly at this level. Disc bulge and facet arthropathy result in a mild to moderate left and moderate right lateral recess stenosis. Neural foramina are mild to moderately narrowed on the left and mildly narrowed on the right. L5-S1: Facet arthropathy results in a mild right and mild to moderate left lateral recess stenosis. IMPRESSION Posterior surgical decompression has been performed from L2-3 through L4-5. Central canal stenoses seen at these levels on previous examination appear significantly improved. There are persistent lateral recess and neural foraminal stenoses due to disc bulge and facet arthropathy. A synovial cyst on the left at L3-4 has increased in size when compared to previous examination. This contributes to left lateral recess stenosis at this level. Edited by Sherry Joshi on 04/03/2015 9:52 AM Anabell Weller MD MR ORDERABLES * APHERESIS/TRANSFUSION ORDER (12/21/2014 6:35 PM CDT) Narrative 12/21/2014 6:35 PM CDT Ordered by an unspecified provider. Scanned Document NURSING - VITAL SIGN S AND ASSESSMENT * HGB HCT PANEL (12/20/2014 4:33 AM CDT) Only the most recent of2 resultswithin the time period is included. Hemoglobin 13.3 12.0 - 17.6 gm/dL 12/20/2014 4:57 AM CDT [facility] Hematocrit 39.2 35.2 - 51.7 % 12/20/2014 4:57 AM CDT [facility] Blood BLOOD SPECIMEN / Unknown 12/20/2014 4:33 AM CDT 12/20/2014 4:49 AM CDT Anabell Weller MD LAB - HEMATOLOGY ORD ERABLES Performing Organization Address [facility] Co de Phone Number [facility] [address] [place] [address] * XR SPINE LUMBAR SINGLE VIEW (12/19/2014 2:03 PM CDT) Anatomical Region Laterality Modality Spine Radiographic Ernestine ging 12/19/2014 2:08 PM CDT Narrative 12/19/2014 2:09 PM CDT Lateral view of the lumbar spine History: Low back pain Findings: Single lateral image demonstrates surgical marking device at the level of L5. Procedure Note Lisa Driver MD - 12/19/2014 Lateral view of the lumbar spine History: Low back pain Findings: Single lateral image demonstrates surgical marking device at the level of L5. Anabell Weller MD DIAGNOSTIC IMAGING O RDERABLES * BLOOD TYPE VERIFICATION (12/19/2014 11:57 AM CDT) ABO B 12/19/2014 1:10 PM CDT [facility] Rh Type Positive 12/19/2014 1:10 PM CDT [facility] Miscellaneous samples (specimen) BLOOD SPECIMEN / Unknown 12/19/2014 11:57 AM CDT 12/19/2014 12:13 PM CDT Anabell Weller MD LAB - BLOOD BANK ORD ERABLES Performing Organization Address [facility] Co de Phone Number [facility] [address] [id number] * CULTURE MSSA/MRSA (12/13/2014 9:30 AM CDT) Culture Negative for MRSA/MSSA ISAAK 12/14/2014 2:31 PM CDT [facility] Microbiology SPECIMEN FROM NASAL FOSSAE / Unknown 12/13/2014 9:30 AM CDT 12/13/2014 10:12 AM CDT Anabell Weller MD LAB - MICROBIOLOGY O RDERABLES Performing Organization Address City/[facility]/ZIP Co de Phone Number [facility] [address] [place] [address], [facility] [phone] * TYPE + SCREEN PANEL (12/13/2014 9:30 AM CDT) Only the most recent of2 resultswithin the time period is included. ABO B 12/13/2014 1:38 PM CDT [facility] Rh Type Positive 12/13/2014 1:38 PM CDT [facility] Comment:History check perfor med. Retype required. Antibody Screen Negative 12/13/2014 1:38 PM CDT [facility] Miscellaneous samples (specimen) BLOOD SPECIMEN / Unknown 12/13/2014 9:30 AM CDT 12/13/2014 10:13 AM CDT Anabell Weller MD LAB - BLOOD BANK ORD ERABLES Performing Organization Address [facility] de Phone Number [facility] [address] * HEPATITIS C ANTIBODY (08/23/2014 2:17 PM CDT) Hepatitis C Antibody 0.1 0.0 - 0.9 s/co ratio [facility] ACCOUNT BILL Comment: Negative: < 0.8 Indeterminate: 0.8 - 0.9 Positive: > 0.9 . In order to reduce the incidence of a false positive result, the CDC recommends that all s/co ratios between 1.0 and 10.9 be confirmed by a more specific supplemental or PCR testing. [facility] offers HCV Ab w/Reflex to Verification test #[id number]. Blood specimen (specimen) BLOOD SPECIMEN / Unknown 08/23/2014 2:17 PM CDT 08/23/2014 5:23 PM CDT Narrative Resulting Agency Comment [facility] [address] [facility] [phone] Kaylin Armstrong MD LAB - CHEMISTRY HARJEET MACKEY [facility] ACCOUNT BILL * CULTURE URINE (07/14/2014 11:46 AM CDT) Urine Culture Routine Final report [facility] INSURANCE BILL Result 1 No growth [facility] INSURANCE BILL Urine specimen (specimen) URINE SPECIMEN OBTAINED BY CLEAN CATCH PROCEDURE / Unknown 07/14/2014 11:46 AM CDT 07/14/2014 10:45 PM CDT Narrative Resulting Agency Comment [facility] [address] [facility] [phone] Alexander Kim MD LAB - MICROB IOLOGY ORDERABLES Performing Organization Address City/[facility]/ZIP Co de Phone Number [facility] INSURANCE BILL * URINALYSIS - POINT OF CARE (07/14/2014 10:18 AM CDT) Only the most recent of2 resultswithin the time period is included. Clarity UA POCT Color UA POCT Leukocyte UA negative Negative Nitrite UA POCT negative Negative Urobilinogen UA 0.2 0.1 - 1.0 Protein UA POCT negative Negative pH UA 7.5 5.0 - 8.0 pH units Blood UA negative Negtive Specific Dorena UA POCT 1.010 1.002 - 1.030 Ketone UA negative Negative Bilirubin UA POCT negative Negative Glucose UA negative Negative Urine specimen (specimen) URINE / Unknown 07/14/2014 10:18 AM CDT Alexander Kim MD LAB - POINT OF CARE ORDERABLES * MRA ANGIO HEAD NON CONTRAST (06/14/2014 1:42 PM ASSESSMENT MANAGER) Anatomical Region Laterality Modality Head Magnetic Resonan ce Angiography 06/14/2014 2:00 PM ASSESSMENT MANAGER Impressions 06/14/2014 2:21 PM ASSESSMENT MANAGER Negative for a stenosis or aneurysm. Edited by Sherly Dinh on 06/14/2014 2:21 PM Narrative 06/14/2014 2:21 PM ASSESSMENT MANAGER MRA angiogram HISTORY: Headache. 3-D flxs-by-rozoev technique is utilized to examine the cerebral vasculature. Source images and 3-D reconstructions are available. Visible cerebral vessels show no evidence for aneurysm or a stenosis. Slight irregularity of the distal left vertebral artery is present which is of uncertain significance. Procedure Note Maxim Louis MD - 06/14/2014 MRA angiogram HISTORY: Headache. 3-D wpol-bl-krfwml technique is utilized to examine the cerebral vasculature. Source images and 3-D reconstructions are available. Visible cerebral vessels show no evidence for aneurysm or a stenosis. Slight irregularity of the distal left vertebral artery is present which is of uncertain significance. IMPRESSION Negative for a stenosis or aneurysm. Edited by Sherly Dinh on 06/14/2014 2:21 PM Taya Ríos MD MR ORDERABLES * US URINARY BLADDER (02/14/2014) Anatomical Region Laterality Modality Other Alexander Kim MD ORDERABLE S * PULMONARY/RESPIRATORY REPORT ORDER (01/06/2014 6:00 AM CDT) Scanned Document RESPIRATORY THERAPY ORDERABLES * PATHOLOGY/GENETICS HISTORICAL-ONBASE (10/18/2013) 10/18/2013 Narrative [facility] - 10/25/2013 11:18 AM CDT Historical Provider LAB - CHEMISTRY O RDERABLES Performing Organization Address City/State/[facility] Co de Phone Number [facility] [address] * HEMOGLOBIN A1C - POINT OF CARE (AMB) (07/29/2013) Hemoglobin A1c POCT 5.1 <6.0 % QC Verified Yes Blood specimen (specimen) BLOOD SPECIMEN / Unknown Kirk Olea MD LAB - POINT OF CARE ORDERABLES * CARDIAC PROCEDURE ORDER (07/25/2013 12:34 AM CDT) Only the most recent of2 resultswithin the time period is included. Narrative 07/25/2013 12:34 AM CDT Ordered by an unspecified provider. Transcriptions Document, Scanned - 07/25/2013 12:34 AM CDT Scanned Document CARDIAC SERVICES ORD ERABLES * ACT - POINT OF CARE (07/22/2013 10:52 AM CDT) Only the most recent of3 resultswithin the time period is included. ACT POCT 158 125 - 187 Seconds [facility] POCT TESTING QC Verified Yes [facility] POC T TESTING Blood specimen (specimen) BLOOD SPECIMEN / Unknown 07/22/2013 10:52 AM CDT Steven De La Torre MD LAB - POINT OF CARE ORDERABLES Performing Organization Address City/State/[facility] Co de Phone Number [facility] POCT TESTING [address] [place] [address] * CARDIAC CATH CONSULT (for Epic Reporting) (07/22/2013 6:52 AM CDT) Only the most recent of2 resultswithin the time period is included. 07/22/2013 6:52 AM CDT Narrative [facility] CARDIOLOGY - 08/02/2013 9:40 AM CDT [address] [address] Cardiovascular Catheterization Comprehensive Report Patient: ANABELL RIVERA MR number: [id number] Height: 72 in Weight: 201.5 lb BSA: 2.14 m Study date: 07/22/2013 : 1950 Age: 63 years Gender: Male Race: Allergies: BETA-GALACTOSIDASE Diagnostic Microbiology Laboratory Manager: Celestino Mueller MD SUMMARY: -- CORONARY CIRCULATION: -- Distal LAD: There was a 95 % stenosis. There was KASEY grade 2 flow through the vessel (partial perfusion). In a second lesion, there was a 80 % stenosis. -- 1ST LESION INTERVENTIONS: -- A successful drug-eluting stent was performed on the 95 % lesion in the distal LAD. Following intervention there was a 0 % residual stenosis. PROCEDURES PERFORMED: -- Left coronary angiography. -- Right coronary angiography. -- Sheath(s) Secured w/Suture. -- Intervention on distal LAD: drug-eluting stent. 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 INDICATIONS: He had an admission last week for a inferolateral STEMI treated with stents into OM1 and OM2. He is now admitted with rest chest pain and cardiac cath is requested to re-evaluate his anatomy and perform PCI on his LAD. CORONARY CIRCULATION: -- Left main: Normal. -- Distal LAD: There was a 95 % stenosis. There was KASEY grade 2 flow through the vessel (partial perfusion). In a second lesion, there was a 80 % stenosis. -- Circumflex: Angiography showed patent prior stents. -- RCA: Normal. PROCEDURE: The risks and alternatives of the procedures and conscious sedation were explained to the patient and informed consent was obtained. The patient was brought to the landscaping and groundskeeping laborer and placed on the table. The planned puncture sites were prepped and draped in the usual sterile fashion. -- Right femoral artery access. The puncture site was infiltrated with 1 % lidocaine. The vessel was accessed using the modified Seldinger technique, a wire was threaded into the vessel, and a 6Fr/11cm Dhara+ was advanced over the wire into the vessel. -- Left coronary artery angiography. A 6Fr FL4 RunWay catheter was advanced to the aorta and positioned in the vessel ostium under fluoroscopic guidance. Angiography was performed in multiple projections using hand-injection of contrast. -- Right coronary artery angiography. A 6Fr FR4 Expo catheter was advanced to the aorta and positioned in the vessel ostium under fluoroscopic guidance. Angiography was performed in multiple projections using hand-injection of contrast. -- Sheath(s) Secured w/Suture. LESION INTERVENTION: A successful drug-eluting stent was performed on the 95 % lesion in the distal LAD. Following intervention there was a 0 % residual stenosis. There was no acute vessel closure. There was no perforation. There was no dissection. -- Vessel setup was performed. A 6Fr FL4 RunWay guiding catheter was used to intubate the vessel. -- Vessel setup was performed. A .014/182cm Luge Moderate Support wire was used to cross the lesion. -- Balloon angioplasty was performed, using a 2mm x 15mm Sprinter Legend balloon, with 1 inflations and a maximum inflation pressure of 8 annelise. -- A 2.25mm x 18mm Xpedition SV drug-eluting stent was placed across the lesion and deployed at a maximum inflation pressure of 10 annelise. -- A 2.5mm x 15mm Xpedition drug-eluting stent was placed across the lesion and deployed at a maximum inflation pressure of 14 annelise. PROCEDURE COMPLETION: TIMING: Test started at 07:47. Test concluded at 08:26. RADIATION EXPOSURE: Fluoroscopy time: 5.8 min. MEDICATIONS GIVEN: Midazolam, 2 mg, IV, at 07:43. Midazolam, 1 mg, IV, at 07:50. Fentanyl, 50 mcg, IV, at 07:53. Fentanyl, 50 mcg, IV, at 08:16. Lidocaine, 20 ml, subcutaneously, at 07:50. Heparin, 1,550 units, IV, last dose at 08:38. Eptifibatide (Integrilin), 8.3 ml, IV, last dose at 07:56. Eptifibatide (Integrilin), infusion rate of 14.97 ml/hr, IV, last dose at 08:02. Eptifibatide (Integrilin), 8.3 ml, IV, last dose at 08:13. 0.9 Saline, infusion rate of 75 ml/hr, IV, at 07:37. Prepared and signed by Celestino Mueller MD Signed 08/02/2013 09:39:50 HEMODYNAMIC TABLES Pressures: Baseline Pressures: - HR: 73 Pressures: - Rhythm: Pressures: -- Arterial (S/D/M): 121/66/85 Outputs: Baseline Outputs: -- CALCULATIONS[age] Outputs: -- CALCULATIONS: Body Surface Area: 2.14 Outputs: -- CALCULATIONS: Height in cm: 183.00 Outputs: -- CALCULATIONS: Sex: Male Outputs: -- CALCULATIONS: Weight in k.60 Procedure Note 08/02/[address] [address] Cardiovascular Catheterization Comprehensive Report Patient: ANABELL RIVERA MR number: [id number] Height: 72 in Weight: 201.5 lb BSA: 2.14 m Study date: 07/22/2013 : 1950 Age: 63 years Gender: Male Race: Allergies: BETA-GALACTOSIDASE Diagnostic Microbiology Laboratory Manager: Celestino Mueller MD SUMMARY: -- CORONARY CIRCULATION: -- Distal LAD: There was a 95 % stenosis. There was KASEY grade 2 flow through the vessel (partial perfusion). In a second lesion, there was a 80 % stenosis. -- 1ST LESION INTERVENTIONS: -- A successful drug-eluting stent was performed on the 95 % lesion in the distal LAD. Following intervention there was a 0 % residual stenosis. PROCEDURES PERFORMED: -- Left coronary angiography. -- Right coronary angiography. -- Sheath(s) Secured w/Suture. -- Intervention on distal LAD: drug-eluting stent. 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 INDICATIONS: He had an admission last week for a inferolateral STEMI treated with stents into OM1 and OM2. He is now admitted with rest chest pain and cardiac cath is requested to re-evaluate his anatomy and perform PCI on his LAD. CORONARY CIRCULATION: -- Left main: Normal. -- Distal LAD: There was a 95 % stenosis. There was KASEY grade 2 flow through the vessel (partial perfusion). In a second lesion, there was a 80 % stenosis. -- Circumflex: Angiography showed patent prior stents. -- RCA: Normal. PROCEDURE: The risks and alternatives of the procedures and conscious sedation were explained to the patient and informed consent was obtained. The patient was brought to the landscaping and groundskeeping laborer and placed on the table. The planned puncture sites were prepped and draped in the usual sterile fashion. -- Right femoral artery access. The puncture site was infiltrated with 1 % lidocaine. The vessel was accessed using the modified Seldinger technique, a wire was threaded into the vessel, and a 6Fr/11cm Dhara+ was advanced over the wire into the vessel. -- Left coronary artery angiography. A 6Fr FL4 RunWay catheter was advanced to the aorta and positioned in the vessel ostium under fluoroscopic guidance. Angiography was performed in multiple projections using hand-injection of contrast. -- Right coronary artery angiography. A 6Fr FR4 Expo catheter was advanced to the aorta and positioned in the vessel ostium under fluoroscopic guidance. Angiography was performed in multiple projections using hand-injection of contrast. -- Sheath(s) Secured w/Suture. LESION INTERVENTION: A successful drug-eluting stent was performed on the 95 % lesion in the distal LAD. Following intervention there was a 0 % residual stenosis. There was no acute vessel closure. There was no perforation. There was no dissection. -- Vessel setup was performed. A 6Fr FL4 RunWay guiding catheter was used to intubate the vessel. -- Vessel setup was performed. A .014/182cm Luge Moderate Support wire was used to cross the lesion. -- Balloon angioplasty was performed, using a 2mm x 15mm Sprinter Legend balloon, with 1 inflations and a maximum inflation pressure of 8 annelise. -- A 2.25mm x 18mm Xpedition SV drug-eluting stent was placed across the lesion and deployed at a maximum inflation pressure of 10 annelise. -- A 2.5mm x 15mm Xpedition drug-eluting stent was placed across the lesion and deployed at a maximum inflation pressure of 14 annelise. PROCEDURE COMPLETION: TIMING: Test started at 07:47. Test concluded at 08:26. RADIATION EXPOSURE: Fluoroscopy time: 5.8 min. MEDICATIONS GIVEN: Midazolam, 2 mg, IV, at 07:43. Midazolam, 1 mg, IV, at 07:50. Fentanyl, 50 mcg, IV, at 07:53. Fentanyl, 50 mcg, IV, at 08:16. Lidocaine, 20 ml, subcutaneously, at 07:50. Heparin, 1,550 units, IV, last dose at 08:38. Eptifibatide (Integrilin), 8.3 ml, IV, last dose at 07:56. Eptifibatide (Integrilin), infusion rate of 14.97 ml/hr, IV, last dose at 08:02. Eptifibatide (Integrilin), 8.3 ml, IV, last dose at 08:13. 0.9 Saline, infusion rate of 75 ml/hr, IV, at 07:37. Prepared and signed by Celestino Mueller MD Signed 08/02/2013 09:39:50 HEMODYNAMIC TABLES Pressures: Baseline Pressures: - HR: 73 Pressures: - Rhythm: Pressures: -- Arterial (S/D/M): 121/66/85 Outputs: Baseline Outputs: -- CALCULATIONS: [age] Outputs: -- CALCULATIONS: Body Surface Area: 2.14 Outputs: -- CALCULATIONS: Height in cm: 183.00 Outputs: -- CALCULATIONS: Sex: Male Outputs: -- CALCULATIONS: Weight in k.60 Tulio Bradley MD ECHO ORDERABLES [facility] CARDIOLOG[facility] [address] [place] [address] * (ABNORMAL) PT PTT PANEL (07/22/2013 4:12 AM CDT) Only the most recent of2 resultswithin the time period is included. PT 10.5 9.4 - 11.4 sec 07/22/2013 4:59 AM CDT [facility] INR 0.99 0.89 - 1.07 07/22/2013 4:59 AM CDT [facility] PTT 50.8(H) 24.0 - 33.0 sec 07/22/2013 4:59 AM CDT [facility] Blood BLOOD SPECIMEN / Unknown 07/22/2013 4:12 AM CDT 07/22/2013 4:31 AM CDT [facility] LABORATORY - 07/22/2013 4:59 AM CDT Conventional Anticoagulant Therapy INR Reference Ranges: 2.0-3.0 Intensive Anticoagulant Therapy INR Reference Ranges: 2.5-3.5 Miracle Khan MD LAB - COAGULATION OR DERABLES Performing Organization Address [facility] de Phone Number [facility] [address] [place] [address] * B-TYPE NATRIURETIC PEPTIDE (07/22/2013 4:12 AM CDT) Only the most recent of2 resultswithin the time period is included. BNP 9 0 - 100 pg/mL 07/22/2013 9:07 AM CDT [facility] Blood BLOOD SPECIMEN / Unknown Venipuncture / Unknown 07/22/2013 4:12 AM CDT 07/22/2013 8:30 AM CDT [facility] LABORAT[facility] - 07/22/2013 9:07 AM CDT A cutoff of 100 pg/ml has been demonstrated to provide the maximal combination of sensitivity, specificity, and negative predictive value for contributing to the diagnosis of congestive heart failure(CHF) only. A BNP value greater than or equal to 100 pg/ml is consistent with a diagnosis of CHF in the appropriate clinical setting. False positive results are more common in females greater than 75 years of age. Blood concentrations of natriuretic peptides may also be elevated in patients with myocardial infarction and in patients who are candidates for or are undergoing renal dialysis. Justyna Alston MD LAB - CHEMISTRY ORDMarline MACKEY [facility] [address] [place] [address] * (ABNORMAL) PTT (07/21/2013 8:55 PM CDT) Only the most recent of4 resultswithin the time period is included. PTT 73.2(H) 24.0 - 33.0 sec 07/21/2013 9:39 PM CDT [facility] Blood BLOOD SPECIMEN / Unknown Venipuncture / Unknown 07/21/2013 8:55 PM CDT 07/21/2013 9:19 PM CDT Miracle Khan MD LAB - COAGULATION OR DERABLES Performing Organization Address [facility] Co de Phone Number [facility] [address] [place] [address] * XR CHEST 1VW PORTABLE (07/21/2013 9:55 AM CDT) Only the most recent of2 resultswithin the time period is included. Anatomical Region Laterality Modality Chest Radiographic Ernestine ging 07/21/2013 9:54 AM CDT Impressions 07/21/2013 9:54 AM CDT Clear lungs. Narrative 07/21/2013 9:54 AM CDT Chest x-ray 2 views. History: Acute coronary syndrome. 2 views of the chest show normal heart size with normal vessels. Lungs are clear. Procedure Note Maxim Louis MD - 07/21/2013 Chest x-ray 2 views. History: Acute coronary syndrome. 2 views of the chest show normal heart size with normal vessels. Lungs are clear. IMPRESSION Clear lungs. Justyna Alston MD DIAGNOSTIC IMAGING O RDERABLES * RENAL FUNCTION PANEL (07/18/2013 7:39 AM CDT) Only the most recent of3 resultswithin the time period is included. Glucose 96 74 - 106 mg/dL 07/18/2013 8:30 AM CDT [facility] Sodium 140 136 - 145 mmol/L 07/18/2013 8:30 AM CDT [facility] Potassium 3.7 3.5 - 5.1 mmol/L 07/18/2013 8:30 AM CDT [facility] Chloride 105 98 - 107 mmol/L 07/18/2013 8:30 AM CDT [facility] CO2 29 22 - 31 mmol/L 07/18/2013 8:30 AM CDT [facility] Calcium 8.8 8.5 - 10.1 mg/dL 07/18/2013 8:30 AM CDT [facility] Anion Gap 6 5 - 15 mmol/L 07/18/2013 8:30 AM CDT [facility] BUN 16 7 - 21 mg/dL 07/18/2013 8:30 AM CDT [facility] Creatinine 0.59 0.50 - 1.30 mg/dL 07/18/2013 8:30 AM CDT [facility] Albumin 3.5 3.4 - 5.0 gm/dL 07/18/2013 8:30 AM CDT [facility] Phosphorus 2.7 2.5 - 4.9 mg/dL 07/18/2013 8:30 AM CDT [facility] eGFR by MDRD >60 >60 mL/min/1.7 3m2 07/18/2013 8:30 AM CDT [facility] eGFR by MDRD >60 >60 mL/min/1.7 3m2 07/18/2013 8:30 AM CDT [facility] Blood BLOOD SPECIMEN / Unknown Venipuncture / Unknown 07/18/2013 7:39 AM CDT 07/18/2013 7:58 AM CDT Anny Sandra MD LAB - CHEMISTRY HARJEET MACKEY [facility] Organization Address City/State/ZIP Co de Phone Number [facility] [address] [place] [address] * CARDIAC EKG ORDER (07/17/2013 11:56 PM CDT) Only the most recent of4 resultswithin the time period is included. Narrative 07/17/2013 11:56 PM CDT Ordered by an unspecified provider. Transcriptions Document, Scanned - 07/17/2013 11:56 PM CDT Scanned Document CARDIAC SERVICES ORD ERABLES * LAB RESULTS ORDER (07/17/2013 11:56 PM CDT) Narrative 07/17/2013 11:56 PM CDT Ordered by an unspecified provider. Transcriptions Document, Scanned - 07/17/2013 11:56 PM CDT Scanned Document LAB - THERAPEUTIC DR CLOUD MONITORING ORDERABLES * (ABNORMAL) CK + CKMB PANEL (07/17/2013 9:36 AM CDT) Only the most recent of4 resultswithin the time period is included. CK 340(H) 35 - 232 U/L 07/17/2013 10:46 AM CDT [facility] CK-MB 8.9(H) 0.0 - 5.0 ng/mL 07/17/2013 10:46 AM CDT [facility] Blood BLOOD SPECIMEN / Unknown Venipuncture / Unknown 07/17/2013 9:36 AM CDT 07/17/2013 10:11 AM CDT Celestino Mueller MD LAB - CHEMISTRY ORD ERABLES Performing Organization Address City/[facility] Co de Phone Number [facility] [address] [place] [address] * CULTURE VRE (07/17/2013 6:29 AM CDT) Culture Negative for VRE 07/18/2013 1:09 PM CDT [facility] MICROBIOLOG[facility] Stool RECTAL SWAB / Unknown Collection / Unknown 07/17/2013 6:29 AM CDT 07/17/2013 6:33 AM CDT Jerardo Isaac MD LAB - MICROBIOLOGY O RDERABLES Performing Organization Address City/[facility]/ZIP Co de Phone Number [facility] MICROBIOLOG[facility] [address] [place], [place] [id number] [place] [address] * CULTURE MRSA (07/17/2013 6:29 AM CDT) Only the most recent of2 resultswithin the time period is included. Culture Negative for MRSA 07/18/2013 1:08 PM CDT [facility] MICROBIOLOG[facility] Microbiology RECTAL SWAB / Unknown Collection / Unknown 07/17/2013 6:29 AM CDT 07/17/2013 6:33 AM CDT Jerardo Isaac MD LAB - MICROBIOLOGY O RDERABLES Performing Organization Address City/[facility]/ZIP Co de Phone Number [facility] MICROBIOLOG[facility] [address] [place], [place] [address], [facility] * TESTOSTERONE TOTAL (05/28/2013 8:49 AM ASSESSMENT MANAGER) Testosterone 382 348 - 1,197 ng/dL [facility] ACCOUNT BILL Blood specimen (specimen) BLOOD SPECIMEN / Unknown 05/28/2013 8:49 AM ASSESSMENT MANAGER 05/28/2013 1:01 PM ASSESSMENT MANAGER Narrative Resulting Agency Comment [facility] [id number] [facility] [phone] Kirk Olea MD LAB - CHEMISTRY HARJEET MACKEY Performing Organization Address [facility] de Phone Number [facility] ACCOUNT BILL * TSH (05/28/2013 8:49 AM ASSESSMENT MANAGER) Only the most recent of4 resultswithin the time period is included. TSH 1.340 0.450 - 4.500 uIU/mL [facility] ACCOUNT BILL Blood specimen (specimen) BLOOD SPECIMEN / Unknown 05/28/2013 8:49 AM ASSESSMENT MANAGER 05/28/2013 1:01 PM ASSESSMENT MANAGER Narrative Resulting Agency Comment [facility] [place] [address] [facility] [phone] Kirk Olea MD LAB - CHEMISTRY HARJEET MACKEY Performing Organization Address City/[facility] Co de Phone Number [facility] ACCOUNT BILL * DERMATOPATHOLOGY (06/05/2012 2:05 PM ASSESSMENT MANAGER) Result CASE: [id number] PATIENT: ANABELL RIVERA PATHOLOGIC DIAGNOSIS: Right forehead: MATURE ADIPOSE TISSUE CONSISTENT WITH LIPOMA CLINICAL DATA: Mass. Check margins. GROSS DESCRIPTION: Received is one formalin filled container labeled with the patient's name and designated right forehead. The specimen consists of a [id number] piece of soft yellow tissue. The specimen is serially sectioned and a inside sales account representative section is submitted in cassette 1. Jar 1. MICROSCOPIC DESCRIPTION: There are typical adipocytes with minimal fibrous trabeculae. Final Diagnosis performed by Brigitte Viveros M.D. Electronically signed 06/09/2012 2:20:24PM [facility] DERMATOLOG[facility] LAB Comment: Performed at: Dermatopathology Laboratory [facility] Department of Dermatology [address] [place] [address], [address] [place] [address] Phone number: [phone] Toll Free: [phone] FAX: [phone] Skin (tissue) specimen (specimen) 06/05/2012 2:05 PM ASSESSMENT MANAGER 06/08/2012 Narrative [facility] DERMATOLOGY LAB - 06/09/2012 2:21 PM ASSESSMENT MANAGER Preferred Lab:->Derm-Path Specimen A: Type->Excision Site->right forehead History->growing in size Impression->mass Check Margins:->Yes Prior Biopsy->No Alexander Patton MD LAB - PATHOLOGY/C YTOLOGY ORDERABLES [facility] DERMATOLOGY LAB [address] [place] [address]. [address] [place] [address], [facility] [phone] * XR RIBS UNILATERAL LEFT W PA CHEST (11/16/2011) Anatomical Region Laterality Modality Chest Other Provider Unknown DIAGNOSTIC IMAGING O RDERABLES * LIPID PROFILE W LDL/HDL (PO REF LAB) (03/23/2010 8:26 AM ASSESSMENT MANAGER) Only the most recent of3 resultswithin the time period is included. Cholesterol 160 100 - 199 mg/dL [facility] ACCOUNT BILL Triglycerides 102 0 - 149 mg/dL [facility] ACCOUNT BILL HDL Cholesterol 43 >39 mg/dL [facility] ACCOUNT BILL Comment: According to ATP-III Guidelines, HDL-C >59 mg/dL is considered a negative risk factor for CHD. VLDL Calculated 20 5 - 40 mg/dL [facility] ACCOUNT BILL LDL Calculated 97 0 - 99 mg/dL [facility] ACCOUNT BILL LDL/HDL Ratio 2.3 0.0 - 3.6 ratio units [facility] ACCOUNT BILL BLOOD SPECIMEN / Unknown 03/23/2010 8:26 AM ASSESSMENT MANAGER 03/23/2010 5:25 PM ASSESSMENT MANAGER Narrative Resulting Agency Comment [facility] [address] [phone] Kirk Olea MD LAB - CHEMISTRY HARJEET MACKEY [facility] ACCOUNT BILL * ECHOCARDIOGRAM STRESS (10/18/2009 9:23 AM CDT) 10/18/2009 9:23 AM CDT Narrative [facility] CARD[facility] - 10/18/2009 10:35 AM CDT [address] [address] Exercise Stress Echocardiography Name: ANABELL RIVERA MR #: [id number] Study date: 18-Oct-2009 : 1950 Age: 59 years Gender: Male Height: Weight: BSA: Allergies: NKA Referring Physician: Kirk Olea MD Consolidation Accountant: Rohan Serrato RDCS Reading Physician: Edward Reyes MD Clinical question: Detection of coronary artery disease. Rest ECG: The ECG showed no atrial ectopy. Procedure: Treadmill exercise testing was performed, using the Marlon protocol. Stress and rest echocardiographic evaluation was performed from multiple acoustic windows for evaluation of ventricular function. Marlon protocol: Symptoms Baseline none No medications or fluids given. Stress summary: There were no stress arrhythmias or conduction abnormalities. Impressions: Normal study. Prepared and signed by Edward Reyes MD Signed 18-Oct-2009 10:42:36 Procedure Note 10/18/[address] [address] Exercise Stress Echocardiography Name: ANABELL RIVERA MR #: [id number] Study date: 18-Oct-2009 : 1950 Age: 59 years Gender: Male Height: Weight: BSA: Allergies: NKA Referring Physician: Kirk Olea MD Consolidation Accountant: Rohan Serrato RDCS Reading Physician: Edward Reyes MD Clinical question: Detection of coronary artery disease. Rest ECG: The ECG showed no atrial ectopy. Procedure: Treadmill exercise testing was performed, using the Marlon protocol. Stress and rest echocardiographic evaluation was performed from multiple acoustic windows for evaluation of ventricular function. Marlon protocol: Symptoms Baseline none No medications or fluids given. Stress summary: There were no stress arrhythmias or conduction abnormalities. Impressions: Normal study. Prepared and signed by Edward Reyes MD Signed 18-Oct-2009 10:42:36 Quique Benson MD ECHO ORDERABLES Performing Organization Address City/[facility] Co de Phone Number [facility] [address] [place] [address] * B-TYPE NATRIURETIC PEPTIDE - POINT OF CARE (10/16/2009 8:37 PM CDT) Only the most recent of3 resultswithin the time period is included. BNP POCT < 5.0 <=100 pg/ml [facility] Performed by AM [facility] Performed In ER [facility] BLOOD SPECIMEN / Unknown 10/16/2009 8:37 PM CDT 10/16/2009 8:38 PM CDT Eliu Sewell MD LAB - POINT OF CARE ORDERABLES Performing Organization Address [facility] Co de Phone Number [facility] [address] [place] [address] * MYOGLOBIN BLOOD - POINT OF CARE (10/16/2009 8:37 PM CDT) Only the most recent of3 resultswithin the time period is included. Myoglobin POCT 44.9 <=170 ng/ml [facility] Performed by AM [facility] Performed In ER [facility] BLOOD SPECIMEN / Unknown 10/16/2009 8:37 PM CDT 10/16/2009 8:38 PM CDT Eliu Sewell MD LAB - POINT OF CARE ORDERABLES Performing Organization Address [facility] Co de Phone Number [facility] [address] [place] [address] * TROPONIN - POINT OF CARE (10/16/2009 8:37 PM CDT) Only the most recent of3 resultswithin the time period is included. Troponin I POCT < 0.05 SEE BELOW ng/ml [facility] Comment: Normal <0.05 Indeterminate 0.05-0.39 Abnormal >0.4 Performed by AM [facility] Performed In ER [facility] BLOOD SPECIMEN / Unknown 10/16/2009 8:37 PM CDT 10/16/2009 8:38 PM CDT Eliu Sewell MD LAB - POINT OF CARE ORDERABLES Performing Organization Address [facility] de Phone Number [facility] [address] [place] [address] * CKMB - POINT OF CARE (10/16/2009 8:37 PM CDT) Only the most recent of3 resultswithin the time period is included. CK-MB POCT < 1.0 <=8.0 ng/ml [facility] Performed by AM [facility] Performed In ER [facility] BLOOD SPECIMEN / Unknown 10/16/2009 8:37 PM CDT 10/16/2009 8:38 PM CDT Eliu Sewell MD LAB - POINT OF CARE ORDERABLES Performing Organization Address [facility] de Phone Number [facility] [address] [place] [address] * CHEST ONE VIEW (10/16/2009 3:00 PM CDT) Anatomical Region Laterality Modality Chest Radiographic Ernestine ging 10/16/2009 3:31 PM CDT Narrative 10/16/2009 7:52 PM CDT Single lateral chest radiograph. CLINICAL INFORMATION: Chest pain. FINDINGS: The heart size appears normal. The pulmonary vascularity and adama appear normal. The lungs are clear. There is degenerative change of the thoracic spine. Procedure Note Dutch Bailon MD - 10/16/2009 Single lateral chest radiograph. CLINICAL INFORMATION: Chest pain. FINDINGS: The heart size appears normal. The pulmonary vascularity and adama appear normal. The lungs are clear. There is degenerative change of the thoracic spine. Cesario Neves MD DIAGNOSTIC IM AGING ORDERABLES * URINALYSIS AUTO - POINT OF CARE (05/12/2009 8:54 AM ASSESSMENT MANAGER) Clarity UA POCT Color UA POCT yellow Leukocyte UA neg Negative Nitrite UA POCT neg Negative Urobilinogen UA POCT 0.1 - 1.0 EU/dL Protein UA POCT neg Negative pH UA 5.5 5.0 - 8.0 pH units Blood UA neg Negtive Specific Dorena UA POCT 1.025 1.002 - 1.030 Ketone UA neg Negative Bilirubin UA POCT Negative Glucose UA 250mg Negative Urine specimen (specimen) URINE / Unknown Kirk Olea MD LAB - POINT OF CARE ORDERABLES * GROSS + MICRO EXAM (04/08/2005 10:51 AM ASSESSMENT MANAGER) Result CASE NUMBER [id number] Comment: ORDERING PHYSICIAN JONNY SANTANA SPECIMEN TYPE Tissue-Rt posterior neck mass Date 04/08/2005 Physician Be Santana Gross Description The specimen is labeled with the patient's name, Anabell Rivera, and right posterior neck mass. It consists of a 5 x 4 x 3 cm aggregate of multiple irregular fragments of yellow sepulveda congested adipose soft tissue. The cut surfaces are homogeneous and fatty with streaks of glistening membranous tissue. [employer] sections of the specimen are submitted in cassettes A and B. LW atkinson Microscopic Exam Microscopic examination of sections labeled A and B reveal lobular fragments of mature adipose tissue. Focal bands of partially hyalinized connective tissue are seen. No evidence of fat necrosis or malignancy is seen. RT/na Diagnosis I. Subcutaneous tissue from the right Posterior neck -- Lipoma RT/na Phone Engineer na Pathologist Victor Hugo Pelayo M.D. Snomed. 04/09/2005 1208 <1> CPT code 68723 MISCELLANEOUS SAMPLES / Unknown 04/08/2005 10:51 AM ASSESSMENT MANAGER 04/08/2005 10:51 AM ASSESSMENT MANAGER Historical Provider LAB - PATHOLOGY/C YTOLOGY ORDERABLES Care Teams News Wire Photo Operator Relationship Specialty Start Date End Date Rodolfo Schmidt DO [address] [place] [address] PCP - General Internal Medicine 01/30/22 Rodolfo Schmidt DO [address] [place] [address] PCP - Attributed-MSS 11/03/23 Josef Gray MD Urology 08/23/14 [place] [address] [id number] Orthopedic Surgery 11/14/14 Hari Babb MD [address] [place] [address] Anesthesiology 03/30/19 Alexander Peterson MD [address] [id number] Cardiology 12/06/20 Luca Saldana MD [address] [facility] [address] [place], [place] [address] Cardiovascular Disease 07/30/21 [place] [address] [facility] [address] George [facility] [address] [place] [address] Anesthesiology 01/30/22 [place] [address] [facility] [address] [place] [address] Physician Porter Sample Case Physician Porter Sample Case 09/24/23 [place] [address] [address] [facility] [address] [place] [address] Orthopedic Surgery 09/24/23
--- OUTSIDE RECORDS SUMMARY | 2024-06-29 10:24 | XMS_ITS | Continuity of Care Document ---
Author Organization [facility] Address [address] [facility] [address] [place] [address] Phone Care Team Providers Care Hot Stone Setter Name Role Phone Sandeep Bourgeois MD Unavailable Unavailable Allergies, Adverse Reactions, Alerts Substance Reaction Status Criticality milk lactose intolorant Active No Inform ation Medications Medication Instructions Dosage Effective Dates (start - stop) Status Comments hydrocodone 5 mg-acetaminophen 325 mg tablet take 1 - 2 Tablet by oral route every 6 hours as needed for pain 1-2 Tablet - Active Valium 10 mg tablet take 1 tablet by oral route 1 hour prior to RFN - Active TIZANIDINE HCL (unknown strength) Not Available - Active losartan 50 mg tablet - Active Nasonex 50 mcg/actuation Napavine - Active clonazepam 0.5 mg disintegrating tablet - Active hydrochlorothiazide 25 mg tablet - Active magnesium 250 mg tablet - Active metoprolol tartrate 25 mg tablet - Active simvastatin 40 mg tablet - Activ e Procedures Procedure Date OFFICE/OUTPATIENT VISIT EST OFFICE/OUTPATIENT VISIT EST OFFICE/OUTPATIENT VISIT EST OFFICE/OUTPATIENT VISIT EST OFFICE CONSULTATION Advance Directives Directive Yes / No Effective Date File Name No Information Encounters Encounter Description Practice Location Reason(s) For Visit Diagnoses Date Provider Providers Copied on Encounter [facility], [address], [place], [address], [place] [phone] [facility] No Information 7 Bk Hopkins. [address], [place], [place], [id number] . tel: [phone] [facility], [address] [place] [address], [address], [place] tel:[phone] [facility] Follow Up of after RFN (chief complaint) Lumbosacral spondylosis without myelopathy Joaquin- 6-201 5 Julian Kirk. [address] [place], [place], [id number] . tel: [phone] [facility], [address] [place] [address], [address], [place] tel:[phone] [facility] [address] No Information 0-201 5 Julian Kirk. [address] [place] [address], [id number] . tel: [phone] [facility], [address] [place] [address], [address], [place] [phone] [facility] RFN (chief complaint) Lumbosacral spondylosis without myelopathy September- 7 5 Julian Kirk. [address] [place], [place], [id number] . tel: [phone] [facility], [address] [place] [address], [address], [place] tel:[phone] [facility] [address] No Information 9- 5 Julian Kirk. [address] [place] [address], [id number] . tel: [phone] [facility], [address] [place] [address], [address], [place] tel:[phone] [facility] Lumbosacral spondylosis without myelopathy Apr-2 3-201 5 Julian Kirk. [address] [place] [address], [id number] . tel: [phone] [facility], [address] [place] [address], [address], [place] tel:[phone] [facility] medial branch blocks (chief complaint) Spinal stenosis, lumbar region, without neurogenic claudication Apr-2 2-201 5 Julian Kirk. [address] [place] [address], [id number] . tel: [phone] [facility], [address] [place] [address], [address], [place] [phone] [facility] Follow Up of mri lumbar spine (chief complaint) Spinal stenosis of lumbar regionLumbosac ral spondylosis without myelopathy 5 Julian Bradley. [address] [place], [place], [id number] . tel: [phone] [facility], [address] [place] [address], [address], [place] tel:[phone] [facility] low back pain (chief complaint) Spinal stenosis of lumbar region 5 Julian Bradley. [address] [place] [address], [id number] . tel: [phone] Referring Provider: Rolando Alcaraz, [address] [place] [address], [address] . tel:[phone] OFFICE/OUTPAT IENT VISIT EST [facility], [address] [place] [address], [address], [place] tel:[phone] [facility] Spinal stenosis of lumbar regionAcute shoulder bursitis 5 Kieran Marshall. [address] [place] [address], [id number] . tel: [phone] OFFICE/OUTPAT IENT VISIT EST [facility], [address] [place] [address], [address], [place] tel:[phone] [facility] Spinal stenosis of lumbar region 5 Kieran Marshall. [address] [place] [address], [id number] . tel: [phone] Referring Provider: Kirk Jones (Retired), [facility] [facility] [address], [place], [address] . tel:[phone] OFFICE/OUTPAT IENT VISIT EST [facility], [address] [place] [address], [address], tel:[phone] [facility] Spinal stenosis of lumbar region 5 [facility]. [address] [place], [place], [id number] . tel:[phone] OFFICE/OUTPAT IENT VISIT EST [facility], [address], [address], tel:[phone] [facility] Low back painImpingemen t syndrome, shoulder 4 [facility]. [address] [place], [place], [id number] . tel:[phone] OFFICE CONSULTATION [facility], [address] [place] [address], [address], tel:[phone] [facility] Low back pain 4 [facility]. [address] [place], [place], [id number] . tel:[phone] Referring Provider: Kirk Jones (Retired), [address] [facility] [address], [place], [address] . tel:[phone] Family History Family Member Type Diagnosis Age At Onset Brother Problem (finding) Heart disease Payers Payer name Insurance type Covered constitution party ID Authoriza tion(s) No Information Social History Type Description Quantity Date Captured Comments Sex Male Smoking Status No Information Chief Complaint And Reason For Visit No Information Reason For Referral Reason For Referral No Information Plan Of Treatment Date Type Action Status Referral Ordered: DESTROY LUMB/SAC FACET JNT Appointment date/timeframe: 09/28/2014 ordered Referral Ordered: INJ PARAVERT F JNT L/S 1 LEV Appointment date/timeframe: 08/24/2014 ordered Referral Ordered: MRI SPI CANAL&CNTS LMBR C-MATRL Appointment date/timeframe: 07/27/2014 ordered Referral Ordered: RADEX YOUNG COMPL MINIMUM 2 VIEWS RT ordered Referral Ordered: RADEX SPI LUMBOSAC 2/3 VIEWS ordered History Of Present Illness Encounter Date Complaint History Of Prese nt Illness Follow Up of after RFN Doing pre tty well after the RFN. Now about 75% better. Activity is improving. Mowing the grass. New pain down the right leg. Intermittent. Different movements aggravate it. No specific relieving factors. RFN medial branch blocks Follow Up of mri lumbar spine MR I reviewed. Pain is LB with some extension into both legs. As well as up the back. Wearing back brace with activity. low back pain Functional Status Date Functional Assessmen t No Information Instructions Date Instruction Additional Infor mation Take medication as prescribed. R elated to Lumbosacral spondylosis without myelopathy Avoid prolonged bed rest. Relate d to Lumbosacral spondylosis without myelopathy Activity as tolerated. Related t o Lumbosacral spondylosis without myelopathy Avoid prolonged bed rest. Relate d to Lumbosacral spondylosis without myelopathy Take medication as prescribed. R elated to Lumbosacral spondylosis without myelopathy Activity as tolerated. Related t o Lumbosacral spondylosis without myelopathy Activity as tolerated. Related t o Lumbosacral spondylosis without myelopathy Avoid prolonged bed rest. Relate d to Lumbosacral spondylosis without myelopathy Take medication as prescribed. R elated to Lumbosacral spondylosis without myelopathy Avoid prolonged bed rest. Relate d to Lumbosacral spondylosis without myelopathy Activity as tolerated. Related t o Lumbosacral spondylosis without myelopathy Take medication as directed. Rel ated to Spinal stenosis of lumbar region Activity as tolerated. Related t o Spinal stenosis of lumbar region Take medication as directed. Rel ated to Spinal stenosis of lumbar region Activity as tolerated. Related t o Spinal stenosis of lumbar region Apply ice and/or heat as tolerat ed Related to Spinal stenosis of lumbar region Take medication as directed. Rel ated to Spinal stenosis of lumbar region Activity as tolerated. Related t o Spinal stenosis of lumbar region Activity as tolerated OTC medication - Assessments Type Assessment Date No Information Patient Care Teams Name Effective Dates (start - stop) Status Members No Information
--- OUTSIDE RECORDS SUMMARY | 2024-06-29 10:24 | XMS_ITS | Encounter Summary ---
Author Organization [facility] Address [address] [facility] [place] [address] Care Team Providers Care Dude Wrangler Name Role Phone Leila Coulter RN Unavailable Delores Vences MD Primary Care Provider Unavailabl e Celestino Mueller MD Unavailable Josef Gray MD Unavailable [phone] Kirk Jordan MD Unavailable [phone] Keila Borjas MD Unavailable Mikaela Adams RN Unavailable [phone] Linda Mike RN Unavailable [phone] Keila Borjas MD Unavailable Hari Jordan MD Unavailable [phone] Hernandez greenfield MD Primary Care Provider Delores Vences MD Primary Care Provider Unavailabl e Hari Babb MD Unavailable [phone] Rich Adamson MD Unavailable Hernandez Irving MD Unavailable Delores Vences MD Unavailable Unavailable Celestino Mueller MD Unavailable [phone] Delores Vences MD Unavailable Unavailable Mike Peterson MD Unavailable [phone] Luca Saldana MD Unavailable Rodolfo Schmidt DO Primary Care Provider [phone] Jalil Villa MD Unavailable Linda Kennedy Unavailable [phone] Denis Mckee MD Unavailable [phone] NeoHerbert Iona WAREHOUSE MAN-DIE TRIPPER Unavailable Rodolfo Schmidt DO Unavailable Mica Daily Unavailable [phone] Celestino Mueller MD Unavailable [phone] Delores Vences MD Unavailable Unavailable Encounter Details Date Type Department Care Team (Late st Contact Info) Description 03/01/2015 Therapy Visit EXTERNAL NON-[facility] DEPT Unknown, Provider [...] 09/29/2024 10:20 AM CDT Office Visit [facility] - Internal Medicine [address] [facility] [place] [address] [place] [address] Aury Gongora, WAREHOUSE MAN-DIE TRIPPER [address] [facility] [place] [address] [place] [address] documented as of this encounter Goals Goal Patient Goal Type Associated Problems Recent Progress Patient-Stated? Author Blood Pressure < 140/90 Blood Pressure 116/62(2023 11:28 AM ACCOUNT SERVICE ASSOCIATE) Shereen Mcdonough MA Note: Medications: Keep a written list of what medicines you are taking and when you take them. Bring the list of your medicines or the pill bottles when you see your provider. Learn why you take each medicine. Ask your provider or pharmacist for information about your medicines. Do not take yugg-bhj-noezbjp medicine or herbal supplements without talking to [...] Where can I go for more information? [place] [employer] National Center: http://www.americanheart.org 1. In the top header click on conditions 2. In the top header click on high blood pressure [id number] ( ) National Heart, Lung and Blood [place]: http://www.nhlbi.nih.gov/health/infoctr/index.htm Exercise 3X per week (30 min per time) Exercise No Lesly Raymundo, TROY R DIET Lifestyle No Lesly Raymundo RN Weight < 86.183 kg (190 lb) Weight 97.3 kg (214 lb 6.4 oz)( 11:28 AM ACCOUNT SERVICE ASSOCIATE) No Lesly Raymundo, TROY documented as of this encounter Visit Diagnoses Not on filedocumented in this encounter Care Teams Dude Wrangler Relationship Specialty Start Date End Date Delores Vences MD PCP - General Family Medicine 01/28/14 03/07/19 Hernandez Irving MD [address] [address] PCP - General Internal Medicine 03/08/19 03/29/19 Delores Vences MD PCP - General Family Medicine 03/30/19 01/29/22 Hernandez Irving MD [address] [facility] [address] [place] [address] PCP - Attributed-MSSP 03/05/19 0 Delores Vences MD Need updated address PCP - Attributed-MSSP 03/05/20 eClestino Mueller MD [address] [facility] [address] [place] [address] PCP - Attributed-MSSP 07/03/20 08/02/20 Delores Vences MD Need updated address PCP - Attributed-MSSP 08/03/20 Rodolfo Schmidt DO [address] [place] [address] PCP - General Internal Medicine 01/30/22 Herbert Larson APRN-DIE TRIPPER [address] [facility] [place] [address] PCP - Attributed-MSSP 08/04/23 11/02/23 Rodolfo Schmidt DO [address] [place] [address] PCP - Attributed-MSSP 11/03/23 Celestino Mueller MD [address] [facility] [address] [place] [address] PCP - Attributed-MSSP 02/02/19 9 Delores Vences MD Need updated address PCP - Attributed-MSSP 10/03/18 Leila Coulter RN Joint Creaser 07/18/13 06/02/23 Celestino Mueller MD [address] [facility] [address] [place] [address] Hog Ribber Cardiovascular Disease 01/28/14 2 Josef Gray MD [facility] [address] [place] [address] Urology 08/23/14 Kirk Jordan MD [address] [facility] [place] [address] Physical Medicine and Rehabilitation 08/23/14 03/29/19 [place] [address] [facility] [address] [place] [address] Orthopedic Surgery 11/14/14 Mikaela Adams RN Joint Creaser 12/20/14 06/02/23 Linda Mike RN [address] [address] Box BuilderRate Clerk Passenger 02/06/15 06/05/15 [place] [address] [facility] [address] [place], [place] [address] Orthopedic Surgery 03/20/15 03/29/19 Hari Jordan MD [address] [facility] [address] [place] [address] Pain Management Anesthesiology 05/07/15 03/29/19 Hari Babb MD [address] [place] [address] Anesthesiology 03/30/19 Rich Adamson MD [address] [place] [id number] Orthopedic Surgery 03/30/19 07/29/21 Mike Peterson MD [address] [facility] [address] [place] [address] 102 [place], [place] [id number] Cardiology 12/06/20 Luca Saldana MD [address] [facility] [address] [place] [address] Cardiovascular Disease 07/30/21 [place] [address] [facility] [address] [place] [address] Anesthesiology 01/30/22 [place] [address] [facility] [address] [place] [address] Physician Riveter Hand Physician Riveter Hand 09/24/23 [place] [address] [facility] [address] [place] [address] Orthopedic Surgery 09/24/23 Mica Daily Care Coordination Specialist Care Management 03/22/24 03/22/24 documented as of this encounter
--- OUTSIDE RECORDS SUMMARY | 2024-06-29 10:24 | XMS_ITS | Encounter Summary ---
Author Organization [facility] Address [facility] [place] [address] Care Team Providers Care Music Instructor Name Role Phone Kirk Olea MD Primary Care Provider Unavailab Salima Holman RN Unavailable Leila Coulter RN Unavailable Lesly Raymundo RN Unavailable [phone] Delores Vences MD Primary Care Provider Unavailabl Celestino Medrano MD Unavailable [phone] Rolando Alcaraz MD Unavailable Unavailable Josef Gray MD Unavailable Kirk Jordan MD Unavailable [phone] Keila Borjas MD Unavailable Rosie Bejarano RN Unavailable [phone] Mikaela Adams RN Unavailable [phone] Linda Mike RN Unavailable [phone] Keila Borjas MD Unavailable Hari Jordan MD Unavailable Hernandez Irving MD Primary Care Provider Delores Vences MD Primary Care Provider Unavailabl e Hari Babb MD Unavailable Rich Adamson MD Unavailable Hernandez Irving MD Unavailable [phone] Delores Vences MD Unavailable Unavailable Celestino Mueller MD Unavailable Delores Vences MD Unavailable Unavailable Mike Peterson MD Unavailable Luca Saldana MD Unavailable Rodolfo Schmidt DO Primary Care Provider [phone] Jalil Villa MD Unavailable Linda Kennedy Unavailable [phone] Denis Mckee MD Unavailable Herbert Larson CARRIER BLOWER-REAL ESTATE SITE ANALYST Unavailable [phone] Rodolfo Schmidt DO Unavailable Mica Daily Unavailable [phone] Celestino Mueller MD Unavailable [phone] Delores Vences MD Unavailable Unavailable Encounter Details Date Type Department Care Team (Late st Contact Info) Description 04/22/2013 [facility] Outpatient Visit [facility] [address] [place] [address] Em Jordan MD [address] [place] [phone] Social History Tobacco Use Types Packs/Day [...] Description 09/29/2024 10:20 AM CDT Office Visit [facility] [address] [facility] [place] [place] [address] Aury Gongora, CARRIER BLOWER-REAL ESTATE SITE ANALYST [address] [facility] [address] [place] [address] documented as of this encounter Visit Diagnoses Not on filedocumented in this encounter Care Teams Music Instructor Relationship Specialty Start Date End Date Kirk Olea MD PCP - General Internal Medicine 05/15/12 01/27/14 Delores Vences MD [address] [place] [address] PCP - General Family Medicine 01/28/14 03/07/19 Hernandez Irving MD [address] [place] [address] PCP - General Internal Medicine 03/08/19 03/29/19 Delores Vences MD [address] [place] [address] PCP - General Family Medicine 03/30/19 01/29/22 Hernandez Irving MD [address] [place] [address] PCP - Attributed-MSSP 03/05/19 0 Delores Vences MD Need updated address PCP - Attributed-MSSP 03/05/20 Celestino Mueller MD [address] [facility] [address] [place] [address] PCP - Attributed-MSSP 07/03/20 08/02/20 Delores Vences MD Need updated address PCP - Attributed-MSSP 08/03/20 Rodolfo Schmidt DO [address] [facility] [place] [address] PCP - General Internal Medicine 01/30/22 Herbert Larson, CARRIER BLOWER-REAL ESTATE SITE ANALYST [address] [place] [id number] PCP - Attributed-MSSP 08/04/23 11/02/23 Rodolfo Schmidt DO [address] [place] [address] PCP - Attributed-MSSP 11/03/23 Celestino Mueller MD [address] [facility] [address] [place] [address] PCP - Attributed-MSSP 02/02/19 9 Delores Vences MD Need updated address PCP - Attributed-MSSP 10/03/18 Salima Cerda RN [address] [place] [id number] Structurer 07/02/12 11/10/13 Leila Coulter RN Ops Analyst 07/18/13 06/02/23 Lesly Raymundo, TROY [address] [place], [place] [id number] [employer] Reservations Coordinator 11/11/13 11/15/14 Celestino Mueller MD [address] [facility] [address] [place] [address] Payment Manager Cardiovascular Disease 01/28/14 2 Rolando Alcaraz MD [address] [facility] [address] [place] [address] Orthopedic Surgery 01/28/14 08/22/14 Josef Gray MD [address] [facility] [address] [place] [address] Urology 08/23/14 Kirk Jordan MD [address] [facility] [place] [address] Physical Medicine and Rehabilitation 08/23/14 03/29/19 [place] [address] [facility] [address] [place] [address] Orthopedic Surgery 11/14/14 Rosie Bejarano, RN [address] [facility] [address] [place] [address] [employer] Reservations Coordinator 11/16/14 02/05/15 Mikaela Adams RN Ops Analyst 12/20/14 06/02/23 Linda Mike, TROY [address] [facility] [address] [place], [place] [id number] [employer] Reservations Coordinator 02/06/15 06/05/15 [place] [address] [facility] [address] [place] [address] Orthopedic Surgery 03/20/15 03/29/19 Hari Jordan MD [address] [facility] [address] [place] [address] Pain Management Anesthesiology 05/07/15 03/29/19 Hari Babb MD [address] [place] [address] Anesthesiology 03/30/19 Rich Adamson MD [address] [place] [address] Orthopedic Surgery 03/30/19 07/29/21 Mike Peterson MD [address] [facility] [address] [place] [address] Cardiology 12/06/20 Luca Saldana MD [address] [facility] [address] [place] [address] Cardiovascular Disease 07/30/21 [place] [address] [facility] [address] [facility] [address] [place] [address] Anesthesiology 01/30/22 [place] [address] [facility] [address] [place] [address] Physician Student Development Advisor Physician Student Development Advisor 09/24/23 [place] [address] [id number] Orthopedic Surgery 09/24/23 Mica Daily Care Coordination Specialist Care Management 03/22/24 03/22/24 documented as of this encounter
--- OUTSIDE RECORDS SUMMARY | 2024-06-29 10:24 | XMS_ITS | Encounter Summary ---
Author Organization [facility] Address [address] [facility] [place] [address] Care Team Providers Care Air Conditioning Mechanic Name Role Phone Leila Coulter RN Unavailable Delores Vences MD Primary Care Provider Unavailabl e Celestino Mueller MD Unavailable [phone] Josef Gray MD Unavailable [phone] Kirk Jordan MD Unavailable [phone] Keila Borjas MD Unavailable [phone] Mikaela Adams RN Unavailable Linda Mike RN Unavailable [phone] Keila Borjas MD Unavailable Hari Jordan MD Unavailable [phone] Hernandez greenfield MD Primary Care Provider Delores Vences MD Primary Care Provider Unavailabl e Hari Babb MD Unavailable Rich Adamson MD Unavailable Hernandez Irving MD Unavailable Delores Vences MD Unavailable Unavailable Celestino Mueller MD Unavailable Delores Vences MD Unavailable Unavailable Mike Peterson MD Unavailable [phone] Luca Saldana MD Unavailable Rodolfo Schmidt DO Primary Care Provider [phone] Jalil Villa MD Unavailable Linda Kennedy Unavailable Denis Mckee MD Unavailable [phone] NeoHerbert Iona GLAUCOMA SPECIALIST-ORNAMENTAL PAINTER Unavailable Rodolfo Schmidt DO Unavailable Mica Daily Unavailable [phone] Celestino Mueller MD Unavailable [phone] Delores Vences MD Unavailable Unavailable Encounter Details Date Type Department Care Team (Late st Contact Info) Description 04/14/2015 Therapy Visit EXTERNAL NON-[facility] DEPT Unknown, Provider [...] Description 09/29/2024 10:20 AM CDT Office Visit [facility] - [facility] [address] [facility] [place] [address] Aury Gongora, GLAUCOMA SPECIALIST-ORNAMENTAL PAINTER [address] [facility] [place] [phone] documented as of this encounter Goals Goal Patient Goal Type Associated Problems Recent Progress Patient-Stated? Author Blood Pressure < 140/90 Blood Pressure 116/62(2023 11:28 AM BULK DRIVER) Shereen Mcdonough MA Note: Medications: Keep a written list of what medicines you are taking and when you take them. Bring the list of your medicines or the pill bottles when you see your provider. Learn why you take each medicine. Ask your provider or pharmacist for information about your medicines. Do not take byky-vis-siwxece medicine or herbal supplements without talking to [...] Where can I go for more information? [place] [employer] National Center: http://www.americanheart.org 1. In the top header click on conditions 2. In the top header click on high blood pressure [id number] ( ) National Heart, Lung and Blood [place]: http://www.nhlbi.nih.gov/health/infoctr/index.htm Exercise 3X per week (30 min per time) Exercise No Lesly Raymundo, TROY R DIET Lifestyle No Lesly Raymundo RN Weight < 86.183 kg (190 lb) Weight 97.3 kg (214 lb 6.4 oz)( 11:28 AM BULK DRIVER) No Lesly Raymundo, TROY documented as of this encounter Visit Diagnoses Not on filedocumented in this encounter Care Teams Air Conditioning Mechanic Relationship Specialty Start Date End Date Delores Vences MD PCP - General Family Medicine 01/28/14 03/07/19 Hernandez Irving MD [address] [address] PCP - General Internal Medicine 03/08/19 03/29/19 Delores Vences MD PCP - General Family Medicine 03/30/19 01/29/22 Hernandez Irving MD [address] [facility] [address] [place] [address] PCP - Attributed-MSSP 03/05/19 0 Delores Vences MD Need updated address PCP - Attributed-MSSP 03/05/20 Celestino Mueller MD [address] [facility] [address] [place] [address] PCP - Attributed-MSSP 07/03/20 08/02/20 Delores Vences MD Need updated address PCP - Attributed-MSSP 08/03/20 Rodolfo Schmidt DO [address] [place] [address] PCP - General Internal Medicine 01/30/22 Herbert Larson APRN-ORNAMENTAL PAINTER [address] [facility] [place] [address] PCP - Attributed-MSSP 08/04/23 11/02/23 Rodolfo Schmidt DO [address] [place] [address] PCP - Attributed-MSSP 11/03/23 Celestino Mueller MD [address] [facility] [address] [place] [address] PCP - Attributed-MSSP 02/02/19 9 Delores Vences MD Need updated address PCP - Attributed-MSSP 10/03/18 Leila Coulter RN Passenger Attendant 07/18/13 06/02/23 Celestino Mueller MD [address] [facility] [place] [address] [place] [address] Reading Intervention Teacher Cardiovascular Disease 01/28/14 2 Josef Gray MD [facility] [address] [place] [address] Urology 08/23/14 Kirk Jordan MD [address] [facility] [place] [address] Physical Medicine and Rehabilitation 08/23/14 03/29/19 [place] [address] [facility] [address] [place] [address] Orthopedic Surgery 11/14/14 Mikaela Adams RN Passenger Attendant 12/20/14 06/02/23 Linda Mike RN [address] [address] Roofing ContractorPracticing Dermatologist 02/06/15 06/05/15 [place] [address] [facility] [address] [place], [place] [address] Orthopedic Surgery 03/20/15 03/29/19 Hari Jordan MD [address] [facility] [address] [place] [address] Pain Management Anesthesiology 05/07/15 03/29/19 Hari Babb MD [address] [place] [address] Anesthesiology 03/30/19 Rihc Adamson MD [address] [place] [id number] Orthopedic Surgery 03/30/19 07/29/21 Mike Peterson MD [address] [facility] [address] [place] [address] [address] [place], [place] [id number] Cardiology 12/06/20 Luca Saldana MD [address] [facility] [address] [place] [address] Cardiovascular Disease 07/30/21 [place] [address] [facility] 120 [place] [address] Anesthesiology 01/30/22 [place] [address] [facility] [address] [place] [address] Physician Respiratory Therapy Assistant Physician Respiratory Therapy Assistant 09/24/23 [place] [address] [facility] [address] [place] [address] Orthopedic Surgery 09/24/23 Mica Daily Care Coordination Specialist Care Management 03/22/24 03/22/24 documented as of this encounter
--- OUTSIDE RECORDS SUMMARY | 2024-06-29 10:25 | XMS_ITS | Clinical Summary ---
Author Organization [facility] [employer] Address [address] [place] [address] Care Team Providers Care Cigar Packer And Grader Name Role Phone Josef Gray MD Unavailable Keila Borjas MD Unavailable Hari Babb MD Unavailable [phone] Alexander Peterson MD Unavailable Luca Saldana MD Unavailable Rodolfo Schmidt DO Primary Care Provider Jalil Villa MD Unavailable Linda Kennedy Unavailable [phone] Denis Mckee MD Unavailable [phone] Rodolfo Schmidt DO Unavailable Source Comments [facility],non-owned Affiliates and Associated Physician Practices is amultiple site organization consisting of ambulatory clinics and hospital sitesin [place], [place], [place] and [place]. This disclosure is being madepursuant to the Care Everywhere program and may not contain all information available regarding this patient. Last updated 18.[facility] Allergies Active Allergy Reactions Criticality Noted Date Comments Bee Venom Anaphylaxis High 06/05/2016 Medications * Be aware that medications may not be up to date on this document. Alwaysverify current medications with the patient. Medication Sig Dispensed Refills Start Date End Date Status losartan (COZAAR) 100 MG tabletIndication s:Hypertension GENERIC FOR COZAAR. TAKE 1 TABLET BY MOUTH EVERY DAY 90 tablet 3 01/11/2020 Active EPINEPHrine (Epipen) 0.3 MG/0.3ML auto-injector penIndications:A naphylaxis,BEE VENOM AND SERTRALINE Inject 0.3 mL into muscle once Reasons: Life-Threatening Hypersensitivity Reaction, BEE VENOM AND SERTRALINE Active metoprolol tartrate (LOPRESSOR) 25 MG tabletIndication s:Hypertension Take 0.5 (one-half) tablet by mouth 2 times daily 90 tablet 3 08/11/2020 Active nitroGLYCERIN (NITROSTAT) 0.4 MG tabletIndication s:Acute Angina Pectoris Dissolve 1 (one) tablet under the tongue every 5 minutes as needed FOR ANGINA. 25 tablet 08/24/2020 Active Additional Information Patient not taking.Reported on 09/24/2023 potassium chloride ER (KLOR-CON) 20 MEQ tabletIndication s:Hypokalemia Take 2 (two) tablets by mouth once daily Reasons: Low Amount of Potassium in the Blood 11/21/2020 Activ e clopidogrel (plaVIX) 75 MG tabletIndication s:Carotid Artery Stenting Take 1 (one) tablet by mouth once daily Reasons: Carotid Artery Stenting Active rosuvastatin (Crestor) 40 MG tabletIndication s:Hyperlipidemia Take 1 (one) tablet by mouth once daily Reasons: High Amount of Fats in the Blood 12/15/2022 Active hydroCHLOROthiaz raz (Hydrodiuril) 50 MG tabletIndication s:Hypertension Take 1 (one) tablet by mouth once daily Reasons: High Blood Pressure 02/10/2023 Active febuxostat (Uloric) 40 MG tabletIndication s:GOUT Take 1 (one) tablet by mouth once daily Reasons: GOUT Active methylPREDNISolo ne (Medrol Dosepak) 4 MG tablet Take 1 (one) tablet by mouth as directed 21 tablet 09/22/2023 Active ciclopirox (Loprox) 1 % shampoo Apply to affected area every 3 days To scalp 09/10/2023 Active clobetasol (Temovate) 0.05 % solution Apply to affected area 2 times daily as needed Every 3 days 09/10/2023 Active sertraline (Zoloft) 50 MG tablet Take 1 (one) tablet by mouth once daily 90 tablet 4 09/24/2023 Active omeprazole (PriLOSEC) 40 MG capsule TAKE 1 CAPSULE BY MOUTH DAILY BEFORE BREAKFAST 90 capsule 3 09/30/2023 Active ketoconazole (Nizoral) 2 % cream APPLY TOPICALLY TO THE AFFECTED AREA EVERY DAY 30 g 03/18/2024 Active clonazePAM (KlonoPIN) 0.5 MG tablet TAKE 1/2 TO 1 TABLET BY MOUTH TWICE DAILY NEEDED FOR ANXIETY 90 tablet 04/09/2024 Active traZODone (Desyrel) 50 MG tabletIndication s:Insomnia TAKE 1 TABLET BY MOUTH EVERY NIGHT NEEDED FOR INSOMNIA 90 tablet 3 05/18/2024 Active Active Problems Problem Noted Date Diagnosed Date H/O total knee replacement, right 02/25/2023 Overview (02/25/2023): Meniscal repair Primary osteoarthritis of right knee 09/26/2022 Gout 01/30/2022 Hypokalemia 01/30/2022 Gastrointestinal hemorrhage with melena 08/07/19 22 History of non-ST elevation myocardial infarctio n (NSTEMI) 08/04/2020 Mixed hyperlipidemia 08/04/2020 Popliteal cyst, right 07/22/2019 Peripheral edema 07/30/2018 STEPHANIE on CPAP 05/27/2016 Psychophysiological insomnia 05/27/2016 PLMD (periodic limb movement disorder) 7 CAD in nondalton artery 05/12/2015 History of coronary artery stent placement 11/10 Overview (08/25/2020): 08/04/2020 LAD stent in [place]. 3 new ERVIN [employer] Synergy, 3 x16mm, 3.5 x 28 mm, 3.5 x 8 mm in LAD [facility] in [facility], [place] Dr Almanza 07/16/13 ERVIN in OM1 3 x 18 mm Xpedition, OM2 2.5 x 23 mm Xcience Postlaminectomy syndrome of lumbar region 2014 Overview (09/16/2018): 09/2018: Right L5 & S1 LESI 04/[address] Jordan rec LESI l4-5, stretch, consider stimulator L2-5 laminectomies and foraminotomies 12/2014 RFN L3, L4, L5 bilateral 09/2014 Allergic rhinitis 04/07/2014 Impotence 01/28/2014 Benign prostatic hyperplasia 07/08/2013 IBS (irritable bowel syndrome) 05/18/2013 Anxiety and depression 11/28/2008 Overview (03/30/2019): Sertraline self d/c 2012. Clonazepam since early 2013. Alprazolam since before [id number] Fluoxetine- c/o headache Essential hypertension Overview (04/20/2019): Normal aldosterone/renin ratio March, while on losartan Resolved Problems Problem Noted Date Diagnosed Date Resolved Date Complex tear of medial menis cus of right knee as current injury 11/25/2022 02/25/2023 Acute pain of right knee 09/16/2022 Vibration sensory loss 06/06/202007/30 Acute idiopathic gout involv ing toe of right foot 07/22/2019 09/24/2023 Complex sleep apnea syndrome 02/21/2016 01/30/2022 Snoring 02/21/2016 05/27/2016 Obesity 02/21/2016 01/30/2022 Primary insomnia 01/28/2014 05/27/2016 Overview (09/05/2014): Trazodone effective CAD (coronary artery disease ); CABG x 4 07/201307/29/2013 02/21/2016 Pure hypercholesterolemia 05/18/2013 Heartburn 05/18/2013 08/21/2022 Hypertension 11/28/2008 05/12/2009 Headache 11/28/2008 12/12/2014 Overview (03/12/2015): Chest pain 01/28/2014 Obesity (BMI 30.0-34.9) 08/2018 Encounters Date Type Department Care Team Description 05/17/2024 Refill [facility] - Internal Medicine [address] [place] [address] [place] [address] Rodolfo Schmidt, DO Refill Request 04/09/2024 Refill [facility] - Internal Medicine [address] [place] [address] [place] [address] Rodolfo Schmidt DO Refill Request 03/29/2024 11:40 AM CHANNEL MACHINE OPERATOR Office Visit [facility] - Internal Medicine [address] [facility] [place] [place] [address] Rodolfo Schmidt DO Essential hypertension (Primary Dx); CAD in nondalton artery; Mixed hyperlipidemia; H/O total knee replacement, right; Chronic pain of left knee; Need for prophylactic vaccination and inoculation against influenza; Prostate cancer screening from Last 3 Months Immunizations Name Administration Dates Next Due COVID MODERNA BIVALENT 12Y+ 50MCG/0.5ML 02/20/2022 COVID PFIZER 12+YR 30MCG/0.3mL 03/18/2023 Covid Moderna primary monova lent 12+ yr 0.5mL 02/27/2021,07/14/2020,07/14/2020,2020,06/16/2020 HEP A VACCINE, ADULT 06/07/2015,08/23/2014 INFLUENZA VACCINE 01/16/2017 INFLUENZA VACCINE, ADJUVANTE D, QUADR. (FLUAD QUADRIVALENT; 65Y+) (AIIV4) 02/25/2023,02/15/2022,02/22/2021 INFLUENZA VACCINE, ADJUVANTE D, TRIV. (FLUAD TRIVALENT; 65Y+) (AIIV3) 03/29/2024 INFLUENZA VACCINE, QUADR. (A FLURIA, FLUZONE QUADRIVALENT; 6MO+) (IIV4) 03/03/2014 INFLUENZA VACCINE, QUADR. (F LUZONE; FLULAVAL; FLUARIX; AFLURIA QUADRIVALENT; 6MO+), 0.5 ML (IIV4) 01/16/2017,04/03/2016,01/13/2015 PNEUMOCOCCAL PPSV23 07/28/2017 Pneumococcal Pcv13 Conj 05/27/2016 TDAP (7yrs+) 01/28/2014 TYPHOID IM 08/28/2014,08/27/2014 ZOSTER VACCINE, LIVE 06/07/2015 iNFLUENZA VACCINE, RECOM-HAGEN, QUADR. (FLUBLOCK QUADRIVALENT; 18Y+) (RIV4) 02/08/2020,02/18/2019,01/21/2018 Family History Medical History Relation Name Comments CAD (Coronary Artery Disease) Brother 2 Stents Cancer - Prostate Brother 3 Hypertension Brother 3 Cancer Brother 4 Prostate Kidney Stones Brother 5 CVA Father hemorrhage CAD (Coronary Artery Disease) Mother Relation Name Status Comments Brother 1 Alive x2 Brother 2 Brother 3 Brother 4 Brother 5 Father (Age 56) Maternal Grandfather Maternal Grandmother Mother (Age 80) Paternal Grandfather Paternal Grandmother Social History Tobacco Use Types Packs/Day Years [...] Recorded Patient Health Questionnaire-2 Score 1 09/24/2023 [place] [employer] Occupat ional Health - Occupational Stress [...] place to sleep or slept in a group home (including now)? No 06/03/2023 Sex and Gender Information Value Date Recorded Sex Assigned at Male 12/04/2020 10:12 AM CDT Gender Identity Male 12/04/2020 10:12 AM CDT Sexual Orientation Straight 12/04/2020 10 :12 AM CDT Last Filed Vital Signs Vital Sign Reading Time Taken Comments Blood Pressure 116/62 03/29/2024 11:28 AM CHANNEL MACHINE OPERATOR Pulse 63 03/29/2024 11:28 AM CHANNEL MACHINE OPERATOR Temperature 36.7 C (98 F) 03/29/2024 11:28 AM CHANNEL MACHINE OPERATOR Respiratory Rate 16 06/19/2023 11:51 AM CHANNEL MACHINE OPERATOR Oxygen Saturation 96% 03/29/2024 11:28 AM CHANNEL MACHINE OPERATOR Inhaled Oxygen Concentration 21% 07/17/2013 2 :00 PM CDT Weight 97.3 kg (214 lb 6.4 oz) 03/29/2024 11:28 AM CHANNEL MACHINE OPERATOR Height 180.3 cm (5' 11 ) 03/29/2024 11:28 AM CHANNEL MACHINE OPERATOR Body Mass Index 29.9 03/29/2024 11:28 AM CHANNEL MACHINE OPERATOR Plan of Treatment Upcoming Encounters Date Type Department Care Team (Late st Contact Info) Description 09/29/2024 10:20 AM CDT Office Visit [facility] - Internal Medicine [address] [facility] [place] [address] Aury Gongora, TIRE ASSEMBLER-DIET THERAPIST [address] [place] [place] [address] Health Maintenance Due Date Last Done Comments COLOGUARD (AGES 45-75) - COLON CA SCREENING 1950 CT COLONOGRAPHY - COLON CA SCREENING 1950 FIT - COLON CA SCREENING 1950 FLEX SIG - COLON CA SCREENING 1950 Respiratory Syncytial Virus (RSV) Vaccine Pt: or over 60 yrs (1 - Risk 60-74 years 1-dose series) 2011 ZOSTER VACCINE (2 of 3) 08/02/2015 06/07/2015 COVID-19 VACCINE ( season) 2024 03/18/2023, 02/20/2022, 02/27/2021, Additional history exists DTAP/TDAP/TD VACCINES (2 - Td or Tdap) 01/29/2024 01/28/2014 DEPRESSION SCREENING 05/05/2024 09/19/2023, 08/21/2022, 07/30/2021 MEDICARE AWV 12 MONTHS 09/23/2024 09/24/2023, 08/21/2022, 07/30/2021, Additional history exists SCREENING FOR DIABETES 05/18/2027 , 06/03/2023, 05/19/2023, Additional history exists COLON MONITORING 08/11/2031 08/10/2021, 12/2021, 08/10/2021, Additional history exists COLONOSCOPY - COLON CA SCREENING 08/11/2031 08/10/2021, 08/10/2021, 08/10/2021, Additional history exists Colorectal Cancer Screening 08/11/2031 HEPATITIS C SCREENING Completed 08/23/2014 PNEUMOCOCCAL VACCINE 50+ Completed 07/28/2017, 05/06 INFLUENZA VACCINE Completed 03/29/2024, , 02/15/2022, Additional history exists HEPATITIS B VACCINE Aged Out No longe r eligible based on patient's age to complete this topic HIB VACCINE Aged Out No longer eligi ble based on patient's age to complete this topic HPV VACCINE Aged Out No longer eligi ble based on patient's age to complete this topic MENINGOCOCCAL (Group B) VACCINE Aged Out No longer eligible based on patient's age to complete this topic MENINGOCOCCAL VACCINE Aged Out No corine jamie eligible based on patient's age to complete this topic Goals Goal Patient Goal Type Associated Problems Recent Progress Patient-Stated? Author Blood Pressure < 140/90 Blood Pressure 116/62(2023 11:28 AM CHANNEL MACHINE OPERATOR) No Royer christian, KATHRYN Regan Note: Medications: Keep a written list of what medicines you are taking and when you take them. Bring the list of your medicines or the pill bottles when you see your provider. Learn why you take each medicine. Ask your provider or pharmacist for information about your medicines. Do not take awil-acm-ftmjeys medicine or herbal supplements without talking to [...] Where can I go for more information? [employer] National Center: http://www.americanheart.org 1. In the top header click on conditions 2. In the top header click on high blood pressure [id number] ( ) National Heart, Lung and Blood [place]: http://www.nhlbi.nih.gov/health/infoctr/index.htm Exercise 3X per week (30 min per time) Exercise No Lesly Raymundo, TROY HMR DIET Lifestyle No Lesly Raymundo RN Weight < 86.183 kg (190 lb) Weight 97.3 kg (214 lb 6.4 oz)( 11:28 AM CHANNEL MACHINE OPERATOR) No Lesly Raymundo RN Medical Devices Implanted Type Area Rinkman Device Identifier Shelf Expiration Date Model / Serial / Lot Brdg Achilles Speed Implanted:Qty : 1 on 08/11/2015 by Keila Borjas MD at [facility] Right: Shoulder [employer] 06/04/2017 [id number] / / [id number] Swvllgenny Dbl Ld Biocomp 4.75mm Implanted:Qty : 1 on 08/11/2015 by Keila Borjas MD at [facility] Right: Shoulder [employer] 05/04/2017 [id number] / / [id number] Cmnt Bone Plc R 40gm Grn Implanted:Qty : 1 on 06/03/2023 by Denis Mckee MD at [facility] Right: Knee [employer] 10/02/2025 [id number] / / [id number] Cmnt Bone Plc R 40gm Grn Implanted:Qty : 1 on 06/03/2023 by Denis Mckee MD at [facility] Right: Knee [employer] 11/01/2025 [id number] / / [id number] Cmpnt Ptlr Std 34mm 3 Pg Kn Ser A Implanted:Qty : 1 on 06/03/2023 by Denis Mckee MD at [facility] Right: Knee [employer] 01/28/2028 [id number] / / [id number] Cmpnt Fem Kn Rt Cr Cmnt Prm Vngrd Intlk 675mm Implanted:Qty : 1 on 06/03/2023 by Denis Mckee MD at [facility] Right: Knee [employer] 03/06/2033 [id number] / / [id number] Tray Tib 83mm As Mx Kn Intlk Cocr 1 Pc Implanted:Qty : 1 on 06/03/2023 by Denis Mckee MD at [facility] Right: Knee [employer] 05/18/2032 [id number] / / [id number] Champ Brng 23p25bi Vivacit-E Kn Ant Stab Implanted:Qty : 1 on 06/03/2023 by Denis Mckee MD at [facility] Right: Knee [employer] 03/19/2028 [id number] B ILL ONLY / / [id number] Procedures Procedure Name Priority Date/Time Associated Diagnosis Comments CBC W/O DIFFERENTIAL Routine 05/18/2024 8:50 AM CHANNEL MACHINE OPERATOR PROSTATE SPECIFIC ANTIGEN SCREEN Routine 05/18/2024 8:50 AM CHANNEL MACHINE OPERATOR Prostate cancer screening LIPID PROFILE REFLEX LDL DIRECT Routine 05/18/2024 8:50 AM CHANNEL MACHINE OPERATOR Mixed hyperlipidemia COMPREHENSIVE METABOLIC PANEL Routine 05/18/2024 8:50 AM CHANNEL MACHINE OPERATOR Essential hypertension ENDOSCOPY, COLON, DIAGNOSTIC Routine 08/10/2021 10:46 AM CDT HEPATITIS C ANTIBODY Routine 08/23/2014 2:17 PM CDT Need for hepatitis C screening test from Last 3 Months or Most Recently Relevant to Health Maintenance Results * (ABNORMAL) LIPID PROFILE REFLEX LDL DIRECT (05/18/2024 8:50 AM CHANNEL MACHINE OPERATOR) Cholesterol 149 100 - 199 mg/dL [facility] [...] BLOOD SPECIMEN / Unknown 05/18/2024 8:50 AM CHANNEL MACHINE OPERATOR 05/18/2024 Narrative [facility] INSURANCE BILL - 05/19/2024 6:10 AM CHANNEL MACHINE OPERATOR Performed at: - [facility] [address] [id number] Budget And Policy Analyst: Dexter Gutierrez PhD, Phone: [phone] Rodolfo Schmidt DO LAB - CHEMISTRY ORDE RABLES Performing Organization Address [facility]/ZIP Co de Phone Number [facility] INSURANCE BILL [address] [place] [address] * CBC W/O DIFFERENTIAL (05/18/2024 8:50 AM CHANNEL MACHINE OPERATOR) WBC 3.9 3.4 - 10.8 x10E3/uL [facility] [...] x10E3/uL [facility] INSURANCE BILL 05/18/2024 8:50 AM CHANNEL MACHINE OPERATOR 05/18/2024 Narrative [facility] INSURANCE BILL - 05/19/2024 12:06 AM CHANNEL MACHINE OPERATOR Performed at: - [facility] [address] [id number] Budget And Policy Analyst: Dexter Gutierrez PhD, Phone: [phone] Rodolfo Schmidt DO LAB - HEMATOLOGY ORD ERABLES Performing Organization Address [facility]/ZIP Co de Phone Number [facility] INSURANCE BILL [address] [place] [address] * COMPREHENSIVE METABOLIC PANEL (05/18/2024 8:50 AM CHANNEL MACHINE OPERATOR) Glucose 91 70 - 99 mg/dL [facility] [...] BLOOD SPECIMEN / Unknown 05/18/2024 8:50 AM CHANNEL MACHINE OPERATOR 05/18/2024 Narrative [facility] INSURANCE BILL - 05/19/2024 6:10 AM CHANNEL MACHINE OPERATOR Performed at: - [address] [id number] Budget And Policy Analyst: Dexter Gutierrez PhD, Phone: [phone] Rodolfo Schmidt DO LAB - CHEMISTRY HARJEET MACKEY Performing Organization Address City/State/[facility] Co de Phone Number [facility] INSURANCE BILL [address] [place] [address] * PROSTATE SPECIFIC ANTIGEN SCREEN (05/18/2024 8:50 AM CHANNEL MACHINE OPERATOR) Pathologist [facility] PSA 1.2 0.0 - 4.0 ng/mL [facility] INSURANCE BILL Comment: Olga Lidia ECLIA methodology. According to the [employer], Serum PSA should decrease and [...] BLOOD SPECIMEN / Unknown 05/18/2024 8:50 AM CHANNEL MACHINE OPERATOR 05/18/2024 Narrative [facility] INSURANCE BILL - 05/19/2024 6:10 AM CHANNEL MACHINE OPERATOR Performed at: - [address] [id number] Budget And Policy Analyst: Dexter Gutierrez PhD, Phone: [phone] Rodolfo Schmidt DO LAB - CHEMISTRY HARJEET MACKEY [facility] INSURANCE BILL [address] [place] [address] * ENDOSCOPY, COLON, DIAGNOSTIC (08/10/2021 10:46 AM CDT) Report Endoscopy POC _ Patient Name: Francisco Javier Burrows Procedure Date: 08/10/2021 10:46 AM Date of : 1950 Admit Type: Outpatient Age: 71 Room: ROOM 3 Gender: Male Attending MD: Alexander Marin MD _ Procedure: Colonoscopy Indications: Melena Providers: Alexander Marin MD, Dianne Godinez RN, Mary Johansen RN, ALEXANDER PEDRO CRNA (Anesthesia Staff) Referring MD: Delores Vences MD (Referring MD) Medicines: Monitored Anesthesia Care [...] 2 days. Procedure Code(s): --- Professional --- 57379 --- Technical --- 89092 Diagnosis Code(s): --- Professional --- K63.5 K64.8 K92.1 --- Technical --- K63.5 K64.8 K92.1 CPT copyright 2019 [employer]. All rights reserved. The codes documented in this report are preliminary and upon aircraft hydraulic equipment mechanic review may be revised to meet current compliance requirements. ____ Alexander Marin MD 08/10/2021 11:18:30 AM This report has been signed electronically. Number of Addenda: 0 Note Initiated On: 08/10/2021 10:46 AM [facility] ENDOSCOPY 08/10/2021 10:4 6 AM CDT Alexander Marin MD GI PROCEDURE ORDERAB LES [facility] ENDOSCOPY * HEPATITIS C ANTIBODY (08/23/2014 2:17 PM [...] offers HCV Ab w/Reflex to Verification test #[id number]. Blood specimen (specimen) BLOOD SPECIMEN / Unknown 08/23/2014 2:17 PM CDT 08/23/2014 5:23 PM CDT Narrative Resulting Agency Comment [facility] [address] [id number] Delores Vences MD LAB - CHEMISTRY HARJEET MACKEY [facility] ACCOUNT BILL from Last 3 Months or Most Recently Relevant to Health Maintenance Advance Directives Documents on File Type Date Recorded Patient Patrol Mother Expl anation Adv Directive/Living Will/POA 04/22/2013 9:09 AM * Full Code (Latest Code Status on File) Date Activated Date Inactivated Comments 06/05/2023 11:06 AM To update the patient's code status, place a code status order. Do not modify or discontinue any currently active code status orders. * Full Code Date Activated Date Inactivated Comments 06/03/2023 9:49 AM 06/04/2023 3:05 PM * Full Code Date Activated Date Inactivated Comments 04/21/2015 2:51 AM 04/21/2015 7:20 PM * Full Code Date Activated Date Inactivated Comments 12/19/2014 7:35 PM 12/20/2014 10:50 AM * Full Code Date Activated Date Inactivated Comments 07/22/2013 9:32 AM 07/23/2013 10:28 AM Care Teams Cigar Packer And Grader Relationship Specialty Start Date End Date Rodolfo Schmidt DO [address] [place] [address] PCP - General Internal Medicine 01/30/22 Rodolfo Schmidt DO [address] [place] [address] PCP - Attributed-MSSP 11/03/23 Josef Gray MD Urology 08/23/14 [place] [address] [address] [id number] Orthopedic Surgery 11/14/14 Hari Babb MD [facility] [place] [address] Anesthesiology 03/30/19 Alexander Peterson MD [address] [place] [id number] Cardiology 12/06/20 Luca Saldana MD [address] [facility] [address] [place] [address] Cardiovascular Disease 07/30/21 [place] [address] [address] [facility] [address] [place] [address] Anesthesiology 01/30/22 [place] [address] [facility] [address] [place] [address] Physician Denial Management Representative Physician Denial Management Representative 09/24/23 [place] [address] [facility] [address] [place] [address] Orthopedic Surgery 09/24/23
--- OUTSIDE RECORDS SUMMARY | 2024-06-29 10:25 | XMS_ITS | Referral Summary ---
Author Organization [facility] Address [address] [place] [address] Care Team Providers Care Patrol Guard Name Role Phone Josef Gray MD Unavailable Keila Borjas MD Unavailable Hari Babb MD Unavailable Alexander Peterson MD Unavailable Luca Saldana MD Unavailable Rodolfo Schmidt DO Primary Care Provider Jalil Villa MD Unavailable Linda Kennedy Unavailable [phone] Denis Mckee MD Unavailable [phone] Rodolfo Schmidt DO Unavailable Source Comments [facility],non-owned Affiliates and Associated Physician Practices is amultiple site organization consisting of ambulatory clinics and hospital sitesin [place], [place], [place]. This disclosure is being madepursuant to the Care Everywhere program and may not contain all information available regarding this patient. Last updated 18.[facility] Encounters Date Type Department Care Team Description 05/17/2024 Refill [facility] - Internal Medicine [address] [facility] [place] [address] [place] [address] Rodolfo Schmidt DO Refill Request 04/09/2024 Refill [facility] Internal Medicine [address] [facility] [place] [place] [address] Rodolfo Schmidt DO Refill Request 03/29/2024 11:40 AM HOPPER FILLER Office Visit [facility] - Internal Medicine [address] [facility] [place] [place] [place] [address] Rodolfo Schmidt DO Essential hypertension (Primary Dx); CAD in [place] artery; Mixed hyperlipidemia; H/O total knee replacement, right; Chronic pain of left knee; Need for prophylactic vaccination and inoculation against influenza; Prostate cancer screening from Last 3 Months Allergies Active Allergy [...] (periodic limb movement disorder) 7 CAD in [place] artery 05/12/2015 History of coronary artery stent placement 11/10 Overview (08/25/2020): 08/04/2020 LAD stent in [place]. 3 new ERVIN [employer] Synergy, 3 x16mm, 3.5 x 28 mm, 3.5 x 8 mm in LAD [facility] Dr Almanza 07/16/13 ERVIN in [place] [...] Clonazepam since early 2013. Alprazolam since before [id number] Fluoxetine- c/o headache Essential hypertension Overview (04/20/2019): [...] Chest pain 01/28/2014 Obesity (BMI 30.0-34.9) 08/2018 Immunizations Name Administration Dates Next Due COVID [...] RECOM-HAGEN, QUADR. (FLUBLOCK QUADRIVALENT; 18Y+) (RIV4) 02/08/2020,02/18/2019,01/21/2018 Social History Tobacco Use Types Packs/Day Years [...] Recorded Patient Health Questionnaire-2 Score 1 09/24/2023 [facility] - Occupational [...] place to sleep or slept in a long term (including now)? No 06/03/2023 Sex and Gender Information Value Date Recorded Sex Assigned at Male 12/04/2020 10:12 AM CDT Gender Identity Male 12/04/2020 10:12 AM CDT Sexual Orientation Straight 12/04/2020 10 :12 AM CDT Last Filed Vital Signs Vital Sign Reading Time Taken Comments Blood Pressure 116/62 03/29/2024 11:28 AM HOPPER FILLER Pulse 63 03/29/2024 11:28 AM HOPPER FILLER Temperature 36.7 C (98 F) 03/29/2024 11:28 AM HOPPER FILLER Respiratory Rate 16 06/19/2023 11:51 AM HOPPER FILLER Oxygen Saturation 96% 03/29/2024 11:28 AM HOPPER FILLER Inhaled Oxygen Concentration 21% 07/17/2013 2 :00 PM CDT Weight 97.3 kg (214 lb 6.4 oz) 03/29/2024 11:28 AM HOPPER FILLER Height 180.3 cm (5' 11 ) 03/29/2024 11:28 AM HOPPER FILLER Body Mass Index 29.9 03/29/2024 11:28 AM HOPPER FILLER Functional Status Functional Status Response Date of Assess ment Is person deaf or have serious hearing difficult y? No 08/10/2021 Is person blind or have serious difficulty seein g? No 08/10/2021 Does person have serious dif ficulty walking/climbing stairs? No 08/10/2021 Does person have difficulty dressing/bathing? No 08/10/2021 Does person have difficulty doing errands alone? No 08/10/2021 Cognitive Status Response Date of Assessm ent Does person have difficulty concentrating/remembering/making decisions? No 08/10/2021 Plan of Treatment Upcoming Encounters Date Type Department Care Team (Late st Contact Info) Description 09/29/2024 10:20 AM CDT Office Visit [facility] - Internal Medicine [address] [place] [address] Aury Gongora, GUNSMITH APPRENTICE-GEOPHYSICS SCIENTIST [address] [place] [address] Goals Goal Patient Goal Type Associated Problems Recent Progress Patient-Stated? Author Blood Pressure < 140/90 Blood Pressure 116/62(2023 11:28 AM HOPPER FILLER) No Shereen Lopez MA Note: Medications: Keep a written list of what medicines you are taking and when you take them. Bring the list of your medicines or the pill bottles when you see your provider. Learn why you take each medicine. Ask your provider or pharmacist for information about your medicines. Do not take nrzr-[id number] medicine or herbal supplements without talking to [...] Where can I go for more information? [employer] National Center: http://www.americanheart.org 1. In the top header click on conditions 2. In the top header click on high blood pressure [id number] ( ) National Heart, Lung and Blood [place]: http://www.nhlbi.nih.gov/health/infoctr/index.htm Exercise 3X per week (30 min per time) Exercise No Lesly Raymundo RN HMR DIET Lifestyle No Lesly Raymundo RN Weight < 86.183 kg (190 lb) Weight 97.3 kg (214 lb 6.4 oz)( 11:28 AM HOPPER FILLER) No Lesly Raymundo RN Medical Devices Implanted Type Area Wharfinger Chief Device Identifier Shelf Expiration Date Model / Serial / Lot Brdg Achilles Speed Implanted:Qty : 1 on 08/11/2015 by Keila Borjas MD at [facility] Right: Shoulder [employer] 06/04/2017 [id number] / / [id number] Swvllok Dbl Ld Biocomp 4.75mm Implanted:Qty : 1 on 08/11/2015 by Keila Borjas MD at [facility] Right: Shoulder [employer] 05/04/2017 [id number] / / [id number] Cmnt Bone Plc R 40gm Grn Implanted:Qty : 1 on 06/03/2023 by Denis Mckee MD at [facility] Right: Knee [employer] 10/02/2025 [id number] / / [id number] Cmnt Bone Plc R 40gm Grn Implanted:Qty : 1 on 06/03/2023 by Denis Mckee MD at [facility] Right: Knee [employer] 11/01/2025 [id number] / / [id number] Cmpnt Ptlr Std 34mm 3 Pg Kn Ser A Implanted:Qty : 1 on 06/03/2023 by Denis Mckee MD at [facility] Right: Knee [employer] 01/28/2028 [id number] / / [id number] Cmpnt Fem Kn Rt Cr Cmnt Prm Vngrd Intlk 675mm Implanted:Qty : 1 on 06/03/2023 by Denis Mckee MD at [facility] Right: Knee [employer] 03/06/2033 [id number] / / [id number] Tray Tib 83mm As Mx Kn Intlk Cocr 1 Pc Implanted:Qty : 1 on 06/03/2023 by Denis Mckee MD at [facility] Right: Knee [employer] 05/18/2032 [id number] / / [id number] Champ Brng [id number] Vivacit-E Kn Ant Stab Implanted:Qty : 1 on 06/03/2023 by Denis Mckee MD at [facility] Right: Knee [employer] 03/19/2028 [id number] B ILL ONLY / / [id number] Procedures Procedure Name Priority Date/Time Associated Diagnosis Comments CBC W/O DIFFERENTIAL Routine 05/18/2024 8:50 AM HOPPER FILLER PROSTATE SPECIFIC ANTIGEN SCREEN Routine 05/18/2024 8:50 AM HOPPER FILLER Prostate cancer screening LIPID PROFILE REFLEX LDL DIRECT Routine 05/18/2024 8:50 AM HOPPER FILLER Mixed hyperlipidemia COMPREHENSIVE METABOLIC PANEL Routine 05/18/2024 8:50 AM HOPPER FILLER Essential hypertension ENDOSCOPY, COLON, DIAGNOSTIC Routine 08/10/2021 10:46 AM CDT HEPATITIS C ANTIBODY Routine 08/23/2014 2:17 PM CDT Need for hepatitis C screening test from Last 3 Months or Most Recently Relevant to Health Maintenance Results * (ABNORMAL) LIPID PROFILE REFLEX LDL DIRECT (05/18/2024 8:50 AM HOPPER FILLER) Cholesterol 149 100 - 199 mg/dL [facility] [...] BLOOD SPECIMEN / Unknown 05/18/2024 8:50 AM HOPPER FILLER 05/18/2024 Narrative [facility] INSURANCE BILL - 05/19/2024 6:10 AM HOPPER FILLER Performed at: - [facility] [address] [id number] Chief Juvenile Probation Officer: Dexter Gutierrez PhD, Phone: [phone] Rodolfo Schmidt DO LAB - CHEMISTRY ORDE RABLES Performing Organization Address [facility] Co de Phone Number [facility] INSURANCE BILL [address] [place] [address] * CBC W/O DIFFERENTIAL (05/18/2024 8:50 AM HOPPER FILLER) WBC 3.9 3.4 - 10.8 x10E3/uL [facility] [...] x10E3/uL [facility] INSURANCE BILL 05/18/2024 8:50 AM HOPPER FILLER 05/18/2024 Narrative [facility] INSURANCE BILL - 05/19/2024 12:06 AM HOPPER FILLER Performed at: - [facility] [address] [id number] Chief Juvenile Probation Officer: Dexter Gutierrez PhD, Phone: [phone] Rodolfo Schmidt DO LAB - HEMATOLOGY ORD ERABLES Performing Organization Address [facility] Co de Phone Number [facility] INSURANCE BILL [address] [place] [address] * COMPREHENSIVE METABOLIC PANEL (05/18/2024 8:50 AM HOPPER FILLER) Glucose 91 70 - 99 mg/dL [facility] [...] BLOOD SPECIMEN / Unknown 05/18/2024 8:50 AM HOPPER FILLER 05/18/2024 Narrative [facility] INSURANCE BILL - 05/19/2024 6:10 AM HOPPER FILLER Performed at: 01 - [place] [id number] [place], [place] [id number] Chief Juvenile Probation Officer: Dexter Gutierrez PhD, Phone: [phone] Rodolfo Schmidt DO LAB - CHEMISTRY HARJEET MACKEY [facility] INSURANCE BILL [address] [place] [address] * PROSTATE SPECIFIC ANTIGEN SCREEN (05/18/2024 8:50 AM HOPPER FILLER) PSA 1.2 0.0 - 4.0 ng/mL [facility] INSURANCE BILL Comment: Olga Lidia ECLIA methodology. According to the [employer], Serum PSA should decrease and [...] BLOOD SPECIMEN / Unknown 05/18/2024 8:50 AM HOPPER FILLER 05/18/2024 Narrative [facility] INSURANCE BILL - 05/19/2024 6:10 AM HOPPER FILLER Performed at: - [address] [id number] Chief Juvenile Probation Officer: Dexter Gutierrez PhD, Phone: [phone] Rodolfo Schmidt DO LAB - CHEMISTRY HARJEET MACKEY [facility] INSURANCE BILL [address] [place] [address] * ENDOSCOPY, COLON, DIAGNOSTIC (08/10/2021 10:46 AM [...] 2 days. Procedure Code(s): --- Professional --- 91839 --- Technical --- 92845 Diagnosis Code(s): --- Professional --- K63.5 K64.8 K92.1 --- Technical --- K63.5 K64.8 K92.1 CPT copyright 2019 [employer]. All rights reserved. The codes documented in this report are preliminary and upon mix mill tender review may be revised to meet current compliance requirements. ____ Alexander Marin MD 08/10/2021 11:18:30 AM This report has been signed electronically. Number of Addenda: 0 Note Initiated On: 08/10/2021 10:46 AM [facility] 08/10/2021 10:4 6 AM CDT Alexander Marin MD GI PROCEDURE ORDERAB LES [facility] * HEPATITIS C ANTIBODY (08/23/2014 2:17 [...] a more specific supplemental or PCR testing. [facility] offers HCV Ab w/Reflex to Verification test #[id number]. 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 [employer] Adv Directive/Living Will/POA 04/22/2013 9:09 [...] 9:32 AM 07/23/2013 10:28 AM Care Teams Patrol Guard Relationship Specialty Start Date End Date Rodolfo Schmidt DO [address] [place] [address] PCP - General Internal Medicine 01/30/22 Rodolfo Schmidt DO [address] [place] [address] PCP - Attributed-MSSP 11/03/23 Josef Gray MD Urology 08/23/14 [place] [address] [address] Orthopedic Surgery 11/14/14 Hari Babb MD [address] [place] [address] Anesthesiology 03/30/19 Alexander Peterson MD [address] [address] Cardiology 12/06/20 Luca Saldana MD [address] [facility] [address] [place] [address] Cardiovascular Disease 07/30/21 [place] [address] [facility] [address] [address] Anesthesiology 01/30/22 [place] [address] [facility] [address] [place] [address] Physician Body Team Member Physician Body Team Member 09/24/23 [place] [address] [facility] [address] [place] [phone] Orthopedic Surgery 09/24/23
[2024-06-29 10:38] LABS: Influenza A QL RT-PCR Negative (Negative); Influenza B QL RT-PCR Negative (Negative); RSV RNA, RT-PCR Negative (Negative); SARS-CoV-2 RNA PCR Negative (Negative)
[2024-06-29 11:20] LABS: Add Urine Microscopic? NO; Appearance Urine Clear (Clear); Bilirubin Urine Negative (Negative); Blood Urine Negative (Negative); Color Urine Yellow (Yellow); Glucose Urine UA Negative (Negative); Ketones Urine Negative (Negative); Leukocyte Esterase Ur Negative LEU/UL (Negative); Nitrate Urine Negative (Negative); Protein Urine Negative (Negative); Specific Grav Ur 1.014 (1.001-1.035); Urobilinogen Urine 0.2 mg/dL (<2.0)
== END 2024-06-29 12:31 | disposition home or self-care (01) ==
PROVIDERS: Emergency Provider Physician Assistant
DX: R42 Dizziness and giddiness (principal); I25.10 Atherosclerotic heart disease of native coronary artery without angina pectoris; I10 Essential (primary) hypertension; Z20.822 Contact with and (suspected) exposure to COVID-19
CPT/HCPCS: 36415; 71046; 80053; 81003; 85025; 87637; 93005; 96360; 99284; J7030

== ENCOUNTER 2024-10-28 20:02 | Emergency (ER) | payer MEDICARE, OTHER, SELFPAY ==
[2024-10-28 20:21] VITALS: BP 174/79; PULSE 91; RESP 18; TEMP 37.9; O2SAT 94
--- NOTE | 2024-10-28 22:03 | PC.NURSE ---
Pt approached intake desk for second time and reports he is declining to be seen. Pt temperature was rechecked and pt is afebrile. Pt ambulated out w/ in NAD.
[2024-10-28 22:04] VITALS: TEMP 36.9
== END 2024-10-28 23:01 | disposition left against medical advice (07) ==
LOC: ANHED 22:51
DX: R05.9 Cough, unspecified (principal)
CPT/HCPCS: 99199